=== PATIENT | male | born 1960 | race Caucasian/White ===

== ENCOUNTER 2023-10-13 06:38 | Emergency (ER) | payer BC, SELFPAY ==
--- NOTE | ~2023-10-13 | XR_ITS ---
Cervical Spine: AP, lateral, open-mouth views Clinical History: Pain Findings: The normal lordotic curve is maintained. No acute fracture seen. There is 5 mm anterolisthe sis of C2 over C3. There is minimal grade 1 retrolisthesis of C4 over C5. There is advanced degenerat zay disc narrowing at C3-C4, C4-C5, C5-C6, and C6-C7. Mild facet joint degenerative changes are prese nt. Pre-vertebral soft tissues are unremarkable. Impression: Moderate to advanced spondylosis, as above. 5 mm anterolisthesis of C2 over C3. Reviewed, dictated and finalized at location M. Impression: Moderate to advanced spondylosis, as above. 5 mm anterolisthesis of C2 over C3.
[2023-10-13 06:40] VITALS: BP 175/99; PULSE 96; RESP 15; TEMP 37.1; O2SAT 98
[2023-10-13] MEDS: CYCLOBENZAPRINE HCL 10 MG TABLET PO (07:21)
--- NOTE | 2023-10-13 07:37 | ED_ITS ---
HPI - Neck Pain/Injury General Chief Complaint: Neck Pain/Injury Stated Complaint: neck pain Time Seen by Provider: 10/13/23 07:20 History of Present Illness HPI Narrative: Patient is a 63-year-old male who presents ER with neck pain. Ongoing over last week. Improves with ibuprofen but when he wakes up in the morning it is much worse. Has pain with range of motion. No numbness or tingling to the arms or legs. Has history of rheumatoid arthritis which is not currently being managed he is concerned he could be having a flare. No fevers or chills or sweats. No known trauma. Related Data Allergies Allergy/AdvReac Type Severity Reaction Status Date / Time No Known Allergies Allergy Unknown Verified 10/13/23 07:21 Review of Systems Constitutional: Constitutional: Reports no additional constitutional complaints ENT: Reports system reviewed and no additional complaints, except as do cumented Cardiovascular: Cardiovascular: Reports no additional cardiovascular complaints Respiratory: Respiratory: Reports no additional respiratory complaints Musculoskeletal: Musculoskeletal: Denies back pain, Denies arthralgias and Den ies joint swelling Comments: Neck pain PMFSH Past Medical History Medical History (Updated 10/13/23 @ 07:40 by William Bright MD) Alcohol abuse Arthralgia of both hands BPH w/o urinary obs/LUTS Essential (primary) hypertension Hyperlipidemia, unspecified Rheumatoid arthritis Family History Family History (System 12/21/22 @ 12:08 by Bill Hightower) Mother Hypertension Family history of elevated blood lipids Cerebrovascular accident Sibling Family history of gastrointestinal disorder Patient's sister is in good health Father Acute myocardial infarction, Onset Age: 69 Patient's father is Family history of liver disease Social History Social History (System 12/21/22 @ 12:08 by Bill Hightower) Smoking status: Never smoker Second hand tobacco smoke exposure: Yes Alcohol intake: current Substance use type: marijuana Exam Narrative: GENERAL: Well-appearing, well-nourished, and in no acute distress. HEAD: Normocephalic, atraumatic. ENT: Mucous membranes moist. NECK: Supple. No midline tenderness the C-spine. Mild paraspinal muscle tenderness of the trapezius musculature. CHEST: Clear to auscultation. No respiratory distress. HEART: Regular rate and rhythm. Normal peripheral pulses. EXTREMITIES: Normal range of motion. No edema. NEURO: Alert and oriented x3. PSYCH: Normal mood and affect. Course Course Emergency Course: Informed of imaging results. Patient given muscle relaxer to take in addition to prednisone that will be prescribed for home. Recommend reestablishing with his care team. Vital Signs Vital signs: Vital Signs Temperature 98.8 F 10/13/23 06:40 Pulse Rate 96 10/13/23 06:40 Respiratory Rate 15 10/13/23 06:40 Blood Pressure 175/99 H 10/13/23 06:40 Pulse Oximetry 98 10/13/23 06:40 Oxygen Delivery Room Air 10/13/23 06:40 Temperature 98.8 F 10/13/23 06:40 Pulse Rate 96 10/13/23 06:40 Respiratory Rate 15 10/13/23 06:40 Blood Pressure 175/99 H 10/13/23 06:40 Pulse Oximetry 98 10/13/23 06:40 Oxygen Delivery Room Air 10/13/23 06:40 MDM - Neck Pain/Injury Imaging Data Radiologist's impression: ITS Impressions Cervical Spine X-Ray 10/13/23 07:25 Impression: Moderate to advanced spondylosis, as above. 5 mm anterolisthesis of C2 over C3. Discharge Plan Discharge Clinical Impression: Strain of neck muscle Patient Disposition: Home, Self-Care Condition: Stable Instructions: Neck Pain (ED) Additional Instructions: Please return to the emergency department if you develop severe pain that is not controlled by pain medications or if you are unable to walk because of pain or weakness. Return to the emergency department immediately if you develop fevers, loss of bowel or bladder control (dribbling of urine or having accidents you wouldn't normally have), inability to urinate, numbness of your genital or anal area, or weakness/numbness of your legs or arms as these could all be signs of a serious medical emergency. Prescriptions: New cyclobenzaprine 10 mg tablet 10 mg PO TID PRN (Reason: muscle spasm) Qty: 20 0RF prednisone 50 mg tablet 50 mg PO DAILY Qty: 7 0RF Follow-up/Referrals: UNKNOWN,DOCTOR [Primary Care Provider] - 1 Week
== END 2023-10-13 08:23 | disposition home or self-care (01) ==
PROVIDERS: Emergency Provider Emergency Medicine
DX: S16.1XXA Strain of muscle, fascia and tendon at neck level, initial encounter (principal); I10 Essential (primary) hypertension; E78.5 Hyperlipidemia, unspecified; M06.9 Rheumatoid arthritis, unspecified; N40.0 Benign prostatic hyperplasia without lower urinary tract symptoms; M47.812 Spondylosis without myelopathy or radiculopathy, cervical region; X58.XXXA Exposure to other specified factors, initial encounter
CPT/HCPCS: 72040; 99283; A9270

== ENCOUNTER 2024-06-29 15:17 | Observation (INO) | payer BC, SELFPAY ==
--- NOTE | ~2024-06-29 | XR_ITS ---
XR chest 2V Ordering provider: Tj Maldonado MD History: 64 years Male with . Chest Pressure/SOB . Comparison: April 20, 2018. FINDINGS: MEDIASTINUM: The cardiac silhouette is not enlarged. LUNGS: No effusions or pneumothorax. Opacification in the left lung base medially OTHER: No free air under the diaphragm. Degenerative changes of the spine. Elevation of the left hemidiaphragm. IMPRESSION: Left basilar atelectasis versus pneumonia. Reviewed, dictated and finalized at location A. R RAT
--- NOTE | ~2024-06-29 | CT_ITS ---
CTA chest PE protocol Ordering provider: Gurvinder Jimenes MD History: 64 years Male with . dyspnea chest pain eval for PE . Comparison: None. Technique: CT angiogram chest was performed following timed intravenous injection of contrast. Thin s lice axial images and reformatted coronal images were obtained. Three dimensional reformatted images of the chest were also obtained using a [employer] workstation. . Automated exposure control and iterati ve reconstruction technique were employed. The dose-length product was 396.88 mGy-cm. 100 mL Omnipaqu e 350 was given IV. Findings: PULMONARY ARTERIES: No pulmonary embolus. VISUALIZED THORACIC INLET: Normal. MEDIASTINUM: Aorta/coronary arteries: The thoracic aorta is normal. Heart/other: The heart is not enlarged. Lymph nodes: No mediastinal or hilar adenopathy. LUNGS: No pulmonary nodules or masses. No infiltrates or effusions. No pneumothorax. Minimal atelectatic alvin nges in the left lung base. VISUALIZED UPPER ABDOMEN: the visualized upper abdomen is normal. MUSCULOSKELETAL: Soft tissues: The superficial soft tissues are normal. Bones: Age appropriate degenerative changes of the spine. Healing fractures in the right lower thorax . IMPRESSION: 1. No pulmonary embolism. 2. Minimal atelectatic changes in the left lung base. Reviewed, dictated and finalized at location A. R [employer] ENGINEER
[2024-06-29 15:19] VITALS: BP 171/107; PULSE 103; RESP 22; TEMP 36.4; O2SAT 97
--- NOTE | 2024-06-29 15:24 | ECG_ITS ---
Test Date: 2024-06-29 15:34:21 Measurements Intervals [place] Rate: 103 P: 0 OK: 0 QRS: 9 QRSD: 85 T: 35 QT: 305 QTc: 399 Interpretive Statements PROBABLE SINUS TACHYCARDIA. BASELINE ARTIFACT LIMITS INTERPRETATION NONSPECIFIC T-WAVE ABNORMALITY No previous ECG available for comparison Electronically Signed On 07-03-2024 15:51:29 [employer] by Miya Rao M.D.
[2024-06-29 15:42] LABS: Basophils Percent Auto 0.4 % (0.2-1.2); Eosinophils Absolute Auto 0.1 K/mm3 (0-0.3); Eosinophils Percent Auto 1.5 % (0-4.4); Hematocrit 49.3 % (42.0-52.0); Hemoglobin 17.3 g/dL (14.0-18.0); Immature Granulocyte Absolute 0.02 K/mm3 (0.00-0.031); Immature Granulocyte Percent A 0.4 % (0-0.5); Lymphocytes Absolute Auto 0.43 K/mm3 (0.9-3.2); Mean Corpuscular HGB Conc 35.1 g/dl (32-36); Mean Corpuscular Hemoglobin 33.9 pg (26-34); Mean Corpuscular Volume 96.7 fl (80-100); Mean Platelet Volume 9.1 fl (7.4-10.4); Monocytes Absolute Auto 0.7 K/mm3 (0.1-0.6); Monocytes Percent Auto 13.4 % (2.6-8.5); Neutrophils Absolute Auto 4.1 K/mm3 (1.3-6.7); Neutrophils Percent Auto 76.3 % (45.5-73.1); Platelet Count Result 150 k/mm3 (150-375); Red Cell Distribution Width 11.7 % (11.5-14.5); White Blood Count 5.4 K/mm3 (4.5-10.0)
[2024-06-29 15:52] LABS: Alanine Aminotransferase 39 U/L (6-50); Albumin Level 4.7 g/dL (3.5-5.1); Alkaline Phosphatase 74 U/L (38-126); Anion Gap 5 mmol/L (4-12); Aspartate Amino Transferase 54 U/L (17-59); Bilirubin,Total 0.9 mg/dL (0.2-1.3); Blood Urea Nitrogen 14 mg/dL (9-20); Carbon Dioxide 27 mmol/L (22-30); Chloride 104 mmol/L (98-107); Estimated CRCL calculation 67 ml/min; Estimated Glomerular Filt Rate > 60; Glucose 94 mg/dL (65-110); Lipase 74 U/L (23-300); Potassium 4.2 mmol/L (3.4-5.0); Sodium 136 mmol/L (137-145)
[2024-06-29 15:54] LABS: Prothrombin Time 13.1 Seconds (11.1-14.7)
[2024-06-29 15:55] LABS: Partial Thromboplastin Time 29.5 Seconds (22.3-36.8)
[2024-06-29 16:02] LABS: Troponin I < 0.012 ng/mL (0.000-0.034)
[2024-06-29] MEDS: ASPIRIN 81 MG CHEWABLE TABLET 324 MG PO (19:24)
[2024-06-29 19:26] VITALS: BP 162/116; PULSE 110; RESP 20; TEMP 37; O2SAT 97
[2024-06-29 19:49] LABS: Troponin I < 0.012 ng/mL (0.000-0.034)
[2024-06-29] MEDS: IPRATROPIUM 0.5 MG/ALBUTEROL SULFATE 2.5 MG AMPUL.NEB 3 ML INHALATION (19:50)
[2024-06-29 19:55] VITALS: PULSE 111; RESP 24
[2024-06-29 20:04] LABS: Alveolar/Arterial O2 Gradient 104.1 mmHg; Base Excess ABG -2.5 mEq/l (+/-2.0); Device NASAL CANNULA; Fractional Inspired Oxygen 32 %; HCO3 ABG 20.5 mEq/l (22.0-26.0); Modified Allen's Test Pass; Oxygen Content ABG 24.7 %vol (16.0-22.0); Oxygen Saturation ABG 96.9 % (95.0-100.0); Oxyhemoglobin 96.5 % THb (90.0-100.0); PCO2 ABG 31.7 mmHg (35.0-45.0); PO2 FiO2 Ratio Arterial Blood 2.72 %; Site Drawn RIGHT RADIAL; Total Hemoglobin 18.2 g/dL (12.0-18.0); pH ABG 7.428 (7.350-7.450)
[2024-06-29 21:47] LABS: Lactic Acid Reflex 1.3 mmol/L (0.7-2.0)
[2024-06-29] MEDS: methylPREDNISolone SOD SUCC 125 MG VIAL IV PUSH (21:55)
[2024-06-29 21:56] VITALS: BP 139/105; PULSE 111; RESP 22; TEMP 36.9; O2SAT 96
[2024-06-29 21:57] LABS: NT Pro B Type Natriuretic Pept 78 pg/mL (19.9-100)
--- NOTE | 2024-06-29 21:58 | ED.GENADULT ---
HPI - General Adult General Chief complaint: Shortness of Breath/Dyspnea Stated complaint: SOB Time Seen by Provider: 06/29/24 19:14 History of Present Illness HPI narrative: patient is a 64-year-old gentleman who presents emergency department chief complaint of shortness of breath. The patient reports he smokes a pack a day reports that over the last 3 days has been having increasing shortness of breath worse whenever he lays flat the patient reports he has had a cough and also has been wheezing. The patient denies fever reports that he has not been previously diagnosed with COPD. Related Data Allergies Allergy/AdvReac Type Severity Reaction Status Date / Time No Known Allergies Allergy Unknown Verified 10/13/23 07:21 Review of Systems Review of Systems: A 10 system review of systems was completed on the patient and is negative except for what is stated in the HPI. Nursing and ancillary documentation was reviewed. PMFSH Past Medical History Medical History Rheumatoid arthritis Hyperlipidemia, unspecified Essential (primary) hypertension BPH w/o urinary obs/LUTS Arthralgia of both hands Alcohol abuse Family History Family History Mother Hypertension Family history of elevated blood lipids Cerebrovascular accident Sibling Family history of gastrointestinal disorder Patient's sister is in good health Father Acute myocardial infarction, Onset Age: 69 Patient's father is Family history of liver disease Social History Social History Smoking status: Never smoker Second hand tobacco smoke exposure: Yes Alcohol intake: current Substance use type: marijuana Exam Narrative: GENERAL: Well-appearing, well-nourished, and in no acute distress. HEAD: Normocephalic, atraumatic. EYES: PERRLA and EOMI. ENT: Nares clear, no rhinorrhea or epistaxis. Mucous membranes moist. NECK: Supple. CHEST: scattered wheezes to auscultation. Mild respiratory distress. HEART: tachycardic rate and regular rhythm. No murmur heard. Normal peripheral pulses. ABDOMEN: Soft, nontender, nondistended, normal active bowel sounds. EXTREMITIES: Normal range of motion. No edema. SKIN: Warm, dry, no rash. NEURO: No focal deficits. Alert and oriented x3. PSYCH: Normal mood and affect. Course Vital Signs Vital signs: Vital Signs Temperature 36.4 C L 01/04/25 15:19 Pulse Rate 103 H 06/29/24 15:19 Respiratory Rate 22 H 06/29/24 15:19 Blood Pressure 171/107 H 06/29/24 15:19 Pulse Oximetry 97 06/29/24 15:19 Oxygen Delivery Room Air 06/29/24 15:19 Temperature 36.9 C 06/29/24 21:56 Pulse Rate 105 H 06/29/24 22:16 Respiratory Rate 19 06/29/24 22:16 Blood Pressure 162/112 H 06/29/24 22:16 Pulse Oximetry 97 06/29/24 22:16 Oxygen Delivery Room Air 06/29/24 19:39 Medical Decision Making MDM Narrative Medical decision making narrative: differential diagnosis includes pneumonia, COPD, CHF, bronchospasm, ACS EKG was obtained which showed sinus tachycardia. Troponin was negative on initial chest x-ray showed no focal consolidation. CTA chest showed no evidence of PE and influenza was positive the patient was admitted for further care Vital Signs Vital Signs: Vital Signs Temperature 36.4 C L 06/29/24 15:19 Pulse Rate 103 H 06/29/24 15:19 Respiratory Rate 22 H 06/29/24 15:19 Blood Pressure 171/107 H 06/29/24 15:19 Pulse Oximetry 97 06/29/24 15:19 Oxygen Delivery Room Air 06/29/24 15:19 Temperature 36.9 C 06/29/24 21:56 Pulse Rate 105 H 06/29/24 22:16 Respiratory Rate 19 06/29/24 22:16 Blood Pressure 162/112 H 06/29/24 22:16 Pulse Oximetry 97 06/29/24 22:16 Oxygen Delivery Room Air 06/29/24 19:39 Lab Data 06/29/24 15:33 06/29/24 15:33 Labs: Lab Results 06/29/24 06/29/24 06/29/24 Range/Units 15:33 19:18 21:31 WBC 5.4 (4.5-10.0) K/mm3 RBC 5.10 (4.6-6.20) M/mm3 Hgb 17.3 (14.0-18.0) g/dL Hct 49.3 (42.0-52.0) % MCV 96.7 (80-100) fl MCH 33.9 (26-34) pg MCHC 35.1 (32-36) g/dl RDW 11.7 (11.5-14.5) % Plt Count 150 (150-375) k/mm3 MPV 9.1 (7.4-10.4) fl Immature Gran % (Auto) 0.4 (0-0.5) % Neut % (Auto) 76.3 H (45.5-73.1) % Lymph % (Auto) 8.0 L (18.3-44.2) % [place] % (Auto) 13.4 H (2.6-8.5) % Eos % (Auto) 1.5 (0-4.4) % Baso % (Auto) 0.4 (0.2-1.2) % Lymph # (Auto) 0.43 L (0.9-3.2) K/mm3 [place] # (Auto) 0.7 H (0.1-0.6) K/mm3 Eos # (Auto) 0.1 (0-0.3) K/mm3 Baso # (Auto) 0.0 (0.0-0.1) K/mm3 Abs Immat Gran (auto) 0.02 (0.00-0.031) K/mm3 Absolute Neuts (auto) 4.1 (1.3-6.7) K/mm3 Absolute Nucleated RBC 0.000 (0.0-0.012) K/mm3 Nucleated RBC % 0.0 (0.0-0.2) % PT 13.1 (11.1-14.7) Seconds INR 1.0 APTT 29.5 (22.3-36.8) Seconds Sodium 136 L (137-145) mmol/L Potassium 4.2 (3.4-5.0) mmol/L Chloride 104 (98-107) mmol/L Carbon Dioxide 27 (22-30) mmol/L Anion Gap 5 (4-12) mmol/L BUN 14 (9-20) mg/dL Creatinine 1.00 (0.7-1.3) mg/dL Estim Creat Clear Calc 67 ml/min Estimated GFR > 60 (59 - ) Glucose 94 (65-110) mg/dL Lactic Acid 1.3 (0.7-2.0) mmol/L Calcium 9.0 (8.4-10.2) mg/dL Total Bilirubin 0.9 (0.2-1.3) mg/dL AST 54 (17-59) U/L ALT 39 (6-50) U/L Alkaline Phosphatase 74 (38-126) U/L Troponin I < 0.012 < 0.012 < 0.012 (0.000-0.034) ng/mL NT-Pro-B Natriuret Pep 78 (19.9-100) pg/mL Total Protein 8.0 (6.3-8.2) g/dL Albumin 4.7 (3.5-5.1) g/dL Lipase 74 (23-300) U/L Influenza A (RT-PCR) Positive A (Negative) Influenza B (RT-PCR) Negative (Negative) RSV (RT-PCR) Negative (Negative) SARS-CoV-2 RNA (RT-PCR) Negative (Negative) ABG Data ABG results: 06/29/24 19:51 Puncture Site Right radial ABG pH 7.428 ABG pCO2 31.7 L ABG pO2 87.0 ABG PO2/FiO2 Ratio 2.72 ABG HCO3 20.5 L ABG O2 Saturation 96.9 ABG O2 Content 24.7 H ABG Base Excess -2.5 A-a Gradient 104.1 Oxyhemoglobin 96.5 Total Hemoglobin 18.2 H O2 Delivery Device Nasal cannula O2 Liters/Min 3.0 FiO2 32 Discharge Plan Discharge Clinical Impression: Acute dyspnea, Influenza A Patient Disposition: Still a Patient Condition: Stable Patient Language: Sudanese Prescriptions: No Action cyclobenzaprine 10 mg tablet 10 mg PO TID PRN (Reason: muscle spasm) Qty: 20 0RF prednisone 50 mg tablet 50 mg PO DAILY Qty: 7 0RF Follow-up/Referrals: Dave,MD Torsten [Primary Care Provider] - Time of Disposition: 22:24
[2024-06-29] MEDS: KETOROLAC 15 MG/ML VIAL (*BKC) IV PUSH (22:10)
[2024-06-29 22:12] LABS: Influenza A QL RT-PCR Positive (Negative); Influenza B QL RT-PCR Negative (Negative); RSV RNA, RT-PCR Negative (Negative); SARS-CoV-2 RNA PCR Negative (Negative)
[2024-06-29 22:16] VITALS: BP 162/112; PULSE 105; RESP 19; O2SAT 97
[2024-06-29 22:16] LABS: Troponin I < 0.012 ng/mL (0.000-0.034)
[2024-06-29] MEDS: OSELTAMIVIR PHOSPHATE 75 MG CAPSULE PO (22:34)
[2024-06-29 22:55] VITALS: BP 155/98; PULSE 109; RESP 20; TEMP 36.8; O2SAT 97
[2024-06-29 23:34] VITALS: BMI 26.3
[2024-06-30 00:44] VITALS: BP 167/98; PULSE 95; RESP 18; TEMP 36.6; O2SAT 93
[2024-06-30] MEDS: IPRATROPIUM 0.5 MG/ALBUTEROL SULFATE 2.5 MG AMPUL.NEB 3 ML INHALATION ×2 (02:15→09:54)
[2024-06-30 02:25] VITALS: PULSE 107; RESP 20
[2024-06-30 02:34] VITALS: PULSE 105; PULSE 107; RESP 20; O2SAT 94
[2024-06-30 06:00] VITALS: BP 155/104; PULSE 91; RESP 18; TEMP 36.6; O2SAT 95
[2024-06-30] MEDS: methylPREDNISolone SOD SUCC 125 MG VIAL 60 MG IV PUSH (06:13)
--- NOTE | 2024-06-30 06:20 | P.HP_ITS ---
H&P: HPI History of Present Illness Date/Time: 06/30/24 06:20 Chief Complaint: Difficulty breathing for 3 days Narrative: 64-year-old male with past medical history of chronic tobacco use, chronic alcohol use, essential hypertension with medication noncompliance and rheumatoid arthritis who presented to the ER from home with complaints of shortness of breath for 3 days. The patient reports that he has been having cough that is nonproductive for 3 days associated with increasing weakness and shortness of breath. Shortness of breath is present at rest with tachypnea and worse with ambulation. He denies having any fevers or chills. He denies any ill contacts. He did not receive his influenza vaccine this year. He is on Xeljanz for his rheumatoid arthritis. He does have known essential hypertension in is non compliant with his lisinopril. He has not had his lisinopril in 6 months he stopped without discussing with his primary care physician. His blood pressures were elevated into the 160s on arrival to the ER. He denies any chest pain or palpitations. He does drink 5-10 beers 4-6 days out of the week but he does occasionally go for intervals of 3-5 days without drinking alcohol in denies any tremors, anxiety or irritability. He continues to smoke 1 pack of cigarettes per day. He denies known history of COPD but has never had pulmonary function testing. He states that he does wheeze on every day basis but has been wheezing more so tense he has been ill. He had been having some mild sore throat that has since resolved. He reports significant improvement in his symptoms since he received Solu-Medrol, Toradol, and DuoNeb in the ER. He does not have any inhalers at home. He did have a course of prednisone sometime during the summer. Review of Systems 2 Review of Systems: 12 systems were reviewed with pertinent positives and negatives per HPI. Except as documented in the HPI, all other systems were reviewed and are negative. [facility] Past Medical History Medical History Continuous tobacco abuse Rheumatoid arthritis Hyperlipidemia, unspecified Essential (primary) hypertension BPH w/o urinary obs/LUTS Arthralgia of both hands Alcohol abuse Surgical History Surgical History (Updated 06/30/24 @ 08:20 by Alexandria Joyner DO) History of tonsillectomy and adenoidectomy Family History Family History Mother Hypertension Family history of elevated blood lipids Cerebrovascular accident Sibling Family history of gastrointestinal disorder Patient's sister is in good health Father Acute myocardial infarction, Onset Age: 69 Patient's father is Family history of liver disease Social History Social History (Updated 06/30/24 @ 08:22 by Alexandria Joyner DO) Social History: Patient is . He and his brother live together. He has 2 sons (age 40 in 42 years old). He is retired from the [employer] for a [employer]. He drinks about 10 beers day for 5 days a week. He has smoked a pack of cigarettes per day since he was a teenager. He smokes marijuana. Code status: Full code Surrogate decision maker: Brian (brother) Smoking packs per day: 1 Smoking cigarettes per day: 20.0 Years smoked: 45 Smoking pack-years: 45.00 Smoking status: Current every day smoker Tobacco type: cigarettes Second hand tobacco smoke exposure: Yes Alcohol intake: current Drinks per week: 50 Substance use: current Substance use type: marijuana Other substance usage details: 50 beers a week, Daily marijuana Do You Feel Safe in your Home?: Yes Lack of Transportation: YES Lack of Food: Sometimes True Current Housing: I Have Housing Concerned About Future Housing: No Difficulty Paying Gas/Electric Bills: No Difficulty Paying for Meds: No Currently Unemployed: No Education: High School Diploma/GED Difficulty w/ Childcare or Family Care: No Spiritual care concerns: No Meds Home Medications and Allergies Home Medications ?Medication ?Instructions ?Recorded ?Confirmed ?Type tofacitinib 11 mg tablet,extended 11 mg PO Q24H 06/29/24 06/29/24 History release 24 hr (Xeljanz XR) Allergies Allergy/AdvReac Type Severity Reaction Status Date / Time No Known Allergies Allergy Unknown Verified 06/29/24 22:36 Vital Signs Vital Signs - 24 hr 06/29/24 15:19 06/29/24 19:26 06/29/24 19:39 Temperature 97.5 F L 98.6 F Pulse Rate 103 H 110 H Respiratory Rate 22 H 20 Blood Pressure 171/107 H 162/116 H Pulse Oximetry 97 97 Oxygen Delivery Room Air Room Air 06/29/24 19:55 06/29/24 21:56 06/29/24 22:16 Temperature 98.5 F Pulse Rate 111 H 111 H 105 H Respiratory Rate 24 H 22 H 19 Blood Pressure 139/105 H 162/112 H Pulse Oximetry 96 97 Oxygen Delivery 06/29/24 22:55 06/30/24 00:44 06/30/24 02:25 Temperature 98.3 F 98 F Pulse Rate 109 H 95 107 H Respiratory Rate 20 18 20 Blood Pressure 155/98 H 167/98 H Pulse Oximetry 97 93 Oxygen Delivery 06/30/24 02:34 06/30/24 02:34 06/30/24 06:00 Temperature 97.8 F Pulse Rate 105 H 107 H 91 Respiratory Rate 20 18 Blood Pressure 155/104 H Pulse Oximetry 94 95 Oxygen Delivery Room Air Exam 2 Narrative: Weight 80.9 kg BMI 26.3 H&P: Results Labs Labs: Laboratory Tests 06/29/24 15:33 06/29/24 15:33 06/29/24 06/29/24 06/29/24 15:33 19:18 19:51 WBC 5.4 RBC 5.10 Hgb 17.3 Hct 49.3 MCV 96.7 MCH 33.9 MCHC 35.1 RDW 11.7 Plt Count 150 MPV 9.1 Immature Gran % (Auto) 0.4 Neut % (Auto) 76.3 H Lymph % (Auto) 8.0 L [place] % (Auto) 13.4 H Eos % (Auto) 1.5 Baso % (Auto) 0.4 Lymph # (Auto) 0.43 L [place] # (Auto) 0.7 H Eos # (Auto) 0.1 Baso # (Auto) 0.0 Abs Immat Gran (auto) 0.02 Absolute Neuts (auto) 4.1 Absolute Nucleated RBC 0.000 Nucleated RBC % 0.0 PT 13.1 INR 1.0 APTT 29.5 Puncture Site Right radial ABG pH 7.428 ABG pCO2 31.7 L ABG pO2 87.0 ABG PO2/FiO2 Ratio 2.72 ABG HCO3 20.5 L ABG O2 Saturation 96.9 ABG O2 Content 24.7 H ABG Base Excess -2.5 A-a Gradient 104.1 Oxyhemoglobin 96.5 Total Hemoglobin 18.2 H O2 Delivery Device Nasal cannula O2 Liters/Min 3.0 FiO2 32 Sodium 136 L Potassium 4.2 Chloride 104 Carbon Dioxide 27 Anion Gap 5 BUN 14 Creatinine 1.00 Estim Creat Clear Calc 67 Estimated GFR > 60 Glucose 94 Lactic Acid Calcium 9.0 Total Bilirubin 0.9 AST 54 ALT 39 Alkaline Phosphatase 74 Troponin I < 0.012 < 0.012 NT-Pro-B Natriuret Pep Total Protein 8.0 Albumin 4.7 Lipase 74 Influenza A (RT-PCR) Influenza B (RT-PCR) RSV (RT-PCR) SARS-CoV-2 RNA (RT-PCR) 06/29/24 21:31 WBC RBC Hgb Hct MCV MCH MCHC RDW Plt Count MPV Immature Gran % (Auto) Neut % (Auto) Lymph % (Auto) [place] % (Auto) Eos % (Auto) Baso % (Auto) Lymph # (Auto) [place] # (Auto) Eos # (Auto) Baso # (Auto) Abs Immat Gran (auto) Absolute Neuts (auto) Absolute Nucleated RBC Nucleated RBC % PT INR APTT Puncture Site ABG pH ABG pCO2 ABG pO2 ABG PO2/FiO2 Ratio ABG HCO3 ABG O2 Saturation ABG O2 Content ABG Base Excess A-a Gradient Oxyhemoglobin Total Hemoglobin O2 Delivery Device O2 Liters/Min FiO2 Sodium Potassium Chloride Carbon Dioxide Anion Gap BUN Creatinine Estim Creat Clear Calc Estimated GFR Glucose Lactic Acid 1.3 Calcium Total Bilirubin AST ALT Alkaline Phosphatase Troponin I < 0.012 NT-Pro-B Natriuret Pep 78 Total Protein Albumin Lipase Influenza A (RT-PCR) Positive A Influenza B (RT-PCR) Negative RSV (RT-PCR) Negative SARS-CoV-2 RNA (RT-PCR) Negative Impressions Chest X-Ray 06/29/24 16:08 IMPRESSION: Left basilar atelectasis versus pneumonia. Chest CTA 06/29/24 20:45 IMPRESSION: 1. No pulmonary embolism. 2. Minimal atelectatic changes in the left lung base. EKG: Sinus tachycardia rate 103 QTC 399 nonspecific T-wave abnormality. Cardiology interpretation pending. All imaging and EKGs personally reviewed and interpreted. And unless stated otherwise agree with radiologic and cardiology interpretation. Assessment and Plan Assessment and plan (1) Influenza A: Code(s): J10.1 - Influenza due to other identified influenza virus with other respiratory manifestations Status: Acute (2) Acute bronchitis: Qualifiers: Bronchitis organism: other organism Qualified Code(s): J20.8 - Acute bronchitis due to other specified organisms Code(s): J20.9 - Acute bronchitis, unspecified Status: Acute (3) Alcohol abuse: Code(s): F10.10 - Alcohol abuse, uncomplicated Status: Acute (4) Continuous tobacco abuse: Code(s): Z72.0 - Tobacco use Status: Acute Plan Patient has acute bronchitis due to influenza a. Patient was started on Tamiflu. Scheduled nebulizer treatments. Will continue with symptomatic care including Tylenol as needed. Smoking cessation has been encouraged. He likely has some underlying COPD previously undiagnosed given his reports of chronic wheezing. Patient has improved significantly after 1 dose of IV steroids in the ER. Will transition patient to oral prednisone and will continue scheduled nebulizers. The patient reports he is still little bit lightheaded and has not had a chance to eat and is still had somewhat low fluid intake. I instructed patient to increase his oral fluid intake and try meal. He would be interested in possibly going home this afternoon given that he feels so much better as long as the inclement weather allows. Given acute illness will hold the patient's Xeljanz. The patient is adamant that he does not have any history of any symptoms of alcohol withdrawal in the past. He states that he has went several days in the past without having any tremors ulcer irritability. Will monitor for symptoms of withdrawal. Will place patient on some folic acid and thiamine supplementation. The patient has uncontrolled hypertension. Will place patient on lisinopril 20 mg p.o. daily. I encouraged the patient to follow with primary care physician and the importance of compliance with blood pressure medications. I did discuss the risks of uncontrolled hypertension including kidney disease/injury and stroke among other comorbidities. The patient reports with how ill he has been feeling he has at the point that he thinks he needs to consider quitting smoking. Tobacco cessation education has been provided. Will provide nicotine patch as needed for symptoms of withdrawal. Patient has been admitted as observation status. Quality VTE Prophylaxis VTE prophylaxis: pharmacologic ordered (Lovenox 40 mg subQ daily.) Hospitalist MIPS Advance Care Plan I have confirmed that the patient's Advanced Care Plan is present, code status is documented, or surrogate decision maker is listed in patient medical record.: Yes Medication Reconciliation I have utilized all available resources to obtain, update and review the patients current medications (includes all prescriptions, OTC, herbals, cannabis, and nutritional supplements).: Yes
[2024-06-30 09:57] VITALS: PULSE 92; RESP 20; O2SAT 95
[2024-06-30 10:07] VITALS: PULSE 96; RESP 20
[2024-06-30] MEDS: OSELTAMIVIR PHOSPHATE 75 MG CAPSULE PO (10:07)
[2024-06-30] MEDS: THIAMINE HCL 100 MG TABLET PO (10:08)
[2024-06-30] MEDS: predniSONE 20 MG TABLET 60 MG PO (10:08)
[2024-06-30] MEDS: FOLIC ACID 1 MG TABLET PO (10:08)
[2024-06-30] MEDS: lisinopriL 20 MG TABLET PO (10:08)
[2024-06-30] MEDS: ENOXAPARIN 40 MG/0.4 ML SYRINGE SUB-Q (10:09)
--- NOTE | 2024-06-30 11:50 | P.DS_ITS ---
DS: Admitting Diagnosis Discharge Date 06/30 Admitting Diagnosis sob DS: Discharge Diagnosis Discharge Diagnosis (1) Influenza A: Code(s): J10.1 - Influenza due to other identified influenza virus with other respiratory manifestations Status: Acute (2) Acute bronchitis: Qualifiers: Bronchitis organism: other organism Qualified Code(s): J20.8 - Acute bronchitis due to other specified organisms Code(s): J20.9 - Acute bronchitis, unspecified Status: Acute (3) Alcohol abuse: Code(s): F10.10 - Alcohol abuse, uncomplicated Status: Acute (4) Continuous tobacco abuse: Code(s): Z72.0 - Tobacco use Status: Acute DS: Summary Hospital Course Hospital Course: 64-year-old male with past medical history of chronic tobacco use, chronic alcohol use, essential hypertension with medication noncompliance and rheumatoid arthritis who presented to the ER from home with complaints of shortness of breath for 3 days. The patient reports that he has been having cough that is nonproductive for 3 days associated with increasing weakness and shortness of breath. Shortness of breath is present at rest with tachypnea and worse with ambulation. He denies having any fevers or chills. He denies any ill contacts. He did not receive his influenza vaccine this year. He is on Xeljanz for his rheumatoid arthritis. He does have known essential hypertension in is non compliant with his lisinopril. He has not had his lisinopril in 6 months he stopped without discussing with his primary care physician. His blood pressures were elevated into the 160s on arrival to the ER. He denies any chest pain or palpitations. He does drink 5-10 beers 4-6 days out of the week but he does occasionally go for intervals of 3-5 days without drinking alcohol in denies any tremors, anxiety or irritability. He continues to smoke 1 pack of cigarettes per day. He denies known history of COPD but has never had pulmonary function testing. He states that he does wheeze on every day basis but has been wheezing more so tense he has been ill. He had been having some mild sore throat that has since resolved. He reports significant improvement in his symptoms since he received Solu-Medrol, Toradol, and DuoNeb in the ER. He does not have any inhalers at home. Pt is seen and examined- he is in no resp distress and wants to go home.Dishcraged with tamiflu and instructions to f/u with PCP and pulm fir further workup Status at Discharge Functional status at discharge: independent ambulation Overall status at discharge: patient is progressing back to baseline Time Spent with Patient Time attestation: Total time spent providing and/or coordinating discharge services: Time spent: Greater than 30 minutes Exam Narrative: Weight 80.9 kg BMI 26.3 Const: General: comfortable Eyes: General: appearance normal, both eyes and all related structures Resp: Effort & Inspection: normal respiratory effort Auscultation: clear to auscultation bilaterally Cardio: Rate: regular rate Rhythm: regular rhythm GI: GI Palp: Yes Soft to palpation Auscultation: normal bowel sounds Skin: General skin exam: normal color Neuro: Motor exam (neuro): 5/5 motor strength present throughout Sensory Exam: normal sensation Extrem: General: normal to inspection DS: Data Data Completed and Pending Labs on day of discharge: Labs from last 24 hours 06/29/24 06/29/24 06/29/24 21:31 19:51 19:18 WBC RBC Hgb Hct MCV MCH MCHC RDW Plt Count MPV Immature Gran % (Auto) Neut % (Auto) Lymph % (Auto) [place] % (Auto) Eos % (Auto) Baso % (Auto) Lymph # (Auto) [place] # (Auto) Eos # (Auto) Baso # (Auto) Abs Immat Gran (auto) Absolute Neuts (auto) Absolute Nucleated RBC Nucleated RBC % PT INR APTT Puncture Site Right radial ABG pH 7.428 ABG pCO2 31.7 L ABG pO2 87.0 ABG PO2/FiO2 Ratio 2.72 ABG HCO3 20.5 L ABG O2 Saturation 96.9 ABG O2 Content 24.7 H ABG Base Excess -2.5 A-a Gradient 104.1 Oxyhemoglobin 96.5 Total Hemoglobin 18.2 H O2 Delivery Device Nasal cannula O2 Liters/Min 3.0 FiO2 32 Sodium Potassium Chloride Carbon Dioxide Anion Gap BUN Creatinine Estim Creat Clear Calc Estimated GFR Glucose Lactic Acid 1.3 Calcium Total Bilirubin AST ALT Alkaline Phosphatase Troponin I < 0.012 < 0.012 NT-Pro-B Natriuret Pep 78 Total Protein Albumin Lipase Influenza A (RT-PCR) Positive A Influenza B (RT-PCR) Negative RSV (RT-PCR) Negative SARS-CoV-2 RNA (RT-PCR) Negative 06/29/24 15:33 WBC 5.4 RBC 5.10 Hgb 17.3 Hct 49.3 MCV 96.7 MCH 33.9 MCHC 35.1 RDW 11.7 Plt Count 150 MPV 9.1 Immature Gran % (Auto) 0.4 Neut % (Auto) 76.3 H Lymph % (Auto) 8.0 L [place] % (Auto) 13.4 H Eos % (Auto) 1.5 Baso % (Auto) 0.4 Lymph # (Auto) 0.43 L [place] # (Auto) 0.7 H Eos # (Auto) 0.1 Baso # (Auto) 0.0 Abs Immat Gran (auto) 0.02 Absolute Neuts (auto) 4.1 Absolute Nucleated RBC 0.000 Nucleated RBC % 0.0 PT 13.1 INR 1.0 APTT 29.5 Puncture Site ABG pH ABG pCO2 ABG pO2 ABG PO2/FiO2 Ratio ABG HCO3 ABG O2 Saturation ABG O2 Content ABG Base Excess A-a Gradient Oxyhemoglobin Total Hemoglobin O2 Delivery Device O2 Liters/Min FiO2 Sodium 136 L Potassium 4.2 Chloride 104 Carbon Dioxide 27 Anion Gap 5 BUN 14 Creatinine 1.00 Estim Creat Clear Calc 67 Estimated GFR > 60 Glucose 94 Lactic Acid Calcium 9.0 Total Bilirubin 0.9 AST 54 ALT 39 Alkaline Phosphatase 74 Troponin I < 0.012 NT-Pro-B Natriuret Pep Total Protein 8.0 Albumin 4.7 Lipase 74 Influenza A (RT-PCR) Influenza B (RT-PCR) RSV (RT-PCR) SARS-CoV-2 RNA (RT-PCR) Discharge Plan Discharge Attending physician on discharge: Joseph Burt Discharging Clinician: Elicia Rosenberg Activity: no shower Diet: as tolerated and regular Discharge Instructions: please take the rest of your tamiflu- total course is 5 days of therapy. also the rest of steroid medication is sent for you as well- total therapy course 5 days. please f/u with pcp and watch put for those red flags as we discussed: persistent fever, increased shortness of breath, chest pain. take albuterol inhaler every 4 hours if needed for wheezing. Patient Language: Urdu Follow-up/Referrals: Dave,MD Torsten [Primary Care Provider] - 1 Week Discharge Medications: New prednisone 20 mg Tablet 40 mg PO DAILY@0800 Qty: 4 0RF oseltamivir [Tamiflu] 75 mg Capsule 75 mg PO Q12HR Qty: 8 0RF albuterol sulfate 90 mcg/actuation HFA aerosol inhaler 1 inh inhalation QID PRN (Reason: shortness of breath or wheezing) Qty: 6.7 0RF Continued Xeljanz XR 11 mg tablet extended release 24 hr 11 mg PO Q24H Date of admission: 06/29/24 22:25 Primary Care Provider: JaceyTorsten Admitting Provider: Alexandria Joyner Attending physician on admission: Alexandria Joyner Condition: Stable Quality VTE Prophylaxis VTE prophylaxis: pharmacologic ordered (Lovenox 40 mg subQ daily.) Hospitalist MIPS Heart Failure (Exclusion) Patient has history of Heart Transplant or Left Ventricular Assistive Device?: No IF YES, STOP HERE Heart Failure (Qualifier) Patient has current or prior documentation of LVEF less than or equal to 40%, or mod/servere depressed LVSF?: No IF NO, STOP HERE
--- OUTSIDE RECORDS SUMMARY | 2024-07-06 23:40 | XMS_ITS | Encounter Summary ---
Author Organization [facility] Address [address] [place] [address] Phone Care Team Providers Care Psychiatric Aide Instructor Name Role Phone Orville Pryor MD Primary Care Provider [phone] Encounter Details Date Type Department Care Team (Late st Contact Info) Description 06/03/2020 Orders Only [facility] Rheumatology [address] 5[address] [place] [address] [place] [address] Juliocesar Mora MD PhD [address] [place], [place] [id number] Acute back pain with sciatica, left (Primary Dx); Chronic bilateral low back pain with bilateral sciatica Social History Tobacco Use Types Packs/Day Years Used Date Smoking Tobacco: Every Day Sex and Gender Information Value Date Recorded Sex Assigned at Not on file 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
--- OUTSIDE RECORDS SUMMARY | 2024-07-06 23:40 | XMS_ITS | Encounter Summary ---
Author Organization [facility] Address [address] [place] [address] Care Team Providers Care Media Arts Professor Name Role Phone Torsten Acosta MD Primary Care Provider [phone] Encounter Details Date Type Department Care Team (Latest Contact Info) Description 01/26/2024 9:46 AM CDT - 01/26/2024 11:59 PM CDT Hospital Encounter [address] [address] 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) (HCC) Discharge Disposition: Discharge to home or self care Social History Tobacco Use Types Packs/Day Years Used Date Smoking Tobacco: Every Day Sex and Gender Information Value Date Recorded Sex Assigned at Not on file 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 Gender Identity Not on file Sexual Orientation Not on file documented as of this encounter Medications at Time of Discharge atorvastatin (LIPITOR) 40 mg tablet Take 1 tablet (40 mg total) by mouth daily 90 tablet 3 10/23/2023 10/22/2024 carvediloL (COREG) 6.25 mg tablet Take 1 tablet (6.25 mg total) by mouth 2 (two) times a day 10/20/2023 hydroxychloroqui ne (PLAQUENIL) 200 mg tabletIndication s:Rheumatoid Arthritis Take 2 tablets (400 mg total) by mouth daily 60 tablet 5 01/26/2024 07/24/2024 lidocaine (LIDODERM) 5 % Place 1 patch on the skin daily Remove & discard patch within 12 hours or as directed by . 30 patch 3 01/26/2024 tofacitinib (Xeljanz XR) 11 mgIndications:Rh eumatoid 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 (CMS/HCC) (HCC) Take 1 tablet (11 mg total) by mouth daily 30 tablet 5 10/20/2023 07/04/2024 documented as of this encounter Discharge Disposition Disposition Code Departure Means Destination Discharge to home or self care documented in this encounter Plan of Treatment Not on file documented as of this encounter Procedures Procedure Name Priority Date/Time Associated Diagnosis Comments ERYTHROCYTE SEDIMENTATION RATE Routine 01/26/2024 9:46 AM CDT 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) (HCC) documented in this encounter Results * Erythrocyte sedimentation rate (01/26/2024 9:46 AM CDT) Erythrocyte sedimentation rate 8 1 - 20 mm/hr Blood 01/26/2024 9:46 AM CDT 01/26/2024 10:45 AM CDT us Hernandez Saravia MD LAB BLOOD ORDERABLES F inal Result [facility] Department [place] [address] documented in this encounter Visit Diagnoses Diagnosis 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) (HCC) documented in this encounter Care Teams Media Arts Professor Relationship Specialty Start Date End Date Torsten Acosta MD PCP - General Internal Medicine 09/04/20 documented as of this encounter
--- OUTSIDE RECORDS SUMMARY | 2024-07-06 23:40 | XMS_ITS | Encounter Summary ---
Author Organization [facility] Address [address] [place] [address] Phone Care Team Providers Care Parking Assistant Name Role Phone Torsten Acosta MD Primary Care Provider [phone] Encounter Details Date Type Department Care Team (Late st Contact Info) Description 10/29/2021 9:40 AM CDT Lab [facility] Endocrinology Metabolism and Lipid [address] [facility] 5[address] [place] [address] [place] [address] High risk medication use Social History Tobacco Use Types Packs/Day Years Used Date Smoking Tobacco: Every Day Sex and Gender Information Value Date Recorded Sex Assigned at Not on file 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 Gender Identity Not on file Sexual Orientation Not on file documented as of this encounter Plan of Treatment Not on file documented as of this encounter Procedures Procedure Name Priority Date/Time Associated Diagnosis Comments CBC WITH AUTO DIFFERENTIAL Routine 10/29/2021 9:48 AM CDT High risk medication use COMPREHENSIVE METABOLIC PANEL Routine 10/29/2021 9:48 AM CDT High risk medication use documented in this encounter Results * (ABNORMAL) CBC with auto differential (10/29/2021 9:48 AM CDT) White Blood Count 5.1 3.6 - 11.2 K/uL [facility] RBC 4.20 4.06 - 5.63 M/uL [facility] Hemoglobin 14.5 13.0 - 17.5 g/dL [facility] Hematocrit 41.3 40.7 - 50.3 % [facility] MCV 98.2(H) 80.0 - 97.6 fL [facility] MCH 34.6(H) 26.7 - 33.7 pg [facility] MCHC 35.2 32.7 - 35.5 g/dL [facility] RBC Dist Width 12.5 12.3 - 17.0 % [facility] Platelet Count 237 140 - 440 K/uL [facility] MPV 7.2 6.8 - 10.4 fL [facility] Neutrophils % 63.2 38.7 - 74.5 % [facility] Lymphocyte % 23.7 20.0 - 54.3 % [facility] Monocytes % 10.1 4.3 - 13.5 % [facility] Eosinophils % 2.1 0.0 - 6.0 % [facility] Basophil % 0.9 0.0 - 3.0 % [facility] Absolute Neutrophil 3.2 1.8 - 6.6 K/uL [facility] Absolute Lymphocyte 1.2 0.8 - 3.3 K/uL [facility] Absolute Monocyte 0.5 0.2 - 1.2 K/uL [facility] Absolute Eosinophil 0.1 0.0 - 0.5 K/uL [facility] Absolute Basophil 0.0 0.0 - 0.2 K/uL [facility] Nucleated RBC % 0.0 0.0 - 0.4 /100 WBC [facility] Blood specimen (specimen) 10/29/2021 9:48 AM CDT 10/29/2021 10:19 AM CDT us Can Chelsy Mora MD PhD LAB BLOOD ORDERABLES Final Result [facility] * (ABNORMAL) Comprehensive metabolic panel (10/29/2021 9:48 AM CDT) Total Protein 7.1 6.1 - 8.4 g/dL [facility] Albumin 4.6 3.5 - 5.2 g/dL [facility] Calcium 9.4 8.6 - 10.3 mg/dL [facility] BUN 18 7 - 23 mg/dL [facility] Total Bilirubin 0.21 0.20 - 1.40 mg/dL [facility] Alk Phos, Total 72 35 - 129 IU/L [facility] AST (SGOT) 23 11 - 47 IU/L [facility] ALT (SGPT) 14 6 - 53 IU/L [facility] Creatinine 1.10 0.70 - 1.30 mg/dL [facility] Sodium 140 135 - 145 mmol/L [facility] Potassium 4.4 3.3 - 5.1 mmol/L [facility] Chloride 106 95 - 107 mmol/L [facility] CO2 Content 20(L) 21 - 29 mmol/L [facility] Glucose 87 64 - 99 mg/dL [facility] Comment: NONFASTING GLUCOSE RANGE = 64-199 mg/dL FASTING GLUCOSE 64 - 99 = NORMAL FASTING GLUCOSE 100 - 125 = IMPAIRED FASTING GLUCOSE FASTING GLUCOSE >=126 = PROVISIONAL DIAGNOSIS OF DIABETES eGFR 76.9 >60.0 mL/min/1.7 3 m2 [facility] Comment:eGFR updated to new CKD-EPI (2020) calculation without race on 05/10/21. Blood specimen (specimen) 10/29/2021 9:48 AM CDT 10/29/2021 10:19 AM CDT us Can Chelsy Mora MD PhD LAB BLOOD ORDERABLES Final Result [facility] documented in this encounter Visit Diagnoses Diagnosis High risk medication use documented in this encounter Care Teams Parking Assistant Relationship Specialty Start Date End Date Torsten Acosta MD PCP - General Internal Medicine 09/04/20 documented as of this encounter
--- OUTSIDE RECORDS SUMMARY | 2024-07-06 23:40 | XMS_ITS | Encounter Summary ---
Author Organization [facility] Address [address] [place] [address] Phone Care Team Providers Care Fingernail Sculptor Name Role Phone Orville Pryor MD Primary Care Provider [phone] Encounter Details Date Type Department Care Team (Late st Contact Info) Description 07/31/2020 Telephone [facility] Rheumatology [address] [place] [address] 5th [place] [address] [place] [address] Yanelis Wilson CMA Social History Tobacco Use Types Packs/Day Years Used Date Smoking Tobacco: Every Day Sex and Gender Information Value Date Recorded Sex Assigned at Not on file 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 No further PA activity needed HER FORECASTER * Telephone Encounter - Yanelis Wilson CMA - 07/31/2020 8:49 AM CST PA needed for SSZ for RA. HER FORECASTER documented in this encounter Plan of Treatment Not on file documented as of this encounter Visit Diagnoses Not on filedocumented in this encounter Discontinued Medications Medication Sig Discontinue Reason Start Date End Da te sulfaSALAzine (AZULFIDINE) 500 mg tabletIndications:Rheuma toid Arthritis Take 3 tablets (1,500 mg total) by mouth 2 (two) times a day Reorder 07/31/2020 07/31/2020 documented as of this encounter Care Teams Fingernail Sculptor Relationship Specialty Start Date End Date Orville Pryor MD [address] [place] [address] PCP - General 05/03/18 09/03/20 documented as of this encounter
--- OUTSIDE RECORDS SUMMARY | 2024-07-06 23:40 | XMS_ITS | Encounter Summary ---
Author Organization [facility] Address [address] [place] [address] Phone Care Team Providers Care Freight Service Inspector Name Role Phone Orville Pryor MD Primary Care Provider [phone] Encounter Details Date Type Department Care Team (Late st Contact Info) Description 06/03/2020 Orders Only [facility] Rheumatology [address] [facility] 5th [place] [address] [place] [address] Juliocesar Mora MD PhD [address] [place] [address] Chronic bilateral low back pain with bilateral sciatica (Primary Dx) Social History Tobacco Use Types Packs/Day Years Used Date Smoking Tobacco: Every Day Sex and Gender Information Value Date Recorded Sex Assigned at Not on file 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
--- OUTSIDE RECORDS SUMMARY | 2024-07-06 23:40 | XMS_ITS | Encounter Summary ---
Author Organization [facility] Address [address] [place] [address] Phone Care Team Providers Care Solar Energy Consultant And Designer Name Role Phone Orville Pryor MD Primary Care Provider [phone]- [phone] Encounter Details Date Type Department Care Team (Late st Contact Info) Description 06/07/2019 Telephone [facility] Scheduling [address] [place] [address] Juliocesar Mora MD PhD [address] [place] [address] Social History Tobacco Use Types Packs/Day Years Used Date Smoking Tobacco: Every Day Sex and Gender Information Value Date Recorded Sex Assigned at Not on file 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 No further PA activity needed. Y LEVEL * Telephone Encounter - Yoly Sylvester COA - 06/07/2019 11:15 AM ENTRY LEVEL ----- Message from Juliocesar Mora MD PhD sent at 06/07/2019 10:07 AM ENTRY LEVEL ----- Regarding: prior auth for Lenny Ocasio, Can you please send a prior auth for Xewarren? He has failed SSZ and Humira with possible reaction to Humira and TNF inhibitors. Thank you. Juliocesar Mora Y LEVEL documented in this encounter Plan of Treatment Not on file documented as of this encounter Visit Diagnoses Not on filedocumented in this encounter Care Teams Solar Energy Consultant And Designer Relationship Specialty Start Date End Date Orville Pryor MD [address] [place] [address] PCP - General 05/03/18 09/03/20 documented as of this encounter
--- OUTSIDE RECORDS SUMMARY | 2024-07-06 23:40 | XMS_ITS | Encounter Summary ---
Author Organization [facility] Address [address] [place] [address] Phone Care Team Providers Care Ip Network Architect Name Role Phone Torsten Acosta MD Primary Care Provider + [phone] Encounter Details Date Type Department Care Team (Late st Contact Info) Description 10/20/2023 9:20 AM CDT Lab [facility] Endocrinology Metabolism and Lipid [address] [facility] 5th [place] [address] [place] [address] 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) (HCC) Social History Tobacco Use Types Packs/Day Years Used Date Smoking Tobacco: Every Day Sex and Gender Information Value Date Recorded Sex Assigned at Not on file 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 Gender Identity Not on file Sexual Orientation Not on file documented as of this encounter Plan of Treatment Not on file documented as of this encounter Procedures Procedure Name Priority Date/Time Associated Diagnosis Comments CBC WITH AUTO DIFFERENTIAL Routine 10/20/2023 9:05 AM CDT 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) (HCC) CRP (ACUTE PHASE) Routine 10/20/2023 9:0 5 AM CDT 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) (HCC) LIPID PANEL Routine 10/20/2023 9:05 AM CDT 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) (HCC) COMPREHENSIVE METABOLIC PANEL Routine 10/20/2023 9:05 AM CDT 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) (HCC) documented in this encounter Results * Lipid panel (10/20/2023 9:05 AM CDT) Triglycerides 78 <150 mg/dL [facility] Comment: Desirable: <150 mg/dL, fasting <175 mg/dL, non-fasting Persistently elevated triglycerides may enhance atherosclerotic cardiovascular disease. Total Cholesterol 198 <200 mg/dL [facility] Total HDL-C Direct 94 >40 mg/dL [facility] Comment:Repeated and Verifie d Non-HDL cholesterol 104 <220 mg/dL [facility] [place] LDL Chol 88 <190 mg/dL [facility] Blood 10/20/2023 9:0 5 AM CDT 10/20/2023 9:35 AM CDT Narrative [facility] - 10/20/2023 11:53 AM CDT Current interpretive data was last updated May 28, 2021. For adults ages 40-79, the ACC/AHA recommends discussing your 10-year atherosclerotic cardiovascular disease risk with your health care provider. ??https://www.acc.org/ASCVDApp Hernandez Saravia MD LAB BLOOD ORDERABLES F inal Result [facility] * CRP (acute phase) (10/20/2023 9:05 AM CDT) C-Reactive Protein, Acute <3.0 <5.0 mg/L [facility] Blood 10/20/2023 9:05 AM CDT 10/20/2023 9:35 AM CDT Hernandez Saravia MD LAB BLOOD ORDERABLES F inal Result [facility] * (ABNORMAL) Comprehensive metabolic panel (10/20/2023 9:05 AM CDT) Total Protein 7.8 6.1 - 8.4 g/dL [facility] Albumin 4.4 3.5 - 5.2 g/dL [facility] Calcium 9.7 8.6 - 10.3 mg/dL [facility] BUN 24(H) 7 - 23 mg/dL [facility] Total Bilirubin 0.50 0.20 - 1.40 mg/dL [facility] Alk Phos, Total 78 35 - 129 IU/L [facility] AST (SGOT) 19 11 - 47 IU/L [facility] ALT (SGPT) 17 6 - 53 IU/L [facility] Creatinine 0.99 0.70 - 1.30 mg/dL [facility] Sodium 142 135 - 145 mmol/L [facility] Potassium 4.3 3.3 - 5.1 mmol/L [facility] Chloride 105 95 - 107 mmol/L [facility] CO2 Content 25 21 - 29 mmol/L [facility] Glucose 90 64 - 99 mg/dL [facility] Comment: NONFASTING GLUCOSE RANGE = 64-199 mg/dL FASTING GLUCOSE 64 - 99 = NORMAL FASTING GLUCOSE 100 - 125 = IMPAIRED FASTING GLUCOSE FASTING GLUCOSE >=126 = PROVISIONAL DIAGNOSIS OF DIABETES eGFR 86.1 >60.0 mL/min/1.7 3 m2 [facility] Blood 10/20/2023 9:05 AM CDT 10/20/2023 9:35 AM CDT us Hernandez Saravia MD LAB BLOOD ORDERABLES F inal Result [facility] * (ABNORMAL) CBC with auto differential (10/20/2023 9:05 AM CDT) White Blood Count 8.5 3.6 - 11.2 K/uL [facility] RBC 4.94 4.06 - 5.63 M/uL [facility] Hemoglobin 16.9 13.0 - 17.5 g/dL [facility] Comment:Repeated and Verifie d Hematocrit 49.2 40.7 - 50.3 % [facility] Comment:Repeated and Verifie d MCV 99.6(H) 80.0 - 97.6 fL [facility] MCH 34.2(H) 26.7 - 33.7 pg [facility] MCHC 34.4 32.7 - 35.5 g/dL [facility] RBC Dist Width 13.1 12.3 - 17.0 % [facility] Platelet Count 247 140 - 440 K/uL [facility] MPV 7.1 6.8 - 10.4 fL [facility] Neutrophils % 64.7 38.7 - 74.5 % [facility] Lymphocyte % 21.3 20.0 - 54.3 % [facility] Monocytes % 12.3 4.3 - 13.5 % [facility] Eosinophils % 1.3 0.0 - 6.0 % [facility] Basophil % 0.4 0.0 - 3.0 % [facility] Absolute Neutrophil 5.5 1.8 - 6.6 K/uL [facility] Absolute Lymphocyte 1.8 0.8 - 3.3 K/uL [facility] Absolute Monocyte 1.1 0.2 - 1.2 K/uL [facility] Absolute Eosinophil 0.1 0.0 - 0.5 K/uL [facility] Absolute Basophil 0.0 0.0 - 0.2 K/uL [facility] Nucleated RBC % 0.1 0.0 - 0.4 /100 WBC [facility] Blood 10/20/2023 9:05 AM CDT 10/20/2023 9:35 AM CDT Hernandez Saravia MD LAB BLOOD ORDERABLES F inal Result [facility] documented in this encounter Visit Diagnoses Diagnosis 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) (HCC) documented in this encounter Care Teams Ip Network Architect Relationship Specialty Start Date End Date Torsten Acosta MD PCP - General Internal Medicine 09/04/20 documented as of this encounter
--- OUTSIDE RECORDS SUMMARY | 2024-07-06 23:40 | XMS_ITS | Encounter Summary ---
Author Organization [facility] Address [address] [place] [address] Phone Care Team Providers Care Crime Scene Evidence Technician Name Role Phone Orville Pryor MD Primary Care Provider [phone] Encounter Details Date Type Department Care Team (Late st Contact Info) Description 06/03/2020 Telephone [facility] Internal Medicine [address] [place] [address] [place] [address] Yanelis Wilson CMA Social History Tobacco Use Types Packs/Day Years Used Date Smoking Tobacco: Every Day Sex and Gender Information Value Date Recorded Sex Assigned at Not on file 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 ITE HEATER * Telephone Encounter - Yoly Sylvester COA - 06/03/2020 10:36 AM LEADITE HEATER Xeljanz XR 11 mg Status: Not Required per [facility] No further action required. ITE HEATER ITE HEATER * Telephone Encounter - Yanelis Wilson CMA - 06/03/2020 10:21 AM CST PA needed for Xeljanz 11mg q D ITE HEATER documented in this encounter Plan of Treatment Not on file documented as of this encounter Visit Diagnoses Not on filedocumented in this encounter Care Teams Crime Scene Evidence Technician Relationship Specialty Start Date End Date Orville Pryor MD [address] [place] [address] PCP - General 05/03/18 09/03/20 documented as of this encounter
--- OUTSIDE RECORDS SUMMARY | 2024-07-06 23:40 | XMS_ITS | Encounter Summary ---
Author Organization [facility] Address [address] [place] [address] Phone Care Team Providers Care Skiver Operator Name Role Phone Torsten Acosta MD Primary Care Provider + [phone] Encounter Details Date Type Department Care Team (Late st Contact Info) Description 01/06/[address] 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 90 capsule 3 01/06/2021 4 documented in this encounter Progress Notes * Juliocesar Mora MD PhD - 01/06/2021 10:00 AM CDT Patient with shingles affecting around T9/T10 on left side of abdomen. Has had one shingrix administration but was not able to get the 2nd due to pandemic and had not obtained the 2nd one. Patient onXeljanz as well. Patient seen by physician and given antiviral. Advised use of wet rag to help withsymptoms and prescribed gabapentin for the neuropathic pain. documented in this encounter Plan of Treatment Not on file documented as of this encounter Visit Diagnoses Not on filedocumented in this encounter Care Teams Skiver Operator Relationship Specialty Start Date End Date Torsten Acosta MD PCP - General Internal Medicine 09/04/20 documented as of this encounter
--- OUTSIDE RECORDS SUMMARY | 2024-07-06 23:40 | XMS_ITS | Encounter Summary ---
Author Organization [facility] Address [address] [place] [address] Phone Care Team Providers Care Senior Research Fellow Name Role Phone Orville Pryor MD Primary Care Provider [phone] Encounter Details Date Type Department Care Team (Late st Contact Info) Description 05/13/2020 Orders Only [facility] Rheumatology [address] [facility] 5th [place] [address] [place] [address] Juliocesar Mora MD PhD [address] [place], [place] [id number] Chronic bilateral low back pain with bilateral sciatica (Primary Dx) Social History Tobacco Use Types Packs/Day Years Used Date Smoking Tobacco: Every Day Sex and Gender Information Value Date Recorded Sex Assigned at Not on file 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 Will schedule for IR steroid injection into lumbar spine and with PT ERSHIP COUNSELOR documented in this encounter Plan of Treatment Not on file documented as of this encounter Visit Diagnoses Diagnosis Chronic bilateral low back pain with bilateral sciatica- Primary documented in this encounter Care Teams Senior Research Fellow Relationship Specialty Start Date End Date Orville Pryor MD [address] [place] [address] PCP - General 05/03/18 09/03/20 documented as of this encounter
--- OUTSIDE RECORDS SUMMARY | 2024-07-06 23:40 | XMS_ITS | Encounter Summary ---
Author Organization [facility] Address [address] [place] [address] Phone Care Team Providers Care Cloak Room Attendant Name Role Phone Torsten Acosta MD Primary Care Provider [phone] Encounter Details Date Type Department Care Team (Late st Contact Info) Description 10/24/2023 Telephone [facility] Rheumatology [address] [facility] Advanced Medicine 5th [place] [address] [place] [id number] Hernandez Saravia MD [address] [place], [place] [id number] Social History Tobacco Use Types Packs/Day Years Used Date Smoking Tobacco: Every Day Sex and Gender Information Value Date Recorded Sex Assigned at Not on file 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 Gender Identity Not on file Sexual Orientation Not on file documented as of this encounter Miscellaneous Notes * Telephone Encounter - Karla Abdalla RMA - 10/30/2023 4:14 PM CDT Patient notified via [employer] message * Telephone Encounter - [place] - 10/25/2023 11:32 AM CDT [place]; [id number] Xeljanz XR 11MG [facility]--[id number] Status: approved Coverage Start Date:09/25/2023; Coverage End Date:10/24/2024; * Telephone Encounter - Karla Abdalla RMA - 10/24/2023 4:50 PM CDT Please see provider's recent note (Assessment and Plan) for additional information needed for the prior authorization Name of drug? Xeljanz XR Strength of drug? 11mg Frequency of drug? Daily Day's supply/quantity? 30 day supply Continuation of therapy or new start? Continuation of therapy documented in this encounter Plan of Treatment Not on file documented as of this encounter Visit Diagnoses Not on filedocumented in this encounter Care Teams Cloak Room Attendant Relationship Specialty Start Date End Date Torsten Acosta MD PCP - General Internal Medicine 09/04/20 documented as of this encounter
--- OUTSIDE RECORDS SUMMARY | 2024-07-06 23:40 | XMS_ITS | Encounter Summary ---
Author Organization [facility] Address [address] [place] [address] Care Team Providers Care Life Skills Coordinator Name Role Phone Orville Pryor MD Primary Care Provider [phone] Reason for Visit * Diagnostic Imaging (Routine) - Closed Specialty Diagnoses / Procedures Referred By Contsofia t Referred To Contact Diagnoses 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) (HCC) Procedures XR Ankle Right 3 or More Views Juliocesar Mora MD PhD [address] [place] [address] Phone: tel: fax: [facility] Referral ID Status Reason Start Date Expiration Date Visits Re quested Visits Authorized [id number] Closed 06/07/2019 12/16/2020 1 1 Encounter Details Date Type Department Care Team (Latest Contact Info) Description 06/07/2019 10:38 AM OPTICAL SALES ASSOCIATE - 06/07/2019 11:59 PM OPTICAL SALES ASSOCIATE Hospital Encounter [facility] [address] [place] [address] Juliocesar Mora MD PhD [address] [place] [address] Discharge Disposition: Discharge to home or self care Social History Tobacco Use Types Packs/Day Years Used Date Smoking Tobacco: Every Day Sex and Gender Information Value Date Recorded Sex Assigned at Not on file Legal Sex Male 6:45 AM OPTICAL SALES ASSOCIATE Gender Identity Not on file Sexual Orientation Not on file documented as of this encounter Medications at Time of Discharge celecoxib (CeleBREX) 200 mg capsule Take 1 capsule (200 mg total) by mouth daily 30 capsule 5 02/08/2019 0 hydrocortisone 2.5 % ointment Apply topically 2 (two) times a day 30 g 1 06/07/2019 1 predniSONE (DELTASONE) 10 mg tabletIndication s:autoimmune disease take 3 tabs daily for week, 2 tabs daily for a week, then 1 tab daily for 2 weeks 49 tablet 06/07/2019 0 sulfaSALAzine (AZULFIDINE) 500 mg tabletIndication s:Rheumatoid Arthritis Take 3 tablets (1,500 mg total) by mouth 2 (two) times a day 180 tablet 11 06/07/2019 0 tofacitinib (XELJANZ XR) 11 mg Take 1 tablet (11 mg total) by mouth daily 30 tablet 11 06/07/2019 0 documented as of this encounter Discharge Disposition Disposition Code Departure Means Destination Discharge to home or self care documented in this encounter Plan of Treatment Not on file documented as of this encounter Procedures Procedure Name Priority Date/Time Associated Diagnosis Comments XR ANKLE RIGHT 3 OR MORE VIEWS Schedule Routine, Read Routine (OP Routine) 06/07/2019 10:51 AM [employer]ICAL SALES ASSOCIATE 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) XR ANKLE LEFT 3 OR MORE VIEWS Schedule Routine, Read Routine (OP Routine) 06/07/2019 10:51 AM OPTICAL SALES ASSOCIATE 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) XR WRIST LEFT 3 OR MORE VIEWS Schedule Routine, Read Routine (OP Routine) 06/07/2019 10:51 AM OPTICAL SALES ASSOCIATE 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) XR WRIST RIGHT 3 OR MORE VIEWS Schedule Routine, Read Routine (OP Routine) 06/07/2019 10:51 AM OPTICAL SALES ASSOCIATE 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) XR HAND RIGHT 3 OR MORE VIEWS Schedule Routine, Read Routine (OP Routine) 06/07/2019 10:51 AM OPTICAL SALES ASSOCIATE 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) XR HAND LEFT 3 OR MORE VIEWS Schedule Routine, Read Routine (OP Routine) 06/07/2019 10:51 AM OPTICAL SALES ASSOCIATE 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) documented in this encounter Results * XR Ankle Right 3 or More Views (06/07/2019 10:51 AM OPTICAL SALES ASSOCIATE) Anatomical Region Laterality Modality Lower Extremities, Ankle Right Compute d Radiography 06/07/2019 11:0 0 AM OPTICAL SALES ASSOCIATE Impressions 06/07/2019 11:00 AM OPTICAL SALES ASSOCIATE 1. ??Unchanged right third metacarpal phalangeal joint erosive arthropathy with the palmar subluxation as well as second and fourth metacarpal head and long and index finger proximal phalanx erosions. 2. Unchanged left third metacarpophalangeal joint uniform joint space narrowing with second and third metacarpophalangeal joint capsular distention. These findings are consistent with inflammatory arthritis. Electronically signed by: Torsten Mendoza M.D. Narrative 06/07/2019 11:00 AM OPTICAL SALES ASSOCIATE EXAMINATION: 1. ??Left and 3+ views 2. Right hand 3+ views 3. Right wrist 3+ views 4. Left wrist 3+ views 5. Left ankle 3+ views 6. Right ankle 3+ views HISTORY: ??Rheumatoid arthritis FINDINGS: 3 views each ankle nonweightbearing, and 3 views each hand and wrist submitted with comparison 10/12/2018. Right hand/wrist: There is severe erosive arthropathy involving the third metacarpophalangeal joint with palmar subluxation with erosions of the second metacarpal heads as well as the long and index finger proximal phalanx heads are unchanged. No carpal erosions are identified. There are no fractures. There is mild first metacarpal phalangeal and small finger proximal interphalangeal joint osteoarthritis. There is no dorsal wrist soft tissue swelling. Left hand/wrist: Uniform joint space narrowing of the third metacarpophalangeal joint with capsular distention of the second and third metacarpophalangeal joint is present. No new erosions are identified. There are no fractures. Moderate basal thumb, mild first metacarpal phalangeal and thumb and index finger interphalangeal joint osteoarthritis is present. There is no dorsal wrist soft tissue swelling. Right ankle: There are no erosions. There are no fractures. There is mild soft tissue swelling about the ankle. The ankle joint space and mortise are normal. Large plantar calcaneal spur is present. There is suggestion of pes planovalgus on this nonweightbearing exam with midfoot osteoarthritis. There is no effusion at the talonavicular joint. Left ankle: There are no erosions. There are no fractures. Ankle joint space and mortise are normal. There is no evidence of an ankle effusion. Moderate size plantar calcaneal spur is present. There is suggestion of pes planovalgus on this nonweightbearing exam with talonavicular joint effusion. Procedure Note Torsten Menodza MD - 06/07/2019 EXAMINATION: 1. Left and 3+ views 2. Right hand 3+ views 3. Right wrist 3+ views 4. Left wrist 3+ views 5. Left ankle 3+ views 6. Right ankle 3+ views HISTORY: Rheumatoid arthritis FINDINGS: 3 views each ankle nonweightbearing, and 3 views each hand and wrist submitted with comparison 10/12/2018. Right hand/wrist: There is severe erosive arthropathy involving the third metacarpophalangeal joint with palmar subluxation with erosions of the second metacarpal heads as well as the long and index finger proximal phalanx heads are unchanged. No carpal erosions are identified. There are no fractures. There is mild first metacarpal phalangeal and small finger proximal interphalangeal joint osteoarthritis. There is no dorsal wrist soft tissue swelling. Left hand/wrist: Uniform joint space narrowing of the third metacarpophalangeal joint with capsular distention of the second and third metacarpophalangeal joint is present. No new erosions are identified. There are no fractures. Moderate basal thumb, mild first metacarpal phalangeal and thumb and index finger interphalangeal joint osteoarthritis is present. There is no dorsal wrist soft tissue swelling. Right ankle: There are no erosions. There are no fractures. There is mild soft tissue swelling about the ankle. The ankle joint space and mortise are normal. Large plantar calcaneal spur is present. There is suggestion of pes planovalgus on this nonweightbearing exam with midfoot osteoarthritis. There is no effusion at the talonavicular joint. Left ankle: There are no erosions. There are no fractures. Ankle joint space and mortise are normal. There is no evidence of an ankle effusion. Moderate size plantar calcaneal spur is present. There is suggestion of pes planovalgus on this nonweightbearing exam with talonavicular joint effusion. IMPRESSION: 1. Unchanged right third metacarpal phalangeal joint erosive arthropathy with the palmar subluxation as well as second and fourth metacarpal head and long and index finger proximal phalanx erosions. 2. Unchanged left third metacarpophalangeal joint uniform joint space narrowing with second and third metacarpophalangeal joint capsular distention. These findings are consistent with inflammatory arthritis. Electronically signed by: Torsten Mendoza M.D. us Can Chelsy Mora MD PhD IMG XR PROCEDURES Fin al Result * XR Ankle Left 3 or More Views (06/07/2019 10:51 AM OPTICAL SALES ASSOCIATE) Anatomical Region Laterality Modality Lower Extremities, Ankle Left Compute d Radiography 06/07/2019 11:0 0 AM OPTICAL SALES ASSOCIATE Impressions 06/07/2019 11:00 AM OPTICAL SALES ASSOCIATE 1. ??Unchanged right third metacarpal phalangeal joint erosive arthropathy with the palmar subluxation as well as second and fourth metacarpal head and long and index finger proximal phalanx erosions. 2. Unchanged left third metacarpophalangeal joint uniform joint space narrowing with second and third metacarpophalangeal joint capsular distention. These findings are consistent with inflammatory arthritis. Electronically signed by: Torsten Mendoza M.D. Narrative 06/07/2019 11:00 AM OPTICAL SALES ASSOCIATE EXAMINATION: 1. ??Left and 3+ views 2. Right hand 3+ views 3. Right wrist 3+ views 4. Left wrist 3+ views 5. Left ankle 3+ views 6. Right ankle 3+ views HISTORY: ??Rheumatoid arthritis FINDINGS: 3 views each ankle nonweightbearing, and 3 views each hand and wrist submitted with comparison 10/12/2018. Right hand/wrist: There is severe erosive arthropathy involving the third metacarpophalangeal joint with palmar subluxation with erosions of the second metacarpal heads as well as the long and index finger proximal phalanx heads are unchanged. No carpal erosions are identified. There are no fractures. There is mild first metacarpal phalangeal and small finger proximal interphalangeal joint osteoarthritis. There is no dorsal wrist soft tissue swelling. Left hand/wrist: Uniform joint space narrowing of the third metacarpophalangeal joint with capsular distention of the second and third metacarpophalangeal joint is present. No new erosions are identified. There are no fractures. Moderate basal thumb, mild first metacarpal phalangeal and thumb and index finger interphalangeal joint osteoarthritis is present. There is no dorsal wrist soft tissue swelling. Right ankle: There are no erosions. There are no fractures. There is mild soft tissue swelling about the ankle. The ankle joint space and mortise are normal. Large plantar calcaneal spur is present. There is suggestion of pes planovalgus on this nonweightbearing exam with midfoot osteoarthritis. There is no effusion at the talonavicular joint. Left ankle: There are no erosions. There are no fractures. Ankle joint space and mortise are normal. There is no evidence of an ankle effusion. Moderate size plantar calcaneal spur is present. There is suggestion of pes planovalgus on this nonweightbearing exam with talonavicular joint effusion. Procedure Note Torsten Mendoza MD - 06/07/2019 EXAMINATION: 1. Left and 3+ views 2. Right hand 3+ views 3. Right wrist 3+ views 4. Left wrist 3+ views 5. Left ankle 3+ views 6. Right ankle 3+ views HISTORY: Rheumatoid arthritis FINDINGS: 3 views each ankle nonweightbearing, and 3 views each hand and wrist submitted with comparison 10/12/2018. Right hand/wrist: There is severe erosive arthropathy involving the third metacarpophalangeal joint with palmar subluxation with erosions of the second metacarpal heads as well as the long and index finger proximal phalanx heads are unchanged. No carpal erosions are identified. There are no fractures. There is mild first metacarpal phalangeal and small finger proximal interphalangeal joint osteoarthritis. There is no dorsal wrist soft tissue swelling. Left hand/wrist: Uniform joint space narrowing of the third metacarpophalangeal joint with capsular distention of the second and third metacarpophalangeal joint is present. No new erosions are identified. There are no fractures. Moderate basal thumb, mild first metacarpal phalangeal and thumb and index finger interphalangeal joint osteoarthritis is present. There is no dorsal wrist soft tissue swelling. Right ankle: There are no erosions. There are no fractures. There is mild soft tissue swelling about the ankle. The ankle joint space and mortise are normal. Large plantar calcaneal spur is present. There is suggestion of pes planovalgus on this nonweightbearing exam with midfoot osteoarthritis. There is no effusion at the talonavicular joint. Left ankle: There are no erosions. There are no fractures. Ankle joint space and mortise are normal. There is no evidence of an ankle effusion. Moderate size plantar calcaneal spur is present. There is suggestion of pes planovalgus on this nonweightbearing exam with talonavicular joint effusion. IMPRESSION: 1. Unchanged right third metacarpal phalangeal joint erosive arthropathy with the palmar subluxation as well as second and fourth metacarpal head and long and index finger proximal phalanx erosions. 2. Unchanged left third metacarpophalangeal joint uniform joint space narrowing with second and third metacarpophalangeal joint capsular distention. These findings are consistent with inflammatory arthritis. Electronically signed by: Torsten Mendoza M.D. us Can Chelsy Mora MD PhD IMG XR PROCEDURES Fin al Result * XR Wrist Left 3 or More Views (06/07/2019 10:51 AM OPTICAL SALES ASSOCIATE) Anatomical Region Laterality Modality Upper Extremities, Wrist Left Compute d Radiography 06/07/2019 11:0 0 AM OPTICAL SALES ASSOCIATE Impressions 06/07/2019 11:00 AM OPTICAL SALES ASSOCIATE 1. ??Unchanged right third metacarpal phalangeal joint erosive arthropathy with the palmar subluxation as well as second and fourth metacarpal head and long and index finger proximal phalanx erosions. 2. Unchanged left third metacarpophalangeal joint uniform joint space narrowing with second and third metacarpophalangeal joint capsular distention. These findings are consistent with inflammatory arthritis. Electronically signed by: Torsten Mendoza M.D. Narrative 06/07/2019 11:00 AM OPTICAL SALES ASSOCIATE EXAMINATION: 1. ??Left and 3+ views 2. Right hand 3+ views 3. Right wrist 3+ views 4. Left wrist 3+ views 5. Left ankle 3+ views 6. Right ankle 3+ views HISTORY: ??Rheumatoid arthritis FINDINGS: 3 views each ankle nonweightbearing, and 3 views each hand and wrist submitted with comparison 10/12/2018. Right hand/wrist: There is severe erosive arthropathy involving the third metacarpophalangeal joint with palmar subluxation with erosions of the second metacarpal heads as well as the long and index finger proximal phalanx heads are unchanged. No carpal erosions are identified. There are no fractures. There is mild first metacarpal phalangeal and small finger proximal interphalangeal joint osteoarthritis. There is no dorsal wrist soft tissue swelling. Left hand/wrist: Uniform joint space narrowing of the third metacarpophalangeal joint with capsular distention of the second and third metacarpophalangeal joint is present. No new erosions are identified. There are no fractures. Moderate basal thumb, mild first metacarpal phalangeal and thumb and index finger interphalangeal joint osteoarthritis is present. There is no dorsal wrist soft tissue swelling. Right ankle: There are no erosions. There are no fractures. There is mild soft tissue swelling about the ankle. The ankle joint space and mortise are normal. Large plantar calcaneal spur is present. There is suggestion of pes planovalgus on this nonweightbearing exam with midfoot osteoarthritis. There is no effusion at the talonavicular joint. Left ankle: There are no erosions. There are no fractures. Ankle joint space and mortise are normal. There is no evidence of an ankle effusion. Moderate size plantar calcaneal spur is present. There is suggestion of pes planovalgus on this nonweightbearing exam with talonavicular joint effusion. Procedure Note Torsten Mendoza MD - 06/07/2019 EXAMINATION: 1. Left and 3+ views 2. Right hand 3+ views 3. Right wrist 3+ views 4. Left wrist 3+ views 5. Left ankle 3+ views 6. Right ankle 3+ views HISTORY: Rheumatoid arthritis FINDINGS: 3 views each ankle nonweightbearing, and 3 views each hand and wrist submitted with comparison 10/12/2018. Right hand/wrist: There is severe erosive arthropathy involving the third metacarpophalangeal joint with palmar subluxation with erosions of the second metacarpal heads as well as the long and index finger proximal phalanx heads are unchanged. No carpal erosions are identified. There are no fractures. There is mild first metacarpal phalangeal and small finger proximal interphalangeal joint osteoarthritis. There is no dorsal wrist soft tissue swelling. Left hand/wrist: Uniform joint space narrowing of the third metacarpophalangeal joint with capsular distention of the second and third metacarpophalangeal joint is present. No new erosions are identified. There are no fractures. Moderate basal thumb, mild first metacarpal phalangeal and thumb and index finger interphalangeal joint osteoarthritis is present. There is no dorsal wrist soft tissue swelling. Right ankle: There are no erosions. There are no fractures. There is mild soft tissue swelling about the ankle. The ankle joint space and mortise are normal. Large plantar calcaneal spur is present. There is suggestion of pes planovalgus on this nonweightbearing exam with midfoot osteoarthritis. There is no effusion at the talonavicular joint. Left ankle: There are no erosions. There are no fractures. Ankle joint space and mortise are normal. There is no evidence of an ankle effusion. Moderate size plantar calcaneal spur is present. There is suggestion of pes planovalgus on this nonweightbearing exam with talonavicular joint effusion. IMPRESSION: 1. Unchanged right third metacarpal phalangeal joint erosive arthropathy with the palmar subluxation as well as second and fourth metacarpal head and long and index finger proximal phalanx erosions. 2. Unchanged left third metacarpophalangeal joint uniform joint space narrowing with second and third metacarpophalangeal joint capsular distention. These findings are consistent with inflammatory arthritis. Electronically signed by: Tortsen Mendoza M.D. us Can Chelsy Mora MD PhD IMG XR PROCEDURES Fin al Result * XR Wrist Right 3 or More Views (06/07/2019 10:51 AM OPTICAL SALES ASSOCIATE) Anatomical Region Laterality Modality Upper Extremities, Wrist Right Compute d Radiography 06/07/2019 11:0 0 AM OPTICAL SALES ASSOCIATE Impressions 06/07/2019 11:00 AM OPTICAL SALES ASSOCIATE 1. ??Unchanged right third metacarpal phalangeal joint erosive arthropathy with the palmar subluxation as well as second and fourth metacarpal head and long and index finger proximal phalanx erosions. 2. Unchanged left third metacarpophalangeal joint uniform joint space narrowing with second and third metacarpophalangeal joint capsular distention. These findings are consistent with inflammatory arthritis. Electronically signed by: Torsten Mendoza M.D. Narrative 06/07/2019 11:00 AM OPTICAL SALES ASSOCIATE EXAMINATION: 1. ??Left and 3+ views 2. Right hand 3+ views 3. Right wrist 3+ views 4. Left wrist 3+ views 5. Left ankle 3+ views 6. Right ankle 3+ views HISTORY: ??Rheumatoid arthritis FINDINGS: 3 views each ankle nonweightbearing, and 3 views each hand and wrist submitted with comparison 10/12/2018. Right hand/wrist: There is severe erosive arthropathy involving the third metacarpophalangeal joint with palmar subluxation with erosions of the second metacarpal heads as well as the long and index finger proximal phalanx heads are unchanged. No carpal erosions are identified. There are no fractures. There is mild first metacarpal phalangeal and small finger proximal interphalangeal joint osteoarthritis. There is no dorsal wrist soft tissue swelling. Left hand/wrist: Uniform joint space narrowing of the third metacarpophalangeal joint with capsular distention of the second and third metacarpophalangeal joint is present. No new erosions are identified. There are no fractures. Moderate basal thumb, mild first metacarpal phalangeal and thumb and index finger interphalangeal joint osteoarthritis is present. There is no dorsal wrist soft tissue swelling. Right ankle: There are no erosions. There are no fractures. There is mild soft tissue swelling about the ankle. The ankle joint space and mortise are normal. Large plantar calcaneal spur is present. There is suggestion of pes planovalgus on this nonweightbearing exam with midfoot osteoarthritis. There is no effusion at the talonavicular joint. Left ankle: There are no erosions. There are no fractures. Ankle joint space and mortise are normal. There is no evidence of an ankle effusion. Moderate size plantar calcaneal spur is present. There is suggestion of pes planovalgus on this nonweightbearing exam with talonavicular joint effusion. Procedure Note Torsten Mendoza MD - 06/07/2019 EXAMINATION: 1. Left and 3+ views 2. Right hand 3+ views 3. Right wrist 3+ views 4. Left wrist 3+ views 5. Left ankle 3+ views 6. Right ankle 3+ views HISTORY: Rheumatoid arthritis FINDINGS: 3 views each ankle nonweightbearing, and 3 views each hand and wrist submitted with comparison 10/12/2018. Right hand/wrist: There is severe erosive arthropathy involving the third metacarpophalangeal joint with palmar subluxation with erosions of the second metacarpal heads as well as the long and index finger proximal phalanx heads are unchanged. No carpal erosions are identified. There are no fractures. There is mild first metacarpal phalangeal and small finger proximal interphalangeal joint osteoarthritis. There is no dorsal wrist soft tissue swelling. Left hand/wrist: Uniform joint space narrowing of the third metacarpophalangeal joint with capsular distention of the second and third metacarpophalangeal joint is present. No new erosions are identified. There are no fractures. Moderate basal thumb, mild first metacarpal phalangeal and thumb and index finger interphalangeal joint osteoarthritis is present. There is no dorsal wrist soft tissue swelling. Right ankle: There are no erosions. There are no fractures. There is mild soft tissue swelling about the ankle. The ankle joint space and mortise are normal. Large plantar calcaneal spur is present. There is suggestion of pes planovalgus on this nonweightbearing exam with midfoot osteoarthritis. There is no effusion at the talonavicular joint. Left ankle: There are no erosions. There are no fractures. Ankle joint space and mortise are normal. There is no evidence of an ankle effusion. Moderate size plantar calcaneal spur is present. There is suggestion of pes planovalgus on this nonweightbearing exam with talonavicular joint effusion. IMPRESSION: 1. Unchanged right third metacarpal phalangeal joint erosive arthropathy with the palmar subluxation as well as second and fourth metacarpal head and long and index finger proximal phalanx erosions. 2. Unchanged left third metacarpophalangeal joint uniform joint space narrowing with second and third metacarpophalangeal joint capsular distention. These findings are consistent with inflammatory arthritis. Electronically signed by: Torsten Mendoza M.D. us Can Chelsy Mora MD PhD IMG XR PROCEDURES Fin al Result * XR Hand Right 3 or More Views (06/07/2019 10:51 AM OPTICAL SALES ASSOCIATE) Anatomical Region Laterality Modality Upper Extremities, Hand Right Computed Radiography 06/07/2019 11:0 0 AM OPTICAL SALES ASSOCIATE Impressions 06/07/2019 11:00 AM OPTICAL SALES ASSOCIATE 1. ??Unchanged right third metacarpal phalangeal joint erosive arthropathy with the palmar subluxation as well as second and fourth metacarpal head and long and index finger proximal phalanx erosions. 2. Unchanged left third metacarpophalangeal joint uniform joint space narrowing with second and third metacarpophalangeal joint capsular distention. These findings are consistent with inflammatory arthritis. Electronically signed by: Torsten Mendoza M.D. Narrative 06/07/2019 11:00 AM OPTICAL SALES ASSOCIATE EXAMINATION: 1. ??Left and 3+ views 2. Right hand 3+ views 3. Right wrist 3+ views 4. Left wrist 3+ views 5. Left ankle 3+ views 6. Right ankle 3+ views HISTORY: ??Rheumatoid arthritis FINDINGS: 3 views each ankle nonweightbearing, and 3 views each hand and wrist submitted with comparison 10/12/2018. Right hand/wrist: There is severe erosive arthropathy involving the third metacarpophalangeal joint with palmar subluxation with erosions of the second metacarpal heads as well as the long and index finger proximal phalanx heads are unchanged. No carpal erosions are identified. There are no fractures. There is mild first metacarpal phalangeal and small finger proximal interphalangeal joint osteoarthritis. There is no dorsal wrist soft tissue swelling. Left hand/wrist: Uniform joint space narrowing of the third metacarpophalangeal joint with capsular distention of the second and third metacarpophalangeal joint is present. No new erosions are identified. There are no fractures. Moderate basal thumb, mild first metacarpal phalangeal and thumb and index finger interphalangeal joint osteoarthritis is present. There is no dorsal wrist soft tissue swelling. Right ankle: There are no erosions. There are no fractures. There is mild soft tissue swelling about the ankle. The ankle joint space and mortise are normal. Large plantar calcaneal spur is present. There is suggestion of pes planovalgus on this nonweightbearing exam with midfoot osteoarthritis. There is no effusion at the talonavicular joint. Left ankle: There are no erosions. There are no fractures. Ankle joint space and mortise are normal. There is no evidence of an ankle effusion. Moderate size plantar calcaneal spur is present. There is suggestion of pes planovalgus on this nonweightbearing exam with talonavicular joint effusion. Procedure Note Torsten Mendoza MD - 06/07/2019 EXAMINATION: 1. Left and 3+ views 2. Right hand 3+ views 3. Right wrist 3+ views 4. Left wrist 3+ views 5. Left ankle 3+ views 6. Right ankle 3+ views HISTORY: Rheumatoid arthritis FINDINGS: 3 views each ankle nonweightbearing, and 3 views each hand and wrist submitted with comparison 10/12/2018. Right hand/wrist: There is severe erosive arthropathy involving the third metacarpophalangeal joint with palmar subluxation with erosions of the second metacarpal heads as well as the long and index finger proximal phalanx heads are unchanged. No carpal erosions are identified. There are no fractures. There is mild first metacarpal phalangeal and small finger proximal interphalangeal joint osteoarthritis. There is no dorsal wrist soft tissue swelling. Left hand/wrist: Uniform joint space narrowing of the third metacarpophalangeal joint with capsular distention of the second and third metacarpophalangeal joint is present. No new erosions are identified. There are no fractures. Moderate basal thumb, mild first metacarpal phalangeal and thumb and index finger interphalangeal joint osteoarthritis is present. There is no dorsal wrist soft tissue swelling. Right ankle: There are no erosions. There are no fractures. There is mild soft tissue swelling about the ankle. The ankle joint space and mortise are normal. Large plantar calcaneal spur is present. There is suggestion of pes planovalgus on this nonweightbearing exam with midfoot osteoarthritis. There is no effusion at the talonavicular joint. Left ankle: There are no erosions. There are no fractures. Ankle joint space and mortise are normal. There is no evidence of an ankle effusion. Moderate size plantar calcaneal spur is present. There is suggestion of pes planovalgus on this nonweightbearing exam with talonavicular joint effusion. IMPRESSION: 1. Unchanged right third metacarpal phalangeal joint erosive arthropathy with the palmar subluxation as well as second and fourth metacarpal head and long and index finger proximal phalanx erosions. 2. Unchanged left third metacarpophalangeal joint uniform joint space narrowing with second and third metacarpophalangeal joint capsular distention. These findings are consistent with inflammatory arthritis. Electronically signed by: Torsten Mendoza M.D. us Can Chelsy Mora MD PhD IMG XR PROCEDURES Fin al Result * XR Hand Left 3 or More Views (06/07/2019 10:51 AM OPTICAL SALES ASSOCIATE) Anatomical Region Laterality Modality Upper Extremities, Hand Left Computed Radiography 06/07/2019 11:0 0 AM OPTICAL SALES ASSOCIATE Impressions 06/07/2019 11:00 AM OPTICAL SALES ASSOCIATE 1. ??Unchanged right third metacarpal phalangeal joint erosive arthropathy with the palmar subluxation as well as second and fourth metacarpal head and long and index finger proximal phalanx erosions. 2. Unchanged left third metacarpophalangeal joint uniform joint space narrowing with second and third metacarpophalangeal joint capsular distention. These findings are consistent with inflammatory arthritis. Electronically signed by: Torsten Mendoza M.D. Narrative 06/07/2019 11:00 AM OPTICAL SALES ASSOCIATE EXAMINATION: 1. ??Left and 3+ views 2. Right hand 3+ views 3. Right wrist 3+ views 4. Left wrist 3+ views 5. Left ankle 3+ views 6. Right ankle 3+ views HISTORY: ??Rheumatoid arthritis FINDINGS: 3 views each ankle nonweightbearing, and 3 views each hand and wrist submitted with comparison 10/12/2018. Right hand/wrist: There is severe erosive arthropathy involving the third metacarpophalangeal joint with palmar subluxation with erosions of the second metacarpal heads as well as the long and index finger proximal phalanx heads are unchanged. No carpal erosions are identified. There are no fractures. There is mild first metacarpal phalangeal and small finger proximal interphalangeal joint osteoarthritis. There is no dorsal wrist soft tissue swelling. Left hand/wrist: Uniform joint space narrowing of the third metacarpophalangeal joint with capsular distention of the second and third metacarpophalangeal joint is present. No new erosions are identified. There are no fractures. Moderate basal thumb, mild first metacarpal phalangeal and thumb and index finger interphalangeal joint osteoarthritis is present. There is no dorsal wrist soft tissue swelling. Right ankle: There are no erosions. There are no fractures. There is mild soft tissue swelling about the ankle. The ankle joint space and mortise are normal. Large plantar calcaneal spur is present. There is suggestion of pes planovalgus on this nonweightbearing exam with midfoot osteoarthritis. There is no effusion at the talonavicular joint. Left ankle: There are no erosions. There are no fractures. Ankle joint space and mortise are normal. There is no evidence of an ankle effusion. Moderate size plantar calcaneal spur is present. There is suggestion of pes planovalgus on this nonweightbearing exam with talonavicular joint effusion. Procedure Note Torsten Mendoza MD - 06/07/2019 EXAMINATION: 1. Left and 3+ views 2. Right hand 3+ views 3. Right wrist 3+ views 4. Left wrist 3+ views 5. Left ankle 3+ views 6. Right ankle 3+ views HISTORY: Rheumatoid arthritis FINDINGS: 3 views each ankle nonweightbearing, and 3 views each hand and wrist submitted with comparison 10/12/2018. Right hand/wrist: There is severe erosive arthropathy involving the third metacarpophalangeal joint with palmar subluxation with erosions of the second metacarpal heads as well as the long and index finger proximal phalanx heads are unchanged. No carpal erosions are identified. There are no fractures. There is mild first metacarpal phalangeal and small finger proximal interphalangeal joint osteoarthritis. There is no dorsal wrist soft tissue swelling. Left hand/wrist: Uniform joint space narrowing of the third metacarpophalangeal joint with capsular distention of the second and third metacarpophalangeal joint is present. No new erosions are identified. There are no fractures. Moderate basal thumb, mild first metacarpal phalangeal and thumb and index finger interphalangeal joint osteoarthritis is present. There is no dorsal wrist soft tissue swelling. Right ankle: There are no erosions. There are no fractures. There is mild soft tissue swelling about the ankle. The ankle joint space and mortise are normal. Large plantar calcaneal spur is present. There is suggestion of pes planovalgus on this nonweightbearing exam with midfoot osteoarthritis. There is no effusion at the talonavicular joint. Left ankle: There are no erosions. There are no fractures. Ankle joint space and mortise are normal. There is no evidence of an ankle effusion. Moderate size plantar calcaneal spur is present. There is suggestion of pes planovalgus on this nonweightbearing exam with talonavicular joint effusion. IMPRESSION: 1. Unchanged right third metacarpal phalangeal joint erosive arthropathy with the palmar subluxation as well as second and fourth metacarpal head and long and index finger proximal phalanx erosions. 2. Unchanged left third metacarpophalangeal joint uniform joint space narrowing with second and third metacarpophalangeal joint capsular distention. These findings are consistent with inflammatory arthritis. Electronically signed by: Torsten Mendoza M.D. us Can Chelsy Mora MD PhD IMG XR PROCEDURES Fin al Result documented in this encounter Visit Diagnoses Not on filedocumented in this encounter Care Teams Life Skills Coordinator Relationship Specialty Start Date End Date Orville Pryor MD [address] [place] [address] PCP - General 05/03/18 09/03/20 documented as of this encounter
--- OUTSIDE RECORDS SUMMARY | 2024-07-06 23:40 | XMS_ITS | Encounter Summary ---
Author Organization [facility] Address [address] [place] [address] Phone Care Team Providers Care Pie Cutter Name Role Phone Torsten Acosta MD Primary Care Provider [phone] Encounter Details Date Type Department Care Team (Late st Contact Info) Description 09/29/2021 Orders Only [facility] Rheumatology [address] [facility] [address] [place] [address] [place] [id number] Juliocesar Mora MD PhD [address] [place] [address] Social History Tobacco Use Types Packs/Day Years Used Date Smoking Tobacco: Every Day Sex and Gender Information Value Date Recorded Sex Assigned at Not on file 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 Gender Identity Not on file Sexual Orientation Not on file documented as of this encounter Ordered Prescriptions Prescription Sig Dispense Quantity Refills Last Filled Start Date End Date tofacitinib (Xeljanz XR) 11 mgIndications:Rheu matoid Arthritis Take 1 tablet (11 mg total) by mouth daily 30 tablet 11 09/29/2021 3 sulfaSALAzine (AZULFIDINE) 500 mg tabletIndications: Rheumatoid Arthritis Take 3 tablets (1,500 mg total) by mouth 2 (two) times a day 540 tablet 3 09/29/2021 2 documented in this encounter Progress Notes * Juliocesar Mora MD PhD - 09/29/2021 1:17 PM CDT Patient with worsening symptoms and out of medications for months. Will resume Xeljanz and SSZ and patient to come in for labs and has appointment in a month. Has transportation set up and will be able to make that appointment. Was also sent prednisone to help with acute flare and patient to notify me of worsening or changingsymptoms. documented in this encounter Plan of Treatment Not on file documented as of this encounter Visit Diagnoses Not on filedocumented in this encounter Discontinued Medications Medication Sig Discontinue Reason Start Date End Da te predniSONE (DELTASONE) 10 mg tabletIndications:autoim mune disease Take 1 tablet (10 mg) by mouth daily As needed 07/31/2020 09/29/2021 sulfaSALAzine (AZULFIDINE) 500 mg tabletIndications:Rheuma toid Arthritis Take 3 tablets (1,500 mg total) by mouth 2 (two) times a day Reorder 07/31/2020 09/29/2021 tofacitinib (Xeljanz XR) 11 mgIndications:Rheumatoid Arthritis Take 1 tablet (11 mg total) by mouth daily Reorder 07/31/2020 09/29/2021 documented as of this encounter Care Teams Pie Cutter Relationship Specialty Start Date End Date Torsten Acosta MD PCP - General Internal Medicine 09/04/20 documented as of this encounter
--- OUTSIDE RECORDS SUMMARY | 2024-07-06 23:40 | XMS_ITS | Encounter Summary ---
Author Organization [facility] Address [address] [place] [address] Phone Care Team Providers Care Tricot Knitter Name Role Phone Orville Pryor MD Primary Care Provider [phone]- [phone] Reason for Referral * Diagnostic Imaging (Routine) - Closed Specialty Diagnoses / Procedures Referred By Contac t Referred To Contact Diagnoses Neck pain Procedures XR Spine Cervical W Flexion And Extension 4 or 5 Views Juliocesar Mora MD PhD Phone: tel: fax: [facility] Referral ID Status Reason Start Date Expiration Date Visits Re quested Visits Authorized [id number] Closed 05/08/2020 06/07/2021 1 1 VERY ROOM RN * Diagnostic Imaging (Routine) - Closed Specialty Diagnoses / Procedures Referred By Contac t Referred To Contact Diagnoses Chronic bilateral low back pain with bilateral sciatica Procedures XR Sacroiliac Joints 3 or More Views Juliocesar Mora MD PhD Phone: tel: fax: [facility] Referral ID Status Reason Start Date Expiration Date Visits Re quested Visits Authorized [id number] Closed 05/08/2020 06/07/2021 1 1 VERY ROOM RN * Diagnostic Imaging (Routine) - Closed Specialty Diagnoses / Procedures Referred By Contac t Referred To Contact Diagnoses Chronic bilateral low back pain with bilateral sciatica Procedures XR Spine Lumbar 4 or More Views Juliocesar Mora MD PhD Phone: tel: fax: [facility] Referral ID Status Reason Start Date Expiration Date Visits Re quested Visits Authorized [id number] Closed 05/08/2020 06/07/2021 1 1 VERY ROOM RN Encounter Details Date Type Department Care Team (Late st Contact Info) Description 05/08/2020 8:30 AM RECOVERY ROOM RN Telemedicine [facility] Rheumatology [facility] 5th [place] [address] [place] [address] Juliocesar Mora MD PhD [address] [place] [address] 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) (Primary Dx); High risk medication use; Alcohol abuse; Health care maintenance; Bilateral carpal tunnel syndrome; Chronic bilateral low back pain with bilateral sciatica; Neck pain Social History Tobacco Use Types Packs/Day Years Used Date Smoking Tobacco: Every Day Sex and Gender Information Value Date Recorded Sex Assigned at Not on file Legal Sex Male 6:45 AM RECOVERY ROOM RN Gender Identity Not on file Sexual Orientation Not on file documented as of this encounter Ordered Prescriptions Prescription Sig Dispense Quantity Refills Last Filled Start Date End Date predniSONE (DELTASONE) 10 mg tabletIndications: autoimmune disease Take 1 tablet (10 mg) by mouth daily As needed 30 tablet 1 05/08/2020 1 sulfaSALAzine (AZULFIDINE) 500 mg tabletIndications: Rheumatoid Arthritis Take 3 tablets (1,500 mg total) by mouth 2 (two) times a day 540 tablet 3 05/08/2020 1 tofacitinib (Xeljanz XR) 11 mg Take 1 tablet (11 mg total) by mouth daily 30 tablet 11 05/08/2020 1 diclofenac sodium (VOLTAREN) 1 % gelIndications:Ost eoarthritis Apply 2 g topically 3 (three) times a day Apply to arthritis joints PRN 2 Tube 2 05/08/2020 0 documented in this encounter Progress Notes * Juliocesar Mora MD PhD - 05/08/2020 8:30 AM CST Images from the original note were not included. Rheumatology Clinic Phone Visit PATIENT NAME: Aristeo Seals : 1960 HILDA: 05/08/2020 Chief Complaint: RA HPI: Aristeo eSals is a 59 y.o. male with a PMH of with seropositive RA, HTN, polysubstance abuse (alcohol, tobacco, and marijuana) who is here for f/u on RA and persistent right ankle pain and swelling. Last seen in clinic 09/20/19. Office visit converted to phone visit due to COVID-19 concern. Verified 2 forms of identifying information with patient. Patient was only person on the phone line. Patient verbally consented to have phone interview and visit with MA and physician separately. This was a telemedicine visit with Aristeo Seals alone which took place via Telephone. Duringthe visit, I was located in the office and the patient was located at home in the state of [place]. The patient visit started at 8:30 and ended at 8:55. Total encounter time was 25 minutes, which includestime spent today on pre charting, the patient encounter, and post charting. The patient: has been informed that the visit may not be secure and acknowledged the information. The option of participating in a telephone or video visit during the COVID-19 public health emergencywas explained to them. After being given an opportunity to ask questions about and discuss this type of visit, they verbally consented to proceeding with the telephone/video visit and understand thatthis service replaces an office visit. Disease History: Patient was seen in the ED 04/30/2018 where he had worsening pain in his ankles, MTPs, and soles of his feet and latered develop pain in his wrists, MCPs, and PIPs worse on the right side. He also hadswelling and stiffness in these joints that are worse in the mornings and improve with activity. Reports morning stiffness lasting up to 1 hour. He has had limited functionality of his hands and unable to form a fist with limited ROM of his joints. 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 Has not had the swelling and stiffness in the past. He denies ever having any crystalline arthropathies or history of any other rheumatologic disease. His PCP felt it was OA and started naproxen with minimal improvement in symptoms. He had significantly positive RF and CCP. Hand xrays showed significant joint space narrowing in multiple joints without erosions. He was started on prednisone 20 mg initially, but required higher doses of 40 mg to control symptoms. Given significant alcohol use,was started on SSZ and tolerated 1500 mg BID. He was started on Humira 09/07/18. Had persistent right ankle pain and swelling not responding to treatments and local steroid injection while other joints all improved. Switched to Xeljanz 11 mg 06/24 Medication History: - MTX and leflunomide avoided due to significant alcohol use. - SSZ 1500 mg BID started 05/13 - Humira 40 mg weekly started 09/11 stopped 06/13 due to inefficacy - xeljanz 11 mg daily started 06/13 Interval History: Patient adherent to Xeljanz 11 mg daily and SSZ 1500 mg BID Patient stable on Xeljanz 11 mg daily and SSZ. Does take daily Ibuprofen though. Overall feels muchimproved than prior initiation of treatment. Morning stiffness less than 5 minutes, no joint swelling. Pain overall minimal, with occasional worse days with changes in temperatures. Patient with lower back and neck pain that has been getting worse. No trauma/falls, no incontinence, no saddle anesthesia or neuropathy. Occasional radiation of pain down both legs. Tolerating the medications well without any concerns or side effects. Denies fevers, chills, night sweats, abdominal discomfort, N/V, BM or urinary changes, infections, rashes. Patient Active Problem List Diagnosis Date Noted ??? Ankle swelling, right 01/11/2019 ??? Rheumatoid 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 ([facility]) 12/17/2018 ??? High risk medication use 12/17/2018 Current Outpatient Medications on File Prior to Visit Medication Sig Dispense Refill ??? hydrocortisone 2.5 % ointment Apply topically 2 (two) times a day 30 g 1 ??? [DISCONTINUED] celecoxib (CeleBREX) 200 mg capsule Take 1 capsule (200 mg total) by mouth daily(Patient not taking: Reported on 06/07/2019) 30 capsule 5 ??? [DISCONTINUED] predniSONE (DELTASONE) 10 mg tablet take 3 tabs daily for week, 2 tabs daily fora week, then 1 tab daily for 2 weeks 49 tablet 0 ??? [DISCONTINUED] sulfaSALAzine (AZULFIDINE) 500 mg tablet Take 3 tablets (1,500 mg total) by mouth 2 (two) times a day 540 tablet 3 ??? [DISCONTINUED] tofacitinib (Xeljanz XR) 11 mg Take 1 tablet (11 mg total) by mouth daily 30 tablet 11 No current facility-administered medications on file prior to visit. No Known Allergies Past Medical History: Diagnosis Date ??? Hypertension History reviewed. No pertinent surgical history. Family History Problem Relation Age of Onset ??? No Known Problems Mother Social History: working at [employer] ([employer]). Continues tobacco use, alcohol use 3-4 times a week with 2-4 drinks each time. Denies current recreational drug use. Review of Systems All other systems reviewed and are negative. Labs Lab Results Component Value Date SEDRATE 20 06/07/2019 RF 276.0 (H) 05/03/2018 CRP 13.2 (H) 06/07/2019 No results found for: ALDOLASE, YUE, SCL70, C3, C4, CH50, HLAB27, CKTOTAL, CKMM Imaging Hand xrays: joint space narrowing without erosions Ankle xrays 10/12: Bilateral ankle soft tissue swelling, right greater than left, with out joint space narrowing or erosions on either side. Xrays hands and ankles 06/13: 1. Unchanged right third metacarpal phalangeal joint erosive arthropathy with the palmar subluxation as well as second and fourth metacarpal head and long and index finger proximal phalanx erosions. 2. Unchanged left third metacarpophalangeal joint uniform joint space narrowing with second and third metacarpophalangeal joint capsular distention. These findings are consistent with inflammatory Arthritis. Personal read: unchanged findings of inflammatory arthritis in hands. Swelling in ankles Ultrasound in procedure clinic of right ankle 01/11: synovitis and tenosynovitis with erosive changes at multiple joints in wrist and foot. Assessment/plan: 59 y.o. male with a PMH of with seropositive RA, HTN, polysubstance abuse (alcohol, tobacco, and marijuana) who is here for follow-up. # Seropositive RA: #High risk medication use: Severe disease with multiple joint involvement. Improved with Humira with mainly right ankle inflammation that persisted. Switched to Xeljanz with much better control and improvement in all joints including right ankle. Updated xrays 06/13 with no significant changes. - Continue SSZ 1.5 gram BID and Xeljanz 11 mg daily. - hep panel and T-spot neg 06/13 - continue voltaren gel. Advised to stop Ibuprofen and just use the voltaren gel. Combine with tylenol 1000 mg TID - sent for prednisone 10 mg to have on hand for severe days. Advised to call if using frequently - lab monitoring with CBC, CMP, lipid panel for drug toxicity monitoring and ESR and CRP for disease monitoring - update t-spot # Lower back Pain: # Cervical neck pain Most likely DDD with possible sciatica. - obtain xrays of c and l-spines - referred to PT # possible Carpal tunnel syndrome: Prior symptoms suggestive of carpal tunnel given distribution fitting with median nerve. Potentially related with inflammation and synovial proliferation at wrist compressing the nerve. - will continue to treat RA and see if symptoms improve - referral to hand therapy for brace to see if helps symptoms. # Vaccinations: - had had flu vaccine - has had Shingrix x2 Spent 25 minutes on the phone discussing patient's condition and recommendations for treatment and care. All patients questions and concerns addressed and patient to call or message with any further concerns. Follow-up: Return in about 3 months (around 08/08/2020) for Recheck. Cosigned by Ayla Mendoza MD at 05/13/2020 1:17 PM RECOVERY ROOM RN VERY ROOM RN VERY ROOM RN Associated attestation - Ayla Mendoza MD - 05/13/2020 1:17 PM RECOVERY ROOM RN I was immediately available for consultation during all aspects of the telemedicine encounter. I personally did speak to the patient during this encounter. After discussion with Dr. Mora, I agree with the findings and plan of care as outlined in his note. documented in this encounter Miscellaneous Notes * Addendum Note - Luli Coyle - 05/08/2020 8:30 AM CSTAddended by: LULI COYLE on: 05/13/2020 10:02 AM Modules accepted: Orders VERY ROOM RN documented in this encounter Plan of Treatment Not on file documented as of this encounter Results * (ABNORMAL) CBC with auto differential (05/13/2020 10:08 AM RECOVERY ROOM RN) Pathologist [facility] WBC 9.5 3.8 - 9.9 K/cumm [facility] Hgb 15.5 13.0 - 17.5 g/dL [facility] Hct 44.6 38.9 - 50.3 % [facility] Plt 250 150 - 400 K/cumm [facility] MPV 9.4 9.1 - 12.3 fL [facility] RBC 4.63 4.30 - 5.80 M/cumm [facility] MCV 96.3 81.3 - 96.4 fL [facility] MCH 33.5(H) 27.1 - 33.3 pg [facility] MCHC 34.8 32.3 - 35.7 g/dL [facility] RDW CV 11.7 11.1 - 14.9 % [facility] RDW SD 40.7 35.7 - 48.1 fL [facility] NRBC abs 0.00 0.00 - 0.01 K/cumm [facility] Blood specimen (specimen) 05/13/2020 10:08 AM RECOVERY ROOM RN 05/13/2020 10:27 AM RECOVERY ROOM RN us Can Chelsy Mora MD PhD LAB BLOOD ORDERABLES Final Result [facility] Department [place] [address] * Comprehensive metabolic panel (05/13/2020 10:08 AM RECOVERY ROOM RN) Pathologist [facility] Sodium 139 135 - 145 mmol/L [facility] Potassium, pl 4.1 3.3 - 4.9 mmol/L [facility] Chloride 108 97 - 110 mmol/L [facility] CO2 27 22 - 32 mmol/L [facility] Anion gap 4 2 - 15 mmol/L [facility] BUN 19 8 - 25 mg/dL [facility] Creatinine 1.12 0.80 - 1.30 mg/dL [facility] Glucose 93 70 - 199 mg/dL [facility] Comment: Interpretive Data Fasting glucose >/= 126 mg/dl is diagnostic for diabetes. ?? Fasting is defined as no caloric intake for at least 8 hours. Fasting glucose between 100 mg/dl to 125 mg/dl is diagnostic of prediabetes. In a patient with classic symptoms of hyperglycemia or hyperglycemic crisis, a random glucose >/= 200 mg/dl is diagnostic for diabetes. In the absence of unequivocal hyperglycemia, results should be confirmed by repeat testing. The classification and Diagnosis of Diabetes Diabetes Care 2017;40 (Suppl. 1):S11. Current interpretive data was last revised 2017. Calcium 9.5 8.5 - 10.3 mg/dL [facility] Bilirubin, total 0.6 0.1 - 1.2 mg/dL [facility] Protein, pl 8.0 6.5 - 8.5 g/dL [facility] Albumin 4.8 3.5 - 5.0 g/dL [facility] Alk phos 70 40 - 130 Units/L [facility] ALT 17 7 - 55 Units/L [facility] AST 25 10 - 50 Units/L [facility] Blood specimen (specimen) 05/13/2020 10:08 AM RECOVERY ROOM RN 05/13/2020 10:27 AM RECOVERY ROOM RN us Can Chelsy Mora MD PhD LAB BLOOD ORDERABLES Final Result [facility] Department [place] [address] * T-SPOT.TB (05/13/2020 10:08 AM RECOVERY ROOM RN) [facility] T-SPOT.TB Negative SeeBelow [facility] Comment: Normal Value: Negative A negative test result does not exclude the possibility of exposure to or infection with Mycobacterium tuberculosis (M. tuberculosis). ??Patients with recent exposure to TB infected individuals exhibiting a negative T-SPOT.TB result should be considered for retesting within 6 weeks or if other relevant clinical symptoms indicate. ??Results from T-SPOT.TB testing must be used in conjunction with each individual's epidemiological history, current medical status, and results of other diagnostic evaluations. ??The T-SPOT.TB test is qualitative and results are reported as positive, borderline or negative, given that the test controls perform as expected. In line with the Centers for Disease Control and Prevention's 2010 recommendation to report quantitative measurements alongside the qualitative result, the laboratory provides spot counts for informational purposes only. ??The T-SPOT.TB test should not be interpreted as a quantitative test. T-SPOT.TB Panel A Spot Count 0 [facility] T-SPOT.TB Panel B Spot Count 0 [facility] T-SPOT.TB Negative Control Passed [facility] T-SPOT.TB Positive Control Passed [facility] Comment: Test Performed at: [employer] [facility] [address] [place] [address] ??[id number] ? KG ESCOBAR MD,PHD Blood specimen (specimen) 05/13/2020 10:08 AM RECOVERY ROOM RN 05/13/2020 10:31 AM RECOVERY ROOM RN us Can Chelsy Mora MD PhD LAB MICROBIOLOGY - [facility] ORDERABLES Final Result Performing Organization Address [facility] Co de Phone Number [facility] [place] [address] * CRP (acute phase) (05/13/2020 10:08 AM RECOVERY ROOM RN) [facility] CRP 4.2 <=10.0 mg/L [facility] Blood specimen (specimen) 05/13/2020 10:08 AM RECOVERY ROOM RN 05/13/2020 10:27 AM RECOVERY ROOM RN Can Chelys Mora MD PhD LAB BLOOD ORDERABLES Final Result Performing Organization Address [facility] de Phone Number [facility] Department [place] [address] * Erythrocyte sedimentation rate (05/13/2020 10:08 AM RECOVERY ROOM RN) Erythrocyte sedimentation rate 11 1 - 20 mm/hr [facility] Blood specimen (specimen) 05/13/2020 10:08 AM RECOVERY ROOM RN 05/13/2020 10:27 AM RECOVERY ROOM RN us Can Chelsy Mora MD PhD LAB BLOOD ORDERABLES Final Result [facility] Department [place] [address] * XR Spine Cervical W Flexion And Extension 4 or 5 Views (05/13/2020 9:36 AM RECOVERY ROOM RN) Anatomical Region Laterality Modality Spine N/A Computed Radiogr aphy 05/13/2020 10:5 4 AM RECOVERY ROOM RN Impressions 05/13/2020 5:30 PM RECOVERY ROOM RN 1. Normal bilateral sacroiliac joints. 2. Moderate multilevel degenerative changes of the lumbar spine. 3. ??Mild wedging of the superior endplate of T12. 4. Mild retrolisthesis of C4 on C5 with angular excursion with flexion and extension. Dictated by: Doreen García M.D. The radiology attending physician has personally reviewed this study, and had reviewed and/or edited this written report and agrees with it. Electronically signed by: Sujatha Beckham MD Narrative 05/13/2020 5:30 PM RECOVERY ROOM RN EXAMINATION: XR SACROILIAC JOINTS 3 OR MORE VIEWS, XR SPINE LUMBAR 4 OR MORE VIEWS, XR SPINE CERVICAL W FLEXION AND EXTENSION 4 OR 5 VIEWS HISTORY: Rheumatoid arthritis with right ankle pain and swelling FINDINGS: 1. ??3 views of the bilateral sacroiliac joints are submitted for evaluation. ??No prior studies available for comparison. ??Normal bilateral sacroiliac joints. ??No evidence of joint space narrowing or erosion. 2. ??Lumbar spine: 4 views of lumbar spine are submitted for evaluation without available comparison. ??There are 5 non-rib bearing vertebral bodies. ??There is mild wedging of the superior endplate of T12. ??There are moderate multilevel degenerative changes most pronounced at L3-L4, L4-L5 and L5-S1. ??Alignment is normal. ??No abnormal motion. ??No acute fracture. 3. Cervical spine: 4 views of the cervical spine are submitted for evaluation without available comparison. ??There is mild retrolisthesis of C4 and C5 and anterolisthesis of C3 on C4. There is angular excursion at C4-C5 with flexion and extension. ?? Moderate multilevel degenerative changes most pronounced in the lower cervical spine with facet and uncovertebral joint arthropathy. No acute fracture. ??No significant prevertebral soft tissue swelling. Vascular calcifications noted. ??No abnormal motion at the atlantoaxial joint. Procedure Note Mindy Beckham MD - 05/13/2020 EXAMINATION: XR SACROILIAC JOINTS 3 OR MORE VIEWS, XR SPINE LUMBAR 4 OR MORE VIEWS, XR SPINE CERVICAL W FLEXION AND EXTENSION 4 OR 5 VIEWS HISTORY: Rheumatoid arthritis with right ankle pain and swelling FINDINGS: 1. 3 views of the bilateral sacroiliac joints are submitted for evaluation. No prior studies available for comparison. Normal bilateral sacroiliac joints. No evidence of joint space narrowing or erosion. 2. Lumbar spine: 4 views of lumbar spine are submitted for evaluation without available comparison. There are 5 non-rib bearing vertebral bodies. There is mild wedging of the superior endplate of T12. There are moderate multilevel degenerative changes most pronounced at L3-L4, L4-L5 and L5-S1. Alignment is normal. No abnormal motion. No acute fracture. 3. Cervical spine: 4 views of the cervical spine are submitted for evaluation without available comparison. There is mild retrolisthesis of C4 and C5 and anterolisthesis of C3 on C4. There is angular excursion at C4-C5 with flexion and extension. Moderate multilevel degenerative changes most pronounced in the lower cervical spine with facet and uncovertebral joint arthropathy. No acute fracture. No significant prevertebral soft tissue swelling. Vascular calcifications noted. No abnormal motion at the atlantoaxial joint. IMPRESSION: 1. Normal bilateral sacroiliac joints. 2. Moderate multilevel degenerative changes of the lumbar spine. 3. Mild wedging of the superior endplate of T12. 4. Mild retrolisthesis of C4 on C5 with angular excursion with flexion and extension. Dictated by: Doreen García M.D. The radiology attending physician has personally reviewed this study, and had reviewed and/or edited this written report and agrees with it. Electronically signed by: Sujatha Beckahm MD us Can Chelsy Mora MD PhD IMG XR PROCEDURES Fin al Result * XR Sacroiliac Joints 3 or More Views (05/13/2020 9:36 AM RECOVERY ROOM RN) Anatomical Region Laterality Modality Pelvis, Body N/A Computed Radiogr aphy 05/13/2020 10:5 4 AM RECOVERY ROOM RN Impressions 05/13/2020 5:30 PM RECOVERY ROOM RN 1. Normal bilateral sacroiliac joints. 2. Moderate multilevel degenerative changes of the lumbar spine. 3. ??Mild wedging of the superior endplate of T12. 4. Mild retrolisthesis of C4 on C5 with angular excursion with flexion and extension. Dictated by: Doreen García M.D. The radiology attending physician has personally reviewed this study, and had reviewed and/or edited this written report and agrees with it. Electronically signed by: Sujatha Beckham MD Narrative 05/13/2020 5:30 PM RECOVERY ROOM RN EXAMINATION: XR SACROILIAC JOINTS 3 OR MORE VIEWS, XR SPINE LUMBAR 4 OR MORE VIEWS, XR SPINE CERVICAL W FLEXION AND EXTENSION 4 OR 5 VIEWS HISTORY: Rheumatoid arthritis with right ankle pain and swelling FINDINGS: 1. ??3 views of the bilateral sacroiliac joints are submitted for evaluation. ??No prior studies available for comparison. ??Normal bilateral sacroiliac joints. ??No evidence of joint space narrowing or erosion. 2. ??Lumbar spine: 4 views of lumbar spine are submitted for evaluation without available comparison. ??There are 5 non-rib bearing vertebral bodies. ??There is mild wedging of the superior endplate of T12. ??There are moderate multilevel degenerative changes most pronounced at L3-L4, L4-L5 and L5-S1. ??Alignment is normal. ??No abnormal motion. ??No acute fracture. 3. Cervical spine: 4 views of the cervical spine are submitted for evaluation without available comparison. ??There is mild retrolisthesis of C4 and C5 and anterolisthesis of C3 on C4. There is angular excursion at C4-C5 with flexion and extension. ?? Moderate multilevel degenerative changes most pronounced in the lower cervical spine with facet and uncovertebral joint arthropathy. No acute fracture. ??No significant prevertebral soft tissue swelling. Vascular calcifications noted. ??No abnormal motion at the atlantoaxial joint. Procedure Note Mindy Beckham MD - 05/13/2020 EXAMINATION: XR SACROILIAC JOINTS 3 OR MORE VIEWS, XR SPINE LUMBAR 4 OR MORE VIEWS, XR SPINE CERVICAL W FLEXION AND EXTENSION 4 OR 5 VIEWS HISTORY: Rheumatoid arthritis with right ankle pain and swelling FINDINGS: 1. 3 views of the bilateral sacroiliac joints are submitted for evaluation. No prior studies available for comparison. Normal bilateral sacroiliac joints. No evidence of joint space narrowing or erosion. 2. Lumbar spine: 4 views of lumbar spine are submitted for evaluation without available comparison. There are 5 non-rib bearing vertebral bodies. There is mild wedging of the superior endplate of T12. There are moderate multilevel degenerative changes most pronounced at L3-L4, L4-L5 and L5-S1. Alignment is normal. No abnormal motion. No acute fracture. 3. Cervical spine: 4 views of the cervical spine are submitted for evaluation without available comparison. There is mild retrolisthesis of C4 and C5 and anterolisthesis of C3 on C4. There is angular excursion at C4-C5 with flexion and extension. Moderate multilevel degenerative changes most pronounced in the lower cervical spine with facet and uncovertebral joint arthropathy. No acute fracture. No significant prevertebral soft tissue swelling. Vascular calcifications noted. No abnormal motion at the atlantoaxial joint. IMPRESSION: 1. Normal bilateral sacroiliac joints. 2. Moderate multilevel degenerative changes of the lumbar spine. 3. Mild wedging of the superior endplate of T12. 4. Mild retrolisthesis of C4 on C5 with angular excursion with flexion and extension. Dictated by: Doreen García M.D. The radiology attending physician has personally reviewed this study, and had reviewed and/or edited this written report and agrees with it. Electronically signed by: Sujatha Beckham MD us Can Chelsy Mora MD PhD IMG XR PROCEDURES Fin al Result * XR Spine Lumbar 4 or More Views (05/13/2020 9:36 AM RECOVERY ROOM RN) Anatomical Region Laterality Modality Spine N/A Computed Radiogr aphy 05/13/2020 10:5 4 AM RECOVERY ROOM RN Impressions 05/13/2020 5:30 PM RECOVERY ROOM RN 1. Normal bilateral sacroiliac joints. 2. Moderate multilevel degenerative changes of the lumbar spine. 3. ??Mild wedging of the superior endplate of T12. 4. Mild retrolisthesis of C4 on C5 with angular excursion with flexion and extension. Dictated by: Doreen García M.D. The radiology attending physician has personally reviewed this study, and had reviewed and/or edited this written report and agrees with it. Electronically signed by: Sujatha Beckham MD Narrative 05/13/2020 5:30 PM RECOVERY ROOM RN EXAMINATION: XR SACROILIAC JOINTS 3 OR MORE VIEWS, XR SPINE LUMBAR 4 OR MORE VIEWS, XR SPINE CERVICAL W FLEXION AND EXTENSION 4 OR 5 VIEWS HISTORY: Rheumatoid arthritis with right ankle pain and swelling FINDINGS: 1. ??3 views of the bilateral sacroiliac joints are submitted for evaluation. ??No prior studies available for comparison. ??Normal bilateral sacroiliac joints. ??No evidence of joint space narrowing or erosion. 2. ??Lumbar spine: 4 views of lumbar spine are submitted for evaluation without available comparison. ??There are 5 non-rib bearing vertebral bodies. ??There is mild wedging of the superior endplate of T12. ??There are moderate multilevel degenerative changes most pronounced at L3-L4, L4-L5 and L5-S1. ??Alignment is normal. ??No abnormal motion. ??No acute fracture. 3. Cervical spine: 4 views of the cervical spine are submitted for evaluation without available comparison. ??There is mild retrolisthesis of C4 and C5 and anterolisthesis of C3 on C4. There is angular excursion at C4-C5 with flexion and extension. ?? Moderate multilevel degenerative changes most pronounced in the lower cervical spine with facet and uncovertebral joint arthropathy. No acute fracture. ??No significant prevertebral soft tissue swelling. Vascular calcifications noted. ??No abnormal motion at the atlantoaxial joint. Procedure Note Mindy Beckham MD - 05/13/2020 EXAMINATION: XR SACROILIAC JOINTS 3 OR MORE VIEWS, XR SPINE LUMBAR 4 OR MORE VIEWS, XR SPINE CERVICAL W FLEXION AND EXTENSION 4 OR 5 VIEWS HISTORY: Rheumatoid arthritis with right ankle pain and swelling FINDINGS: 1. 3 views of the bilateral sacroiliac joints are submitted for evaluation. No prior studies available for comparison. Normal bilateral sacroiliac joints. No evidence of joint space narrowing or erosion. 2. Lumbar spine: 4 views of lumbar spine are submitted for evaluation without available comparison. There are 5 non-rib bearing vertebral bodies. There is mild wedging of the superior endplate of T12. There are moderate multilevel degenerative changes most pronounced at L3-L4, L4-L5 and L5-S1. Alignment is normal. No abnormal motion. No acute fracture. 3. Cervical spine: 4 views of the cervical spine are submitted for evaluation without available comparison. There is mild retrolisthesis of C4 and C5 and anterolisthesis of C3 on C4. There is angular excursion at C4-C5 with flexion and extension. Moderate multilevel degenerative changes most pronounced in the lower cervical spine with facet and uncovertebral joint arthropathy. No acute fracture. No significant prevertebral soft tissue swelling. Vascular calcifications noted. No abnormal motion at the atlantoaxial joint. IMPRESSION: 1. Normal bilateral sacroiliac joints. 2. Moderate multilevel degenerative changes of the lumbar spine. 3. Mild wedging of the superior endplate of T12. 4. Mild retrolisthesis of C4 on C5 with angular excursion with flexion and extension. Dictated by: Doreen García M.D. The radiology attending physician has personally reviewed this study, and had reviewed and/or edited this written report and agrees with it. Electronically signed by: Sujatha Beckham MD us Can Chelsy Mora MD PhD IMG XR PROCEDURES Fin al Result documented in this encounter Visit Diagnoses Diagnosis 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) ([facility])- Primary High risk medication use Alcohol abuse Nondependent alcohol abuse, unspecified drinking behavior Health care maintenance Bilateral carpal tunnel syndrome Carpal tunnel syndrome Chronic bilateral low back pain with bilateral sciatica Neck pain Cervicalgia Neck pain Cervicalgia Chronic bilateral low back pain with bilateral sciatica documented in this encounter Discontinued Medications Medication Sig Discontinue Reason Start Date End Da te celecoxib (CeleBREX) 200 mg capsule Take 1 capsule (200 mg total) by mouth daily 02/08/2019 05/08/2020 sulfaSALAzine (AZULFIDINE) 500 mg tabletIndications:Rheuma toid Arthritis Take 3 tablets (1,500 mg total) by mouth 2 (two) times a day Reorder 09/20/2019 05/08/2020 tofacitinib (Xeljanz XR) 11 mg Take 1 tablet (11 mg total) by mouth daily Reorder 09/20/2019 05/08/2020 predniSONE (DELTASONE) 10 mg tabletIndications:autoim mune disease take 3 tabs daily for week, 2 tabs daily for a week, then 1 tab daily for 2 weeks Reorder 09/20/2019 05/08/2020 documented as of this encounter Care Teams Tricot Knitter Relationship Specialty Start Date End Date Orville Pryor MD [address] [place] [address] PCP - General 05/03/18 09/03/20 documented as of this encounter
--- OUTSIDE RECORDS SUMMARY | 2024-07-06 23:40 | XMS_ITS | Encounter Summary ---
Author Organization [facility] Address [address] [place] [address] Phone Care Team Providers Care Chemical Manager Name Role Phone Orville Pryor MD Primary Care Provider [phone] Reason for Visit * Endocrinology (Routine) - Closed Specialty Diagnoses / Procedures Referred By Jesus lara Referred To Contact Lab Diagnoses Rheum Lab Procedures SPECIMEN COLLECTION Juliocesar Mora MD PhD Phone: tel: fax: [facility] Endocrinology Metabolism and Lipid [address] [facility] [address] [place] [address] Phone: tel: fax: Referral ID Status Reason Start Date Expiration Date Visits Re quested Visits Authorized [id number] Closed 09/07/2018 03/18/2020 99 [phone] Encounter Details Date Type Department Care Team (Late st Contact Info) Description 06/07/2019 10:20 AM TOP CLEANER Lab [facility] Endocrinology Metabolism and Lipid [address] [facility] [address] [place] [address] 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); High risk medication use Social History Tobacco Use Types Packs/Day Years Used Date Smoking Tobacco: Every Day Sex and Gender Information Value Date Recorded Sex Assigned at Not on file Legal Sex Male 6:45 AM TOP CLEANER Gender Identity Not on file Sexual Orientation Not on file documented as of this encounter Plan of Treatment Not on file documented as of this encounter Procedures Procedure Name Priority Date/Time Associated Diagnosis Comments CBC WITH AUTO DIFFERENTIAL Routine 06/07/2019 10:23 AM TOP CLEANER Rheumatoid 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 ([facility]/HCC) High risk medication use LIPID PANEL Routine 06/07/2019 10:23 AM TOP CLEANER 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) COMPREHENSIVE METABOLIC PANEL Routine 06/07/2019 10:23 AM TOP CLEANER 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) High risk medication use documented in this encounter Results * (ABNORMAL) CBC with auto differential (06/07/2019 10:23 AM TOP CLEANER) White Blood Count 6.4 3.6 - 11.2 K/uL [facility] RBC 4.52 4.06 - 5.63 M/uL [facility] Hemoglobin 15.2 13.0 - 17.5 g/dL [facility] Hematocrit 44.4 40.7 - 50.3 % [facility] MCV 98.2(H) 80.0 - 97.6 fL [facility] MCH 33.6 26.7 - 33.7 pg [facility] MCHC 34.2 32.7 - 35.5 g/dL [facility] RBC Dist Width 12.5 12.3 - 17.0 % [facility] Platelet Count 281 140 - 440 K/uL [facility] MPV 7.7 6.8 - 10.4 fL [facility] Neutrophils % 62.5 38.7 - 74.5 % [facility] Comment:Repeated and Verifie d Lymphocyte % 19.5(L) 20.0 - 54.3 % [facility] Monocytes % 15.4(H) 4.3 - 13.5 % [facility] Eosinophils % 1.6 0.0 - 6.0 % [facility] Basophil % 1.0 0.0 - 3.0 % [facility] Absolute Neutrophil 4.0 1.8 - 6.6 K/uL [facility] Absolute Lymphocyte 1.2 0.8 - 3.3 K/uL [facility] Absolute Monocyte 1.0 0.2 - 1.2 K/uL [facility] Absolute Eosinophil 0.1 0.0 - 0.5 K/uL [facility] Absolute Basophil 0.1 0.0 - 0.2 K/uL [facility] Nucleated RBC % 0.1 0.0 - 0.4 /100 WBC [facility] Blood specimen (specimen) 06/07/2019 10:23 AM TOP CLEANER 06/07/2019 12:01 PM TOP CLEANER us Can Chelsy Mora MD PhD LAB BLOOD ORDERABLES Final Result [facility] * Lipid panel (06/07/2019 10:23 AM TOP CLEANER) Triglycerides 97 0 - 149 mg/dL [facility] Comment: NATIONAL CHOLESTEROL EDUCATION PROGRAM ATP III GUIDELINES FOR ADULTS: Normal: ?<150 mg/dL Borderline High: 150-199 mg/dL High: ?200-499 mg/dL Very High: ? >=500 mg/dL Total Cholesterol 170 0 - 199 mg/dL [facility] Comment: NATIONAL CHOLESTEROL EDUCATION PROGRAM ATP III GUIDELINES FOR ADULTS: Desirable: ? <200 mg/dL Borderline High: 200-239 mg/dL High: ?>=240 mg/dL Total HDL-C Direct 63 >39 mg/dL [facility] Comment: NATIONAL CHOLESTEROL EDUCATION PROGRAM ATP III GUIDELINES FOR ADULTS: Optimal: ?>=60 mg/dL Near Optimal: 40-59 mg/dL High Risk: ?<40 mg/dL [place] LDL Chol 88 0 - 129 mg/dL [facility] Comment: NATIONAL CHOLESTEROL EDUCATION PROGRAM ATP III GUIDELINES FOR ADULTS: Optimal: ? <100 mg/dL Near Optimal: ?100-129 mg/dL Borderline High: 130-159 mg/dL High: ?160-189 mg/dL Very High: ? >=190 mg/dL Blood specimen (specimen) 06/07/2019 10:23 AM TOP CLEANER 06/07/2019 12:01 PM TOP CLEANER us Can Chelsy Mora MD PhD LAB BLOOD ORDERABLES Final Result [facility] * Comprehensive metabolic panel (06/07/2019 10:23 AM TOP CLEANER) Total Protein 8.2 6.1 - 8.4 g/dL [facility] Albumin 4.5 3.5 - 5.2 g/dL [facility] Calcium 9.7 8.6 - 10.3 mg/dL [facility] BUN 19 7 - 23 mg/dL [facility] Total Bilirubin 0.84 0.20 - 1.40 mg/dL [facility] Alk Phos, Total 76 35 - 129 IU/L [facility] AST (SGOT) 18 11 - 47 IU/L [facility] ALT (SGPT) 11 6 - 53 IU/L [facility] Creatinine 0.83 0.70 - 1.30 mg/dL [facility] Sodium 140 135 - 145 mmol/L [facility] Potassium 4.0 3.3 - 5.1 mmol/L [facility] Chloride 101 95 - 107 mmol/L [facility] CO2 Content 25 21 - 29 mmol/L [facility] Glucose 93 64 - 99 mg/dL [facility] Comment: NONFASTING GLUCOSE RANGE = 64-199 mg/dL FASTING GLUCOSE 64 - 99 = NORMAL FASTING GLUCOSE 100 - 125 = IMPAIRED FASTING GLUCOSE FASTING GLUCOSE >=126 = PROVISIONAL DIAGNOSIS OF DIABETES eGFR NON-AFR. [place] >90.0 >60.0 mL/min/1.7 3 m2 [facility] eGFR >90.0 >60.0 mL/min/1.7 3 m2 [facility] Blood specimen (specimen) 06/07/2019 10:23 AM TOP CLEANER 06/07/2019 12:01 PM TOP CLEANER us Can Chelsy Mora MD PhD LAB BLOOD ORDERABLES Final Result [facility] documented in this encounter Visit Diagnoses Diagnosis 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) (HCC) High risk medication use documented in this encounter Care Teams Chemical Manager Relationship Specialty Start Date End Date Orville Pryor MD [address] [place] [address] PCP - General 05/03/18 09/03/20 documented as of this encounter
--- OUTSIDE RECORDS SUMMARY | 2024-07-06 23:40 | XMS_ITS | Encounter Summary ---
Author Organization [facility] Address [address] [place] [address] Phone Care Team Providers Care Brand Marketing Coordinator Name Role Phone Torsten Acosta MD Primary Care Provider + [phone] Reason for Referral * Diagnostic Imaging (Routine) - Closed Specialty Diagnoses / Procedures Referred By Contac t Referred To Contact Diagnoses 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) (HCC) Procedures XR Ankle Left 3 [place] [address] [place] [id number] Phone: tel: fax: [facility] Referral ID Status Reason Start Date Expiration Date Visits Re quested Visits Authorized [id number] Closed 10/20/2023 11/18/2024 1 1 * Diagnostic Imaging (Routine) - Closed Specialty Diagnoses / Procedures Referred By Contac t Referred To Contact Diagnoses 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) (HCC) Procedures XR Hand Left 3 [place] [address] [place] [address] Phone: tel: fax: [facility] Referral ID Status Reason Start Date Expiration Date Visits Re quested Visits Authorized [id number] Closed 10/20/2023 11/18/2024 1 1 * Diagnostic Imaging (Routine) - Closed Specialty Diagnoses / Procedures Referred By Jesus lara Referred To Contact Diagnoses Rheumatoid 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 ([facility]/HCC) ([facility]) Procedures XR Hand Right 3 or More Views Hernandez Saravia MD [address] [place] [address] Phone: tel: fax: [facility] Referral ID Status Reason Start Date Expiration Date Visits Re quested Visits Authorized [id number] Closed 10/20/2023 11/18/2024 1 1 * Consultation (Routine) - Pending Review Specialty Diagnoses / Procedures Referred By Jesus lara Referred To Contact Ophthalmology Diagnoses Rheumatoid 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 (CMS/[facility]) ([facility]) Hernandez Saravia MD [address] [place] [address] Phone: tel: fax: External Order Referral ID Status Reason Start Date Expiration Date Visits Requested Visits Authorized [id number] Pending Review Specialty Services Required 10/20/2023 11/18/2024 1 1 Question Answer Please select the performing region: External Order [171] # of visits: 1 Comments Hydroxychloroquine eye exam Fax number: [phone], ATTN Dr. Sujatha Saravia Encounter Details Date Type Department Care Team (Late st Contact Info) Description 10/20/2023 8:00 AM CDT Office Visit [facility] Rheumatology [address] [place] [address] 5th [place] [address] [place] [address] Hernandez Saravia MD [address] [place] [id number] 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) (HCC) (Primary Dx) Social History Tobacco Use Types Packs/Day Years Used Date Smoking Tobacco: Every Day Tobacco Cessation:Ready to Q uit: Not Asked; Counseling Given: Not Answered Sex and Gender Information Value Date Recorded Sex Assigned at Not on file Legal Sex 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 Gender Identity Not on file Sexual Orientation Not on file documented as of this encounter Last Filed Vital Signs Vital Sign Reading Time Taken Comments Blood Pressure 176/118 10/20/2023 7:55 AM CDT Pulse 92 10/20/2023 7:55 AM CDT Temperature 36.4 ??C (97.6 ??F) 10/20/2023 7:55 AM CD T Respiratory Rate - - Oxygen Saturation 99% 10/20/2023 7:55 AM CDT Inhaled Oxygen Concentration - - Weight 87.1 kg (192 lb) 10/20/2023 7:55 AM CDT Height 175.3 cm (5' 9 ) 10/20/2023 7:55 AM CDT Body Mass Index 28.35 10/20/2023 7:55 AM CDT documented in this encounter Patient Instructions * Patient Instructions* Hernandez Saravia MD - 10/20/2023 8:00 AM CDT Relling Xeljanz, sulfasalazine, and hydroxychloroquine. Giving prednisone Needing lab tests today X-rays today X-rays done at [facility] in [place], [place]. If we are unable to get x- rays, please have the hospital send them to this fax number: [phone], ATTN Dr. Sujatha Saravia documented in this encounter Ordered Prescriptions Prescription Sig Dispense Quantity Refills Last Filled Start Date End Date tofacitinib (Xeljanz XR) 11 mgIndications:Rheu matoid 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 (CMS/HCC) (HCC) Take 1 tablet (11 mg total) by mouth daily 30 tablet 5 10/20/2023 5 sulfaSALAzine (AZULFIDINE) 500 mg tabletIndications: Rheumatoid Arthritis Take 3 tablets (1,500 mg total) by mouth 2 (two) times a day 540 tablet 1 10/20/2023 4 hydroxychloroquine (PLAQUENIL) 200 mg tabletIndications: Rheumatoid Arthritis Take 2 tablets (400 mg total) by mouth daily 60 tablet 5 10/20/2023 4 predniSONE (DELTASONE) 5 mg tablet Take 4 tablets (20 mg) by mouth daily for 3 days, THEN 3 tablets (15 mg) daily for 3 days, THEN 2 tablets (10 mg) daily for 3 days, THEN 1 tablet (5 mg) daily for 3 days. 30 tablet 3 10/20/2023 4 documented in this encounter Progress Notes * Hernandez Saravia MD - 10/20/2023 8:00 AM CDT [facility] Division of Rheumatology SUBJECTIVE: Rheumatological disease: seropositive, erosive rheumatoid arthritis Rheumatological medication: none currently Last clinic visit: Feb 04 Aristeo Seals is a 63 y.o. male with polysubstance use (alcohol, tobacco, marijuana), HTN At last visit: seen by Dr. Mora at which point disease was not adequately controlled on tofacitinib and SSZ, so HCQ was added. Patient subsequently lost to follow-up. Reviewed interim: N/A Today: -RA: patient has been off medicines for two months. He reports worse pain, redness, swelling in thehands (MCPs and PIPs) and ankles. The left side of his neck is also affected. He went to an ED at [facility] in [place], [place] and had x-rays of the neck. We are requesting results of this. He is interested in restarting his previous medication plan of tofacitinib 11 mg daily, sulfasalazine 1500 mg twice daily, hydroxychloroquine 400 mg daily. Risk/benefit of this plan discussed. He is not interested in subcutaneous injections or IVs at this time. He regularly drinks alcohol. He was counseled on alcohol and smoking cessation. He is interested in more consistent follow-up === History -Diagnosed in 2018 in the setting of polyarthralgia, +RF (276), CCP (>300), radiographic erosions. Partial response to DMARDs but treatment complicated by alcohol use and loss to follow-up -Last imaging to evaluate for inflammatory changes: 2019 x-rays wrists, hands, and ankles: 1. Unchanged right third metacarpal phalangeal joint erosive arthropathy with the palmar subluxation as well as second and fourth metacarpal head and long and index finger proximal phalanx erosions. 2. Unchanged left third metacarpophalangeal joint uniform joint space narrowing with second and third metacarpophalangeal joint capsular distention. These findings are consistent with inflammatory arthritis. 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 4-5 beers daily per past note Other drugs: marijuana use --- Current Outpatient Medications Medication Instructions cyclobenzaprine (FLEXERIL) 10 mg, 3 times daily gabapentin (NEURONTIN) 300 mg capsule Take 1 capsule nightly and if tolerating add 1 capsule in morning and afternoon. hydrocortisone 2.5 % ointment topical, 2 times daily hydroxychloroquine (PLAQUENIL) 400 mg, oral, Daily lisinopriL (PRINIVIL,ZESTRIL) 10 mg, oral, Daily predniSONE (DELTASONE) 5 mg tablet Take 4 tablets (20 mg) by mouth daily for 3 days, THEN 3 tablets(15 mg) daily for 3 days, THEN 2 tablets (10 mg) daily for 3 days, THEN 1 tablet (5 mg) daily for 3days. Xeljanz XR 11 mg TAKE 1 TABLET DAILY (11 MG TOTAL) No Known Allergies OBJECTIVE: Physical Examination: Vitals: BP (!) 176/118 (BP Location: Left arm, Patient Position: Sitting) Pulse 92 Temp 36.4 ??C (97.6 ??F) (Oral) Ht 175.3 cm (5' 9 ) Wt 87.1 kg (192 lb) SpO2 99% BMI 28.35 kg/m?? General: Alert and oriented. Patient in mild distress. Cardiac: Regular rate and rhythm. No murmurs. Pulmonary: Normal respiratory effort. Extremities: Warm and well-perfused. Musculoskeletal: -Neck: ROM intact. Left cervical paraspinal muscle tenderness -Upper extremities: Ulnar deviation and palmar subluxation at the MCPs with swelling and point tenderness. Synovial hypertrophy of PIPs without significant point tenderness. ROM of wrists, elbows, shoulders intact -Lower extremities: Limited ROM of ankles (right worse than left) and mild right ankle effusion. There is left bunion deformity and point tenderness of the toes. Neurologic: Hearing and comprehension intact. No dysarthria. Moves all extremities. ASSESSMENT/PLAN: Problem List Items Addressed This Visit 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) ([facility]) - Primary Relevant Medications predniSONE (DELTASONE) 5 mg tablet Other Relevant Orders CBC with auto differential Comprehensive metabolic panel Erythrocyte sedimentation rate CRP (acute phase) Lipid panel T-SPOT.TB Blood Hepatitis C antibody Blood Hepatitis B Surface Antigen Blood Hepatitis B core antibody, total Blood Hepatitis B surface antibody (immune status) Blood Ambulatory referral to Ophthalmology XR Spine Cervical W Flexion And Extension 4 or 5 Views XR Hand Right 3 or More Views XR Hand Left 3 or More Views XR Ankle Right 3 or More Views XR Ankle Left 3 or More Views Seropositive, erosive rheumatoid arthritis -Disease poorly-controlled given gaps in care -Ordered CBC, CMP, ESR, CRP, lipids, TB, HBV, HCV, x-rays of C spine, hands, and ankles -Labs reviewed and notable for elevated ASCVD risk -Pending TB -Restart tofacitinib 11 mg daily, sulfasalazine 1500 mg twice daily, hydroxychloroquine 400 mg daily -Prednisone taper provided in the interim High risk medications use -Tofacitinib: last TB and HBV, HCV ordered -HBV, HCV within an acceptable range -Pending TB -SSZ: CBC, CMP every 3 months -HCQ: ophthalmology referral placed HTN -Longstanding diagnosis and blood pressure elevated at this visit. Patient's previous gamb cutter prescribed antihypertensives. I will discuss with the patient the need to have this consistently addressed with his PCP HLD -Significantly elevated ASCVD risk. I will discuss with the patient the need to have this consistently addressed with his PCP Follow-up: 3 months Patient seen and discussed with Dr. Ashlie Saravia MD Rheumatology Fellow [facility] Cosigned by Chip Dailey MD at 11/06/2023 5:56 PM CDT Associated attestation - Chip Dailey MD - 11/06/2023 5:56 PM CDT I have seen and examined the patient. I agree with the findings and plan of care as documented in the resident/fellow's note. My total encounter time on 10/20/2023 was 15 minutes which was spent in the activities documented in the note. This includes time spent prior to the visit and after the visitin direct care of the patient. This time does not include time spent in any separately reportable services. documented in this encounter Plan of Treatment Scheduled Referrals Name Type Priority Associated Diagnoses Order Schedule Ambulatory referral to Ophthalmology Outpatient Referral Routine Rheumatoid 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 (CMS/[facility]) (HCC) Expected: 10/20/2023 (Approximate), Expires: 10/19/2024 documented as of this encounter Results * Erythrocyte sedimentation rate (10/20/2023 10:16 AM CDT) Erythrocyte sedimentation rate 11 1 - 20 mm/hr Blood 10/20/2023 10:1 6 AM CDT 10/20/2023 10:25 AM CDT us Hernandez Saravia MD LAB BLOOD ORDERABLES F inal Result [facility] Department [place] [address] * XR Ankle Left 3 or More Views (10/20/2023 9:30 AM CDT) Anatomical Region Laterality Modality Lower Extremities, Ankle Left Compute d Radiography 10/20/2023 11:0 5 AM CDT Impressions 10/20/2023 11:22 AM CDT 1. ??Progressive osteoarthritis at the left 1st carpometacarpal and triscaphe joint, severe at the carpometacarpal joint. ?? 2. ??Polyarticular joint space narrowing of the bilateral hands as above with bilateral progressive palmar subluxation at the 2nd and 3rd metacarpophalangeal joints and moderate to severe joint space narrowing. 3. ??Mild bilateral midfoot osteoarthritis. ??Moderate to severe left posterior subtalar and right hindfoot osteoarthritis. 4. ??Multilevel moderate degenerative disc disease of the cervical spine.. Mild anterolisthesis of C2 on C3 that reduces with extension. Dictated by: Josafat Agee MD The radiology attending physician has personally reviewed this study, and had reviewed and/or edited this written report and agrees with it. Electronically signed by: William Colon MD Narrative 10/20/2023 11:22 AM CDT EXAMINATION: XR ANKLE LEFT 3 OR MORE VIEWS, XR SPINE CERVICAL W FLEXION AND EXTENSION 4 OR 5 VIEWS, XR HAND RIGHT 3 OR MORE VIEWS, XR HAND LEFT 3 OR MORE VIEWS, XR ANKLE RIGHT 3 OR MORE VIEWS HISTORY: ??Evaluate for inflammatory arthritis. FINDINGS: Cervical spine: 4 radiographs of the cervical spine are submitted for interpretation. ??Comparison is made to exam dated 05/13/2020. ??There is multilevel moderate degenerative disc disease of the cervical spine. ??Mild anterolisthesis of C2 on C3 that reduces with extension. Mild anterolisthesis of C3 on C4 and retrolisthesis of of C4 on C5 without motion with bending. ??No vertebral body height loss. ??Carotid artery calcifications. ??Facet and uncovertebral joint arthropathy. Left hand: 3 radiographs of left hand are expanded for interpretation. ??Comparison is made to exam dated 06/07/2019. ??There is severe 1st carpometacarpal and moderate triscaphe osteoarthritis, increased from prior exam. ?? There is polyarticular joint space narrowing. ??This is moderate at the 2nd through 3rd metacarpophalangeal joints and mild - moderate at the 1st interphalangeal joint and 2nd proximal and distal interphalangeal joints. ??Progressive palmar subluxation of the second and third metacarpophalangeal joints. ??No fractures identified. Right hand: 3 radiographs of the right hand are provided for interpretation with comparison made to exam dated 06/07/2019. Moderate triscaphe osteoarthritis. ??Mild 1st carpometacarpal osteoarthritis. ??Polyarticular joint space narrowing, moderate - severe from the 1st through 3rd metacarpophalangeal joints and mild - moderate at the 1st interphalangeal, 2nd proximal and distal interphalangeal joints. ??Progressive palmar subluxation of the second and third metacarpophalangeal joints. Left ankle: 3 radiographs of the left ankle are provided for interpretation. ??Comparison is made to exam dated 06/07/2019. ??Ankle mortise is preserved. ??Talar dome is normal. ??No acute fracture or dislocation is identified. ??Plantar calcaneal spur. ??Partially evaluated mild polyarticular midfoot arthritis. Moderate posterior subtalar osteoarthritis. Right ankle: 3 radiographs of the right ankle are submitted for interpretation. ??Comparison is made to exam dated 06/07/2019. ??Ankle mortise is intact. ??Talar dome is normal. ??Plantar calcaneal spur. Mild midfoot osteoarthritis and moderate to severe hindfoot osteoarthritis, including the calcaneocuboid, talonavicular and posterior subtalar joints. ??Heterotopic ossification superior to the talonavicular joint. Procedure Note William Colon MD - 10/20/2023 EXAMINATION: XR ANKLE LEFT 3 OR MORE VIEWS, XR SPINE CERVICAL W FLEXION AND EXTENSION 4 OR 5 VIEWS, XR HAND RIGHT 3 OR MORE VIEWS, XR HAND LEFT 3 OR MORE VIEWS, XR ANKLE RIGHT 3 OR MORE VIEWS HISTORY: Evaluate for inflammatory arthritis. FINDINGS: Cervical spine: 4 radiographs of the cervical spine are submitted for interpretation. Comparison is made to exam dated 05/13/2020. There is multilevel moderate degenerative disc disease of the cervical spine. Mild anterolisthesis of C2 on C3 that reduces with extension. Mild anterolisthesis of C3 on C4 and retrolisthesis of of C4 on C5 without motion with bending. No vertebral body height loss. Carotid artery calcifications. Facet and uncovertebral joint arthropathy. Left hand: 3 radiographs of left hand are expanded for interpretation. Comparison is made to exam dated 06/07/2019. There is severe 1st carpometacarpal and moderate triscaphe osteoarthritis, increased from prior exam. There is polyarticular joint space narrowing. This is moderate at the 2nd through 3rd metacarpophalangeal joints and mild - moderate at the 1st interphalangeal joint and 2nd proximal and distal interphalangeal joints. Progressive palmar subluxation of the second and third metacarpophalangeal joints. No fractures identified. Right hand: 3 radiographs of the right hand are provided for interpretation with comparison made to exam dated 06/07/2019. Moderate triscaphe osteoarthritis. Mild 1st carpometacarpal osteoarthritis. Polyarticular joint space narrowing, moderate - severe from the 1st through 3rd metacarpophalangeal joints and mild - moderate at the 1st interphalangeal, 2nd proximal and distal interphalangeal joints. Progressive palmar subluxation of the second and third metacarpophalangeal joints. Left ankle: 3 radiographs of the left ankle are provided for interpretation. Comparison is made to exam dated 06/07/2019. Ankle mortise is preserved. Talar dome is normal. No acute fracture or dislocation is identified. Plantar calcaneal spur. Partially evaluated mild polyarticular midfoot arthritis. Moderate posterior subtalar osteoarthritis. Right ankle: 3 radiographs of the right ankle are submitted for interpretation. Comparison is made to exam dated 06/07/2019. Ankle mortise is intact. Talar dome is normal. Plantar calcaneal spur. Mild midfoot osteoarthritis and moderate to severe hindfoot osteoarthritis, including the calcaneocuboid, talonavicular and posterior subtalar joints. Heterotopic ossification superior to the talonavicular joint. IMPRESSION: 1. Progressive osteoarthritis at the left 1st carpometacarpal and triscaphe joint, severe at the carpometacarpal joint. 2. Polyarticular joint space narrowing of the bilateral hands as above with bilateral progressive palmar subluxation at the 2nd and 3rd metacarpophalangeal joints and moderate to severe joint space narrowing. 3. Mild bilateral midfoot osteoarthritis. Moderate to severe left posterior subtalar and right hindfoot osteoarthritis. 4. Multilevel moderate degenerative disc disease of the cervical spine.. Mild anterolisthesis of C2 on C3 that reduces with extension. Dictated by: Josafat Agee MD The radiology attending physician has personally reviewed this study, and had reviewed and/or edited this written report and agrees with it. Electronically signed by: William Colon MD Hernandez Saravia MD IMG XR PROCEDURES Simran l Result * XR Ankle Right 3 or More Views (10/20/2023 9:30 AM CDT) Anatomical Region Laterality Modality Lower Extremities, Ankle Right Compute d Radiography 10/20/2023 11:0 5 AM CDT Impressions 10/20/2023 11:22 AM CDT 1. ??Progressive osteoarthritis at the left 1st carpometacarpal and triscaphe joint, severe at the carpometacarpal joint. ?? 2. ??Polyarticular joint space narrowing of the bilateral hands as above with bilateral progressive palmar subluxation at the 2nd and 3rd metacarpophalangeal joints and moderate to severe joint space narrowing. 3. ??Mild bilateral midfoot osteoarthritis. ??Moderate to severe left posterior subtalar and right hindfoot osteoarthritis. 4. ??Multilevel moderate degenerative disc disease of the cervical spine.. Mild anterolisthesis of C2 on C3 that reduces with extension. Dictated by: Josafat Agee MD The radiology attending physician has personally reviewed this study, and had reviewed and/or edited this written report and agrees with it. Electronically signed by: William Colon MD Narrative 10/20/2023 11:22 AM CDT EXAMINATION: XR ANKLE LEFT 3 OR MORE VIEWS, XR SPINE CERVICAL W FLEXION AND EXTENSION 4 OR 5 VIEWS, XR HAND RIGHT 3 OR MORE VIEWS, XR HAND LEFT 3 OR MORE VIEWS, XR ANKLE RIGHT 3 OR MORE VIEWS HISTORY: ??Evaluate for inflammatory arthritis. FINDINGS: Cervical spine: 4 radiographs of the cervical spine are submitted for interpretation. ??Comparison is made to exam dated 05/13/2020. ??There is multilevel moderate degenerative disc disease of the cervical spine. ??Mild anterolisthesis of C2 on C3 that reduces with extension. Mild anterolisthesis of C3 on C4 and retrolisthesis of of C4 on C5 without motion with bending. ??No vertebral body height loss. ??Carotid artery calcifications. ??Facet and uncovertebral joint arthropathy. Left hand: 3 radiographs of left hand are expanded for interpretation. ??Comparison is made to exam dated 06/07/2019. ??There is severe 1st carpometacarpal and moderate triscaphe osteoarthritis, increased from prior exam. ?? There is polyarticular joint space narrowing. ??This is moderate at the 2nd through 3rd metacarpophalangeal joints and mild - moderate at the 1st interphalangeal joint and 2nd proximal and distal interphalangeal joints. ??Progressive palmar subluxation of the second and third metacarpophalangeal joints. ??No fractures identified. Right hand: 3 radiographs of the right hand are provided for interpretation with comparison made to exam dated 06/07/2019. Moderate triscaphe osteoarthritis. ??Mild 1st carpometacarpal osteoarthritis. ??Polyarticular joint space narrowing, moderate - severe from the 1st through 3rd metacarpophalangeal joints and mild - moderate at the 1st interphalangeal, 2nd proximal and distal interphalangeal joints. ??Progressive palmar subluxation of the second and third metacarpophalangeal joints. Left ankle: 3 radiographs of the left ankle are provided for interpretation. ??Comparison is made to exam dated 06/07/2019. ??Ankle mortise is preserved. ??Talar dome is normal. ??No acute fracture or dislocation is identified. ??Plantar calcaneal spur. ??Partially evaluated mild polyarticular midfoot arthritis. Moderate posterior subtalar osteoarthritis. Right ankle: 3 radiographs of the right ankle are submitted for interpretation. ??Comparison is made to exam dated 06/07/2019. ??Ankle mortise is intact. ??Talar dome is normal. ??Plantar calcaneal spur. Mild midfoot osteoarthritis and moderate to severe hindfoot osteoarthritis, including the calcaneocuboid, talonavicular and posterior subtalar joints. ??Heterotopic ossification superior to the talonavicular joint. Procedure Note William Colon MD - 10/20/2023 EXAMINATION: XR ANKLE LEFT 3 OR MORE VIEWS, XR SPINE CERVICAL W FLEXION AND EXTENSION 4 OR 5 VIEWS, XR HAND RIGHT 3 OR MORE VIEWS, XR HAND LEFT 3 OR MORE VIEWS, XR ANKLE RIGHT 3 OR MORE VIEWS HISTORY: Evaluate for inflammatory arthritis. FINDINGS: Cervical spine: 4 radiographs of the cervical spine are submitted for interpretation. Comparison is made to exam dated 05/13/2020. There is multilevel moderate degenerative disc disease of the cervical spine. Mild anterolisthesis of C2 on C3 that reduces with extension. Mild anterolisthesis of C3 on C4 and retrolisthesis of of C4 on C5 without motion with bending. No vertebral body height loss. Carotid artery calcifications. Facet and uncovertebral joint arthropathy. Left hand: 3 radiographs of left hand are expanded for interpretation. Comparison is made to exam dated 06/07/2019. There is severe 1st carpometacarpal and moderate triscaphe osteoarthritis, increased from prior exam. There is polyarticular joint space narrowing. This is moderate at the 2nd through 3rd metacarpophalangeal joints and mild - moderate at the 1st interphalangeal joint and 2nd proximal and distal interphalangeal joints. Progressive palmar subluxation of the second and third metacarpophalangeal joints. No fractures identified. Right hand: 3 radiographs of the right hand are provided for interpretation with comparison made to exam dated 06/07/2019. Moderate triscaphe osteoarthritis. Mild 1st carpometacarpal osteoarthritis. Polyarticular joint space narrowing, moderate - severe from the 1st through 3rd metacarpophalangeal joints and mild - moderate at the 1st interphalangeal, 2nd proximal and distal interphalangeal joints. Progressive palmar subluxation of the second and third metacarpophalangeal joints. Left ankle: 3 radiographs of the left ankle are provided for interpretation. Comparison is made to exam dated 06/07/2019. Ankle mortise is preserved. Talar dome is normal. No acute fracture or dislocation is identified. Plantar calcaneal spur. Partially evaluated mild polyarticular midfoot arthritis. Moderate posterior subtalar osteoarthritis. Right ankle: 3 radiographs of the right ankle are submitted for interpretation. Comparison is made to exam dated 06/07/2019. Ankle mortise is intact. Talar dome is normal. Plantar calcaneal spur. Mild midfoot osteoarthritis and moderate to severe hindfoot osteoarthritis, including the calcaneocuboid, talonavicular and posterior subtalar joints. Heterotopic ossification superior to the talonavicular joint. IMPRESSION: 1. Progressive osteoarthritis at the left 1st carpometacarpal and triscaphe joint, severe at the carpometacarpal joint. 2. Polyarticular joint space narrowing of the bilateral hands as above with bilateral progressive palmar subluxation at the 2nd and 3rd metacarpophalangeal joints and moderate to severe joint space narrowing. 3. Mild bilateral midfoot osteoarthritis. Moderate to severe left posterior subtalar and right hindfoot osteoarthritis. 4. Multilevel moderate degenerative disc disease of the cervical spine.. Mild anterolisthesis of C2 on C3 that reduces with extension. Dictated by: Josafat Agee MD The radiology attending physician has personally reviewed this study, and had reviewed and/or edited this written report and agrees with it. Electronically signed by: William Colon MD Hernandez Saravia MD IMG XR PROCEDURES Simran l Result * XR Hand Left 3 or More Views (10/20/2023 9:30 AM CDT) Anatomical Region Laterality Modality Upper Extremities, Hand Left Computed Radiography 10/20/2023 11:0 5 AM CDT Impressions 10/20/2023 11:22 AM CDT 1. ??Progressive osteoarthritis at the left 1st carpometacarpal and triscaphe joint, severe at the carpometacarpal joint. ?? 2. ??Polyarticular joint space narrowing of the bilateral hands as above with bilateral progressive palmar subluxation at the 2nd and 3rd metacarpophalangeal joints and moderate to severe joint space narrowing. 3. ??Mild bilateral midfoot osteoarthritis. ??Moderate to severe left posterior subtalar and right hindfoot osteoarthritis. 4. ??Multilevel moderate degenerative disc disease of the cervical spine.. Mild anterolisthesis of C2 on C3 that reduces with extension. Dictated by: Josafat Agee MD The radiology attending physician has personally reviewed this study, and had reviewed and/or edited this written report and agrees with it. Electronically signed by: William Colon MD Narrative 10/20/2023 11:22 AM CDT EXAMINATION: XR ANKLE LEFT 3 OR MORE VIEWS, XR SPINE CERVICAL W FLEXION AND EXTENSION 4 OR 5 VIEWS, XR HAND RIGHT 3 OR MORE VIEWS, XR HAND LEFT 3 OR MORE VIEWS, XR ANKLE RIGHT 3 OR MORE VIEWS HISTORY: ??Evaluate for inflammatory arthritis. FINDINGS: Cervical spine: 4 radiographs of the cervical spine are submitted for interpretation. ??Comparison is made to exam dated 05/13/2020. ??There is multilevel moderate degenerative disc disease of the cervical spine. ??Mild anterolisthesis of C2 on C3 that reduces with extension. Mild anterolisthesis of C3 on C4 and retrolisthesis of of C4 on C5 without motion with bending. ??No vertebral body height loss. ??Carotid artery calcifications. ??Facet and uncovertebral joint arthropathy. Left hand: 3 radiographs of left hand are expanded for interpretation. ??Comparison is made to exam dated 06/07/2019. ??There is severe 1st carpometacarpal and moderate triscaphe osteoarthritis, increased from prior exam. ?? There is polyarticular joint space narrowing. ??This is moderate at the 2nd through 3rd metacarpophalangeal joints and mild - moderate at the 1st interphalangeal joint and 2nd proximal and distal interphalangeal joints. ??Progressive palmar subluxation of the second and third metacarpophalangeal joints. ??No fractures identified. Right hand: 3 radiographs of the right hand are provided for interpretation with comparison made to exam dated 06/07/2019. Moderate triscaphe osteoarthritis. ??Mild 1st carpometacarpal osteoarthritis. ??Polyarticular joint space narrowing, moderate - severe from the 1st through 3rd metacarpophalangeal joints and mild - moderate at the 1st interphalangeal, 2nd proximal and distal interphalangeal joints. ??Progressive palmar subluxation of the second and third metacarpophalangeal joints. Left ankle: 3 radiographs of the left ankle are provided for interpretation. ??Comparison is made to exam dated 06/07/2019. ??Ankle mortise is preserved. ??Talar dome is normal. ??No acute fracture or dislocation is identified. ??Plantar calcaneal spur. ??Partially evaluated mild polyarticular midfoot arthritis. Moderate posterior subtalar osteoarthritis. Right ankle: 3 radiographs of the right ankle are submitted for interpretation. ??Comparison is made to exam dated 06/07/2019. ??Ankle mortise is intact. ??Talar dome is normal. ??Plantar calcaneal spur. Mild midfoot osteoarthritis and moderate to severe hindfoot osteoarthritis, including the calcaneocuboid, talonavicular and posterior subtalar joints. ??Heterotopic ossification superior to the talonavicular joint. Procedure Note William Colon MD - 10/20/2023 EXAMINATION: XR ANKLE LEFT 3 OR MORE VIEWS, XR SPINE CERVICAL W FLEXION AND EXTENSION 4 OR 5 VIEWS, XR HAND RIGHT 3 OR MORE VIEWS, XR HAND LEFT 3 OR MORE VIEWS, XR ANKLE RIGHT 3 OR MORE VIEWS HISTORY: Evaluate for inflammatory arthritis. FINDINGS: Cervical spine: 4 radiographs of the cervical spine are submitted for interpretation. Comparison is made to exam dated 05/13/2020. There is multilevel moderate degenerative disc disease of the cervical spine. Mild anterolisthesis of C2 on C3 that reduces with extension. Mild anterolisthesis of C3 on C4 and retrolisthesis of of C4 on C5 without motion with bending. No vertebral body height loss. Carotid artery calcifications. Facet and uncovertebral joint arthropathy. Left hand: 3 radiographs of left hand are expanded for interpretation. Comparison is made to exam dated 06/07/2019. There is severe 1st carpometacarpal and moderate triscaphe osteoarthritis, increased from prior exam. There is polyarticular joint space narrowing. This is moderate at the 2nd through 3rd metacarpophalangeal joints and mild - moderate at the 1st interphalangeal joint and 2nd proximal and distal interphalangeal joints. Progressive palmar subluxation of the second and third metacarpophalangeal joints. No fractures identified. Right hand: 3 radiographs of the right hand are provided for interpretation with comparison made to exam dated 06/07/2019. Moderate triscaphe osteoarthritis. Mild 1st carpometacarpal osteoarthritis. Polyarticular joint space narrowing, moderate - severe from the 1st through 3rd metacarpophalangeal joints and mild - moderate at the 1st interphalangeal, 2nd proximal and distal interphalangeal joints. Progressive palmar subluxation of the second and third metacarpophalangeal joints. Left ankle: 3 radiographs of the left ankle are provided for interpretation. Comparison is made to exam dated 06/07/2019. Ankle mortise is preserved. Talar dome is normal. No acute fracture or dislocation is identified. Plantar calcaneal spur. Partially evaluated mild polyarticular midfoot arthritis. Moderate posterior subtalar osteoarthritis. Right ankle: 3 radiographs of the right ankle are submitted for interpretation. Comparison is made to exam dated 06/07/2019. Ankle mortise is intact. Talar dome is normal. Plantar calcaneal spur. Mild midfoot osteoarthritis and moderate to severe hindfoot osteoarthritis, including the calcaneocuboid, talonavicular and posterior subtalar joints. Heterotopic ossification superior to the talonavicular joint. IMPRESSION: 1. Progressive osteoarthritis at the left 1st carpometacarpal and triscaphe joint, severe at the carpometacarpal joint. 2. Polyarticular joint space narrowing of the bilateral hands as above with bilateral progressive palmar subluxation at the 2nd and 3rd metacarpophalangeal joints and moderate to severe joint space narrowing. 3. Mild bilateral midfoot osteoarthritis. Moderate to severe left posterior subtalar and right hindfoot osteoarthritis. 4. Multilevel moderate degenerative disc disease of the cervical spine.. Mild anterolisthesis of C2 on C3 that reduces with extension. Dictated by: Josafat Agee MD The radiology attending physician has personally reviewed this study, and had reviewed and/or edited this written report and agrees with it. Electronically signed by: William Colon MD Hernandez Saravia MD IMG XR PROCEDURES Simran l Result * XR Hand Right 3 or More Views (10/20/2023 9:30 AM CDT) Anatomical Region Laterality Modality Upper Extremities, Hand Right Computed Radiography 10/20/2023 11:0 5 AM CDT Impressions 10/20/2023 11:22 AM CDT 1. ??Progressive osteoarthritis at the left 1st carpometacarpal and triscaphe joint, severe at the carpometacarpal joint. ?? 2. ??Polyarticular joint space narrowing of the bilateral hands as above with bilateral progressive palmar subluxation at the 2nd and 3rd metacarpophalangeal joints and moderate to severe joint space narrowing. 3. ??Mild bilateral midfoot osteoarthritis. ??Moderate to severe left posterior subtalar and right hindfoot osteoarthritis. 4. ??Multilevel moderate degenerative disc disease of the cervical spine.. Mild anterolisthesis of C2 on C3 that reduces with extension. Dictated by: Josafat Agee MD The radiology attending physician has personally reviewed this study, and had reviewed and/or edited this written report and agrees with it. Electronically signed by: William Colon MD Narrative 10/20/2023 11:22 AM CDT EXAMINATION: XR ANKLE LEFT 3 OR MORE VIEWS, XR SPINE CERVICAL W FLEXION AND EXTENSION 4 OR 5 VIEWS, XR HAND RIGHT 3 OR MORE VIEWS, XR HAND LEFT 3 OR MORE VIEWS, XR ANKLE RIGHT 3 OR MORE VIEWS HISTORY: ??Evaluate for inflammatory arthritis. FINDINGS: Cervical spine: 4 radiographs of the cervical spine are submitted for interpretation. ??Comparison is made to exam dated 05/13/2020. ??There is multilevel moderate degenerative disc disease of the cervical spine. ??Mild anterolisthesis of C2 on C3 that reduces with extension. Mild anterolisthesis of C3 on C4 and retrolisthesis of of C4 on C5 without motion with bending. ??No vertebral body height loss. ??Carotid artery calcifications. ??Facet and uncovertebral joint arthropathy. Left hand: 3 radiographs of left hand are expanded for interpretation. ??Comparison is made to exam dated 06/07/2019. ??There is severe 1st carpometacarpal and moderate triscaphe osteoarthritis, increased from prior exam. ?? There is polyarticular joint space narrowing. ??This is moderate at the 2nd through 3rd metacarpophalangeal joints and mild - moderate at the 1st interphalangeal joint and 2nd proximal and distal interphalangeal joints. ??Progressive palmar subluxation of the second and third metacarpophalangeal joints. ??No fractures identified. Right hand: 3 radiographs of the right hand are provided for interpretation with comparison made to exam dated 06/07/2019. Moderate triscaphe osteoarthritis. ??Mild 1st carpometacarpal osteoarthritis. ??Polyarticular joint space narrowing, moderate - severe from the 1st through 3rd metacarpophalangeal joints and mild - moderate at the 1st interphalangeal, 2nd proximal and distal interphalangeal joints. ??Progressive palmar subluxation of the second and third metacarpophalangeal joints. Left ankle: 3 radiographs of the left ankle are provided for interpretation. ??Comparison is made to exam dated 06/07/2019. ??Ankle mortise is preserved. ??Talar dome is normal. ??No acute fracture or dislocation is identified. ??Plantar calcaneal spur. ??Partially evaluated mild polyarticular midfoot arthritis. Moderate posterior subtalar osteoarthritis. Right ankle: 3 radiographs of the right ankle are submitted for interpretation. ??Comparison is made to exam dated 06/07/2019. ??Ankle mortise is intact. ??Talar dome is normal. ??Plantar calcaneal spur. Mild midfoot osteoarthritis and moderate to severe hindfoot osteoarthritis, including the calcaneocuboid, talonavicular and posterior subtalar joints. ??Heterotopic ossification superior to the talonavicular joint. Procedure Note William Colon MD - 10/20/2023 EXAMINATION: XR ANKLE LEFT 3 OR MORE VIEWS, XR SPINE CERVICAL W FLEXION AND EXTENSION 4 OR 5 VIEWS, XR HAND RIGHT 3 OR MORE VIEWS, XR HAND LEFT 3 OR MORE VIEWS, XR ANKLE RIGHT 3 OR MORE VIEWS HISTORY: Evaluate for inflammatory arthritis. FINDINGS: Cervical spine: 4 radiographs of the cervical spine are submitted for interpretation. Comparison is made to exam dated 05/13/2020. There is multilevel moderate degenerative disc disease of the cervical spine. Mild anterolisthesis of C2 on C3 that reduces with extension. Mild anterolisthesis of C3 on C4 and retrolisthesis of of C4 on C5 without motion with bending. No vertebral body height loss. Carotid artery calcifications. Facet and uncovertebral joint arthropathy. Left hand: 3 radiographs of left hand are expanded for interpretation. Comparison is made to exam dated 06/07/2019. There is severe 1st carpometacarpal and moderate triscaphe osteoarthritis, increased from prior exam. There is polyarticular joint space narrowing. This is moderate at the 2nd through 3rd metacarpophalangeal joints and mild - moderate at the 1st interphalangeal joint and 2nd proximal and distal interphalangeal joints. Progressive palmar subluxation of the second and third metacarpophalangeal joints. No fractures identified. Right hand: 3 radiographs of the right hand are provided for interpretation with comparison made to exam dated 06/07/2019. Moderate triscaphe osteoarthritis. Mild 1st carpometacarpal osteoarthritis. Polyarticular joint space narrowing, moderate - severe from the 1st through 3rd metacarpophalangeal joints and mild - moderate at the 1st interphalangeal, 2nd proximal and distal interphalangeal joints. Progressive palmar subluxation of the second and third metacarpophalangeal joints. Left ankle: 3 radiographs of the left ankle are provided for interpretation. Comparison is made to exam dated 06/07/2019. Ankle mortise is preserved. Talar dome is normal. No acute fracture or dislocation is identified. Plantar calcaneal spur. Partially evaluated mild polyarticular midfoot arthritis. Moderate posterior subtalar osteoarthritis. Right ankle: 3 radiographs of the right ankle are submitted for interpretation. Comparison is made to exam dated 06/07/2019. Ankle mortise is intact. Talar dome is normal. Plantar calcaneal spur. Mild midfoot osteoarthritis and moderate to severe hindfoot osteoarthritis, including the calcaneocuboid, talonavicular and posterior subtalar joints. Heterotopic ossification superior to the talonavicular joint. IMPRESSION: 1. Progressive osteoarthritis at the left 1st carpometacarpal and triscaphe joint, severe at the carpometacarpal joint. 2. Polyarticular joint space narrowing of the bilateral hands as above with bilateral progressive palmar subluxation at the 2nd and 3rd metacarpophalangeal joints and moderate to severe joint space narrowing. 3. Mild bilateral midfoot osteoarthritis. Moderate to severe left posterior subtalar and right hindfoot osteoarthritis. 4. Multilevel moderate degenerative disc disease of the cervical spine.. Mild anterolisthesis of C2 on C3 that reduces with extension. Dictated by: Josafat Agee MD The radiology attending physician has personally reviewed this study, and had reviewed and/or edited this written report and agrees with it. Electronically signed by: William Colon MD Hernandez Saravia MD IMG XR PROCEDURES Simran l Result * XR Spine Cervical W Flexion And Extension 4 or 5 Views (10/20/2023 9:30 AM CDT) Anatomical Region Laterality Modality Spine N/A Computed Radiogr aphy 10/20/2023 11:0 5 AM CDT Impressions 10/20/2023 11:22 AM CDT 1. ??Progressive osteoarthritis at the left 1st carpometacarpal and triscaphe joint, severe at the carpometacarpal joint. ?? 2. ??Polyarticular joint space narrowing of the bilateral hands as above with bilateral progressive palmar subluxation at the 2nd and 3rd metacarpophalangeal joints and moderate to severe joint space narrowing. 3. ??Mild bilateral midfoot osteoarthritis. ??Moderate to severe left posterior subtalar and right hindfoot osteoarthritis. 4. ??Multilevel moderate degenerative disc disease of the cervical spine.. Mild anterolisthesis of C2 on C3 that reduces with extension. Dictated by: Josafat Agee MD The radiology attending physician has personally reviewed this study, and had reviewed and/or edited this written report and agrees with it. Electronically signed by: William Colon MD Narrative 10/20/2023 11:22 AM CDT EXAMINATION: XR ANKLE LEFT 3 OR MORE VIEWS, XR SPINE CERVICAL W FLEXION AND EXTENSION 4 OR 5 VIEWS, XR HAND RIGHT 3 OR MORE VIEWS, XR HAND LEFT 3 OR MORE VIEWS, XR ANKLE RIGHT 3 OR MORE VIEWS HISTORY: ??Evaluate for inflammatory arthritis. FINDINGS: Cervical spine: 4 radiographs of the cervical spine are submitted for interpretation. ??Comparison is made to exam dated 05/13/2020. ??There is multilevel moderate degenerative disc disease of the cervical spine. ??Mild anterolisthesis of C2 on C3 that reduces with extension. Mild anterolisthesis of C3 on C4 and retrolisthesis of of C4 on C5 without motion with bending. ??No vertebral body height loss. ??Carotid artery calcifications. ??Facet and uncovertebral joint arthropathy. Left hand: 3 radiographs of left hand are expanded for interpretation. ??Comparison is made to exam dated 06/07/2019. ??There is severe 1st carpometacarpal and moderate triscaphe osteoarthritis, increased from prior exam. ?? There is polyarticular joint space narrowing. ??This is moderate at the 2nd through 3rd metacarpophalangeal joints and mild - moderate at the 1st interphalangeal joint and 2nd proximal and distal interphalangeal joints. ??Progressive palmar subluxation of the second and third metacarpophalangeal joints. ??No fractures identified. Right hand: 3 radiographs of the right hand are provided for interpretation with comparison made to exam dated 06/07/2019. Moderate triscaphe osteoarthritis. ??Mild 1st carpometacarpal osteoarthritis. ??Polyarticular joint space narrowing, moderate - severe from the 1st through 3rd metacarpophalangeal joints and mild - moderate at the 1st interphalangeal, 2nd proximal and distal interphalangeal joints. ??Progressive palmar subluxation of the second and third metacarpophalangeal joints. Left ankle: 3 radiographs of the left ankle are provided for interpretation. ??Comparison is made to exam dated 06/07/2019. ??Ankle mortise is preserved. ??Talar dome is normal. ??No acute fracture or dislocation is identified. ??Plantar calcaneal spur. ??Partially evaluated mild polyarticular midfoot arthritis. Moderate posterior subtalar osteoarthritis. Right ankle: 3 radiographs of the right ankle are submitted for interpretation. ??Comparison is made to exam dated 06/07/2019. ??Ankle mortise is intact. ??Talar dome is normal. ??Plantar calcaneal spur. Mild midfoot osteoarthritis and moderate to severe hindfoot osteoarthritis, including the calcaneocuboid, talonavicular and posterior subtalar joints. ??Heterotopic ossification superior to the talonavicular joint. Procedure Note William Colon MD - 10/20/2023 EXAMINATION: XR ANKLE LEFT 3 OR MORE VIEWS, XR SPINE CERVICAL W FLEXION AND EXTENSION 4 OR 5 VIEWS, XR HAND RIGHT 3 OR MORE VIEWS, XR HAND LEFT 3 OR MORE VIEWS, XR ANKLE RIGHT 3 OR MORE VIEWS HISTORY: Evaluate for inflammatory arthritis. FINDINGS: Cervical spine: 4 radiographs of the cervical spine are submitted for interpretation. Comparison is made to exam dated 05/13/2020. There is multilevel moderate degenerative disc disease of the cervical spine. Mild anterolisthesis of C2 on C3 that reduces with extension. Mild anterolisthesis of C3 on C4 and retrolisthesis of of C4 on C5 without motion with bending. No vertebral body height loss. Carotid artery calcifications. Facet and uncovertebral joint arthropathy. Left hand: 3 radiographs of left hand are expanded for interpretation. Comparison is made to exam dated 06/07/2019. There is severe 1st carpometacarpal and moderate triscaphe osteoarthritis, increased from prior exam. There is polyarticular joint space narrowing. This is moderate at the 2nd through 3rd metacarpophalangeal joints and mild - moderate at the 1st interphalangeal joint and 2nd proximal and distal interphalangeal joints. Progressive palmar subluxation of the second and third metacarpophalangeal joints. No fractures identified. Right hand: 3 radiographs of the right hand are provided for interpretation with comparison made to exam dated 06/07/2019. Moderate triscaphe osteoarthritis. Mild 1st carpometacarpal osteoarthritis. Polyarticular joint space narrowing, moderate - severe from the 1st through 3rd metacarpophalangeal joints and mild - moderate at the 1st interphalangeal, 2nd proximal and distal interphalangeal joints. Progressive palmar subluxation of the second and third metacarpophalangeal joints. Left ankle: 3 radiographs of the left ankle are provided for interpretation. Comparison is made to exam dated 06/07/2019. Ankle mortise is preserved. Talar dome is normal. No acute fracture or dislocation is identified. Plantar calcaneal spur. Partially evaluated mild polyarticular midfoot arthritis. Moderate posterior subtalar osteoarthritis. Right ankle: 3 radiographs of the right ankle are submitted for interpretation. Comparison is made to exam dated 06/07/2019. Ankle mortise is intact. Talar dome is normal. Plantar calcaneal spur. Mild midfoot osteoarthritis and moderate to severe hindfoot osteoarthritis, including the calcaneocuboid, talonavicular and posterior subtalar joints. Heterotopic ossification superior to the talonavicular joint. IMPRESSION: 1. Progressive osteoarthritis at the left 1st carpometacarpal and triscaphe joint, severe at the carpometacarpal joint. 2. Polyarticular joint space narrowing of the bilateral hands as above with bilateral progressive palmar subluxation at the 2nd and 3rd metacarpophalangeal joints and moderate to severe joint space narrowing. 3. Mild bilateral midfoot osteoarthritis. Moderate to severe left posterior subtalar and right hindfoot osteoarthritis. 4. Multilevel moderate degenerative disc disease of the cervical spine.. Mild anterolisthesis of C2 on C3 that reduces with extension. Dictated by: Josafat Agee MD The radiology attending physician has personally reviewed this study, and had reviewed and/or edited this written report and agrees with it. Electronically signed by: William Colon MD Hernandez Saravia MD IMG XR PROCEDURES Simran l Result * (ABNORMAL) CBC with auto differential (10/20/2023 [...] LAB BLOOD ORDERABLES F inal Result [facility] * (ABNORMAL) [...] MD LAB BLOOD ORDERABLES F inal Result [facility] * CRP (acute phase) (10/20/2023 9:05 AM CDT) C-Reactive Protein, Acute <3.0 <5.0 mg/L [facility] Blood 10/20/2023 9:05 AM CDT 10/20/2023 9:35 AM CDT Hernandez Saravia MD LAB BLOOD ORDERABLES F inal Result Performing Organization Address [facility] Co de Phone Number [facility] * Lipid panel (10/20/2023 9:05 AM CDT) [...] <190 mg/dL [facility] Blood 10/20/2023 9:05 AM CDT 10/20/2023 9:35 AM CDT Narrative [facility] - 10/20/2023 11:53 AM CDT Current interpretive data was last updated May 28, 2021. For adults ages 40-79, the ACC/AHA recommends discussing your 10-year atherosclerotic cardiovascular disease risk with your health care provider. ??https://www.acc.org/ASCVDApp Hernandez Saravia MD LAB BLOOD ORDERABLES F inal Result Performing Organization Address City/[facility] Co de Phone Number [facility] * T-SPOT.TB Blood (10/20/2023 9:05 AM CDT) T-SPOT.TB Negative SeeBelow Comment: Normal Value: Negative A negative test [...] test. T-SPOT.TB Panel A Spot Count 0 [facility] T-SPOT.TB Panel B Spot Count 0 [facility] T-SPOT.TB Negative Control Passed [facility] T-SPOT.TB Positive Control Passed [facility] Comment: Test Performed at: [facility] [employer] [place], [place] ??[address] ? SUSY ABDI,PHD Blood 10/20/2023 9:05 AM CDT 10/20/2023 10:21 AM CDT Hernandez Saravia MD LAB MICROBIOLOGY - GEN ERAL ORDERABLES Final Result [facility] Department [place] [address] * Hepatitis C antibody Blood (10/20/2023 9:05 AM CDT) [facility] Hep C Ab Nonreactive Nonreactive Comment:Antibodies to HCV no t detected. Does NOT exclude the possibility of recent exposure to HCV. Current interpretive data was last revised on 22 Blood 10/20/2023 9:05 AM CDT 10/20/2023 10:18 AM CDT Hernandez Saravia MD LAB MICROBIOLOGY - GEN ERAL ORDERABLES Final Result [facility] [place] [address] * Hepatitis B Surface Antigen Blood (10/20/2023 9:05 AM CDT) HepBsAg Nonreactive Nonreactive Blood 10/20/2023 9:05 AM CDT 10/20/2023 10:18 AM CDT Hernandez Saravia MD LAB MICROBIOLOGY - GEN ERAL ORDERABLES Final Result Performing Organization Address [facility] Co de Phone Number [facility] [place] [address] * Hepatitis B core antibody, total Blood (10/20/2023 9:05 AM CDT) Hep B core IgG/IgM Nonreactive Nonreactive Blood 10/20/2023 9:05 AM CDT 10/20/2023 10:18 AM CDT Hernandez Saravia MD LAB MICROBIOLOGY - GEN ERAL ORDERABLES Final Result Performing Organization Address City/[facility] Co de Phone Number [facility] [place] [address] * Hepatitis B surface antibody (immune status) Blood (10/20/2023 9:05 AM CDT) HBsAb (immune status) Nonreactive Comment:This result is consi stent with a lack of immunity to Hepatitis B Virus when used in the setting of routine screening. 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) (HCC)- Primary 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) (HCC) 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) (HCC) documented in this encounter Discontinued Medications Medication Sig Discontinue Reason Start Date End Da te predniSONE (DELTASONE) 10 mg tabletIndications:au toimmune disease Take 1 tablet (10 mg) by mouth daily As need for severe pain and inflammation 02/04/2022 10/20/2023 cyclobenzaprine (FLEXERIL) 10 mg tablet Take 1 tablet (10 mg total) by mouth 3 (three) times a day No longer clinically indicated 10/13/2023 10/20/2023 gabapentin (NEURONTIN) 300 mg capsuleIndications:N europathic Pain Take 1 capsule nightly and if tolerating add 1 capsule in morning and afternoon. No longer clinically indicated 01/06/2021 10/20/2023 hydrocortisone 2.5 % ointment Apply topically 2 (two) times a day No longer clinically indicated 07/31/2020 10/20/2023 lisinopriL (PRINIVIL,ZESTRIL) 10 mg tablet Take 1 tablet (10 mg total) by mouth daily No longer clinically indicated 02/04/2022 10/20/2023 hydrOXYchloroQUINE (PLAQUENIL) 200 mg tabletIndications:Rh eumatoid Arthritis Take 2 tablets (400 mg total) by mouth daily Reorder 02/04/2022 10/20/2023 Xeljanz XR 11 mgIndications:Rheuma toid 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 (CMS/HCC) (HCC) TAKE 1 TABLET DAILY (11 MG TOTAL) Reorder 09/19/2022 10/20/2023 documented as of this encounter Historical Medications * This list may reflect changes made after this encounter. cyclobenzaprine (FLEXERIL) 10 mg tablet Take 1 tablet (10 mg total) by mouth 3 (three) times a day 10/13/2023 10/20/2023 added in this encounter Care Teams Brand Marketing Coordinator Relationship Specialty Start Date End Date Torsten Acosta MD PCP - General Internal Medicine 09/04/20 documented as of this encounter
--- OUTSIDE RECORDS SUMMARY | 2024-07-06 23:40 | XMS_ITS | Encounter Summary ---
Author Organization [facility] Address [address] [place] [address] Phone Care Team Providers Care Nut Orchardist Name Role Phone Torsten Acosta MD Primary Care Provider [phone] Encounter Details Date Type Department Care Team (Late st Contact Info) Description 08/10/2021 Telephone [facility] Rheumatology [facility] Advanced Medicine 5th [place] [address] [place] [phone] Juliocesar Mora MD PhD [address] [place] [address] Social History Tobacco Use Types Packs/Day Years Used Date Smoking Tobacco: Every Day Sex and Gender Information Value Date Recorded Sex Assigned at Not on file Legal Sex Male 6:45 AM SAND SCREENER Gender Identity Not on file Sexual Orientation Not on file documented as of this encounter Miscellaneous Notes * Telephone Encounter - Neftaly Ricketts RMA - 08/10/2021 9:18 AM SAND SCREENER Called and lvm stating that we need updated labs and a f/u visit for any requested refills. SCREENER documented in this encounter Plan of Treatment Not on file documented as of this encounter Visit Diagnoses Not on filedocumented in this encounter Care Teams Nut Orchardist Relationship Specialty Start Date End Date Torsten Acosta MD PCP - General Internal Medicine 09/04/20 documented as of this encounter
--- OUTSIDE RECORDS SUMMARY | 2024-07-06 23:40 | XMS_ITS | Encounter Summary ---
Author Organization [facility] Address [address] [place] [address] Phone Care Team Providers Care Puppet Maker Name Role Phone Orville Pryor MD Primary Care Provider [phone] Encounter Details Date Type Department Care Team (Late st Contact Info) Description 06/07/2019 Telephone [facility] Rheumatology [address] [place] [address] 5th [place] [address] [place] [phone] Amina Rosenberg RMA Social History Tobacco Use Types Packs/Day Years Used Date Smoking Tobacco: Every Day Sex and Gender Information Value Date Recorded Sex Assigned at Not on file Legal Sex Male 6:45 AM TAILOR APPRENTICE Gender Identity Not on file Sexual Orientation Not on file documented as of this encounter Miscellaneous Notes * Telephone Encounter - Amina Rosenberg RMA - 06/11/2019 9:50 AM TAILOR APPRENTICE Spoke to pt. He will call to get MRI rescheduled. OR APPRENTICE * Telephone Encounter - Amina Rosenberg RMA - 06/07/2019 3:01 PM TAILOR APPRENTICE Called pt about getting MRI scheduled no answer left message. OR APPRENTICE documented in this encounter Plan of Treatment Not on file documented as of this encounter Visit Diagnoses Not on filedocumented in this encounter Care Teams Puppet Maker Relationship Specialty Start Date End Date Orville Pryor MD [address] [place] [address] PCP - General 05/03/18 09/03/20 documented as of this encounter
--- OUTSIDE RECORDS SUMMARY | 2024-07-06 23:40 | XMS_ITS | Encounter Summary ---
Author Organization [facility] Address [address] [place] [address] Phone Care Team Providers Care Spiritual Care Coordinator Name Role Phone Torsten Acosta MD Primary Care Provider [phone] Encounter Details Date Type Department Care Team (Late st Contact Info) Description 02/04/2022 9:00 AM CDT Office Visit [facility] Rheumatology [address] [facility] Medicine 5th [place] [address] [place] [phone] Juliocesar Mora MD PhD [address] [place] [address] 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) (HCC) (Primary Dx); Alcohol abuse; High risk medication use; Bilateral carpal tunnel syndrome; Chronic bilateral low back pain with bilateral sciatica; Health care maintenance Social History Tobacco Use Types Packs/Day Years Used Date Smoking Tobacco: Every Day Sex and Gender Information Value Date Recorded Sex Assigned at Not on file Legal 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 Gender Identity Not on file Sexual Orientation Not on file documented as of this encounter Last Filed Vital Signs Vital Sign Reading Time Taken Comments Blood Pressure 160/100 02/04/2022 9:00 AM CDT Pulse 60 02/04/2022 8:43 AM CDT Temperature 36.5 ??C (97.7 ??F) 02/04/2022 8:43 AM CD T Respiratory Rate - - Oxygen Saturation - - Inhaled Oxygen Concentration - - Weight 85.1 kg (187 lb 9.6 oz) 02/04/2022 8:43 A M CDT Height 175.3 cm (5' 9 ) 02/04/2022 8:43 AM CDT Body Mass Index 27.7 02/04/2022 8:43 AM CDT documented in this encounter Patient Instructions * Patient Instructions* Juliocesar Mora MD PhD - 02/04/2022 9:00 AM CDT See podiatry for your foot pains and symptoms Start Plaquenil daily today. See an eye doctor for baseline check. documented in this encounter Ordered Prescriptions Prescription Sig Dispense Quantity Refills Last Filled Start Date End Date predniSONE (DELTASONE) 10 mg tabletIndications :autoimmune disease Take 1 tablet (10 mg) by mouth daily As need for severe pain and inflammation 30 tablet 1 02/04/2022 4 hydrOXYchloroQUIN E (PLAQUENIL) 200 mg tabletIndications :Rheumatoid Arthritis Take 2 tablets (400 mg total) by mouth daily 60 tablet 5 02/04/2022 4 lisinopriL (PRINIVIL,ZESTRIL ) 10 mg tablet Take 1 tablet (10 mg total) by mouth daily 30 tablet 1 02/04/2022 4 documented in this encounter Progress Notes * Juliocesar Mora MD PhD - 02/04/2022 9:00 AM CDT Images from the original note were not included. Rheumatology Clinic Follow-up PATIENT NAME: Aristeo Seals : 1960 HILDA: 02/04/2022 Chief Complaint: RA HPI: Aristeo Seals is a 61 y.o. male with a PMH of with seropositive RA, HTN, polysubstance abuse (alcohol, tobacco, and marijuana) who is here for f/u on RA and persistent right ankle pain and swelling. Last seen in clinic 10/15/21. Disease History: Patient was seen in the [...] daily and SSZ 1500 mg BID Patient did not start MTX as was concerned about liver toxicity and was not able to reduce alcohol consumption. He has continued to take Xeljanz and SSZ without issues or side effects. He has had continued joint symptoms with pain, morning stiffness lasting more than 30 minutes and swelling in MCPs, PIP, wrists, ankles, and MTPs bilaterally. Symptoms are about the same as last time and not increased in severity. Has been having increased lateral deviation of left hallux with discomfort. He continues to drink daily alcohol with 4-5 beers. He has also been out of his BP medications and has not been taking them for a while. No concerning features of chest pain, headaches, dizziness, SOB. Denies fevers, chills, night sweats, abdominal discomfort, N/V, BM or urinary changes, infections, rashes. Patient Active Problem List Diagnosis Date Noted ??? Ankle swelling, right 01/11/2019 ??? 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) (HCC) 12/17/2018 ??? High risk medication use 12/17/2018 Current Outpatient Medications on File Prior to Visit Medication Sig Dispense Refill ??? gabapentin (NEURONTIN) 300 mg capsule Take 1 capsule nightly and if tolerating add 1 capsule inmorning and afternoon. 90 capsule 3 ??? hydrocortisone 2.5 % ointment Apply topically 2 (two) times a day 30 g 1 ??? tofacitinib (Xeljanz XR) 11 mg Take 1 tablet (11 mg total) by mouth daily 30 tablet 11 ??? [DISCONTINUED] folic acid (FOLVITE) 1 mg tablet Take 1 tablet (1 mg total) by mouth daily 30 tablet 11 ??? [DISCONTINUED] lisinopriL (PRINIVIL,ZESTRIL) 10 mg tablet Take 1 tablet (10 mg total) by mouth daily 30 tablet 1 ??? [DISCONTINUED] methotrexate 2.5 mg tablet Take 4 tabs once a week for 2 weeks and then 6 tabs weekly 24 tablet 3 No current facility-administered medications on file prior to visit. No Known Allergies Past Medical History: Diagnosis Date ??? Hypertension History reviewed. No pertinent surgical history. Family History Problem Relation Age of Onset ??? No Known Problems Mother Social History: working at [employer] ([employer]). Continues tobacco use, alcohol use 3-4 times a week with 2-4 drinks each time. Denies current recreational drug use. Review of Systems All other systems reviewed and are negative. Physical Exam Vitals BP 160/100 Pulse 60 Temp 36.5 ??C (97.7 ??F) Ht 175.3 cm (5' 9 ) Wt 85.1 kg (187 lb 9.6 oz) BMI 27.70 kg/m?? Vitals reviewed General: NAD, awake and alert HEENT: NC/AT, PERRLA, EOMI, MMM, OP clear Neck: Supple, no LAD or thyromegaly Heart: RRR, no M/R/G Lungs: CTAB, no wheezes/crackles/rhonchi Abdominal :NBS, soft, NT/ND, no masses, no organomegaly Extremities: No LE edema, distal pulses intact bilaterally MSK: B/L shoulders wo/ pain on ROM. No TTP of B/L biceps tendons, AC and GH joints. B/L elbows w/ full ROM and no TTP. No effusions, warmth, redness. No nodules. ?? B/L wrists w/??TTP and synovitis present. No pain w/ flex/ext. B/L MCPs, PIPs w/ synovitis, TTP and DIPs w/o TTP, synovitis. 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 Ulnar deviations of digits bilaterally B/L knees w/o TTP, effusions, warmth, redness. ?? B/L ankles w/ synovitis, TTP. B/L MTP squeeze positive. ??lateral deviation of left hallux Neuro: AAOx4, Nonfocal Skin: No rashes, jaundice, or other lesions noted Psych: normal mood and affect Labs Lab Results Component Value Date SEDRATE 16 10/29/2021 RF 276.0 (H) 05/03/2018 CRP <0.5 10/29/2021 No results found for: ALDOLASE, YUE, SCL70, [...] multiple joints in wrist and foot. Assessment/plan: 61 y.o. male with a PMH of with seropositive RA, HTN, polysubstance abuse (alcohol, tobacco, and marijuana) who is here for follow-up. # Seropositive RA: #High risk medication use: #Alcohol abuse: Severe disease with multiple joint involvement. Improved with Humira with mainly right ankle inflammation that persisted. Switched to Xeljanz with much better control and improvement in all joints including right ankle. Updated xrays 06/13 with no significant changes. SSZ did not help symptoms. Patient concerned about MTX and Leflunomide use with liver toxicity along with alcohol consumption. Discussed support groups and AA meetings he could attend to help reduce consumption. Will trial HCQ instead - Continue Xeljanz 11 mg daily. - continue SSZ 1500 mg BID - Start HCQ 400 mg daily. Discussed risks and side effects including need for annual eye monitoringfor toxicity. Patient in understanding and agreement. - hep panel and T-spot neg 06/13 and 05/15 - continue voltaren gel. Combine with tylenol 1000 mg TID - lab monitoring with CBC, CMP for drug toxicity monitoring and ESR and CRP for disease monitoring. - annual eye exam for HCQ toxicity monitoring # Hypertension: off of medications. No current concerning symptoms. - refill lisinopril 10 mg. Patient to discuss with PCP about continued refills # Lower back Pain: # Cervical neck pain Most likely DDD with possible sciatica. - referred to PT # possible Carpal [...] flu vaccine - has had Shingrix x2 - has had 2/2 of COVID vaccine Follow-up: Return in about 3 months (around 05/07/2022) for Recheck. documented in this encounter Plan of Treatment Not on file documented as of this encounter Results * CRP (acute phase) (02/04/2022 9:36 AM CDT) CRP 0.8 <=10.0 mg/L [facility] Blood 02/04/2022 9:36 AM CDT 02/04/2022 10:25 AM CDT us Can Chelsy Mora MD PhD LAB BLOOD ORDERABLES Final Result [facility] Department [place] [address] * Erythrocyte sedimentation rate (02/04/2022 9:36 AM CDT) Pathologist [facility] Erythrocyte sedimentation rate 14 1 - 20 mm/hr [facility] Blood 02/04/2022 9:36 AM CDT 02/04/2022 10:25 AM CDT us Can Chelsy Mora MD PhD LAB BLOOD ORDERABLES Final Result Performing Organization Address [facility] de Phone Number [facility] Department [place] [address] * (ABNORMAL) Comprehensive metabolic panel (02/04/2022 9:06 AM CDT) Pathologist [facility] Total Protein 7.8 6.1 - 8.4 g/dL [facility] Albumin 4.8 3.5 - 5.2 g/dL [facility] Calcium 9.5 8.6 - 10.3 mg/dL [facility] BUN 21 7 - 23 mg/dL [facility] Total Bilirubin 0.48 0.20 - 1.40 mg/dL [facility] Comment:Repeated and Verifie d Alk Phos, Total 85 35 - 129 IU/L [facility] AST (SGOT) 27 11 - 47 IU/L [facility] ALT (SGPT) 17 6 - 53 IU/L [facility] Creatinine 1.11 0.70 - 1.30 mg/dL [facility] Sodium 141 135 - 145 mmol/L [facility] Potassium 4.2 3.3 - 5.1 mmol/L [facility] Chloride 107 95 - 107 mmol/L [facility] CO2 Content 19(L) 21 - 29 mmol/L [facility] Glucose 74 64 - 99 mg/dL [facility] Comment: NONFASTING GLUCOSE RANGE = 64-199 mg/dL FASTING GLUCOSE 64 - 99 = NORMAL FASTING GLUCOSE 100 - 125 = IMPAIRED FASTING GLUCOSE FASTING GLUCOSE >=126 = PROVISIONAL DIAGNOSIS OF DIABETES eGFR 76.0 >60.0 mL/min/1.7 3 m2 [facility] Blood specimen (specimen) 02/04/2022 9:06 AM CDT 02/04/2022 10:22 AM CDT us Can Chelsy Mora MD PhD LAB BLOOD ORDERABLES Final Result [facility] * (ABNORMAL) CBC with auto differential (02/04/2022 9:06 AM CDT) White Blood Count 6.6 3.6 - 11.2 K/uL [facility] RBC 4.44 4.06 - 5.63 M/uL [facility] Hemoglobin 14.9 13.0 - 17.5 g/dL [facility] Hematocrit 44.2 40.7 - 50.3 % [facility] MCV 99.6(H) 80.0 - 97.6 fL [facility] MCH 33.6 26.7 - 33.7 pg [facility] MCHC 33.8 32.7 - 35.5 g/dL [facility] RBC Dist Width 13.2 12.3 - 17.0 % [facility] Platelet Count 240 140 - 440 K/uL [facility] MPV 7.9 6.8 - 10.4 fL [facility] Neutrophils % 66.3 38.7 - 74.5 % [facility] Lymphocyte % 19.2(L) 20.0 - 54.3 % [facility] Monocytes % 12.5 4.3 - 13.5 % [facility] Eosinophils % 1.5 0.0 - 6.0 % [facility] Basophil % 0.5 0.0 - 3.0 % [facility] Absolute Neutrophil 4.4 1.8 - 6.6 K/uL [facility] Absolute Lymphocyte 1.3 0.8 - 3.3 K/uL [facility] Absolute Monocyte 0.8 0.2 - 1.2 K/uL [facility] Absolute Eosinophil 0.1 0.0 - 0.5 K/uL [facility] Absolute Basophil 0.0 0.0 - 0.2 K/uL [facility] Nucleated RBC % 0.1 0.0 - 0.4 /100 WBC [facility] Blood specimen (specimen) 02/04/2022 9:06 AM CDT 02/04/2022 10:22 AM CDT us Can Chelsy Mora MD PhD LAB BLOOD ORDERABLES Final Result [facility] documented in this encounter Visit Diagnoses Diagnosis 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) (HCC)- Primary Alcohol abuse Nondependent alcohol abuse, unspecified drinking behavior High risk medication use Bilateral carpal tunnel syndrome Carpal tunnel syndrome Chronic bilateral low back pain with bilateral sciatica Health care maintenance documented in this encounter Discontinued Medications Medication Sig Discontinue Reason Start Date End Da te methotrexate 2.5 mg tabletIndications:Rheuma toid Arthritis Take 4 tabs once a week for 2 weeks and then 6 tabs weekly 10/29/2021 02/04/2022 folic acid (FOLVITE) 1 mg tablet Take 1 tablet (1 mg total) by mouth daily 10/29/2021 02/04/2022 lisinopriL (PRINIVIL,ZESTRIL) 10 mg tablet Take 1 tablet (10 mg total) by mouth daily Reorder 10/29/2021 02/04/2022 documented as of this encounter Care Teams Spiritual Care Coordinator Relationship Specialty Start Date End Date Torsten Acosta MD PCP - General Internal Medicine 09/04/20 documented as of this encounter
--- OUTSIDE RECORDS SUMMARY | 2024-07-06 23:40 | XMS_ITS | Encounter Summary ---
Author Organization [facility] Address [address] [place] [address] Phone Care Team Providers Care Director Compensation Name Role Phone Torsten Acosta MD Primary Care Provider [phone] Encounter Details Date Type Department Care Team (Late st Contact Info) Description 02/04/2022 9:10 AM CDT Lab [facility] Endocrinology Metabolism and Lipid [address] [facility] 5th [place] [address] [place] [address] High risk medication use Social History Tobacco Use Types Packs/Day Years Used Date Smoking Tobacco: Every Day Sex and Gender Information Value Date Recorded Sex Assigned at Not on file Legal Sex Male 6:45 AM CONFLICTS ANALYST Gender Identity Not on file Sexual Orientation Not on file documented as of this encounter Plan of Treatment Not on file documented as of this encounter Procedures Procedure Name Priority Date/Time Associated Diagnosis Comments CBC WITH AUTO DIFFERENTIAL Routine 02/04/2022 9:06 AM CDT High risk medication use COMPREHENSIVE METABOLIC PANEL Routine 02/04/2022 9:06 AM CDT High risk medication use documented in this encounter Results * (ABNORMAL) CBC with auto differential (02/04/2022 [...] [facility] * (ABNORMAL) Comprehensive metabolic panel (02/04/2022 9:06 AM CDT) Total Protein 7.8 6.1 - [...] Result [facility] documented in this encounter Visit Diagnoses Diagnosis High risk medication use documented in this encounter Care Teams Director Compensation Relationship Specialty Start Date End Date Torsten Acosta MD PCP - General Internal Medicine 09/04/20 documented as of this encounter
--- OUTSIDE RECORDS SUMMARY | 2024-07-06 23:40 | XMS_ITS | Encounter Summary ---
Author Organization [facility] Address [address] [place] [address] Care Team Providers Care Athletic Shoe Designer Name Role Phone Torsten Acosta MD Primary Care Provider [phone] Reason for Referral * Diagnostic Imaging (Routine) - Closed Specialty Diagnoses / Procedures Referred By Contac t Referred To Contact Diagnoses 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) (HCC) Procedures XR Hand Left 3 [place] [address] [place] [address] Phone: tel: fax: [facility] Referral ID Status Reason Start Date Expiration Date Visits Re quested Visits Authorized [id number] Closed 10/20/2023 11/18/2024 1 1 * Diagnostic Imaging (Routine) - Closed Specialty Diagnoses / Procedures Referred By Contac t Referred To Contact Diagnoses 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) (HCC) Procedures XR Hand Right 3 or More Views Hernandez Saravia MD [address] [place] [address] Phone: tel: fax: [facility] Referral ID Status Reason Start Date Expiration Date Visits Re quested Visits Authorized [id number] Closed 10/20/2023 11/18/2024 1 1 * Diagnostic Imaging (Routine) - Closed Specialty Diagnoses / Procedures Referred By Contac t Referred To Contact Diagnoses 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) (HCC) Procedures XR Ankle Left 3 [place] [address] [place], [place] [address] Phone: tel: fax: [facility] Referral ID Status Reason Start Date Expiration Date Visits Re quested Visits Authorized [id number] Closed 10/20/2023 11/18/2024 1 1 Reason for Visit * Diagnostic Imaging (Routine) - Closed Specialty Diagnoses / Procedures Referred By Jesus t Referred To Contact Diagnoses 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) (HCC) Procedures XR Ankle Left 3 [place] [address] [place], [place] [address] Phone: tel: fax: [facility] Referral ID Status Reason Start Date Expiration Date Visits Re quested Visits Authorized [id number] Closed 10/20/2023 11/18/2024 1 1 Encounter Details Date Type Department Care Team (Latest Contact Info) Description 10/20/2023 9:09 AM CDT - 10/20/2023 11:59 PM CDT Hospital Encounter [facility] [address] [place] [id number] 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) (HCC) Discharge Disposition: Discharge to home or self care Social History Tobacco Use Types Packs/Day Years Used Date Smoking Tobacco: Every Day Sex and Gender Information Value Date Recorded Sex Assigned at Not on file Legal Sex Male 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 30 tablet 3 10/20/2023 11/01/2023 hydroxychloroquin e (PLAQUENIL) 200 mg tabletIndications :Rheumatoid Arthritis Take 2 tablets (400 mg total) by mouth daily 60 tablet 5 10/20/2023 01/26/2024 sulfaSALAzine (AZULFIDINE) 500 mg tabletIndications :Rheumatoid Arthritis Take 3 tablets (1,500 mg total) by mouth 2 (two) times a day 540 tablet 1 10/20/2023 01/26/2024 tofacitinib (Xeljanz XR) 11 mgIndications:Rhe umatoid arthritis involving multiple sites with positive rheumatoid [...] Name Priority Date/Time Associated Diagnosis Comments XR SPINE CERVICAL W FLEXION AND EXTENSION 4 VIEWS Routine 10/20/2023 9:30 AM CDT 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) (HCC) XR ANKLE RIGHT 3 OR MORE VIEWS Routine 10/20/2023 9:30 AM CDT 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) (HCC) XR ANKLE LEFT 3 OR MORE VIEWS Routine 10/20/2023 9:30 AM CDT 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
--- OUTSIDE RECORDS SUMMARY | 2024-07-06 23:40 | XMS_ITS | Encounter Summary ---
Author Organization [facility] Healthcare Address [address] [place] [address] Care Team Providers Care Printer'S Assistant Name Role Phone Torsten Acosta MD Primary Care Provider + [phone] Encounter Details Date Type Department Care Team (Latest Contact Info) Description 10/29/2021 9:48 AM CDT - 10/29/2021 11:59 PM CDT Hospital Encounter [address] [address] 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) ([facility]) Discharge Disposition: Discharge to home or self care Social History Tobacco Use Types Packs/Day Years Used Date Smoking Tobacco: Every Day Sex and Gender Information Value Date Recorded Sex Assigned at Not on file Legal Sex Male 6:45 AM HAND PATTERN MARKER Gender Identity Not on file Sexual Orientation Not on file documented as of this encounter Medications at Time of Discharge folic acid (FOLVITE) 1 mg tablet Take 1 tablet (1 mg total) by mouth daily 30 tablet 11 10/29/2021 2 gabapentin (NEURONTIN) 300 mg capsuleIndicatio ns:Neuropathic Pain Take 1 capsule nightly and if tolerating add 1 capsule in morning and afternoon. 90 capsule 3 01/06/2021 4 hydrocortisone 2.5 % ointment Apply topically 2 (two) times a day 30 g 1 07/31/2020 4 lisinopriL (PRINIVIL,ZESTRI L) 10 mg tablet Take 1 tablet (10 mg total) by mouth daily 30 tablet 1 10/29/2021 2 methotrexate 2.5 mg tabletIndication s:Rheumatoid Arthritis Take 4 tabs once a week for 2 weeks and then 6 tabs weekly 24 tablet 3 10/29/2021 2 tofacitinib (Xeljanz XR) 11 mgIndications:Rh eumatoid Arthritis Take 1 tablet (11 mg total) by mouth daily 30 tablet 11 09/29/2021 3 documented as of this encounter Discharge Disposition Disposition Code Departure Means Destination Discharge to home or self care documented in this encounter Plan of Treatment Not on file documented as of this encounter Procedures Procedure Name Priority Date/Time Associated Diagnosis Comments ERYTHROCYTE SEDIMENTATION RATE Routine 10/29/2021 9:48 AM CDT Rheumatoid 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 ([facility]/HCC) ([facility]) CRP (ACUTE PHASE) Routine 10/29/2021 9:4 8 AM CDT Rheumatoid 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 ([facility]) ([facility]) documented in this encounter Results * CRP (acute phase) (10/29/2021 9:48 AM CDT) CRP <0.5 <=10.0 mg/L [facility] Blood 10/29/2021 9:48 AM CDT 10/29/2021 12:10 PM CDT Can Chelsy Mora MD PhD LAB BLOOD ORDERABLES Final Result [facility] Department [place] [address] * Erythrocyte sedimentation rate (10/29/2021 9:48 AM CDT) Erythrocyte sedimentation rate 16 1 - 20 mm/hr [facility] Blood 10/29/2021 9:48 AM CDT 10/29/2021 12:10 PM CDT Result Jesica Valentino Sungur MD PhD LAB BLOOD ORDERABLES Final Result [facility] Department of Laboratories [place], [place] [id number] documented in this encounter Visit Diagnoses Diagnosis 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) (HCC) documented in this encounter Care Teams Printer'S Assistant Relationship Specialty Start Date End Date Torsten Acosta MD PCP - General Internal Medicine 09/04/20 documented as of this encounter
--- OUTSIDE RECORDS SUMMARY | 2024-07-06 23:40 | XMS_ITS | Encounter Summary ---
Author Organization [facility] Address [address] [place] [address] Phone Care Team Providers Care Claim Representative Name Role Phone Orville Pryor MD Primary Care Provider [phone] Encounter Details Date Type Department Care Team (Late st Contact Info) Description 09/20/2019 Telephone [facility] Rheumatology [address] [place] [address] 5th [place] [address] [place] [phone] Amina Rosenberg RMA Social History Tobacco Use Types Packs/Day Years Used Date Smoking Tobacco: Every Day Sex and Gender Information Value Date Recorded Sex Assigned at Not on file Legal 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 * Telephone Encounter - Amina Rosenberg RMA - 09/20/2019 10:01 AM CDT ----- Message from Juliocesar Mora MD PhD sent at 09/20/2019 9:03 AM CDT ----- Regarding: follow-up Hello, Can you schedule this patient in 3-4 months for follow-up? documented in this encounter Plan of Treatment Not on file documented as of this encounter Visit Diagnoses Not on filedocumented in this encounter Care Teams Claim Representative Relationship Specialty Start Date End Date Orville Pryor MD [address] [place] [address] PCP - General 05/03/18 09/03/20 documented as of this encounter
--- OUTSIDE RECORDS SUMMARY | 2024-07-06 23:40 | XMS_ITS | Encounter Summary ---
Author Organization [facility] Address [address] [place] [address] Phone Care Team Providers Care Manager It Training Name Role Phone Torsten Acosta MD Primary Care Provider + [phone] Encounter Details Date Type Department Care Team (Late st Contact Info) Description 01/26/2024 10:[address] 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 SealsDirk seeing you in clinic. Lab tests are within an acceptable range. Sujatha Saravia MD Rheumatology Fellow 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) (HCC) documented in this encounter Results * CRP (acute phase) (01/26/2024 9:46 AM CDT) C-Reactive Protein, Acute <3.0 <5.0 mg/L [facility] Blood 01/26/2024 9:46 AM CDT 01/26/2024 10:56 AM CDT Hernandez Saravia MD LAB BLOOD ORDERABLES F inal Result [facility] * Comprehensive metabolic panel (01/26/2024 9:46 AM CDT) Total Protein 7.3 6.1 - 8.4 g/dL [facility] Albumin 4.5 3.5 - 5.2 g/dL [facility] Calcium 9.3 8.6 - 10.3 mg/dL [facility] BUN 13 7 - 23 mg/dL [facility] Total Bilirubin 0.62 0.20 - 1.40 mg/dL [facility] Alk Phos, Total 65 35 - 129 IU/L [facility] AST (SGOT) 22 11 - 47 IU/L [facility] ALT (SGPT) 17 6 - 53 IU/L [facility] Creatinine 0.89 0.70 - 1.30 mg/dL [facility] Sodium 137 135 - 145 mmol/L [facility] Potassium 3.7 3.3 - 5.1 mmol/L [facility] Chloride 102 95 - 107 mmol/L [facility] CO2 Content 24 21 - 29 mmol/L [facility] Glucose 71 64 - 99 mg/dL [facility] Comment: NONFASTING GLUCOSE RANGE = 64-199 mg/dL FASTING GLUCOSE 64 - 99 = NORMAL FASTING GLUCOSE 100 - 125 = IMPAIRED FASTING GLUCOSE FASTING GLUCOSE >=126 = PROVISIONAL DIAGNOSIS OF DIABETES eGFR >90.0 >60.0 mL/min/1.7 3 m2 [facility] Blood 01/26/2024 9:46 AM CDT 01/26/2024 10:56 AM CDT us Hernandez Saravia MD LAB BLOOD ORDERABLES F inal Result [facility] * (ABNORMAL) CBC with auto differential (01/26/2024 9:46 AM CDT) White Blood Count 4.9 3.6 - 11.2 K/uL [facility] RBC 4.90 4.06 - 5.63 M/uL [facility] Hemoglobin 16.4 13.0 - 17.5 g/dL [facility] Hematocrit 48.0 40.7 - 50.3 % [facility] MCV 97.9(H) 80.0 - 97.6 fL [facility] MCH 33.4 26.7 - 33.7 pg [facility] MCHC 34.1 32.7 - 35.5 g/dL [facility] RBC Dist Width 13.0 12.3 - 17.0 % [facility] Platelet Count 260 140 - 440 K/uL [facility] MPV 7.4 6.8 - 10.4 fL [facility] Neutrophils % 65.8 38.7 - 74.5 % [facility] Lymphocyte % 19.4(L) 20.0 - 54.3 % [facility] Monocytes % 12.6 4.3 - 13.5 % [facility] Eosinophils % 1.6 0.0 - 6.0 % [facility] Basophil % 0.6 0.0 - 3.0 % [facility] Absolute Neutrophil 3.2 1.8 - 6.6 K/uL [facility] Absolute Lymphocyte 1.0 0.8 - 3.3 K/uL [facility] Absolute Monocyte 0.6 0.2 - 1.2 K/uL [facility] Absolute Eosinophil 0.1 0.0 - 0.5 K/uL [facility] Absolute Basophil 0.0 0.0 - 0.2 K/uL [facility] Nucleated RBC % 0.2 0.0 - 0.4 /100 WBC [facility] Blood 01/26/2024 9:46 AM CDT 01/26/2024 10:56 AM CDT Hernandez Saravia MD LAB BLOOD ORDERABLES F inal Result [facility] documented in this encounter Visit Diagnoses Diagnosis 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) (HCC) documented in this encounter Care Teams Manager It Training Relationship Specialty Start Date End Date Torsten Acosta MD PCP - General Internal Medicine 09/04/20 documented as of this encounter"
--- OUTSIDE RECORDS SUMMARY | 2024-07-06 23:40 | XMS_ITS | Encounter Summary ---
Author Organization [facility] Address [address] [place] [address] Phone Care Team Providers Care Trap Setter Name Role Phone Orville Pryor MD Primary Care Provider [phone] Encounter Details Date Type Department Care Team (Late st Contact Info) Description 05/07/2020 Telephone [facility] Endocrinology Metabolism and Lipid [address] [facility] 5th [place] [address] [place] [address] Kerrie Seth MA Social History Tobacco Use Types Packs/Day Years Used Date Smoking Tobacco: Every Day Sex and Gender Information Value Date Recorded Sex Assigned at Not on file Legal Sex Male 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 Patient needs Medication Reconciliation done before appointment with provider. D MACHINIST documented in this encounter Plan of Treatment Not on file documented as of this encounter Visit Diagnoses Not on filedocumented in this encounter Care Teams Trap Setter Relationship Specialty Start Date End Date Orville Pryor MD [address] [place] [address] PCP - General 11/8/18 3/11/21 documented as of this encounter
--- OUTSIDE RECORDS SUMMARY | 2024-07-06 23:40 | XMS_ITS | Encounter Summary ---
Author Organization [facility] Address [address] [place] [address] Phone Care Team Providers Care Director Internal Control Name Role Phone Orville Pryor MD Primary Care Provider [phone] Encounter Details Date Type Department Care Team (Late st Contact Info) Description 06/03/2020 Orders Only [facility] Rheumatology [address] [facility] 5th [place] [address] [place] [address] Juliocesar Mora MD PhD [address] [place] [address] Chronic bilateral low back pain with bilateral sciatica (Primary Dx) Social History Tobacco Use Types Packs/Day Years Used Date Smoking Tobacco: Every Day Sex and Gender Information Value Date Recorded Sex Assigned at Not on file Legal 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
--- OUTSIDE RECORDS SUMMARY | 2024-07-06 23:40 | XMS_ITS | Encounter Summary ---
Author Organization [facility] Healthcare Address [address] [place] [address] Care Team Providers Care Double Needle Stitcher Name Role Phone Orville Pryor MD Primary Care Provider [phone] Reason for Referral * Diagnostic Imaging (Routine) - Closed Specialty Diagnoses / Procedures Referred By Contac t Referred To Contact Diagnoses Chronic bilateral low back pain with bilateral sciatica Procedures XR Sacroiliac Joints 3 or More Views Juliocesar Mora MD PhD Phone: tel: fax: [facility] Referral ID Status Reason Start Date Expiration Date Visits Re quested Visits Authorized [id number] Closed 05/08/2020 06/07/2021 1 1 AGE INSPECTOR * Diagnostic Imaging (Routine) - Closed Specialty Diagnoses / Procedures Referred By Contac t Referred To Contact Diagnoses Chronic bilateral low back pain with bilateral sciatica Procedures XR Spine Lumbar 4 or More Views Juliocesar Mora MD PhD Phone: tel: fax: [facility] Referral ID Status Reason Start Date Expiration Date Visits Re quested Visits Authorized [id number] Closed 05/08/2020 06/07/2021 1 1 AGE INSPECTOR * Diagnostic Imaging (Routine) - Closed Specialty Diagnoses / Procedures Referred By Contac t Referred To Contact Diagnoses Neck pain Procedures XR Spine Cervical W Flexion And Extension 4 or 5 Views Juliocesar Mora MD PhD Phone: tel: fax: [facility] Referral ID Status Reason Start Date Expiration Date Visits Re quested Visits Authorized [id number] Closed 05/08/2020 06/07/2021 1 1 AGE INSPECTOR Reason for Visit * Diagnostic Imaging (Routine) - Closed Specialty Diagnoses / Procedures Referred By Contac t Referred To Contact Diagnoses Neck pain Procedures XR Spine Cervical W Flexion And Extension 4 or 5 Views Juliocesar Mora MD PhD Phone: tel: fax: [facility] Referral ID Status Reason Start Date Expiration Date Visits Re quested Visits Authorized [id number] Closed 05/08/2020 06/07/2021 1 1 Encounter Details Date Type Department Care Team (Latest Contact Info) Description 05/13/2020 9:12 AM SAUSAGE INSPECTOR - 05/13/2020 11:59 PM SAUSAGE INSPECTOR Hospital Encounter [facility] [address] [place] [id number] Juliocesar Mroa MD PhD [facility] [address] [place] [address] Neck pain; Chronic bilateral low back pain with bilateral sciatica Discharge Disposition: Discharge to home or self care Social History Tobacco Use Types Packs/Day Years Used Date Smoking Tobacco: Every Day Sex and Gender Information Value Date Recorded Sex Assigned at Not on file Legal Sex Male 6:45 AM SAUSAGE INSPECTOR Gender Identity Not on file Sexual Orientation Not on file documented as of this encounter Medications at Time of Discharge diclofenac sodium (VOLTAREN) 1 % gelIndications:O steoarthritis Apply 2 g topically 3 (three) times a day Apply to arthritis joints PRN 2 Tube 2 05/08/2020 0 hydrocortisone 2.5 % ointment Apply topically 2 (two) times a day 30 g 1 06/07/2019 1 predniSONE (DELTASONE) 10 mg tabletIndication s:autoimmune disease Take 1 tablet (10 mg) by mouth daily As needed 30 tablet 1 05/08/2020 1 sulfaSALAzine (AZULFIDINE) 500 mg tabletIndication s:Rheumatoid Arthritis Take 3 tablets (1,500 mg total) by mouth 2 (two) times a day 540 tablet 3 05/08/2020 1 tofacitinib (Xeljanz XR) 11 mg Take 1 tablet (11 mg total) by mouth daily 30 tablet 11 05/08/2020 1 documented as of this encounter Discharge Disposition Disposition Code Departure Means Destination Discharge to home or self care documented in this encounter Plan of Treatment Not on file documented as of this encounter Procedures Procedure Name Priority Date/Time Associated Diagnosis Comments XR SPINE CERVICAL W FLEXION AND EXTENSION 4 VIEWS Schedule Routine, Read Routine (OP Routine) 05/13/2020 9:36 AM SAUSAGE INSPECTOR Neck pain XR SACROILIAC JOINTS 3 OR MORE VIEWS Schedule Routine, Read Routine (OP Routine) 05/13/2020 9:36 AM SAUSAGE INSPECTOR Chronic bilateral low back pain with bilateral sciatica XR SPINE LUMBAR COMPLETE 4 OR MORE VIEWS Schedule Routine, Read Routine (OP Routine) 05/13/2020 9:36 AM SAUSAGE INSPECTOR Chronic bilateral low back pain with bilateral sciatica documented in this encounter Results * XR Sacroiliac Joints 3 or More Views (05/13/2020 9:36 AM SAUSAGE INSPECTOR) Anatomical Region Laterality Modality Pelvis, Body N/A Computed Radiogr aphy 05/13/2020 10:5 4 AM SAUSAGE INSPECTOR Impressions 05/13/2020 5:30 PM SAUSAGE INSPECTOR 1. Normal bilateral sacroiliac joints. 2. Moderate [...] Sujatha Beckham MD Narrative 05/13/2020 5:30 PM SAUSAGE INSPECTOR EXAMINATION: XR SACROILIAC JOINTS 3 OR MORE [...] 4 or More Views (05/13/2020 9:36 AM SAUSAGE INSPECTOR) Anatomical Region Laterality Modality Spine N/A Computed Radiogr aphy 05/13/2020 10:5 4 AM SAUSAGE INSPECTOR Impressions 05/13/2020 5:30 PM SAUSAGE INSPECTOR 1. Normal bilateral sacroiliac joints. 2. Moderate [...] Sujatha Beckham MD Narrative 05/13/2020 5:30 PM SAUSAGE INSPECTOR EXAMINATION: XR SACROILIAC JOINTS 3 OR MORE [...] PROCEDURES Fin al Result * XR Spine Cervical W Flexion And Extension 4 or 5 Views (05/13/2020 9:36 AM SAUSAGE INSPECTOR) Anatomical Region Laterality Modality Spine N/A Computed Radiogr aphy 05/13/2020 10:5 4 AM SAUSAGE INSPECTOR Impressions 05/13/2020 5:30 PM SAUSAGE INSPECTOR 1. Normal bilateral sacroiliac joints. 2. Moderate [...] Sujatha Beckham MD Narrative 05/13/2020 5:30 PM SAUSAGE INSPECTOR EXAMINATION: XR SACROILIAC JOINTS 3 OR MORE [...] with flexion and extension. Dictated by: Doreen Pari Ricky, M.D. The radiology attending physician has personally reviewed this study, and had reviewed and/or edited this written report and agrees with it. Electronically signed by: Sujatha Beckham MD us Can Chelsy Mora MD PhD IMG XR PROCEDURES Fin al Result documented in this encounter Visit Diagnoses Diagnosis Neck pain Cervicalgia Chronic bilateral low back pain with bilateral sciatica documented in this encounter Care Teams Double Needle Stitcher Relationship Specialty Start Date End Date Orville Pryor MD [address] [place] [address] PCP - General 05/03/18 09/03/20 documented as of this encounter
--- OUTSIDE RECORDS SUMMARY | 2024-07-06 23:40 | XMS_ITS | Referral Summary ---
Author Organization [facility] Address [address] [place] [address] Care Team Providers Care Speech Lang Path Therapist Name Role Phone Torsten Acosta MD Primary Care Provider [phone] Encounters Date Type Department Care Team Description 07/05/2024 Orders Only [facility] Rheumatology [address] [facility] 5th [place] [address] [place] [id number] Hernandez Saravia MD High risk medication use (Primary Dx) from Last 3 Months Allergies No known active allergies Medications atorvastatin (LIPITOR) 40 mg tablet Take 1 tablet (40 mg total) by mouth daily 90 tablet 3 4 025 Active carvediloL (COREG) 6.25 mg tablet Take 1 tablet (6.25 mg total) by mouth 2 (two) times a day 4 Active lidocaine (LIDODERM) 5 % Place 1 patch on the skin daily Remove & discard patch within 12 hours or as directed by . 30 patch 3 4 Active hydroxychloroq uine (PLAQUENIL) 200 mg tabletIndicati ons:Rheumatoid Arthritis Take 2 tablets (400 mg total) by mouth daily 60 tablet 5 4 025 Active tofacitinib (Xeljanz XR) 11 mgIndications: 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) (HCC) Take 1 tablet (11 mg total) by mouth daily 90 tablet 5 025 Active tofacitinib (Xeljanz XR) 11 mgIndications: 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) ([facility]) Take 1 tablet (11 mg total) by mouth daily 30 tablet 5 4 025 Discontinued Active Problems Problem Noted Date Diagnosed Date Ankle swelling, right 01/11/2019 Assessment & Plan (01/11/2019 8:47 AM CDT): Extensive synovitis of multiple joints in the foot which likely represents uncontrolled disease as no significant effusion to aspirate today. I am recommending a trial of steroids to see if it improves his symptoms and if not I would recommend referral for synovectomy with culture. I have asked the patient to contact us after 7 days prednisone. 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 Gender Identity Not on file Sexual Orientation Not on file Last Filed Vital Signs Vital Sign Reading Time Taken Comments Blood Pressure 105/91 01/26/2024 8:55 AM CDT Pulse 97 01/26/2024 8:55 AM CDT Temperature 36.4 ??C (97.6 ??F) 10/20/2023 7:55 AM CD T Respiratory Rate 20 05/03/2018 6:50 AM ENTRY LEVEL PROJECT COORDINATOR Oxygen Saturation 98% 01/26/2024 8:55 AM CDT Inhaled Oxygen Concentration - - Weight 83.9 kg (185 lb) 01/26/2024 8:55 AM CDT Height 175.3 cm (5' 9 ) 01/26/2024 8:55 AM CDT Body Mass Index 27.32 01/26/2024 8:55 AM CDT Plan of Treatment Not on file Procedures Procedure Name Priority Date/Time Associated Diagnosis Comments HEPATITIS C ANTIBODY Routine 10/20/2023 9:05 AM CDT Rheumatoid 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 (CMS/[facility]) ([facility]) from Last 3 Months or Most Recently Relevant to Health Maintenance Results * Hepatitis C antibody Blood (10/20/2023 9:05 AM CDT) Hep C Ab Nonreactive Nonreactive Comment:Antibodies to HCV no t detected. Does NOT exclude the possibility of recent exposure to HCV. Current interpretive data was last revised on 22 Blood 10/20/2023 9:05 AM CDT 10/20/2023 10:18 AM CDT Hernandez Saravia MD LAB MICROBIOLOGY - GEN ERAL ORDERABLES Final Result [facility] Department [place] [address] from Last 3 Months or Most Recently Relevant to Health Maintenance Insurance [facility] HMO REPLACED BY [facility] ACCESS CHOICE REPLACED BY [facility] ACCESS CHOICE Care Teams Speech Lang Path Therapist Relationship Specialty Start Date End Date Torsten Acosta MD PCP - General Internal Medicine 09/04/20
--- OUTSIDE RECORDS SUMMARY | 2024-07-06 23:40 | XMS_ITS | Encounter Summary ---
Author Organization [facility] Address [address] [place] [address] Phone Care Team Providers Care Chipper Name Role Phone Torsten Acosta MD Primary Care Provider [phone] Reason for Referral * Consultation (Routine) - Pending Review Specialty Diagnoses / Procedures Referred By Jesus lara Referred To Contact Ophthalmology Diagnoses Rheumatoid 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 ([facility]) ([facility]) Hernandez Saravia MD [address] [place] [address] Phone: tel: fax: [facility] (All Locations) Referral ID Status Reason Start Date Expiration Date Visits Requested Visits Authorized [id number] Pending Review Specialty Services Required 01/26/2024 02/24/2025 1 1 Question Answer Please select the performing region: [facility] (All Locations) [167] # of visits: 1 Comments hydroxychloroquine * Consultation (Routine) - Pending Review Specialty Diagnoses / Procedures Referred By Jesus lara Referred To Contact Physical Therapy Diagnoses Lumbar radiculopathy Hernandez Saravia MD [address] [place] [address] Phone: tel: fax: External Order Referral ID Status Reason Start Date Expiration Date Visits Requested Visits Authorized [id number] Pending Review Evaluate and Treat 01/26/2024 02/24/2025 24 24 Question Answer PTRFR PT Evaluate and Treat Therapy options discussed with patient? Yes Location provided for therapy services is: Patient requested/Patient preferred Please select the performing region: External Order [171] # of visits: 24 Encounter Details Date Type Department Care Team (Late st Contact Info) Description 01/26/2024 9:00 AM CDT Office Visit [facility] Rheumatology [address] [facility] 5th [place] [address] [place] [address] Hernandez Saravia MD [address] [place] [address] 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) (HCC) (Primary Dx); Lumbar radiculopathy Social History Tobacco Use Types Packs/Day Years Used Date Smoking Tobacco: Every Day Tobacco Cessation:Ready to Q uit: No; Counseling Given: No Sex and Gender Information Value Date Recorded Sex Assigned at Not on file 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 Gender Identity Not on file Sexual Orientation Not on file documented as of this encounter Last Filed Vital Signs Vital Sign Reading Time Taken Comments Blood Pressure 105/91 01/26/2024 8:55 AM CDT Pulse 97 01/26/2024 8:55 AM CDT Temperature - - Respiratory Rate - - Oxygen Saturation 98% 01/26/2024 8:55 AM CDT Inhaled Oxygen Concentration - - Weight 83.9 kg (185 lb) 01/26/2024 8:55 AM CDT Height 175.3 cm (5' 9 ) 01/26/2024 8:55 AM CDT Body Mass Index 27.32 01/26/2024 8:55 AM CDT documented in this encounter Patient Instructions * Patient Instructions* Hernandez Saravia MD - 01/26/2024 9:00 AM CDT Rheumatoid arthritis stable Stopping sulfasalazine. Continuing other medicines Checking blood tests For back, recommending lidocaine patches, rest, ice, heat, and physical therapy Trying to cut back on alcohol documented in this encounter Ordered Prescriptions Prescription Sig Dispense Quantity Refills Last Filled Start Date End Date hydroxychloroquine (PLAQUENIL) 200 mg tabletIndications: Rheumatoid Arthritis Take 2 tablets (400 mg total) by mouth daily 60 tablet 5 01/26/2024 5 lidocaine (LIDODERM) 5 % Place 1 patch on the skin daily Remove & discard patch within 12 hours or as directed by . 30 patch 3 01/26/2024 documented in this encounter Progress Notes * Hernandez Saravia MD - 01/26/2024 9:00 AM CDT [facility] Division of Rheumatology SUBJECTIVE: Rheumatological disease: RF+ (276), CCP+ (>300), erosive rheumatoid arthritis Rheumatological medication: tofacitinib 11 mg daily, sulfasalazine 1500 mg daily (should be taking twice daily), hydroxychloroquine 400 mg daily Last clinic visit: Oct 19 Aristeo Seals is a 63 y.o. male with polysubstance use (alcohol, tobacco, marijuana), HTN At last visit (italicized): Seropositive, erosive rheumatoid arthritis -Disease poorly-controlled given gaps in care -Ordered CBC, CMP, ESR, CRP, lipids, TB, HBV, HCV, x-rays of C spine, hands, and ankles -Labs reviewed and notable for elevated ASCVD risk -Restart tofacitinib 11 mg daily, sulfasalazine 1500 mg twice daily, hydroxychloroquine 400 mg daily -Prednisone taper provided in the interim High risk medications use -Tofacitinib: last TB and HBV, HCV negative -SSZ: CBC, CMP every 3 months -HCQ: ophthalmology referral placed HTN -Longstanding diagnosis and blood pressure elevated at this visit. Patient's previous etl data architect prescribed antihypertensives. I will discuss with the patient the need to have this consistently addressed with his PCP HLD -Significantly elevated ASCVD risk. I will discuss with the patient the need to have this consistently addressed with his PCP -Touched base with patient regarding over the phone regarding blood pressure - his PCP just recently prescribed a refill of carvedilol. I informed the patient he will likely need a second blood pressure medicine. I reinforced the importance of weight loss, avoiding alcohol and tobacco. I offered toprescribe atorvastatin for cholesterol, and he was agreeable to start this. Future refills can be prescribed by rheumatology or his PCP Reviewed interim: N/A Today: -Patient is taking tofacitinib and hydroxychloroquine as prescribed. However, he is taking sulfasalazine 1500 mg once daily rather than twice daily. Overall, he feels rheumatoid arthritis is much better controlled than when I first saw him. We discussed the need for eye appointment -Patient is primarily bothered by left low back pain that started around a week ago out of nowhere.Pain radiates down his leg. There is no associated weakness, bowel/bladder incontinence. Patient has tried ibuprofen -He is drinking 6 beers daily. We discussed trying to cut back gradually === History -Diagnosed in 2018 in the setting of polyarthralgia, +RF (276), CCP (>300), radiographic erosions. 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 6 beers daily Other drugs: marijuana use --- Current Outpatient Medications Medication Instructions atorvastatin (LIPITOR) 40 mg, oral, Daily carvediloL (COREG) 6.25 mg, oral, 2 times daily hydroxychloroquine (PLAQUENIL) 400 mg, oral, Daily Xeljanz XR 11 mg, oral, Daily No Known Allergies OBJECTIVE: Physical Examination: Vitals: BP 105/91 (BP Location: Left arm, Patient Position: Sitting) Pulse 97 Ht 175.3 cm (5' 9 ) Wt 83.9 kg (185 lb) SpO2 98% BMI 27.32 kg/m?? General: Alert and oriented. Patient in no acute distress. Cardiac: Regular rate. Pulmonary: Normal respiratory effort. Musculoskeletal: -Neck: ROM intact -Back: Left lower back point tenderness -Upper extremities: Ulnar deviation and palmar subluxation at the MCPs. Synovial hypertrophy of PIPs without significant point tenderness. ROM of wrists, elbows, shoulders intact -Lower extremities: Limited ROM of ankles (right worse than left). Neurologic: Hearing and comprehension intact. No dysarthria. Lower extremity strength intact. ASSESSMENT/PLAN: Problem List Items Addressed This Visit 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) (HCC) - Primary Relevant Orders CBC with auto differential (Completed) Comprehensive metabolic panel (Completed) Erythrocyte sedimentation rate (Completed) CRP (acute phase) (Completed) RF+ (276), CCP+ (>300), erosive rheumatoid arthritis -Inflammatory disease well-controlled. Patient does have lumbar radiculopathy, which is not relatedto rheumatoid arthritis -Ordered CBC, CMP, ESR, CRP -Acceptable range -Continue tofacitinib 11 mg daily, hydroxychloroquine 400 mg daily -Discontinue sulfasalazine as patient was not even taking it as prescribed, and he feels pretty good -For lumbar radiculopathy, lidocaine patches, rest, ice, heat, and physical therapy High risk medications use -Tofacitinib: last TB and HBV, HCV negative -HCQ: ophthalmology referral placed Below not addressed this visit HTN -Longstanding diagnosis and blood pressure elevated at this visit. Patient's previous etl data architect prescribed antihypertensives. I will discuss with the patient the need to have this consistently addressed with his PCP HLD -Significantly elevated ASCVD risk. I will discuss with the patient the need to have this consistently addressed with his PCP -Touched base with patient regarding over the phone regarding blood pressure - his PCP just recently prescribed a refill of carvedilol. I informed the patient he will likely need a second blood pressure medicine. I reinforced the importance of weight loss, avoiding alcohol and tobacco. I offered toprescribe atorvastatin for cholesterol, and he was agreeable to start this. Future refills can be prescribed by rheumatology or his PCP Follow-up: 3 months via televisit Patient seen and discussed with Dr. Alicia Saravia MD Rheumatology Fellow [facility] Cosigned by Mikayla Vargas MD at 01/29/2024 10:45 AM CDT Associated attestation - Mikayla Vargas MD - 01/29/2024 10:45 AM CDT I have seen and examined the patient. I agree with the findings and plan of care as documented in the resident/fellow's note. My total encounter time on 01/26/2024 was 5 minutes which was spent in the activities documented in the note. This includes time spent prior to the visit and after the visit in direct care of the patient. This time does not include time spent in any separately reportable services. documented in this encounter Plan of Treatment Scheduled Referrals Name Type Priority Associated Diagnoses Orde r Schedule Ambulatory referral order to Physical Therapy - Outpatient Referral Routine Lumbar radiculopathy Expected: 02/09/2024 (Approximate), Expires: 01/25/2025 Ambulatory referral to Ophthalmology Outpatient Referral Routine Rheumatoid 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 ([facility]/HCC) (HCC) Expected: 02/09/2024 (Approximate), Expires: 01/25/2025 documented as of this encounter Results * CRP (acute phase) (01/26/2024 9:46 AM CDT) C-Reactive Protein, Acute <3.0 <5.0 mg/L [facility] Blood 01/26/2024 9:46 AM CDT 01/26/2024 10:56 AM CDT us Hernandez Saravia MD LAB BLOOD ORDERABLES F inal Result [facility] * Erythrocyte sedimentation rate (01/26/2024 9:46 AM CDT) Erythrocyte sedimentation rate 8 1 - 20 mm/hr Blood 01/26/2024 9:46 AM CDT 01/26/2024 10:45 AM CDT Hernandez Saravia MD LAB BLOOD ORDERABLES F inal Result [facility] Department [place] [address] * Comprehensive metabolic panel (01/26/2024 9:46 AM [...] F inal Result [facility] documented in this encounter Visit Diagnoses Diagnosis 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) (HCC)- Primary Lumbar radiculopathy Thoracic or lumbosacral neuritis or radiculitis, unspecified documented in this encounter Discontinued Medications Medication Sig Discontinue Reason Start Date End Da te sulfaSALAzine (AZULFIDINE) 500 mg tabletIndications:Rheu matoid Arthritis Take 3 tablets (1,500 mg total) by mouth 2 (two) times a day No longer clinically indicated 10/20/2023 01/26/2024 hydroxychloroquine (PLAQUENIL) 200 mg tabletIndications:Rheu matoid Arthritis Take 2 tablets (400 mg total) by mouth daily Reorder 10/20/2023 01/26/2024 documented as of this encounter Historical Medications * This list may reflect changes made after this encounter. carvediloL (COREG) 6.25 mg tablet Take 1 tablet (6.25 mg total) by mouth 2 (two) times a day 10/20/2023 added in this encounter Care Teams Chipper Relationship Specialty Start Date End Date Torsten Acosta MD PCP - General Internal Medicine 09/04/20 documented as of this encounter
--- OUTSIDE RECORDS SUMMARY | 2024-07-06 23:40 | XMS_ITS | Encounter Summary ---
Author Organization [facility] Healthcare Address [address] [place] [address] Care Team Providers Care Stave Saw Operator Name Role Phone Orville Pryor MD Primary Care Provider [phone]- [phone] Encounter Details Date Type Department Care Team (Late st Contact Info) Description 05/13/2020 10:35 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 Lab [facility] Advanced Medicine [facility] Advanced Medicine ([facility]) [address] [place] [id number] Juliocesar Mora MD PhD [address] [facility] [address] [place], [place] [id number] High risk medication use; Rheumatoid 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 ([facility]) Discharge Disposition: Discharge to home or self care Social History Tobacco Use Types Packs/Day Years Used Date Smoking Tobacco: Every Day Sex and Gender Information Value Date Recorded Sex Assigned at Not on file Legal Sex Male 6:45 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 Gender Identity Not on file Sexual Orientation Not on file documented as of this encounter Discharge Disposition Disposition Code Departure Means Destination Discharge to home or self care documented in this encounter Plan of Treatment Not on file documented as of this encounter Procedures Procedure Name Priority Date/Time Associated Diagnosis Comments T-SPOT.TB Routine 05/13/2020 10:08 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 High risk medication use DIFFERENTIAL AUTO Routine 05/13/2020 10: 08 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 High risk medication use CBC WITH AUTO DIFFERENTIAL Routine 05/13/2020 10:08 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 High risk medication use ERYTHROCYTE SEDIMENTATION RATE Routine 05/13/2020 10:08 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 Rheumatoid 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 ([facility]/HCC) CRP (ACUTE PHASE) Routine 05/13/2020 10: 08 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) COMPREHENSIVE METABOLIC PANEL Routine 05/13/2020 10:08 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 High risk medication use documented in this encounter Results * (ABNORMAL) Differential, auto (05/13/2020 10:08 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) Neutrophil abs 6.9(H) 1.7 - 6.5 K/cumm [facility] Imm gran abs 0.0 0.0 - 0.1 K/cumm [facility] Lymphocyte abs 1.3 0.8 - 3.3 K/cumm [facility] Monocyte abs 1.0(H) 0.2 - 0.8 K/cumm [facility] Eosinophil abs 0.1 0.0 - 0.5 K/cumm [facility] Basophil abs 0.1 0.0 - 0.1 K/cumm [facility] Neutrophil pct 73.3 % [facility] Comment: Interpretive Data Percent cell count reference ranges are not reported, since discordance with absolute values may lead to misinterpretation of CBC data. Current Interpretive Data was last revised on 2017. Imm gran pct 0.4 % [facility] Comment: Interpretive Data Percent cell count reference ranges are not reported, since discordance with absolute values may lead to misinterpretation of CBC data. Current Interpretive Data was last revised on 2017. Lymphocyte pct 13.8 % [facility] Comment: Interpretive Data Percent cell count reference ranges are not reported, since discordance with absolute values may lead to misinterpretation of CBC data. Current Interpretive Data was last revised on 2017. Monocyte pct 10.9 % [facility] Comment: Interpretive Data Percent cell count reference ranges are not reported, since discordance with absolute values may lead to misinterpretation of CBC data. Current Interpretive Data was last revised on 2017. Eosinophil pct 1.1 % [facility] Comment: Interpretive Data Percent cell count reference ranges are not reported, since discordance with absolute values may lead to misinterpretation of CBC data. Current Interpretive Data was last revised on 2017. Basophil pct 0.5 % [facility] Comment: Interpretive Data Percent cell count reference ranges are not reported, since discordance with absolute values may lead to misinterpretation of CBC data. Current Interpretive Data was last revised on 2017. Blood specimen (specimen) 05/13/2020 10:08 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 05/13/2020 10:27 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 Can Chelsy Mora MD PhD LAB BLOOD ORDERABLES Final Result Performing Organization Address [facility] de Phone Number [facility] Department [place] [address] * Erythrocyte sedimentation rate (05/13/2020 10:08 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) Erythrocyte sedimentation rate 11 1 - 20 mm/hr [facility] Blood specimen (specimen) 05/13/2020 10:08 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 05/13/2020 10:27 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 Can Chelsy Mora MD PhD LAB BLOOD ORDERABLES Final Result Performing Organization Address [facility] de Phone Number [facility] Department [place] [address] * CRP (acute phase) (05/13/2020 10:08 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) CRP 4.2 <=10.0 mg/L [facility] Blood specimen (specimen) 05/13/2020 10:08 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 05/13/2020 10:27 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 us Juliocesar Mora MD PhD LAB BLOOD ORDERABLES Final Result Performing Organization Address [facility] Co de Phone Number [facility] [place] [address] * T-SPOT.TB (05/13/2020 10:08 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) T-SPOT.TB Negative [facility] Comment: Normal Value: Negative A negative test [...] test. T-SPOT.TB Panel [facility] Spot [facility] 0 [facility] T-SPOT.TB Panel B Spot Count 0 [facility] T-SPOT.TB Negative Control Passed [facility] T-SPOT.TB Positive Control Passed [facility] Comment: Test Performed at: [facility] [place], [place] ??[phone] ? KG ESCOBAR MD,PHD Blood specimen (specimen) 05/13/2020 10:08 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 05/13/2020 10:31 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 us Can Chelsy Mora MD PhD LAB MICROBIOLOGY - [facility] ORDERABLES Final Result [facility] Department [place] [address] * Comprehensive metabolic panel (05/13/2020 10:08 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) [facility] Sodium 139 135 - 145 mmol/L [facility] Potassium, pl 4.1 3.3 - 4.9 mmol/L [facility] Chloride 108 97 - 110 mmol/L [facility] CO2 27 22 - 32 mmol/L [facility] Anion gap 4 2 - 15 mmol/L [facility] BUN 19 8 - 25 mg/dL [facility] Creatinine 1.12 0.80 - 1.30 mg/dL [facility] Glucose 93 70 - 199 mg/dL [facility] Comment: Interpretive Data Fasting glucose >/= [...] 2017. Calcium 9.5 8.5 - 10.3 mg/dL [facility] Bilirubin, total 0.6 0.1 - 1.2 mg/dL [facility] Protein, pl 8.0 6.5 - 8.5 g/dL [facility] Albumin 4.8 3.5 - 5.0 g/dL [facility] Alk phos 70 40 - 130 Units/L [facility] ALT 17 7 - 55 Units/L [facility] AST 25 10 - 50 Units/L [facility] Blood specimen (specimen) 05/13/2020 10:08 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 05/13/2020 10:27 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 us Can Chelsy Mora MD PhD LAB BLOOD ORDERABLES Final Result [facility] Department [place] [address] * (ABNORMAL) CBC with auto differential (05/13/2020 10:08 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) WBC 9.5 3.8 - 9.9 K/cumm [facility] Hgb 15.5 13.0 - 17.5 g/dL [facility] Hct 44.6 38.9 - 50.3 % [facility] Plt 250 150 - 400 K/cumm [facility] MPV 9.4 9.1 - 12.3 fL [facility] RBC 4.63 4.30 - 5.80 M/cumm [facility] MCV 96.3 81.3 - 96.4 fL [facility] MCH 33.5(H) 27.1 - 33.3 pg [facility] MCHC 34.8 32.3 - 35.7 g/dL [facility] RDW CV 11.7 11.1 - 14.9 % [facility] RDW SD 40.7 35.7 - 48.1 fL [facility] NRBC abs 0.00 0.00 - 0.01 K/cumm [facility] Blood specimen (specimen) 05/13/2020 10:08 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 05/13/2020 10:27 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 us Can Chelsy Mora MD PhD LAB BLOOD ORDERABLES Final Result [facility] Department [place] [address] documented in this encounter Visit Diagnoses Diagnosis High risk medication use 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) (HCC) documented in this encounter Care Teams Stave Saw Operator Relationship Specialty Start Date End Date Orville Pryor MD [address] [place] [address] PCP - General 05/03/18 09/03/20 documented as of this encounter
--- OUTSIDE RECORDS SUMMARY | 2024-07-06 23:40 | XMS_ITS | Encounter Summary ---
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); High risk medication use Social History Tobacco Use Types Packs/Day Years Used Date Smoking Tobacco: Every Day Sex and Gender Information Value Date Recorded Sex Assigned at Not on file Legal Sex 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 Gender Identity Not on file Sexual Orientation Not on file documented as of this encounter Plan of Treatment Not on file documented as of this encounter Procedures Procedure Name Priority Date/Time Associated Diagnosis Comments T-SPOT.TB Routine 06/07/2019 10:14 AM OIL AND GAS DRAFTER 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) High risk medication use HEPATITIS C ANTIBODY Routine 06/07/2019 10:14 AM OIL AND GAS DRAFTER 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) HEPATITIS B CORE ANTIBODY, TOTAL Routine 06/07/2019 10:14 AM OIL AND GAS DRAFTER 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) HEPATITIS B SURFACE ANTIBODY (IMMUNE STATUS) Routine 06/07/2019 10:14 AM OIL AND GAS DRAFTER 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) HEPATITIS B SURFACE ANTIGEN Routine 06/07/2019 10:14 AM OIL AND GAS DRAFTER 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) ERYTHROCYTE SEDIMENTATION RATE Routine 06/07/2019 10:14 AM OIL AND GAS DRAFTER 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) High risk medication use CRP (ACUTE PHASE) Routine 06/07/2019 10: 14 AM OIL AND GAS DRAFTER 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) High risk medication use documented in this encounter Results * Hepatitis B surface antibody (immune status) (06/07/2019 10:14 AM OIL AND GAS DRAFTER) HBsAb (immune status) Nonreactive [facility] Comment: Interpretive Data A Negative Result indicates HBsAb of less than 10mIU/mL; a Positive Result indicates HBsAb of greater than or equal to 10mIU/mL. If qualitative result is Positive, HBsAb Quantitation will be reported. Assay performance characteristics have not been established as an aid in determining susceptibility to HBV infection prior to or following vaccination in infants, or children. For monitoring serum HBsAb levels during hepatitis B immunoglobulin (HBIG) therapy in transplant recipients, please refer to institutional HBIG protocol for desirable HBsAb levels. Current interpretive data was last revised on 2016. Blood specimen (specimen) 06/07/2019 10:14 AM OIL AND GAS DRAFTER 06/07/2019 1:32 PM OIL AND GAS DRAFTER us Can Chelsy Mora MD PhD LAB MICROBIOL OGY - GENERAL ORDERABLES Edited Result - Final [facility] Department [place] [address] * Hepatitis B Surface Antigen (06/07/2019 10:14 AM OIL AND GAS DRAFTER) HepBsAg Nonreactive Nonreactive [facility] Blood specimen (specimen) 06/07/2019 10:14 AM OIL AND GAS DRAFTER 06/07/2019 1:32 PM OIL AND GAS DRAFTER us Can Chelsy Mora MD PhD LAB MICROBIOL OGY - GENERAL ORDERABLES Edited Result - Final Performing Organization Address [facility] [place] [address] * Hepatitis C antibody (06/07/2019 10:14 AM OIL AND GAS DRAFTER) [facility] Hep C Ab Nonreactive Nonreactive [facility] Comment: Interpretive Data Positive results should be confirmed by a molecular method. If positive, a second separately collected sample should be submitted for Hepatitis C Virus (HCV) RNA Detection and Quantitation by Real-Time Reverse Tool And Die Repair-PCR (RT-PCR). Current interpretive data was last revised on 2016. Blood specimen (specimen) 06/07/2019 10:14 AM OIL AND GAS DRAFTER 06/07/2019 1:32 PM OIL AND GAS DRAFTER Can Chelsy Mora MD PhD LAB MICROBIOL OGY - GENERAL ORDERABLES Edited Result - Final Performing Organization Address [facility] [place] [address] * T-SPOT.TB (06/07/2019 10:14 AM OIL AND GAS DRAFTER) [facility] T-SPOT.TB Negative Negative [facility] Comment: Limitations from the T-SPOT.TB Package Insert p.15 Results from T-SPOT.TB testing must be used in conjunction with each individual's epidemiological history, current medical status and results of other diagnostic evaluations.The performance of T-SPOT.TB has not been adequately evaluated with specimens from individuals younger than 17 years, in women, and in patients with hemophilia. A false positive result was obtained for T-SPOT.TB when tested in subjects with M. xenopi, M. kansasii and M. gordonae. While ESAT-6 and CFP10 antigens are absent from BCG strains of M. bovis and from most environmental mycobacteria, it is possible that a positive T-SPOT.TB result may be due to infection with M. kansasii, M. szulgai, M. gordonae or M. marinum. Alternative tests would be required if these infections are suspected. A negative test result does not exclude the possibility of exposure to, or infection with M. tuberculosis. Patients with recent exposure to TB infected individuals exhibiting a negative T-SPOT.TB result should be considered for retesting within 6 weeks or if other relevant clinical symptoms indicate possible infection. A positive test result does not rule in active TB disease; other tests should be performed to confirm the diagnosis of active TB disease such as sputum smear and culture, PCR, and chest radiography. T-SPOT.TB has not been evaluated in subjects who have received >1 month of anti-TB therapy. Refrigerated and frozen samples are not recommended for use with T-SPOT.TB test. T-Spot testing performed by [facility], [address] [place] [address]. [id number] A negative test result does not exclude [...] quantitative test. T-SPOT.TB Panel A Spot Count 1 [facility] T-SPOT.TB Panel B Spot Count 0 [facility] T-SPOT.TB Negative Control Passed [facility] T-SPOT.TB Positive Control Passed [facility] Blood specimen (specimen) 06/07/2019 10:14 AM OIL AND GAS DRAFTER 06/07/2019 1:45 PM OIL AND GAS DRAFTER us Can Chelsy Mora MD PhD LAB MICROBIOLOGY - [facility] ORDERABLES Final Result [facility] [place] [address] * Erythrocyte sedimentation rate (06/07/2019 10:14 AM OIL AND GAS DRAFTER) Erythrocyte sedimentation rate 20 1 - 20 mm/hr [facility] Blood specimen (specimen) 06/07/2019 10:14 AM OIL AND GAS DRAFTER 06/07/2019 1:32 PM OIL AND GAS DRAFTER us Juliocesar Mora MD PhD LAB BLOOD ORDERABLES Final Result Performing Organization Address [facility] [place] [address] * (ABNORMAL) CRP (acute phase) (06/07/2019 10:14 AM OIL AND GAS DRAFTER) Pathologist [facility] CRP 13.2(H) <=10.0 mg/L [facility] Blood specimen (specimen) 06/07/2019 10:14 AM OIL AND GAS DRAFTER 06/07/2019 1:32 PM OIL AND GAS DRAFTER us Juliocesar Mora MD PhD LAB BLOOD ORDERABLES Final Result Performing Organization Address [facility] Co de Phone Number [facility] [place] [address] * Hepatitis B core antibody, total (06/07/2019 10:14 AM OIL AND GAS DRAFTER) Pathologist [facility] Hep B core IgG/IgM Nonreactive Nonreactive [facility] Blood specimen (specimen) 06/07/2019 10:14 AM OIL AND GAS DRAFTER 06/07/2019 1:32 PM OIL AND GAS DRAFTER us Juliocesar Mora MD PhD LAB MICROBIOL OGY - GENERAL ORDERABLES Edited Result - Final Performing Organization Address City/[facility]/ZIP Co de Phone Number [facility] [place] [address] documented in this encounter Visit Diagnoses Diagnosis 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
--- OUTSIDE RECORDS SUMMARY | 2024-07-06 23:40 | XMS_ITS | Encounter Summary ---
Author Organization [facility] Address [address] [place] [address] Phone Care Team Providers Care Graphic Design Professor Name Role Phone Orville Pryor MD Primary Care Provider +1- [phone] Encounter Details Date Type Department Care Team (Late st Contact Info) Description 09/17/2019 Telephone [facility] Rheumatology [address] [place] [address] 5[address] [place] [address] [place] [id number] Amina Rosenberg RMA Social History Tobacco Use Types Packs/Day Years Used Date Smoking Tobacco: Every Day Sex and Gender Information Value Date Recorded Sex Assigned at Not on file 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 Pt is aware his appt will be converted into a phone visit. But says since he called solate if it's not he would like a regular call. * Telephone Encounter - Amina Rosenberg RMA - 09/19/2019 5:06 PM CDT Called pt no answer left message * Telephone Encounter - Amina Rosenberg RMA - 09/18/2019 1:47 PM CDT Called pt no answer left message. * Telephone Encounter - Amina Rosenberg RMA - 09/17/2019 9:58 AM CDT Called pt no answer left message about appt documented in this encounter Plan of Treatment Not on file documented as of this encounter Visit Diagnoses Not on filedocumented in this encounter Care Teams Graphic Design Professor Relationship Specialty Start Date End Date Orville Pryor MD [address] [place] [address] PCP - General 05/03/18 09/03/20 documented as of this encounter
--- OUTSIDE RECORDS SUMMARY | 2024-07-06 23:40 | XMS_ITS | Encounter Summary ---
Author Organization [facility] Address [address] [place] [address] Phone Care Team Providers Care Power Shear Operator Name Role Phone Torsten Acosta MD Primary Care Provider [phone] Encounter Details Date Type Department Care Team (Late st Contact Info) Description 10/29/2021 9:00 AM CDT Office Visit [facility] Rheumatology [address] [facility] 5th [place] [address] [place] [phone] Juliocesar Mora MD PhD [address] [place] [address] 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) (HCC) (Primary Dx); High risk medication use; Alcohol abuse; Bilateral carpal tunnel syndrome; Chronic bilateral low back pain with bilateral sciatica Social History Tobacco Use Types Packs/Day Years Used Date Smoking Tobacco: Every Day Sex and Gender Information Value Date Recorded Sex Assigned at Not on file 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 Gender Identity Not on file Sexual Orientation Not on file documented as of this encounter Last Filed Vital Signs Vital Sign Reading Time Taken Comments Blood Pressure 165/95 10/29/2021 9:23 AM CDT Pulse 72 10/29/2021 9:02 AM CDT Temperature 36.9 ??C (98.5 ??F) 10/29/2021 9:02 AM CD T Respiratory Rate - - Oxygen Saturation - - Inhaled Oxygen Concentration - - Weight 85.7 kg (189 lb) 10/29/2021 9:02 AM CDT Height 175.3 cm (5' 9 ) 10/29/2021 9:02 AM CDT Body Mass Index 27.91 10/29/2021 9:02 AM CDT documented in this encounter Patient Instructions * Patient Instructions* Juliocesar Mora MD PhD - 10/29/2021 9:00 AM CDT Please cut back on alcohol use as much as possible and ideally minimal to prevent liver injury withmethotrexate. Will start Methotrexate at 4 tabs once a week. Take folic acid daily. Call with side effects or concerns documented in this encounter Ordered Prescriptions Prescription Sig Dispense Quantity Refills Last Filled Start Date End Date lisinopriL (PRINIVIL,ZESTRIL) 10 mg tablet Take 1 tablet (10 mg total) by mouth daily 30 tablet 1 10/29/2021 02/04/2022 folic acid (FOLVITE) 1 mg tablet Take 1 tablet (1 mg total) by mouth daily 30 tablet 11 10/29/2021 02/04/2022 methotrexate 2.5 mg tabletIndications: Rheumatoid Arthritis Take 4 tabs once a week for 2 weeks and then 6 tabs weekly 24 tablet 3 10/29/2021 02/04/2022 documented in this encounter Progress Notes * Juliocesar Mora MD PhD - 10/29/2021 9:00 AM CDT Images from the original note were not included. Rheumatology Clinic Follow-up PATIENT NAME: Aristeo Seals : 1960 HILDA: 10/29/2021 Chief Complaint: RA HPI: Aristeo Seals is a 61 y.o. male with a PMH of with seropositive RA, HTN, polysubstance abuse (alcohol, tobacco, and marijuana) who is here for f/u on RA and persistent right ankle pain and swelling. Last seen in clinic 09/04/20. Disease History: Patient was seen in the [...] Patient adherent to Xeljanz 11 mg daily Patient has resumed Xeljanz now and improved joint symptoms, but still having significant pain in wrists, MCPs, PIPs, MTPs, and ankles with swelling and morning stiffness greater than 1 hour as well.He stopped taking SSZ as did not help symptoms. Pain was worse off of Xeljanz. Tolerating the medications well without any concerns or side effects. Continues to drink daily alcohol with 4-5 beers. He has also been out of his BP medications for more than a week. Denies fevers, chills, night sweats, abdominal discomfort, [...] ??? [DISCONTINUED] lisinopriL (PRINIVIL,ZESTRIL) 10 mg tablet daily ??? [DISCONTINUED] sulfaSALAzine (AZULFIDINE) 500 mg tablet Take 3 tablets (1,500 mg total) by mouth 2 (two) times a day 540 tablet 3 No current facility-administered medications on file prior to visit. No Known Allergies Past Medical History: Diagnosis Date ??? Hypertension No past surgical history on file. Family History Problem Relation Age of Onset ??? No Known Problems Mother Social History: working at [employer]). Continues tobacco use, alcohol use 3-4 times a week with 2-4 drinks each time. Denies current recreational drug use. Review of Systems All other systems reviewed and are negative. Physical Exam Vitals BP 165/95 (BP Location: Right arm) Pulse 72 Temp 36.9 ??C (98.5 ??F) Ht 175.3 cm (5' 9 ) Wt 85.7 kg (189 lb) BMI 27.91 kg/m?? Vitals reviewed General: NAD, awake and [...] and DIPs w/o TTP, synovitis. 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 ?? B/L ankles w/ synovitis, TTP. B/L MTP squeeze positive. ?? Neuro: AAOx4, Nonfocal Skin: No rashes, jaundice, or other lesions noted Psych: normal mood and affect Labs Lab Results Component Value Date SEDRATE 11 05/13/2020 RF 276.0 (H) 05/03/2018 CRP 4.2 05/13/2020 No results found for: ALDOLASE, YUE, SCL70, [...] significant changes. SSZ did not help symptoms. Did extensive discussion with patient about adding MTX but his need to reduce his alcohol use. He should only be drinking alcohol on rare occasions and emphasized importance of reduction.Discussed support groups and AA meetings he could attend to help reduce consumption. Discussed risks of continued drinking and MTX use. Will require frequent liver enzyme monitoring. - Continue Xeljanz 11 mg daily. - Stop SSZ - Start MTX 10 mg weekly along with folic acid 1 mg. Discussed risks and side effects greatly including risks of continued alcohol consumption and risk of liver injury. Patient in understanding. - hep panel and T-spot neg 06/13 and 05/15 - continue voltaren gel. Advised to stop Ibuprofen and just use the voltaren gel. Combine with tylenol 1000 mg TID - lab monitoring with CBC, CMP for drug toxicity monitoring and ESR and CRP for disease monitoring. - repeat CBC and CMP monthly at [facility]. # Hypertension: off of medications. No current [...] Follow-up: Return in about 3 months (around 01/29/2022) for Recheck. Cosigned by Lauren Delarosa MD at 10/29/2021 11:00 AM CDT Associated attestation - Lauren Delarosa MD - 10/29/2021 11:00 AM CDT I have seen and examined the patient. I agree with the findings and plan of care as documented in the resident/fellow's note. documented in this encounter Miscellaneous Notes * Addendum Note - Mervat Case RMA - 10/29/2021 9:00 AM CDTAddended by: MERVAT CASE on: 10/29/2021 09:44 AM Modules accepted: Orders documented in this encounter Plan of Treatment Not on file documented as of this encounter Results * Erythrocyte sedimentation rate (10/29/2021 9:48 AM CDT) Erythrocyte sedimentation rate 16 1 - 20 mm/hr [facility] Blood 10/29/2021 9:48 AM CDT 10/29/2021 12:10 PM CDT us Can Chelsy Mora MD PhD LAB BLOOD ORDERABLES Final Result Performing Organization Address City/[facility]/ZIP Co de Phone Number [facility] Department [place] [address] * CRP (acute phase) (10/29/2021 9:48 AM CDT) Pathologist [facility] CRP <0.5 <=10.0 mg/L [facility] Blood 10/29/2021 9:48 AM CDT 10/29/2021 12:10 PM CDT us Can Chelsy Mora MD PhD LAB BLOOD ORDERABLES Final Result [facility] Department [place] [address] * (ABNORMAL) Comprehensive metabolic panel (10/29/2021 9:48 [...] [facility] * (ABNORMAL) CBC with auto differential (10/29/2021 [...] MD PhD LAB BLOOD ORDERABLES Final Result [facility] [place] [facility] documented in this encounter Visit Diagnoses Diagnosis 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)- Primary High risk medication use Alcohol abuse Nondependent alcohol abuse, unspecified drinking behavior Bilateral carpal tunnel syndrome Carpal tunnel syndrome Chronic bilateral low back pain with bilateral sciatica documented in this encounter Discontinued Medications Medication Sig Discontinue Reason Start Date End Da te sulfaSALAzine (AZULFIDINE) 500 mg tabletIndications:Rheuma toid Arthritis Take 3 tablets (1,500 mg total) by mouth 2 (two) times a day 09/29/2021 10/29/2021 lisinopriL (PRINIVIL,ZESTRIL) 10 mg tablet daily Reorder 10/29/2021 documented as of this encounter Historical Medications * This list may reflect changes made after this encounter. Medication Sig Dispense Quantity Refills Last Filled Start D ate End Date lisinopriL (PRINIVIL,ZESTRIL) 10 mg tablet daily 10/29/2021 added in this encounter Orders Lab Orders Without Results Count Last Ordered D ate First Ordered Date CBC WITH AUTO DIFFERENTIAL 1 10/29/2021 COMPREHENSIVE METABOLIC PANEL 1 10/29/2021 documented in this encounter Care Teams Power Shear Operator Relationship Specialty Start Date End Date Torsten Acosta MD PCP - General Internal Medicine 09/04/20 documented as of this encounter
--- OUTSIDE RECORDS SUMMARY | 2024-07-06 23:40 | XMS_ITS | Encounter Summary ---
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 90 capsule 3 01/06/2021 4 hydrocortisone 2.5 % ointment Apply topically 2 (two) times a day 30 g 1 07/31/2020 4 hydrOXYchloroQUI NE (PLAQUENIL) 200 mg tabletIndication s:Rheumatoid Arthritis Take 2 tablets (400 mg total) by mouth daily 60 tablet 5 02/04/2022 4 lisinopriL (PRINIVIL,ZESTRI L) 10 mg tablet Take 1 tablet (10 mg total) by mouth daily 30 tablet 1 02/04/2022 4 predniSONE (DELTASONE) 10 mg tabletIndication s:autoimmune disease Take 1 tablet (10 mg) by mouth daily As need for severe pain and inflammation 30 tablet 1 02/04/2022 4 tofacitinib (Xeljanz XR) 11 mgIndications:Rh eumatoid Arthritis [...] Associated Diagnosis Comments ERYTHROCYTE SEDIMENTATION RATE Routine 02/04/2022 9:36 AM CDT 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) ([facility]) CRP (ACUTE PHASE) Routine 02/04/2022 9:3 6 AM CDT Rheumatoid 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 ([facility]) ([facility]) documented in this encounter Results * Erythrocyte sedimentation rate (02/04/2022 9:36 AM CDT) Erythrocyte sedimentation rate 14 1 - 20 mm/hr [facility] Blood 02/04/2022 9:36 AM CDT 02/04/2022 10:25 AM CDT us Can Chelsy Mora MD PhD LAB BLOOD ORDERABLES Final Result [facility] Department [place] [address] * CRP (acute phase) (02/04/2022 9:36 AM CDT) CRP 0.8 <=10.0 mg/L [facility] Blood 02/04/2022 9:36 AM CDT 02/04/2022 10:25 AM CDT us Can Chelsy Mora MD PhD LAB BLOOD ORDERABLES Final Result [facility] Department [place] [address] documented in this encounter Visit Diagnoses Diagnosis 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
--- OUTSIDE RECORDS SUMMARY | 2024-07-06 23:40 | XMS_ITS | Encounter Summary ---
Author Organization [facility] Healthcare Address [address] [place] [address] Care Team Providers Care Shroudman Name Role Phone Torsten Acosta MD Primary Care Provider + [phone] Encounter Details Date Type Department Care Team (Latest Contact Info) Description 10/20/2023 9:05 AM CDT - 10/20/2023 11:59 PM CDT Hospital Encounter [address] [address] 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) ([facility]) Discharge Disposition: Discharge to home or self care Social History Tobacco Use Types Packs/Day Years Used Date Smoking Tobacco: Every Day Sex and Gender Information Value Date Recorded Sex Assigned at Not on file 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 Negative TB. Touched base with patient regarding over the phone regarding blood pressure - his PCP just recently prescribed a refill of carvedilol. I informed the patient he will likely need a second blood pressure medicine. I reinforced the importance of weight loss,avoiding alcohol and tobacco. I offered to prescribe atorvastatin for cholesterol, and he was agreeable to start this. Future refills can be prescribed by rheumatology or his PCP. documented in this encounter Plan of Treatment Not on file documented as of this encounter Procedures Procedure Name Priority Date/Time Associated Diagnosis Comments ERYTHROCYTE SEDIMENTATION RATE Routine 10/20/2023 10:16 AM CDT 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) (HCC) T-SPOT.TB Routine 10/20/2023 9:05 AM CDT 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) (HCC) HEPATITIS C ANTIBODY Routine 10/20/2023 9:05 AM CDT 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) (HCC) HEPATITIS B CORE ANTIBODY, TOTAL Routine 10/20/2023 9:05 AM CDT 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) (HCC) HEPATITIS B SURFACE ANTIBODY (IMMUNE STATUS) Routine 10/20/2023 9:05 AM CDT 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) (HCC) HEPATITIS B SURFACE ANTIGEN Routine 10/20/2023 9:05 AM CDT 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) (HCC) documented in this encounter Results * Erythrocyte sedimentation rate (10/20/2023 10:16 AM CDT) Erythrocyte sedimentation rate 11 1 - 20 mm/hr Blood 10/20/2023 10:1 6 AM CDT 10/20/2023 10:25 AM CDT Hernandez Saravia MD LAB BLOOD ORDERABLES F inal Result [facility] [place] [address] * Hepatitis B surface antibody (immune status) [...] - GEN ERAL ORDERABLES Final Result [facility] [place] [address] * Hepatitis B core antibody, total Blood (10/20/2023 9:05 AM CDT) Hep B core IgG/IgM Nonreactive Nonreactive Blood 10/20/2023 9:05 AM CDT 10/20/2023 10:18 AM CDT Hernandez Saravia MD LAB MICROBIOLOGY - GEN ERAL ORDERABLES Final Result [facility] [place] [address] * Hepatitis B Surface Antigen Blood (10/20/2023 9:05 AM CDT) Pathologist [facility] HepBsAg Nonreactive Nonreactive Blood 10/20/2023 9:05 AM CDT 10/20/2023 10:18 AM CDT Hernandez Saravia MD LAB MICROBIOLOGY - GEN ERAL ORDERABLES Final Result Performing Organization Address [facility] Co de Phone Number [facility] [place] [address] * Hepatitis C antibody Blood (10/20/2023 9:05 AM CDT) Pathologist [facility] Hep C Ab Nonreactive Nonreactive Comment:Antibodies to HCV no t detected. Does NOT exclude the possibility of recent exposure to HCV. Current interpretive data was last revised on 22 Blood 10/20/2023 9:05 AM CDT 10/20/2023 10:18 AM CDT Hernandez Saravia MD LAB MICROBIOLOGY - GEN ERAL ORDERABLES Final Result [facility] [place] [address] * T-SPOT.TB Blood (10/20/2023 9:05 AM CDT) [facility] T-SPOT.TB Negative SeeBelow Comment: Normal Value: Negative [...] test. T-SPOT.TB Panel A Spot Count 0 [facility] T-SPOT.TB Panel B Spot Count 0 [facility] T-SPOT.TB Negative Control Passed [facility] T-SPOT.TB Positive Control Passed [facility] Comment: Test Performed at: [facility] [address] [place] [address] ??[phone] ? SUSY ABDI,PHD Blood 10/20/2023 9:05 AM CDT 10/20/2023 10:21 AM CDT Hernandez Saravia MD LAB MICROBIOLOGY - GEN ERAL ORDERABLES Final Result [facility] Department [place] [address] documented in this encounter Visit Diagnoses Diagnosis 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) (HCC) documented in this encounter Care Teams Shroudman Relationship Specialty Start Date End Date Torsten Acosta MD PCP - General Internal Medicine 09/04/20 documented as of this encounter
--- OUTSIDE RECORDS SUMMARY | 2024-07-06 23:40 | XMS_ITS | Encounter Summary ---
Author Organization [facility] Address [address] [place] [address] Phone Care Team Providers Care Ladle Repairer Name Role Phone Torsten Acosta MD Primary Care Provider [phone] Encounter Details Date Type Department Care Team (Late st Contact Info) Description 10/23/2023 Orders Only [facility] Rheumatology [address] 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 Gender Identity Not on file Sexual Orientation Not on file documented as of this encounter Ordered Prescriptions Prescription Sig Dispense Quantity Refills Last Filled Start Date End Date atorvastatin (LIPITOR) 40 mg tablet Take 1 tablet (40 mg total) by mouth daily 90 tablet 3 10/23/2023 10/22/2024 documented in this encounter Plan of Treatment Not on file documented as of this encounter Visit Diagnoses Not on filedocumented in this encounter Care Teams Ladle Repairer Relationship Specialty Start Date End Date Torsten Acosta MD PCP - General Internal Medicine 09/04/20 documented as of this encounter
--- OUTSIDE RECORDS SUMMARY | 2024-07-06 23:40 | XMS_ITS | Encounter Summary ---
Author Organization [facility] Address [address] [place] [address] Phone Care Team Providers Care Potato Bucker Name Role Phone Torsten Acosta MD Primary Care Provider [phone] Encounter Details Date Type Department Care Team (Late st Contact Info) Description 09/28/2021 Telephone [facility] Rheumatology [address] [facility] Advanced Medicine 5th [place] [address] [place] [address] Joe Velez MD PhD [address] [id number] Social History Tobacco Use Types Packs/Day Years Used Date Smoking Tobacco: Every Day Sex and Gender Information Value Date Recorded Sex Assigned at Not on file 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 21 tablet 09/28/2021 2 documented in this encounter Miscellaneous Notes * Telephone Encounter - Juliocesar Mora MD PhD - 09/29/2021 1:19 PM CDT Joe, Thanks for letting me know, will call him as well. Juliocesar Mora * Telephone Encounter - Joe Velez MD PhD - 09/28/2021 9:23 PM CDT Phone Encounter Note Received call back request for this patient of Dr. Mora's who has not been seen since August 2020 and has next follow-up scheduled in October 2021. He reports being in a significant RA flare with intense joint pain and swelling for several weeks. The pain is so severe he was worried he would not be able to continue working and considered going to the ED. Has been off Xeljanz for several months for somewhat unclear reasons and knows that we do not have recent bloodwork availabile to renew long-term high risk rx such as Xeljanz. RA flares were previously response to prednisone and I offered to send a prednisone burst to his pharmacy on file until follow-up with Dr. Mora. New Medications Ordered This Visit ??? predniSONE (DELTASONE) 10 mg tablet Sig: Take 2 tablets (20 mg) by mouth daily for 5 days, THEN 1 tablet (10 mg) daily for 7 days, THEN0.5 tablets (5 mg) daily for 7 days. Dispense: 21 tablet Refill: 0 He agreed and was very grateful for the prescription and the offer, and said he would be definitelyattend his next scheduled visit. He has had transportation and access difficulties during the pandemic. Joe Velez MD PhD Rheumatology Fellow documented in this encounter Plan of Treatment Not on file documented as of this encounter Visit Diagnoses Not on filedocumented in this encounter Care Teams Potato Bucker Relationship Specialty Start Date End Date Torsten Acosta MD PCP - General Internal Medicine 09/04/20 documented as of this encounter
--- OUTSIDE RECORDS SUMMARY | 2024-07-06 23:40 | XMS_ITS | Encounter Summary ---
Author Organization [facility] Address [address] [place] [address] Phone Care Team Providers Care Self Sealing Fuel Tank Repairer Name Role Phone Torsten Acosta MD Primary Care Provider + [phone] Encounter Details Date Type Department Care Team (Late st Contact Info) Description 10/29/2021 Telephone [facility] Rheumatology 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
--- OUTSIDE RECORDS SUMMARY | 2024-07-06 23:40 | XMS_ITS | Encounter Summary ---
Author Organization [facility] Address [address] [place] [address] Phone Care Team Providers Care Client Service Coordinator Name Role Phone Orville Pryor MD Primary Care Provider +1- [phone] Encounter Details Date Type Department Care Team (Late st Contact Info) Description 09/20/2019 8:[address] [facility] Rheumatology [address] [facility] Advanced Medicine 5th [place] [address] [place] [address] Juliocesar Mora MD PhD [address] [place] [address] 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) (Primary Dx); High risk medication use; Alcohol abuse; Bilateral carpal tunnel syndrome; Health care maintenance; Chronic pain of right ankle; Chronic pain of left ankle Social History Tobacco Use Types Packs/Day Years Used Date Smoking Tobacco: Every Day Sex and Gender Information Value Date Recorded Sex Assigned at Not on file 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 Gender Identity Not on file Sexual Orientation Not on file documented as of this encounter Ordered Prescriptions Prescription Sig Dispense Quantity Refills Last Filled Start Date End Date predniSONE (DELTASONE) 10 mg tabletIndications: autoimmune disease take 3 tabs daily for week, 2 tabs daily for a week, then 1 tab daily for 2 weeks 49 tablet 09/20/2019 0 tofacitinib (Xeljanz XR) 11 mg Take 1 tablet (11 mg total) by mouth daily 30 tablet 11 09/20/2019 0 sulfaSALAzine (AZULFIDINE) 500 mg tabletIndications: Rheumatoid Arthritis Take 3 tablets (1,500 mg total) by mouth 2 (two) times a day 540 tablet 3 09/20/2019 0 documented in this encounter Progress Notes * Juliocesar Mora MD PhD - 09/20/2019 8:30 AM CDT Images from the original note were not included. Rheumatology Clinic Phone Visit PATIENT NAME: Aristeo Seals : 1960 HILDA: 09/20/2019 Chief Complaint: RA, right ankle pain HPI: Aristeo Seals is a 59 y.o. male with a PMH of with seropositive RA, HTN, polysubstance abuse (alcohol, tobacco, and marijuana) who is here for f/u on RA and persistent right ankle pain and swelling. Last seen in clinic 06/07/19. Office visit converted to phone visit due to COVID-19 concern. Verified 2 forms of identifying information with patient. Patient was only person on the phone line. Patient verbally consented to have phone interview and visit with MA and physician separately. This was a telemedicine visit with Aristeo Seals alone which took place via Telephone. During the visit, I was located at clinic and the patient was located at their home. The session started at 8:30 and ended at 8:45. The patient has been informed that the visit may not be secure and acknowledged the information. I have explained the option of participating in a telephone or video visit during the COVID-19 public health emergency to the patient. After being given an opportunity to ask questions about and discuss this type of visit, the patient verbally consented to proceeding with the telephone / video visit. The patient understands that this service replaces an office visit and they may be billed and/or responsible for any applicable copayments. Disease History: Patient was seen in the [...] daily and SSZ 1500 mg BID Patient with significant improvement in symptoms with the addition of Xeljanz, especially in regards to right ankle pain. Now having slightly more discomfort in left ankle that is worse at the end ofthe day and worse with activity. 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 No swelling in any joints. Morning stiffness remains and last about 30-40 minutes. Overall feels much improved and feels he is able to do all his activities and job without limitations. Tolerating the medications well without any concerns or side effects. Denies fevers, chills, night sweats, abdominal discomfort, N/V, BM or urinary changes, infections, rashes. Patient Active Problem List Diagnosis Date Noted ??? Ankle swelling, right 01/11/2019 ??? Rheumatoid 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 ([facility]) 12/17/2018 ??? High risk medication use 12/17/2018 Current Outpatient Medications on File Prior to Visit Medication Sig Dispense Refill ??? celecoxib (CeleBREX) 200 mg capsule Take 1 capsule (200 mg total) by mouth daily (Patient not taking: Reported on 06/07/2019) 30 capsule 5 ??? hydrocortisone 2.5 % ointment Apply topically 2 (two) times a day 30 g 1 ??? [DISCONTINUED] predniSONE (DELTASONE) 10 mg tablet take 3 tabs daily for week, 2 tabs daily fora week, then 1 tab daily for 2 weeks 49 tablet 0 ??? [DISCONTINUED] sulfaSALAzine (AZULFIDINE) 500 mg tablet Take 3 tablets (1,500 mg total) by mouth 2 (two) times a day 180 tablet 11 ??? [DISCONTINUED] tofacitinib (XELJANZ XR) 11 mg Take 1 tablet (11 mg total) by mouth daily 30 tablet 11 No current facility-administered medications on file prior to visit. No Known Allergies Past Medical History: Diagnosis Date ??? Hypertension History reviewed. No pertinent surgical history. Family History Problem Relation Age of Onset ??? No Known Problems Mother Social History: working at [employer] ([employer] Continues tobacco use, alcohol use 3-4 times [...] is here for follow-up. # Seropositive RA: Severe disease with multiple joint involvement. Improved with Humira with mainlyright ankle inflammation that persisted. Switched to Xeljanz with much better control and improvement in all joints including right ankle. Updated xrays 06/13 with no significant changes. - Continue SSZ 1.5 gram BID and Xeljanz 11 mg daily. - hep panel and T-spot neg 06/13 - continue voltaren gel - lab monitoring with CBC, CMP, lipid panel for drug toxicity monitoring and ESR and CRP for disease monitoring to obtain at [facility] # Left ankle pain: Most likely from overuse and OA. - voltaren gel PRN - advised to call with worsening of symptoms # possible Carpal tunnel syndrome: Prior symptoms suggestive of carpal tunnel given distribution fitting with median nerve. Potentially related with inflammation and synovial proliferation at wrist compressing the nerve. - will continue to treat RA and see if symptoms improve - referral to hand therapy for brace to see if helps symptoms. # Vaccinations: - had had flu vaccine - recommended Shingrix again given initiation of Xeljanz, will obtain at local pharmacy. Spent 15 minutes on the phone discussing patient's condition and recommendations for treatment and care. All patients questions and concerns addressed and patient to call or message with any further concerns. Follow-up: Return in about 3 months (around 12/21/2019) for Recheck. Cosigned by Lauren Delarosa MD at 09/20/2019 11:04 AM CDT Associated attestation - Lauren Delarosa MD - 09/20/2019 11:04 AM CDT I agree with the findings and plan of care as documented in the resident/fellow's note. documented in this encounter Plan of Treatment Not on file documented as of this encounter Visit Diagnoses Diagnosis 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) (HCC)- Primary High risk medication use Alcohol abuse Nondependent alcohol abuse, unspecified drinking behavior Bilateral carpal tunnel syndrome Carpal tunnel syndrome Health care maintenance Chronic pain of right ankle Chronic pain of left ankle documented in this encounter Discontinued Medications Medication Sig Discontinue Reason Start Date End Da te sulfaSALAzine (AZULFIDINE) 500 mg tabletIndications:Rheuma toid Arthritis Take 3 tablets (1,500 mg total) by mouth 2 (two) times a day Reorder 06/07/2019 09/20/2019 tofacitinib (XELJANZ XR) 11 mg Take 1 tablet (11 mg total) by mouth daily Reorder 06/07/2019 09/20/2019 predniSONE (DELTASONE) 10 mg tabletIndications:autoim mune disease take 3 tabs daily for week, 2 tabs daily for a week, then 1 tab daily for 2 weeks Reorder 06/07/2019 09/20/2019 documented as of this encounter Orders Lab Orders Without Results Count Last Ordered D ate First Ordered Date CBC WITH AUTO DIFFERENTIAL 1 09/20/2019 COMPREHENSIVE METABOLIC PANEL 1 09/20/2019 CRP (ACUTE PHASE) 1 09/20/2019 ERYTHROCYTE SEDIMENTATION RATE 1 09/20/2019 LIPID PANEL 1 09/20/2019 documented in this encounter Care Teams Client Service Coordinator Relationship Specialty Start Date End Date Orville Pryor MD [address] [place] [address] PCP - General 05/03/18 09/03/20 documented as of this encounter
--- OUTSIDE RECORDS SUMMARY | 2024-07-06 23:40 | XMS_ITS | Encounter Summary ---
Author Organization [facility] Address [address] [place] [address] Phone Care Team Providers Care Palm Gatherer Name Role Phone Torsten Acosta MD Primary Care Provider [phone] Encounter Details Date Type Department Care Team (Late st Contact Info) Description 09/04/2020 10:30 AM BURGLAR ALARM ASSEMBLER Office Visit [facility] Rheumatology [facility] Medicine 5th [place] [address] [place] [address] Juliocesar Mora MD PhD [address] [place] [address] 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) (Primary Dx); High risk medication use; Health care maintenance; Bilateral carpal tunnel syndrome; Alcohol abuse; Chronic bilateral low back pain with bilateral sciatica Social History Tobacco Use Types Packs/Day Years Used Date Smoking Tobacco: Every Day Sex and Gender Information Value Date Recorded Sex Assigned at Not on file Legal Sex Male 6:45 AM BURGLAR ALARM ASSEMBLER Gender Identity Not on file Sexual Orientation Not on file documented as of this encounter Last Filed Vital Signs Vital Sign Reading Time Taken Comments Blood Pressure 140/85 09/04/2020 11:00 AM BURGLAR ALARM ASSEMBLER Pulse 74 09/04/2020 10:31 AM BURGLAR ALARM ASSEMBLER Temperature 36.7 ??C (98 ??F) 09/04/2020 10:31 AM BURGLAR ALARM ASSEMBLER Respiratory Rate - - Oxygen Saturation - - Inhaled Oxygen Concentration - - Weight 85.7 kg (189 lb) 09/04/2020 10:31 AM BURGLAR ALARM ASSEMBLER Height 177.8 cm (5' 10 ) 09/04/2020 10:31 AM BURGLAR ALARM ASSEMBLER Body Mass Index 27.12 09/04/2020 10:31 AM BURGLAR ALARM ASSEMBLER documented in this encounter Progress Notes * Juliocesar Mora MD PhD - 09/04/2020 10:30 AM CST Images from the original note were not included. Rheumatology Clinic Follow-up PATIENT NAME: Aristeo Seals : 1960 HILDA: 09/04/2020 Chief Complaint: RA HPI: Aristeo Seals is a 60 y.o. male with a PMH of with seropositive RA, HTN, polysubstance abuse (alcohol, tobacco, and marijuana) who is here for f/u on RA and persistent right ankle pain and swelling. Last seen in clinic 05/08/20. Disease History: Patient was seen in the [...] daily and SSZ 1500 mg BID Patient has not been able to get Xeljanz after switch in insurance coverage. Have sent new approvalforms to insurance and pharmacy and awaiting approval. Has been without Xeljanz for about 3 months now. Worsening joint symptoms with pain, swelling and morning stiffness for greater than 45-60 mins in MCPs, wrists, PIP, MTPs, knees. Tolerating the medications well without any concerns or side effects. Got first dose of COVID vaccine 2 weeks ago. Denies fevers, chills, night sweats, abdominal discomfort, N/V, BM or urinary changes, infections, rashes. Patient Active Problem List Diagnosis Date Noted ??? Ankle swelling, right 01/11/2019 ??? Rheumatoid 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 ([facility]) 12/17/2018 ??? High risk medication use 12/17/2018 Current Outpatient Medications on File Prior to Visit Medication Sig Dispense Refill ??? hydrocortisone 2.5 % ointment Apply topically 2 (two) times a day 30 g 1 ??? predniSONE (DELTASONE) 10 mg tablet Take 1 tablet (10 mg) by mouth daily As needed 30 tablet 1 ??? sulfaSALAzine (AZULFIDINE) 500 mg tablet Take 3 tablets (1,500 mg total) by mouth 2 (two) timesa day 540 tablet 3 ??? tofacitinib (Xeljanz XR) 11 mg Take 1 tablet (11 mg total) by mouth daily 30 tablet 11 No current facility-administered medications on file prior to visit. No Known Allergies Past Medical History: Diagnosis Date ??? Hypertension No past surgical history on file. Family History Problem Relation Age of Onset ??? No Known Problems Mother Social History: working at [employer] ([employer]). Continues tobacco use, alcohol use 3-4 times a week with 2-4 drinks each time. Denies current recreational drug use. Review of Systems All other systems reviewed and are negative. Physical Exam Vitals BP 140/85 Pulse 74 Temp 36.7 ??C (98 ??F) Ht 177.8 cm (5' 10 ) Wt 85.7 kg (189 lb) BMI 27.12 kg/m?? Vitals reviewed General: NAD, awake and [...] and DIPs w/o TTP, synovitis. 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 ?? B/L ankles w/ synovitis, TTP. B/L MTP squeeze negative. ?? Neuro: AAOx4, Nonfocal Skin: No rashes, jaundice, or other lesions noted Psych: normal mood and affect Labs Lab Results Component Value Date SEDRATE 05/13/2020 RF 276.0 (H) 05/03/2018 CRP 4.2 [...] multiple joints in wrist and foot. Assessment/plan: 60 y.o. male with a PMH of with [...] gram BID and Xeljanz 11 mg daily. Will call pharmacy and make sure patient able to consistently get Xeljanz. Will provide 3 months of samples in the meantime. - hep panel and T-spot neg 06/13 and 05/15 - continue voltaren gel. Advised to stop Ibuprofen and just use the voltaren gel. Combine with tylenol 1000 mg TID - lab monitoring with CBC, CMP, lipid panel for drug toxicity monitoring and ESR and CRP for disease monitoring # Lower back Pain: # Cervical neck [...] has had Shingrix x2 - has had 1/2 of COVID vaccine Follow-up: Return in about 3 months (around 12/05/2020) for Recheck. Cosigned by Philomena Figueroa MD at 09/04/2020 2:03 PM BURGLAR ALARM ASSEMBLER LAR ALARM ASSEMBLER LAR ALARM ASSEMBLER Associated attestation - Philomena Figueroa MD - 09/04/2020 2:03 PM BURGLAR ALARM ASSEMBLER I have seen and examined the patient. I agree with the findings and plan of care as documented in the resident/fellow's note. My total encounter time on 09/04/2020 was 10 minutes which was spent in the activities [...] (CMS/HCC) (HCC)- Primary High risk medication use Health care maintenance Bilateral carpal tunnel syndrome Carpal tunnel syndrome Alcohol abuse Nondependent alcohol abuse, unspecified drinking behavior Chronic bilateral low back pain with bilateral sciatica documented in this encounter Care Teams Palm Gatherer Relationship Specialty Start Date End Date Torsten Acosta MD PCP - General Internal Medicine 09/04/20 documented as of this encounter
--- OUTSIDE RECORDS SUMMARY | 2024-07-06 23:40 | XMS_ITS | Clinical Summary ---
Author Organization [facility] Address [address] [place] [address] Care Team Providers Care Machine Fancy Stitcher Name Role Phone Torsten Acosta MD Primary Care Provider [phone] Allergies No known active allergies Medications atorvastatin [...] ng multiple sites with positive rheumatoid factor ([facility]) 12/17/2018 High risk medication use 12/17/2018 Encounters Date Type Department Care Team Description 07/05/2024 Orders Only [facility] Rheumatology [address] [facility] 5th [place] [address] [place] [address] Hernandez Saravia MD High risk medication use (Primary Dx) from Last 3 Months Medical History Medical History Date Comments Hypertension Family History Medical History Relation Name Comments No Known Problems Mother Relation Name Status Comments Mother Social History Tobacco Use Types Packs/Day Years Used Date Smoking Tobacco: Every Day Tobacco Cessation:Ready to Q uit: No; Counseling Given: No Sex and Gender Information Value Date Recorded Sex Assigned at Not on file Legal Sex Male 6:45 AM CODE ENFORCEMENT INSPECTOR Gender Identity Not on file Sexual Orientation Not on file Obstetrics History Last Filed Vital Signs Vital Sign Reading Time Taken Comments Blood Pressure 105/91 01/26/2024 8:55 AM CDT Pulse 97 01/26/2024 8:55 AM CDT Temperature 36.4 ??C (97.6 ??F) 10/20/2023 7:55 AM CD T Respiratory Rate 20 05/03/2018 6:50 AM CODE ENFORCEMENT INSPECTOR Oxygen Saturation 98% 01/26/2024 8:55 AM CDT Inhaled Oxygen Concentration - - Weight 83.9 kg (185 lb) 01/26/2024 8:55 AM CDT Height 175.3 cm (5' 9 ) 01/26/2024 8:55 AM CDT Body Mass Index 27.32 01/26/2024 8:55 AM CDT Plan of Treatment Health Maintenance Due Date Last Done Comments Colon Cancer Screening-Colonoscopy 1960 Depression Screening 1960 Prostate Cancer Screening-PSA 1960 Pneumococcal vaccine <65 (1 of 2 - PCV) 1967 DTaP/Tdap/Td Vaccine (1 - Tdap) 1972 Regular Well Visit/Exam 18-64 1979 Zoster Vaccine (1 of 2) 1980 Influenza Vaccine (#1) 2024 Hepatitis B Screening Completed 10/20/2023 Hepatitis C Screening Completed 10/20/2023 , 06/07/2019, 05/03/2018 Procedures Procedure Name Priority Date/Time Associated Diagnosis Comments HEPATITIS C ANTIBODY Routine 10/20/2023 9:05 AM CDT 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) (HCC) from Last 3 Months or Most Recently [...] MICROBIOLOGY - GEN ERAL ORDERABLES Final Result [facility] Department [place] [address] from Last 3 Months or Most Recently Relevant to Health Maintenance Insurance [employer] HMO ANTHEM ACCESS CHOICE ANTHEM ACCESS CHOICE Care Teams Machine Fancy Stitcher Relationship Specialty Start Date End Date Torsten Acosta MD PCP - General Internal Medicine 09/04/20
--- OUTSIDE RECORDS SUMMARY | 2024-07-06 23:41 | XMS_ITS | Encounter Summary ---
Author Organization [facility] Address [address] [place] [address] Phone Care Team Providers Care Rn Staff Name Role Phone Orville Pryor MD Primary Care Provider [phone] Encounter Details Date Type Department Care Team (Late st Contact Info) Description 06/01/2018 3:00 PM MOBILITY DEVELOPER Lab [facility] Endocrinology Metabolism and Lipid [address] [facility] 5th [place] [address] [place] [address] 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) Social History Tobacco Use Types Packs/Day Years Used Date Smoking Tobacco: Every Day Sex and Gender Information Value Date Recorded Sex Assigned at Not on file Legal Sex Male 6:45 AM MOBILITY DEVELOPER Gender Identity Not on file Sexual Orientation Not on file documented as of this encounter Plan of Treatment Not on file documented as of this encounter Procedures Procedure Name Priority Date/Time Associated Diagnosis Comments CBC WITH AUTO DIFFERENTIAL Routine 06/01/2018 2:11 PM MOBILITY DEVELOPER 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) COMPREHENSIVE METABOLIC PANEL Routine 06/01/2018 2:11 PM MOBILITY DEVELOPER 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) documented in this encounter Results * (ABNORMAL) Comprehensive metabolic panel (06/01/2018 2:11 PM MOBILITY DEVELOPER) Pathologist [facility] Total Protein 7.2 6.1 - 8.4 g/dL [facility] Albumin 3.9 3.5 - 5.2 g/dL [facility] Calcium 9.1 8.6 - 10.3 mg/dL [facility] BUN 24(H) 7 - 23 mg/dL [facility] Total Bilirubin 0.37 0.20 - 1.40 mg/dL [facility] Alk Phos, Total 94 35 - 129 IU/L [facility] AST (SGOT) 20 11 - 47 IU/L [facility] ALT (SGPT) 30 6 - 53 IU/L [facility] Creatinine 0.90 0.70 - 1.30 mg/dL [facility] Sodium 135 135 - 145 mmol/L [facility] Potassium 5.1 3.3 - 5.1 mmol/L [facility] Chloride 98 95 - 107 mmol/L [facility] CO2 Content 26 21 - 29 mmol/L [facility] Glucose 98 64 - 99 mg/dL [facility] Comment: NONFASTING GLUCOSE RANGE = 64-199 mg/dL FASTING GLUCOSE 64 - 99 = NORMAL FASTING GLUCOSE 100 - 125 = IMPAIRED FASTING GLUCOSE FASTING GLUCOSE >=126 = PROVISIONAL DIAGNOSIS OF DIABETES eGFR NON-AFR. BURKINAN >90.0 >60.0 mL/min/1.7 3 m2 [facility] eGFR >90.0 >60.0 mL/min/1.7 3 m2 [facility] Blood specimen (specimen) 06/01/2018 2:11 PM MOBILITY DEVELOPER 06/01/2018 3:05 PM MOBILITY DEVELOPER us Can Chelsy Mora MD PhD LAB BLOOD ORDERABLES Final Result [facility] * (ABNORMAL) CBC with auto differential (06/01/2018 2:11 PM MOBILITY DEVELOPER) White Blood Count 7.1 3.6 - 11.2 K/uL [facility] RBC 4.68 4.06 - 5.63 M/uL [facility] Hemoglobin 15.0 13.0 - 17.5 g/dL [facility] Hematocrit 44.8 40.7 - 50.3 % [facility] MCV 95.6 80.0 - 97.6 fL [facility] MCH 31.9 26.7 - 33.7 pg [facility] MCHC 33.4 32.7 - 35.5 g/dL [facility] RBC Dist Width 14.7 12.3 - 17.0 % [facility] Platelet Count 322 140 - 440 K/uL [facility] MPV 7.2 6.8 - 10.4 fL [facility] Neutrophils % 74.8(H) 38.7 - 74.5 % [facility] Lymphocyte % 14.5(L) 20.0 - 54.3 % [facility] Monocytes % 10.1 4.3 - 13.5 % [facility] Eosinophils % 0.1 0.0 - 6.0 % [facility] Basophil % 0.5 0.0 - 3.0 % [facility] Absolute Neutrophil 5.3 1.8 - 6.6 K/uL [facility] Absolute Lymphocyte 1.0 0.8 - 3.3 K/uL [facility] Absolute Monocyte 0.7 0.2 - 1.2 K/uL [facility] Absolute Eosinophil 0.0 0.0 - 0.5 K/uL [facility] Absolute Basophil 0.0 0.0 - 0.2 K/uL [facility] Nucleated RBC % 0.1 0.0 - 0.4 /100 WBC [facility] Blood specimen (specimen) 06/01/2018 2:11 PM MOBILITY DEVELOPER 06/01/2018 3:05 PM MOBILITY DEVELOPER us Can Chelsy Mora MD PhD LAB BLOOD ORDERABLES Final Result [facility] documented in this encounter Visit Diagnoses Diagnosis 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) (HCC) documented in this encounter Care Teams Rn Staff Relationship Specialty Start Date End Date Orville Pryor MD [address] [place] [address] PCP - General 05/03/18 09/03/20 documented as of this encounter
--- OUTSIDE RECORDS SUMMARY | 2024-07-06 23:41 | XMS_ITS | Encounter Summary ---
Author Organization [facility] Address [address] [place] [address] Phone Care Team Providers Care Scheduling Specialist Name Role Phone Orville Pryor MD Primary Care Provider [phone] Encounter Details Date Type Department Care Team (Late st Contact Info) Description 03/19/2019 Orders Only [facility] Rheumatology [address] 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 Gender Identity Not on file Sexual Orientation Not on file documented as of this encounter Ordered Prescriptions Prescription Sig Dispense Quantity Refills Last Filled Start Date End Date adalimumab (HUMIRA PEN) 40 mg/0.8 mL pen injector kit Inject 0.8 mL (40 mg total) under the skin every 7 days 4 each 1 03/19/2019 03/21/2019 documented in this encounter Plan of Treatment Not on file documented as of this encounter Visit Diagnoses Not on filedocumented in this encounter Discontinued Medications Medication Sig Discontinue Reason Start Date End Da te adalimumab (HUMIRA PEN) 40 mg/0.8 mL pen injector kit Inject 0.8 mL (40 mg total) under the skin every 7 days Reorder 02/12/2019 03/19/2019 documented as of this encounter Care Teams Scheduling Specialist Relationship Specialty Start Date End Date Orville Pryor MD [address] [place] [address] PCP - General 05/03/18 09/03/20 documented as of this encounter
--- OUTSIDE RECORDS SUMMARY | 2024-07-06 23:41 | XMS_ITS | Encounter Summary ---
Author Organization [facility] Address [address] [place] [address] Phone Care Team Providers Care Eyeletter Name Role Phone Orville Pryor MD Primary Care Provider +1- [phone] Encounter Details Date Type Department Care Team (Late st Contact Info) Description 10/09/2018 Telephone [facility] Rheumatology [address] [place] [address] 5th [place] [address] [place] [id number] Trever Rosenberg RMA Social History Tobacco Use Types Packs/Day Years Used Date Smoking Tobacco: Every Day Sex and Gender Information Value Date Recorded Sex Assigned at Not on file Legal Sex Male 6: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 Pt is aware * Telephone Encounter - Juliocesar Mora MD PhD - 10/10/2018 9:11 AM CDT Trever, Juliocesar you ask him if he wants to wait for the procedure clinic next week Monday (if there is space) or you can schedule him in my clinic this Monday at 7:30 * Telephone Encounter - Trever Rosenberg MA - 10/10/2018 8:59 AM CDT The procedure clinic is full for that day. Please Advise * Telephone Encounter - Juliocesar Mora MD PhD - 10/09/2018 7:04 PM CDT Trever Talked with patient over the phone. Can you schedule him for 7:30 this Thursday 10/12 to get the ankleinjection? Thank you! * Telephone Encounter - Trever Rosenberg MA - 10/09/2018 3:47 PM CDT Pt called says he has pain/swelling in his ankles. He is having trouble walking. It's been going onfor three weeks now. documented in this encounter Plan of Treatment Not on file documented as of this encounter Visit Diagnoses Not on filedocumented in this encounter Care Teams Eyeletter Relationship Specialty Start Date End Date Orville Pryor MD [address] [place] [address] PCP - General 05/03/18 09/03/20 documented as of this encounter
--- OUTSIDE RECORDS SUMMARY | 2024-07-06 23:41 | XMS_ITS | Encounter Summary ---
Author Organization [facility] Address [address] [place] [address] Phone Care Team Providers Care Director Hematology Name Role Phone Orville Pryor MD Primary Care Provider +1- [phone] Encounter Details Date Type Department Care Team (Late st Contact Info) Description 02/12/2019 Orders Only [facility] Rheumatology [address] [facility] 5th [address] [place] [id number] Juliocesar Mora MD PhD [address] [place] [address] Social History Tobacco Use Types Packs/Day Years Used Date Smoking Tobacco: Every Day Sex and Gender Information Value Date Recorded Sex Assigned at Not on file Legal Sex Male 6: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 15 tablet 02/12/2019 9 adalimumab (HUMIRA PEN) 40 mg/0.8 mL pen injector kit Inject 0.8 mL (40 mg total) under the skin every 7 days 4 each 3 02/12/2019 9 documented in this encounter Progress Notes * Juliocesar Mora MD PhD - 02/12/2019 11:01 AM CDT Patient last Monday (02/08) had significant pain along achilles tendon but has since resolved after that evening. Pain in ankle is improving now after the steroid injection. Still with swelling. No other changes at this time, patient wants prednisone prescription to have on hand in case symptoms worsen and will send to pharmacy. documented in this encounter Plan of Treatment Not on file documented as of this encounter Visit Diagnoses Not on filedocumented in this encounter Discontinued Medications Medication Sig Discontinue Reason Start Date End Da te adalimumab (HUMIRA PEN) 40 mg/0.8 mL pen injector kit Inject 0.8 mL (40 mg total) under the skin every 7 days Reorder 02/08/2019 02/12/2019 documented as of this encounter Care Teams Director Hematology Relationship Specialty Start Date End Date Orville Pryor MD [address] [place] [address] PCP - General 05/03/18 09/03/20 documented as of this encounter
--- OUTSIDE RECORDS SUMMARY | 2024-07-06 23:41 | XMS_ITS | Encounter Summary ---
Author Organization [facility] Address [address] [place] [address] Phone Care Team Providers Care Credit Office Manager Name Role Phone Orville Pryor MD Primary Care Provider +1- [phone] Reason for Referral * Diagnostic Imaging (Routine) - Closed Specialty Diagnoses / Procedures Referred By Contac t Referred To Contact Diagnoses 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) (HCC) Procedures XR Ankle Right 3 or More Views Juliocesar Mora MD PhD Phone: tel: fax: [facility] Referral ID Status Reason Start Date Expiration Date Visits Re quested Visits Authorized [id number] Closed 10/12/2018 04/22/2020 1 1 * Diagnostic Imaging (Routine) - Closed Specialty Diagnoses / Procedures Referred By Contac t Referred To Contact Diagnoses 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) (HCC) Procedures XR Ankle Left 3 or More Views Juliocesar Mora MD PhD Phone: tel: fax: [facility] Referral ID Status Reason Start Date Expiration Date Visits Re quested Visits Authorized [id number] Closed 10/12/2018 04/22/2020 1 1 Encounter Details Date Type Department Care Team (Late st Contact Info) Description 10/12/2018 7:30 AM CDT Office Visit [facility] Rheumatology [address] 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 Gender Identity Not on file Sexual Orientation Not on file documented as of this encounter Last Filed Vital Signs Vital Sign Reading Time Taken Comments Blood Pressure 146/97 10/12/2018 7:28 AM CDT Pulse 87 10/12/2018 7:28 AM CDT Temperature 36.6 ??C (97.8 ??F) 10/12/2018 7:28 AM CD T Respiratory Rate - - Oxygen Saturation - - Inhaled Oxygen Concentration - - Weight 93 kg (205 lb) 10/12/2018 7:28 AM CDT Height - - Body Mass Index 29.41 09/07/2018 8:56 AM CDT documented in this encounter Patient Instructions * Patient Instructions* Juliocesar Mora MD PhD - 10/12/2018 7:30 AM CDT Please call with worsening of ankle pain, fevers or chills. Call if symptoms do no improve by next week as well Try to taper off of prednisone as possible when symptoms improve documented in this encounter Progress Notes * Juliocesar Mroa MD PhD - 10/12/2018 7:30 AM CDT Images from the original note were not included. Rheumatology New Patient Post-hospital Visit PATIENT NAME: Aristeo Seals : 1960 HILDA: 10/12/2018 Chief Complaint: RA, left ankle pain HPI: Aristeo Seals is a 58 y.o. male with a PMH of with seropositive RA, HTN, polysubstance abuse (alcohol, tobacco, and marijuana) who is here for left ankle pain. Disease History: Patient was seen in the ED 04/30/2018 where he had worsening pain in his ankles, MTPs, and soles of his feet and later develop pain in his wrists, MCPs, and PIPs worse on the right side. He also had swelling and stiffness in these joints that are worse in the mornings and improve with activity. Reports morning stiffness lasting up to 1 hour. He has had limited functionality of his hands and unableto form a fist with limited ROM of [...] erosions. He was started on prednisone 20 mginitially, but required higher doses of 40 mg to control symptoms. Given significant alcohol use, was started on SSZ and tolerating 1500 mg BID. He was started on Humira . Interval history: Significant improvement in joint pains and stiffness overall, but ongoing pain, swelling, and erythema at left ankle. Left ankle symptoms continuing for over 2 months now. Able to function better now other than the ankle pain. Has been using prednisone 20 mg for the ankle pain.. Taking Naproxen 500 mg BID as well. Has been tolerating SSZ well without side effects. Has had 3 injections of the Humira and felt it has started to help his symptoms. Denies fevers, chills, night sweats, abdominal discomfort, N/V, BM or urinary changes, infections, rashes. There are no active problems to display for this patient. Current Outpatient Medications on File Prior to Visit Medication Sig Dispense Refill ??? adalimumab (HUMIRA PEN) 40 mg/0.8 mL pen injector kit Inject 0.8 mL (40 mg total) under the skin every 14 (fourteen) days 2 each 5 ??? diclofenac sodium (VOLTAREN) 1 % gel Apply 2 g topically 3 (three) times a day Apply to arthritis joints PRN 1 Tube 2 ??? predniSONE (DELTASONE) 10 mg tablet Take 2 tablets (20 mg) by mouth daily 60 tablet 1 ??? sulfaSALAzine (AZULFIDINE) 500 mg tablet Take 3 tablets (1,500 mg total) by mouth 2 (two) timesa day 180 tablet 11 No current facility-administered medications on file prior to visit. No Known Allergies Past Medical History: Diagnosis Date ??? Hypertension No past surgical history on file. Family History Problem Relation Age of Onset ??? No Known Problems Mother Social History Social History Narrative ??? Not on file Review of Systems Review of Systems All other systems reviewed and are negative. Physical Exam BP 146/97 Pulse 87 Temp 36.6 ??C (97.8 ??F) Wt 93 kg (205 lb) BMI 29.41 kg/m?? General: NAD, awake and alert HEENT: NC/AT, PERRLA, EOMI, MMM, OP clear Neck: Supple, no LAD or thyromegaly Heart: RRR, no M/R/G Lungs: CTAB, no wheezes/crackles/rhonchi Abdominal :NBS, soft, NT/ND, no masses, no organomegaly Extremities: No LE edema, distal pulses intact bilaterally MSK: B/L shoulders wo/ pain on??ROM. No ??TTP of B/L biceps tendons, AC and GH joints. B/L elbows w/ full ROM, no TTP. Nodule present on left elbow. No erythema or warmth. B/L wrists w/o??TTP, synovial proliferation present and normal ROM. B/L MCPs, PIPs w/o synovial proliferation, TTP, or warmth. DIPs w/o TTP, synovitis. 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 B/L knees w/o TTP, effusions, warmth, redness. ?? L ankle with erythema, swelling, increased warmth and TTP. No abnormalities in right ankle. B/L MTPs w/o erythema, TTP and no warmth. Hallux valgus present Neuro: AAOx4, Nonfocal Skin: No rashes, jaundice, or other lesions noted Psych: normal mood and affect Labs Lab Results Component Value Date SEDRATE 39 (H) 05/03/2018 RF 276.0 (H) 05/03/2018 CRP 34.4 (H) 05/03/2018 No results found for: ALDOLASE, YUE, SCL70, C3, C4, CH50, HLAB27, CKTOTAL, CKMM Imaging Hand xrays: joint space narrowing without erosions Procedure: Left ankle steroid injection and attempted arthrocentesis: Patient verbally agreed to procedure and understood the risks of the procedure. Timeout was performed and everyone confirmed location, allergies, and procedure. Left ankle was cleaned with chlorhexidine twice and numbing spray was utilized. 25 gauge needle was introduced and no synovial fluid was removed on attempted arthrocentesis. 40 mg of depo-medrol with 1 ml 1% lidocaine was injected. Band-aid was applied. There was no blood loss and patient tolerated the procedure well. No complications from the procedure. Assessment/plan: 58 y.o. male with a PMH of with seropositive RA, HTN, polysubstance abuse (alcohol, tobacco, and marijuana) who is here for left ankle pain. # Seropositive RA: Severe disease with multiple joint involvement. Improving with initiation of Humira with mainly left ankle with continued evidence of inflammation. - Continue SSZ 1.5 gram BID - continueAdalimumab 40 mg [id number] - hep panel and T-spot neg - pred taper by 5 mg every 2 weeks (currently at 20 mg) as tolerated - continue naproxen 500 mg BID PRN - lab monitoring with CBC and CMP # Left ankle pain: with swelling and erythema. Unable to drain any fluid with aspiration. Overall low concern for infection especially given chronicity of symptoms. - attempted arthrocentesis with no fluid aspirated - injected with depomedrol 40 mg as described in procedure note above. - patient to call with worsening or continued symptoms - continue medications as above - obtain bilateral xrays of ankles Follow-up: Return for Next scheduled follow up. Cosigned by Mikayla Vargas MD at 10/15/2018 8:04 AM CDT Associated attestation - Mikayla Vargas MD - 10/15/2018 8:04 AM CDT I have seen and examined the patient. I agree with the findings and plan of care as documented in the resident's note. RA just started on Humira. ??S/p 3 doses. ??Persistent R ankle swelling. Red, tendons swollen, no effusion palpable Dry aspiration S/p intra-articular steroid injection R ankle . * Juliocesar Mora MD PhD - 10/12/2018 7:30 AM CDT Procedure: Right ankle steroid injection and attempted arthrocentesis: Patient verbally agreed to procedure and understood the risks of the procedure. Timeout was performed and everyone confirmed location, allergies, and procedure. Left ankle was cleaned with chlorhexidine twice and numbing spray was utilized. 25 gauge needle was introduced and no synovial fluid was removed on attempted arthrocentesis. 40 mg of depo-medrol with 1 ml 1% lidocaine was injected. Band-aid was applied. There was no blood loss and patient tolerated the procedure well. No complications from the procedure. Cosigned by Mikayla Vargas MD at 12/21/2018 11:49 AM CDT Associated attestation - Mikayla Vargas MD - 12/21/2018 11:49 AM CDT I have seen and examined the patient. I agree with the findings and plan of care as documented in the resident/fellow's note. I was present for the entire procedure. * Juliocesar Mora MD PhD - 10/12/2018 7:30 AM CDT ADDENDUM: SHOULD BE RIGHT ANKLE AND NOT LEFT ANKLE THROUGHOUT THIS NOTE documented in this encounter Plan of Treatment Not on file documented as of this encounter Procedures Procedure Name Priority Date/Time Associated Diagnosis Comments XR ANKLE RIGHT 3 OR MORE VIEWS Schedule Routine, Read Routine (OP Routine) 10/12/2018 8:34 AM CDT 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) XR ANKLE LEFT 3 OR MORE VIEWS Schedule Routine, Read Routine (OP Routine) 10/12/2018 8:34 AM CDT 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) documented in this encounter Results * XR Ankle Right 3 or More Views (10/12/2018 8:34 AM CDT) Anatomical Region Laterality Modality Lower Extremities, Ankle Right Compute d Radiography 10/12/2018 9:18 AM CDT Impressions 10/13/2018 10:24 AM CDT Bilateral ankle soft tissue swelling, right greater than left, with out joint space narrowing or erosions on either side. Dictated by: Torsten Ortiz M.D. The radiology attending physician has personally reviewed this study, and had reviewed and/or edited this written report and agrees with it. Electronically signed by: Feliberto Mcduffie M.D. Narrative 10/13/2018 10:24 AM CDT EXAMINATION: 1. ??Right ankle 3 or more views 2. ??Left ankle 3 or more views HISTORY: Bilateral ankle pain; history of rheumatoid arthritis FINDINGS: 4 view examination of each ankle is performed nonweightbearing. There are no prior ankle examinations for comparison. The ankle mortise is intact bilaterally. ??The ankle and hindfoot joint spaces are normal and symmetric. ??There are no erosions. ??There is no fracture. ??Bilateral heel spurs are present. ??There is mild anterior soft tissue swelling in the left ankle and moderate medial and anterior soft tissue swelling of the right ankle. Procedure Note Feliberto Mcduffie MD - 10/13/2018 EXAMINATION: 1. Right ankle 3 or more views 2. Left ankle 3 or more views HISTORY: Bilateral ankle pain; history of rheumatoid arthritis FINDINGS: 4 view examination of each ankle is performed nonweightbearing. There are no prior ankle examinations for comparison. The ankle mortise is intact bilaterally. The ankle and hindfoot joint spaces are normal and symmetric. There are no erosions. There is no fracture. Bilateral heel spurs are present. There is mild anterior soft tissue swelling in the left ankle and moderate medial and anterior soft tissue swelling of the right ankle. IMPRESSION: Bilateral ankle soft tissue swelling, right greater than left, with out joint space narrowing or erosions on either side. Dictated by: Torsten Ortiz M.D. The radiology attending physician has personally reviewed this study, and had reviewed and/or edited this written report and agrees with it. Electronically signed by: Feliberto Mcduffie M.D. us Can Chelsy Mora MD PhD IMG XR PROCEDURES Fin al Result * XR Ankle Left 3 or More Views (10/12/2018 8:34 AM CDT) Anatomical Region Laterality Modality Lower Extremities, Ankle Left Compute d Radiography 10/12/2018 9:18 AM CDT Impressions 10/13/2018 10:24 AM CDT Bilateral ankle soft tissue swelling, right greater than left, with out joint space narrowing or erosions on either side. Dictated by: Torsten Ortiz M.D. The radiology attending physician has personally reviewed this study, and had reviewed and/or edited this written report and agrees with it. Electronically signed by: Feliberto Mcduffie M.D. Narrative 10/13/2018 10:24 AM CDT EXAMINATION: 1. ??Right ankle 3 or more views 2. ??Left ankle 3 or more views HISTORY: Bilateral ankle pain; history of rheumatoid arthritis FINDINGS: 4 view examination of each ankle is performed nonweightbearing. There are no prior ankle examinations for comparison. The ankle mortise is intact bilaterally. ??The ankle and hindfoot joint spaces are normal and symmetric. ??There are no erosions. ??There is no fracture. ??Bilateral heel spurs are present. ??There is mild anterior soft tissue swelling in the left ankle and moderate medial and anterior soft tissue swelling of the right ankle. Procedure Note Feliberto Mcduffie MD - 10/13/2018 EXAMINATION: 1. Right ankle 3 or more views 2. Left ankle 3 or more views HISTORY: Bilateral ankle pain; history of rheumatoid arthritis FINDINGS: 4 view examination of each ankle is performed nonweightbearing. There are no prior ankle examinations for comparison. The ankle mortise is intact bilaterally. The ankle and hindfoot joint spaces are normal and symmetric. There are no erosions. There is no fracture. Bilateral heel spurs are present. There is mild anterior soft tissue swelling in the left ankle and moderate medial and anterior soft tissue swelling of the right ankle. IMPRESSION: Bilateral ankle soft tissue swelling, right greater than left, with out joint space narrowing or erosions on either side. Dictated by: Torsten Ortiz M.D. The radiology attending physician has personally reviewed this study, and had reviewed and/or edited this written report and agrees with it. Electronically signed by: Feliberto Mcduffie M.D. us Can Chelsy Mora MD PhD IMG XR PROCEDURES Fin al Result documented in this encounter Visit Diagnoses Diagnosis Rheumatoid 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 (CMS/[facility]) ([facility])- Primary High risk medication use Chronic pain of left ankle documented in this encounter Administered Medications Inactive Administered Medications - up to 3 most recent administrations Medication Order MAR Action Action Date Dose Rate Site methylPREDNISolone acetate (DEPO-medrol) injection 40 mg 40 mg, intra-articular, Once, On Mon10/12/18 at 0815, For 1 doseIndications:Rheumatoid 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 (CMS/[facility]) ([facility]) Given 10/12/2018 8:00 AM CDT 40 mg documented in this encounter Care Teams Credit Office Manager Relationship Specialty Start Date End Date Orville Pryor MD [address] [place] [address] PCP - General 05/03/18 09/03/20 documented as of this encounter
--- OUTSIDE RECORDS SUMMARY | 2024-07-06 23:41 | XMS_ITS | Encounter Summary ---
Author Organization [facility] Address [address] [place] [address] Phone Care Team Providers Care Contract Designer Name Role Phone Orville Pryor MD Primary Care Provider +1- [phone] Encounter Details Date Type Department Care Team (Late st Contact Info) Description 02/13/2019 Telephone [facility] Rheumatology [address] [place] [address] 5th [place] [address] [place] [phone] Amina Rosenberg RMA Social History Tobacco Use Types Packs/Day Years Used Date Smoking Tobacco: Every Day Sex and Gender Information Value Date Recorded Sex Assigned at Not on file 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 Pt is aware * Telephone Encounter - Amina Rosenberg MA - 02/13/2019 10:27 AM CDT Called pt no answer. Left message. * Telephone Encounter - Amina Rosenberg MA - 02/13/2019 10:27 AM CDT ----- Message from Luz Bunch MA sent at 02/11/2019 8:08 AM CDT ----- Regarding: RE: Patient for patient pathology day Can you please call and schedule this patient on 02/21, as there are plenty of openings. The schedule is under procedure clinic. ----- Message ----- From: Juliocesar Mora MD PhD Sent: 02/08/2019 3:27 PM To: Luz Bunch MA, Adrián Cheng LPN, # Subject: Patient for patient pathology day Mr. Seals said he would be willing to come in for patient pathology day for the ultrasound lectures. He has RA and continued inflammation and swelling in right ankle. Juliocesar Mora documented in this encounter Plan of Treatment Not on file documented as of this encounter Visit Diagnoses Not on filedocumented in this encounter Care Teams Contract Designer Relationship Specialty Start Date End Date Orville Pryor MD [address] [place] [address] PCP - General 05/03/18 09/03/20 documented as of this encounter
--- OUTSIDE RECORDS SUMMARY | 2024-07-06 23:41 | XMS_ITS | Encounter Summary ---
Author Organization [facility] Address [address] [place] [address] Phone Care Team Providers Care Embedded Software Design Engineer Name Role Phone Orville Pryor MD Primary Care Provider [phone]- [phone] Reason for Visit * Rheumatology (Routine) - Closed Specialty Diagnoses / Procedures Referred By Jesus alvarado Referred To Contact Rheumatology Diagnoses right ankle us and injection Procedures ULTRASOUND Orville Pryor MD Phone: tel: fax: [facility] Rheumatology [address] 5th [place] [address] Phone: tel: fax: Referral ID Status Reason Start Date Expiration Date Visits Re quested Visits Authorized [id number] Closed 01/11/2019 07/22/2020 1 99 Encounter Details Date Type Department Care Team (Latest Contact Info) Description 01/11/2019 8:00 AM CDT Procedure visit [facility] Rheumatology [address] [place] [address] 5th [place] [address] Ankle swelling, right (Primary Dx); 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) Social History Tobacco Use Types Packs/Day Years Used Date Smoking Tobacco: Every Day Sex and Gender Information Value Date Recorded Sex Assigned at Not on file 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 male with chief complaint of 5 month hx R ankle pain, swelling. HPI: 58-year-old male with seropositive rheumatoid arthritis currently managed on recent increase of adalimumab to 40 mg weekly, sulfasalazine 1.5 g b.i.d. But right ankle has continued to be troublesome.He had plain films performed on October 12 with evidence of moderate medial and anterior soft tissue swelling of the right ankle but no erosive disease. DISEASE TREATMENT HISTORY Patient Active Problem List Diagnosis ??? 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) ??? High risk medication use ??? Ankle swelling, right No past surgical history on file. There is no immunization history on file for this patient. No Known Allergies Social History Tobacco Use ??? Smoking status: Current Every Day Smoker Substance Use Topics ??? Alcohol use: Not on file [facility] Family History Problem Relation Age of Onset ??? No Known Problems Mother Review of Systems: No fever, chills or dysesthesias in the foot There were no vitals taken for this visit. Objective Physical Exam: 58-year-old white male with alcohol on his breath Evaluation of the right ankle demonstrates marked swelling over the ankle crease and extending overthe dorsal aspect of the foot with significant edema Procedure: Ultrasonography of the right ankle and foot Indication: Failure of unclear unguided injection and assessment for effusion Views obtained include dorsal longitudinal and transverse views across the tibial talar, subtalar joints as well as from the tibial talar to the 3rd digit MTP Findings: There was significant edema of the dorsal aspect of the foot with hypoechoic signal within the subcutaneous fat. There was displacement of the fat pad with noncompressible tissue within thetibial talar joint, talonavicular joint and navicular and cuneiform joints. Tenderness was greatestover the talonavicular joint. Erosive changes were noted of the talus and navicular Assessment /Plan Problem List Items Addressed This Visit Ankle swelling, right - Primary Extensive synovitis of multiple joints in the foot which likely represents uncontrolled disease as no significant effusion to aspirate today. I am recommending a trial of steroids to see if it improves his symptoms and if not I would recommend referral for synovectomy with culture. I have asked thepatient to contact us after 7 days prednisone. documented in this encounter Miscellaneous Notes * Assessment & Plan Note - Teresa Mendez MD - 01/11/2019 8:45 AM CDT Associated Problem(s): Ankle swelling, right Extensive synovitis of multiple joints in the foot which likely represents uncontrolled disease as no significant effusion to aspirate today. I am recommending a trial of steroids to see if it improves his symptoms and if not I would recommend referral for synovectomy with culture. I have asked thepatient to contact us after 7 days prednisone. documented in this encounter Plan of Treatment Not on file documented as of this encounter Visit Diagnoses Diagnosis Ankle swelling, right- Primary 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) (HCC) documented in this encounter Discontinued Medications Medication Sig Discontinue Reason Start Date End Da te predniSONE (DELTASONE) 10 mg tabletIndications:autoim mune disease Take 2 tablets (20 mg) by mouth daily 10/09/2018 01/11/2019 documented as of this encounter Care Teams Embedded Software Design Engineer Relationship Specialty Start Date End Date Orville Pryor MD [address] [place] [address] PCP - General 05/03/18 09/03/20 documented as of this encounter
--- OUTSIDE RECORDS SUMMARY | 2024-07-06 23:41 | XMS_ITS | Encounter Summary ---
Author Organization [facility] Address [address] [place] [address] Care Team Providers Care Aboriginal [employer] Liaison Officer Name Role Phone Orville Pryor MD Primary Care Provider [phone]- [phone] Encounter Details Date Type Department Care Team (Late st Contact Info) Description 06/01/2018 3:30 PM STORE LEADER Lab [address] [address] 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) Social History Tobacco Use Types Packs/Day Years Used Date Smoking Tobacco: Every Day Sex and Gender Information Value Date Recorded Sex Assigned at Not on file Legal Sex Male 6:45 AM STORE LEADER Gender Identity Not on file Sexual Orientation Not on file documented as of this encounter Plan of Treatment Not on file documented as of this encounter Procedures Procedure Name Priority Date/Time Associated Diagnosis Comments T-SPOT.TB Routine 06/01/2018 1:26 PM STORE LEADER 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) documented in this encounter Results * TB test, T-SPOT (06/01/2018 1:26 PM STORE LEADER) Pathologist [facility] IFN-Gamma Release Assay TB Negative [facility] Comment: Interpretive Data Testing performed by [employer], [id number] [id number] Current Interpretive Data was last revised 2014 Blood specimen (specimen) 06/01/2018 1:26 PM STORE LEADER 06/01/2018 3:31 PM STORE LEADER Narrative [facility] ALEJANDRO - 06/04/2018 1:38 PM STORE LEADER us Can Chelsy Mora MD PhD LAB MICROBIOLOGY - NERAL ORDERABLES Final Result [facility] Department [place] [address] documented in this encounter Visit Diagnoses Diagnosis 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) (HCC) documented in this encounter Care Teams [employer] Liaison Officer Relationship Specialty Start Date End Date Orville Pryor MD [address] [place] [address] PCP - General 05/03/18 09/03/20 documented as of this encounter
--- OUTSIDE RECORDS SUMMARY | 2024-07-06 23:41 | XMS_ITS | Encounter Summary ---
Author Organization [facility] Address [address] [place] [address] Phone Care Team Providers Care Etiology Teacher Name Role Phone Orville Pryor MD Primary Care Provider [phone]- [phone] Reason for Referral * Diagnostic Imaging (Routine) - Closed Specialty Diagnoses / Procedures Referred By Jesus lara Referred To Contact Diagnoses 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) (HCC) Ankle swelling, right Procedures MRI Foot Right W WO Contrast Xiomy Mora MD PhD [address] [place] [address] Phone: tel: fax: [facility] [address] [place] [address] Referral ID Status Reason Start Date Expiration Date Visits Re quested Visits Authorized [id number] Closed 02/08/2019 08/19/2020 1 1 Encounter Details Date Type Department Care Team (Late st Contact Info) Description 02/08/2019 11:00 AM CDT Office Visit [facility]umatology [facility] 5th [place] [address] [place] [address] Xiomy Mora MD PhD [address] [place] [address] 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) (Primary Dx); High risk medication use; Ankle swelling, right; Alcohol abuse; Bilateral carpal tunnel syndrome Social History Tobacco Use Types Packs/Day Years Used Date Smoking Tobacco: Every Day Sex and Gender Information Value Date Recorded Sex Assigned at Not on file Legal Sex Male 6:[address] Gender Identity Not on file Sexual Orientation Not on file documented as of this encounter Last Filed Vital Signs Vital Sign Reading Time Taken Comments Blood Pressure 157/99 02/08/2019 11:12 AM CDT Pulse 80 02/08/2019 11:12 AM CDT Temperature - - Respiratory Rate - - Oxygen Saturation - - Inhaled Oxygen Concentration - - Weight 91.1 kg (200 lb 12.8 oz) 019 11:12 AM CDT Height 177.8 cm (5' 10 ) 02/08/2019 11: 12 AM CDT Body Mass Index 28.81 02/08/2019 11:12 AM CDT documented in this encounter Ordered Prescriptions Prescription Sig Dispense Quantity Refills Last Filled Start Date End Date adalimumab (HUMIRA PEN) 40 mg/0.8 mL pen injector kit Inject 0.8 mL (40 mg total) under the skin every 7 days 4 each 3 02/08/2019 9 celecoxib (CeleBREX) 200 mg capsule Take 1 capsule (200 mg total) by mouth daily 30 capsule 5 02/08/2019 0 sulfaSALAzine (AZULFIDINE) 500 mg tabletIndications: Rheumatoid Arthritis Take 3 tablets (1,500 mg total) by mouth 2 (two) times a day 180 tablet 11 02/08/2019 9 documented in this encounter Progress Notes * Xiomy Mora MD PhD - 02/08/2019 11:00 AM CDT Images from the original note were not included. Rheumatology Clinic follow-up PATIENT NAME: Aristeo Seals : 1960 HILDA: 02/08/2019 Chief Complaint: RA, right ankle pain HPI: Aristeo Seals is a 58 y.o. male with a PMH of with seropositive RA, HTN, polysubstance abuse (alcohol, tobacco, and marijuana) who is here for f/u on RA and persistent right ankle pain and swelling. Last seen in clinic 12/12 Disease History: Patient was seen in the [...] BID. He was started on Humira 09/07/18. Adherent to SSZ 1500 mg BID, Humira 40 mg weekly Interval history: Significant improvement in joint pains and stiffness overall, but ongoing pain, swelling, and erythema at right ankle. Right ankle symptoms continuing for over 5 months now. Startedaround the same time as Humira. Able to function better now other than the ankle pain. He was seen in ultrasound clinic with evidence of synovitis in multiple joints in ankle and tenosynovitis. Was gi rocael course of prednisone starting at 40 mg and had improved symptoms with steroids and worsening below 20 mg of prednisone. He is now off of prednisone and ankle swelling and pain back to what it wasprior. Using voltaren gel as well. All other joints with no significant pain or morning stiffness (<15 minutes). No new trauma, falls or prior injuries to the ankle. He has also been having a burning sensation with slight numbness in fingers at digts 1-3 sparing digit 5 completely. He underwent right knee arthrocentesis with no fluid aspirated and given 40 mg of depomedrol with 1% lidocaine. He had no improvement with this steroid injection in the past. Denies fevers, chills, night sweats, abdominal discomfort, N/V, BM or urinary changes, infections, rashes. Patient Active Problem List Diagnosis Date Noted ??? Ankle swelling, right 01/11/2019 ??? Rheumatoid 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 ([facility]) 12/17/2018 ??? High risk medication use 12/17/2018 Current Outpatient Medications on File Prior to Visit Medication Sig Dispense Refill ??? adalimumab (HUMIRA PEN) 40 mg/0.8 mL pen injector kit Inject 0.8 mL (40 mg total) under the skin every 7 days 4 each 3 ??? celecoxib (CeleBREX) 200 mg capsule Take 1 capsule (200 mg total) by mouth daily 30 capsule 5 ??? predniSONE (DELTASONE) 10 mg tablet 4 tabs for 2 week then 3 tablets for 1 week then 2 tablets for 1 week and then 1 tablet daily 100 tablet 0 ??? sulfaSALAzine (AZULFIDINE) 500 mg tablet Take 3 tablets (1,500 mg total) by mouth 2 (two) timesa day 180 tablet 11 No current facility-administered medications on file prior to visit. No Known Allergies Past Medical History: Diagnosis Date ??? Hypertension No past surgical history on file. Family History Problem Relation Age of Onset ??? No Known Problems Mother Social History: working at [employer] Continues tobacco use, alcohol use 3-4 times a week with 2-4 drinks each time. Denies current recreational drug use. Review of Systems Review of Systems All other systems reviewed and are negative. Physical Exam BP 157/99 Pulse 80 Ht 177.8 cm (5' 10 ) Wt 91.1 kg (200 lb 12.8 oz) BMI 28.81 kg/m?? General: NAD, awake and alert HEENT: [...] present and normal ROM. B/L MCPs, PIPs w/ synovial proliferation present digits 1-5 at MCPs and 2-4 at PIPs, no TTP. Mild increased warmth present at MCPs and PIPs.. DIPs w/o TTP, synovitis. reduced hand fiscal clerk bilaterally ulnar deviation present. Negative tinel's and phallen's test B/L knees w/o TTP, effusions, warmth, redness. ?? R ankle with erythema, swelling, increased warmth and TTP. No abnormalities in left ankle. B/L MTPs w/o erythema, TTP and [...] space narrowing or erosions on either side. Ultrasound in procedure clinic of right ankle 01/11: synovitis and tenosynovitis with erosive changes at multiple joints in wrist and foot. Assessment/plan: 58 y.o. male with a PMH of with seropositive RA, HTN, polysubstance abuse (alcohol, tobacco, and marijuana) who is here for follow-up. # Seropositive RA: Severe disease with multiple joint involvement. Improving with Humira with mainly right ankle inflammation present. Today he has more signs of active disease in hands at multiple joints as well. His ankle have responded to steroids. - Continue SSZ 1.5 gram BID - Continue Adalimumab 40 mg to weekly. This change was less than 2 months ago and will continue to monitor for improved response to current regimen - will consider addition of MTX/Leflunomide with continued signs of synovitis in multiple joints atnext visit and once has been on weekly humira longer. Hesitant to start these medications given alcohol use. - hep panel and T-spot neg - trial of Celecoxib PRN - lab monitoring with CBC and CMP for drug toxicity monitoring and ESR and CRP for disease monitoring. # Right ankle pain: with swelling and erythema. Unable to drain any fluid with aspiration in the past and no improvement with steroid injection. Symptoms continued for more than 5 months now. Xrays with soft tissue swelling and no joint changes. Ultrasound with evidence of synovitis and active inflammation. It is steroid responsive. However there is concern for a different etiology due to significant response of all other joints to current medications. Given that symptoms start around time of Humira, concern that right ankle might have indolent infections (fungal, TB, etc). Unilateral single joint that is resistant to therapies not typically seen in RA and would be more associated with a spo ndyloarthropathy. He does not have significant back involvement, no history of psoriasis, IBD symptoms, or prior infections suggesting reactive arthritis. - Injected ankle with increased dose of steroid 80 mg depomedrol and see if there is improved response. Please see procedure note for description of procedure. - will schedule for MRI of right ankle and foot to better assess for possible biopsy site and further evaluate the foot ([facility] radiology requesting as well prior to a biopsy) - after MRI will obtain synovial biopsy with pathology and fungal, AFB, and bacterial cultures - will wait on further adjusting immunosuppression until diagnostic testing performed and awaiting further response of weekly Humira # possible Carpal tunnel syndrome: Negative testing today, but symptoms suggestive of carpal tunnelgiven distribution fitting with median nerve. Potentially related with inflammation and synovial proliferation at wrist compressing the nerve. - will continue to treat RA and see if symptoms improve - referral to hand therapy for brace to see if helps symptoms. Follow-up: Return in about 3 months (around 05/11/2019) for Recheck. Cosigned by Chip Dailey MD at 02/11/2019 2:37 PM CDT Associated attestation - Chip Dailey MD - 02/11/2019 2:37 PM CDT I have seen and examined the patient. I agree with the findings and plan of care as documented in the resident/fellow's note. * Xiomy Mora MD PhD - 02/08/2019 11:00 AM CDT PROCEDURE NOTE RIGHT ANKLE ARTHROCENTESIS AND STEROID INJECTION: Patient verbally agreed to procedure and understood the risks of the procedure. Timeout was performed and everyone confirmed location, allergies, and procedure. Anterior right ankle was cleaned with chlorhexidine twice and numbing spray was utilized. 27 gauge needle was introduced and no fluid was present during attempted aspiration. 80 mg of depomedrol in 1 ml of 1% lidocaine was injected into the site. Band-aid was applied. There was no blood loss and patient tolerated the procedure well. No complications from the procedure. Dr. Dailey was present during the procedure. Cosigned by Chip Dailey MD at 02/11/2019 2:54 PM CDT Associated attestation - Chip Dailey MD - 02/11/2019 2:54 PM CDT I was present for the entire procedure. documented in this encounter Miscellaneous Notes * Addendum Note - Xiomy Mora MD PhD - 02/08/2019 11:00 AM CDTAddended by: XIOMY MORA on: 02/08/2019 05:06 PM Modules accepted: Orders documented in this encounter Plan of Treatment Scheduled Orders Name Type Priority Associated Diagnoses Orde r Schedule MRI Foot Right W WO Contrast Imaging Schedule Routine, Read Routine (OP Routine) 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) Ankle swelling, right Expected: 02/08/2019, Expires: 02/09/2020 documented as of this encounter Results * CRP (acute phase) (02/08/2019 4:40 PM CDT) Pathologist [facility] CRP 2.8 <=10.0 mg/L [facility] Blood specimen (specimen) 02/08/2019 4:40 PM CDT 02/08/2019 4:41 PM CDT us Can Chelsy Mora MD PhD LAB BLOOD ORDERABLES Final Result Performing Organization Address [facility] Co de Phone Number [facility] Department [place] [address] * Erythrocyte sedimentation rate (02/08/2019 4:40 PM CDT) Pathologist [facility] Erythrocyte sedimentation rate 8 1 - 20 mm/hr [facility] Blood specimen (specimen) 02/08/2019 4:40 PM CDT 02/08/2019 4:41 PM CDT us Can Chelsy Mora MD PhD LAB BLOOD ORDERABLES Final Result Performing Organization Address [facility]/ZIP Co de Phone Number [facility] Department [place] [address] * (ABNORMAL) Comprehensive metabolic panel (02/08/2019 12:28 PM CDT) Pathologist [facility] Total Protein 8.4 6.1 - 8.4 g/dL [facility] Albumin 4.8 3.5 - 5.2 g/dL [facility] Calcium 9.8 8.6 - 10.3 mg/dL [facility] Comment:Repeated and Verifie d BUN 21 7 - 23 mg/dL [facility] Total Bilirubin 0.53 0.20 - 1.40 mg/dL [facility] Alk Phos, Total 68 35 - 129 IU/L [facility] AST (SGOT) 20 11 - 47 IU/L [facility] ALT (SGPT) 17 6 - 53 IU/L [facility] Creatinine 1.03 0.70 - 1.30 mg/dL [facility] Sodium 137 135 - 145 mmol/L [facility] Potassium 4.3 3.3 - 5.1 mmol/L [facility] Chloride 99 95 - 107 mmol/L [facility] CO2 Content 23 21 - 29 mmol/L [facility] Glucose 112(H) 64 - 99 mg/dL [facility] Comment: NONFASTING GLUCOSE RANGE = 64-199 mg/dL ? FASTING GLUCOSE 64 - 99 = NORMAL ? FASTING GLUCOSE 100 - 125 = IMPAIRED FASTING GLUCOSE ? FASTING GLUCOSE >=126 = PROVISIONAL DIAGNOSIS OF DIABETES eGFR NON-AFR. [place]ING[place] 80.3 >60.0 mL/min/1.7 3 m2 [facility] eGFR >90.0 >60.0 mL/min/1.7 3 m2 [facility] Blood specimen (specimen) 02/08/2019 12:28 PM CDT 02/08/2019 12:59 PM CDT us Can Chelsy Mora MD PhD LAB BLOOD ORDERABLES Final Result [facility] * (ABNORMAL) CBC with auto differential (02/08/2019 12:28 PM CDT) White Blood Count 9.5 3.6 - 11.2 K/uL [facility] RBC 4.91 4.06 - 5.63 M/uL [facility] Hemoglobin 16.3 13.0 - 17.5 g/dL [facility] Hematocrit 48.0 40.7 - 50.3 % [facility] MCV 97.9(H) 80.0 - 97.6 fL [facility] MCH 33.3 26.7 - 33.7 pg [facility] MCHC 34.0 32.7 - 35.5 g/dL [facility] RBC Dist Width 13.3 12.3 - 17.0 % [facility] Platelet Count 241 140 - 440 K/uL [facility] MPV 7.9 6.8 - 10.4 fL [facility] Neutrophils % 86.6(H) 38.7 - 74.5 % [facility] Lymphocyte % 6.9(L) 20.0 - 54.3 % [facility] Monocytes % 5.5 4.3 - 13.5 % [facility] Eosinophils % 0.4 0.0 - 6.0 % [facility] Basophil % 0.6 0.0 - 3.0 % [facility] Absolute Neutrophil 8.2(H) 1.8 - 6.6 K/uL [facility] Absolute Lymphocyte 0.7(L) 0.8 - 3.3 K/uL [facility] Absolute Monocyte 0.5 0.2 - 1.2 K/uL [facility] Absolute Eosinophil 0.0 0.0 - 0.5 K/uL [facility] Absolute Basophil 0.1 0.0 - 0.2 K/uL [facility] Nucleated RBC % 0.1 0.0 - 0.4 /100 WBC [facility] Blood specimen (specimen) 02/08/2019 12:28 PM CDT 02/08/2019 12:59 PM CDT us Can Chelsy Mora MD PhD LAB BLOOD ORDERABLES Final Result [facility] documented in this encounter Visit Diagnoses Diagnosis 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) (HCC)- Primary High risk medication use Ankle swelling, right Alcohol abuse Nondependent alcohol abuse, unspecified drinking behavior Bilateral carpal tunnel syndrome Carpal tunnel syndrome documented in this encounter Administered Medications Inactive Administered Medications - up to 3 most recent administrations Medication Order MAR Action Action Date Dose Rate Site methylPREDNISolone acetate (DEPO-medrol) injection 80 mg 80 mg, intra-articular, Once, On Mon02/08/19 at 1715, For 1 doseIndications:Ankle swelling, right Given 02/08/2019 4:31 PM CDT 80 mg documented in this encounter Discontinued Medications Medication Sig Discontinue Reason Start Date End Da te predniSONE (DELTASONE) 10 mg tabletIndications:autoim mune disease 4 tabs for 2 week then 3 tablets for 1 week then 2 tablets for 1 week and then 1 tablet daily 01/11/2019 02/08/2019 sulfaSALAzine (AZULFIDINE) 500 mg tablet Take 3 tablets (1,500 mg total) by mouth 2 (two) times a day Reorder 09/07/2018 02/08/2019 celecoxib (CeleBREX) 200 mg capsule Take 1 capsule (200 mg total) by mouth daily Reorder 12/21/2018 02/08/2019 adalimumab (HUMIRA PEN) 40 mg/0.8 mL pen injector kit Inject 0.8 mL (40 mg total) under the skin every 7 days Reorder 12/21/2018 02/08/2019 documented as of this encounter Care Teams Etiology Teacher Relationship Specialty Start Date End Date Orville Pryor MD [address] [place] [address] PCP - General 05/03/18 09/03/20 documented as of this encounter
--- OUTSIDE RECORDS SUMMARY | 2024-07-06 23:41 | XMS_ITS | Encounter Summary ---
Author Organization [facility] Address [address] [place] [address] Phone Care Team Providers Care Purse Maker Name Role Phone Orville Pryor MD Primary Care Provider +1- [phone] Encounter Details Date Type Department Care Team (Late st Contact Info) Description 09/07/2018 Telephone [facility] Scheduling [address] [place] [address] Juliocesar Mora MD PhD [address] [place] [address] Social History Tobacco Use Types Packs/Day Years Used Date Smoking Tobacco: Every Day Sex and Gender Information Value Date Recorded Sex Assigned at Not on file 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 Can we please send prior auth for Humira again for severe RA? Thank you Can Abby documented in this encounter Plan of Treatment Not on file documented as of this encounter Visit Diagnoses Not on filedocumented in this encounter Care Teams Purse Maker Relationship Specialty Start Date End Date Orville Pryor MD [address] [place] [address] PCP - General 05/03/18 09/03/20 documented as of this encounter
--- OUTSIDE RECORDS SUMMARY | 2024-07-06 23:41 | XMS_ITS | Encounter Summary ---
Author Organization [facility] School of [facility] Address [address] [place] [address] Phone Care Team Providers Care Risk Compliance Analyst Name Role Phone Orville Pryor MD Primary Care Provider +1- [phone] Encounter Details Date Type Department Care Team (Late st Contact Info) Description 12/21/2018 9:30 AM CDT Office Visit [facility] Rheumatology [address] [facility] Advanced Medicine 5th [place] [address] [place] [address] Juliocesar Mora MD PhD [address] [place] [address] 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) (Primary Dx); High risk medication use; Chronic pain of right ankle Social History Tobacco Use Types Packs/Day Years Used Date Smoking Tobacco: Every Day Sex and Gender Information Value Date Recorded Sex Assigned at Not on file Legal 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 Gender Identity Not on file Sexual Orientation Not on file documented as of this encounter Last Filed Vital Signs Vital Sign Reading Time Taken Comments Blood Pressure 152/93 12/21/2018 9:08 AM CDT Pulse 71 12/21/2018 9:08 AM CDT Temperature 36.8 ??C (98.2 ??F) 12/21/2018 9:08 AM CD T Respiratory Rate - - Oxygen Saturation - - Inhaled Oxygen Concentration - - Weight 91.3 kg (201 lb 3.2 oz) 12/21/2018 9:08 A M CDT Height 177.8 cm (5' 10 ) 12/21/2018 9:08 AM CDT Body Mass Index 28.87 12/21/2018 9:08 AM CDT documented in this encounter Ordered Prescriptions Prescription Sig Dispense Quantity Refills Last Filled Start Date End Date celecoxib (CeleBREX) 200 mg capsule Take 1 capsule (200 mg total) by mouth daily 30 capsule 5 12/21/2018 9 adalimumab (HUMIRA PEN) 40 mg/0.8 mL pen injector kit Inject 0.8 mL (40 mg total) under the skin every 7 days 4 each 3 12/21/2018 9 documented in this encounter Progress Notes * Juliocesar Mora MD PhD - 12/21/2018 9:30 AM CDT Images from the original note were not included. Rheumatology Clinic follow-up PATIENT NAME: Aristeo Seals : 1960 HILDA: 12/21/2018 Chief Complaint: RA, right ankle pain HPI: Aristeo Seals is a 58 y.o. male with a PMH of with seropositive RA, HTN, polysubstance abuse (alcohol, tobacco, and marijuana) who is here for f/u on RA and persistent right ankle pain and swelling. Last seen in clinic 10/12 Disease History: Patient was seen in the [...] symptoms continuing for over 5 months now. Able tofunction better now other than the ankle pain. Has been off prednisone for months now. Using voltaren gel as well. All other joints with no significant pain, swelling or morning stiffness. No new trauma, falls or prior injuries to the ankle. He underwent right knee arthrocentesis with no fluid aspirated and given 40 mg of depomedrol with 1% lidocaine. He had no improvement with this steroid injection. Denies fevers, chills, night sweats, abdominal discomfort, N/V, BM or urinary changes, infections, rashes. Patient Active Problem List Diagnosis Date Noted ??? Rheumatoid 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 ([facility]) 12/17/2018 ??? High risk medication use 12/17/2018 Current Outpatient Medications on File Prior to Visit Medication Sig Dispense Refill ??? sulfaSALAzine (AZULFIDINE) 500 mg tablet Take 3 tablets (1,500 mg total) by mouth 2 (two) timesa day 180 tablet 11 ??? [DISCONTINUED] adalimumab (HUMIRA PEN) 40 mg/0.8 mL pen injector kit Inject 0.8 mL (40 mg total) under the skin every 14 (fourteen) days 2 each 5 ??? predniSONE (DELTASONE) 10 mg tablet Take 2 tablets (20 mg) by mouth daily (Patient not taking: Reported on 12/21/2018) 60 tablet 1 No current facility-administered medications on file prior to visit. No Known Allergies Past Medical History: Diagnosis Date ??? Hypertension No past surgical history on file. Family History Problem Relation Age of Onset ??? No Known Problems Mother Social History Social History Narrative ??? Not on file Review of Systems Review of Systems All other systems reviewed and are negative. Physical Exam BP 152/93 Pulse 71 Temp 36.8 ??C (98.2 ??F) Ht 177.8 cm (5' 10 ) Wt 91.3 kg (201 lb 3.2 oz) BMI 28.87 kg/m?? General: NAD, awake and alert HEENT: [...] warmth. DIPs w/o TTP, synovitis. reduced hand teaching aide bilaterally ulnar deviation present. B/L knees w/o [...] Hand xrays: joint space narrowing without erosions Assessment/plan: 58 y.o. male with a PMH of with seropositive RA, HTN, polysubstance abuse (alcohol, tobacco, and marijuana) who is here for left ankle pain. # Seropositive RA: Severe disease with multiple joint involvement. Improving with Humira with mainly right ankle with continued evidence of inflammation at this time. - Continue SSZ 1.5 gram BID - Increase frequency of Adalimumab 40 mg to weekly - hep panel and T-spot neg - trial of Celecoxib instead of naproxen/ibuprofen - lab monitoring with CBC and CMP for drug toxicity monitoring and ESR and CRP for disease monitoring. # Right ankle pain: with swelling and erythema. Unable to drain any fluid with aspiration in the past and no improvement with steroid injection. Symptoms continued for more than 5 months now. Xrays with soft tissue swelling and no joint changes - will refer to procedure clinic for ultrasound examination and possible arthrocentesis and steroidinjection - Medication adjustments as above - patient to call with worsening or continued symptoms Follow-up: Return in about 3 months (around 03/23/2019) for Recheck. Cosigned by Torsten Londono MD PhD at 12/21/2018 11:23 AM CDT Associated attestation - Torsten Londono MD PhD - 12/21/2018 11:23 AM CDT I have seen and examined the patient on 12/21/2018 and agree with the findings and assessment documented by the resident/fellow. Torsten Londono MD PhD documented in this encounter Plan of Treatment Not on file documented as of this encounter Visit Diagnoses Diagnosis Rheumatoid 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 ([facility]) ([facility])- Primary High risk medication use Chronic pain of right ankle documented in this encounter Discontinued Medications Medication Sig Discontinue Reason Start Date End Da te adalimumab (HUMIRA PEN) 40 mg/0.8 mL pen injector kit Inject 0.8 mL (40 mg total) under the skin every 14 (fourteen) days Reorder 09/07/2018 12/21/2018 documented as of this encounter Care Teams Risk Compliance Analyst Relationship Specialty Start Date End Date Orville Pryor MD [address] [place] [address] PCP - General 05/03/18 09/03/20 documented as of this encounter
--- OUTSIDE RECORDS SUMMARY | 2024-07-06 23:41 | XMS_ITS | Encounter Summary ---
Author Organization [facility] Address [address] [place] [address] Phone Care Team Providers Care Editorial Project Manager Name Role Phone Orville Pryor MD Primary Care Provider +1- [phone] Encounter Details Date Type Department Care Team (Late st Contact Info) Description 02/11/2019 Documentation [facility] Rheumatology [address] [facility] Medicine 5th [place] [address] [place] [address] Eloisa Velez MD [address] [place] [address] Social History Tobacco Use Types Packs/Day Years Used Date Smoking Tobacco: Every Day Sex and Gender Information Value Date Recorded Sex Assigned at Not on file 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 He said that the pain was already improving. He didn't noticeany redness or warmth of the joint. Discussed red flag symptoms with patient, who expressed understanding. * Juliocesar Mora MD PhD - 02/11/2019 6:12 AM CDT Thanks, i'll check in with him documented in this encounter Plan of Treatment Not on file documented as of this encounter Visit Diagnoses Not on filedocumented in this encounter Care Teams Editorial Project Manager Relationship Specialty Start Date End Date Orville Pryor MD [address] [place] [address] PCP - General 05/03/18 09/03/20 documented as of this encounter
--- OUTSIDE RECORDS SUMMARY | 2024-07-06 23:41 | XMS_ITS | Encounter Summary ---
Author Organization [facility] Address [address] [place] [address] Phone Care Team Providers Care School Secretary Name Role Phone Orville Pryor MD Primary Care Provider +1- [phone] Encounter Details Date Type Department Care Team (Late st Contact Info) Description 06/08/2018 Telephone [facility] Rheumatology [address] [place] [address] Medicine 5th [place] [address] [place] [address] Trever Rosenberg RMA Social History Tobacco Use Types Packs/Day Years Used Date Smoking Tobacco: Every Day Sex and Gender Information Value Date Recorded Sex Assigned at Not on file Legal Sex Male 6:45 AM CHANGE MANAGEMENT LEAD Gender Identity Not on file Sexual Orientation Not on file documented as of this encounter Miscellaneous Notes * Telephone Encounter - Trever Rosenberg MA - 06/13/2018 11:34 AM CHANGE MANAGEMENT LEAD Spoke to pt. Pt is aware. GE MANAGEMENT LEAD * Telephone Encounter - Trever Rosenberg MA - 06/12/2018 4:43 PM CST Called pt no answer. Left message. GE MANAGEMENT LEAD * Telephone Encounter - Trever Rosenberg MA - 06/08/2018 3:10 PM CST Called pt no answer. Left message GE MANAGEMENT LEAD * Telephone Encounter - Juliocesar Mora MD - 06/08/2018 2:51 PM CHANGE MANAGEMENT LEAD Attempted to call patient again, but did not answer. Left voicemail saying okay to start the humiraand blood work with no positive hepatitis panels or quantiferon. Trever can you try calling again to say he can start the Humira and blood work looks good? Thanks! Can Alanr GE MANAGEMENT LEAD * Telephone Encounter - Trever Rosenberg MA - 06/08/2018 2:00 PM CST Pt called requesting lab results to start Humira. Please Advise. GE MANAGEMENT LEAD documented in this encounter Plan of Treatment Not on file documented as of this encounter Visit Diagnoses Not on filedocumented in this encounter Care Teams School Secretary Relationship Specialty Start Date End Date Orville Pryor MD [address] [place] [address] PCP - General 05/03/18 09/03/20 documented as of this encounter
--- OUTSIDE RECORDS SUMMARY | 2024-07-06 23:41 | XMS_ITS | Encounter Summary ---
Author Organization [facility] Address [address] [place] [address] Phone Care Team Providers Care Gridcap Machine Operator Name Role Phone Orville Pryor MD Primary Care Provider +1- [phone] Encounter Details Date Type Department Care Team (Late st Contact Info) Description 03/21/2019 Orders Only [facility] Rheumatology [address] [facility] 5th [place] [address] [place] [address] Amina Rosenberg RMA Social History Tobacco Use Types Packs/Day Years Used Date Smoking Tobacco: Every Day Sex and Gender Information Value Date Recorded Sex Assigned at Not on file 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 Gender Identity Not on file Sexual Orientation Not on file documented as of this encounter Ordered Prescriptions Prescription Sig Dispense Quantity Refills Last Filled Start Date End Date adalimumab (HUMIRA PEN) 40 mg/0.8 mL pen injector kit Inject 0.8 mL (40 mg total) under the skin every 7 days 4 each 1 03/21/2019 05/03/2019 documented in this encounter Plan of Treatment Not on file documented as of this encounter Visit Diagnoses Not on filedocumented in this encounter Discontinued Medications Medication Sig Discontinue Reason Start Date End Da te adalimumab (HUMIRA PEN) 40 mg/0.8 mL pen injector kit Inject 0.8 mL (40 mg total) under the skin every 7 days Reorder 03/19/2019 03/21/2019 documented as of this encounter Care Teams Gridcap Machine Operator Relationship Specialty Start Date End Date Orville Pryor MD [address] [place] [address] PCP - General 05/03/18 09/03/20 documented as of this encounter
--- OUTSIDE RECORDS SUMMARY | 2024-07-06 23:41 | XMS_ITS | Encounter Summary ---
Author Organization [facility] Address [address] [place] [address] Phone Care Team Providers Care Hot Metal Charger Name Role Phone Orvilel Pryor MD Primary Care Provider +1- [phone] Reason for Visit * Endocrinology (Routine) - Closed Specialty Diagnoses / Procedures Referred By Jesus laar Referred To Contact Lab Diagnoses Rheum Lab Procedures SPECIMEN COLLECTION Juliocesar Mora MD PhD Phone: tel: fax: [facility] Endocrinology Metabolism and Lipid [address] [facility] 5th [place] [address] [place] [address] Phone: tel: fax: Referral ID Status Reason Start Date Expiration Date Visits Re quested Visits Authorized [id number] Closed 09/07/2018 03/18/2020 99 99 Encounter Details Date Type Department Care Team (Late st Contact Info) Description 09/07/2018 9:50 AM CDT Lab [facility] Endocrinology Metabolism and Lipid [address] [facility] 5th [place] [address] [place] [address] 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) Social History Tobacco Use Types Packs/Day Years Used Date Smoking Tobacco: Every Day Sex and Gender Information Value Date Recorded Sex Assigned at Not on file 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 Gender Identity Not on file Sexual Orientation Not on file documented as of this encounter Plan of Treatment Not on file documented as of this encounter Procedures Procedure Name Priority Date/Time Associated Diagnosis Comments CBC WITH AUTO DIFFERENTIAL Routine 09/07/2018 9:22 AM CDT 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) COMPREHENSIVE METABOLIC PANEL Routine 09/07/2018 9:22 AM CDT 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) documented in this encounter Results * (ABNORMAL) CBC with auto differential (09/07/2018 9:22 AM CDT) White Blood Count 9.1 3.6 - 11.2 K/uL [facility] RBC 4.88 4.06 - 5.63 M/uL [facility] Hemoglobin 16.0 13.0 - 17.5 g/dL [facility] Hematocrit 48.2 40.7 - 50.3 % [facility] MCV 98.9(H) 80.0 - 97.6 fL [facility] MCH 32.8 26.7 - 33.7 pg [facility] MCHC 33.2 32.7 - 35.5 g/dL [facility] RBC Dist Width 13.5 12.3 - 17.0 % [facility] Platelet Count 259 140 - 440 K/uL [facility] MPV 7.7 6.8 - 10.4 fL [facility] Neutrophils % 82.1(H) 38.7 - 74.5 % [facility] Lymphocyte % 10.5(L) 20.0 - 54.3 % [facility] Monocytes % 6.6 4.3 - 13.5 % [facility] Eosinophils % 0.1 0.0 - 6.0 % [facility] Basophil % 0.7 0.0 - 3.0 % [facility] Absolute Neutrophil 7.5(H) 1.8 - 6.6 K/uL [facility] Absolute Lymphocyte 1.0 0.8 - 3.3 K/uL [facility] Absolute Monocyte 0.6 0.2 - 1.2 K/uL [facility] Absolute Eosinophil 0.0 0.0 - 0.5 K/uL [facility] Absolute Basophil 0.1 0.0 - 0.2 K/uL [facility] Nucleated RBC % 0.1 0.0 - 0.4 /100 WBC [facility] Blood specimen (specimen) 09/07/2018 9:22 AM CDT 09/07/2018 12:39 PM CDT us Can Chelsy Mora MD PhD LAB BLOOD ORDERABLES Final Result [facility] * Comprehensive metabolic panel (09/07/2018 9:22 AM CDT) Total Protein 7.8 6.1 - 8.4 g/dL [facility] Albumin 4.3 3.5 - 5.2 g/dL [facility] Calcium 9.0 8.6 - 10.3 mg/dL [facility] BUN 19 7 - 23 mg/dL [facility] Total Bilirubin 0.37 0.20 - 1.40 mg/dL [facility] Alk Phos, Total 78 35 - 129 IU/L [facility] AST (SGOT) 17 11 - 47 IU/L [facility] ALT (SGPT) 13 6 - 53 IU/L [facility] Creatinine 0.79 0.70 - 1.30 mg/dL [facility] Sodium 140 135 - 145 mmol/L [facility] Potassium 3.9 3.3 - 5.1 mmol/L [facility] Chloride 101 95 - 107 mmol/L [facility] CO2 Content 23 21 - 29 mmol/L [facility] Glucose 83 64 - 99 mg/dL [facility] Comment: NONFASTING GLUCOSE RANGE = 64-199 mg/dL FASTING GLUCOSE 64 - 99 = NORMAL FASTING GLUCOSE 100 - 125 = IMPAIRED FASTING GLUCOSE FASTING GLUCOSE >=126 = PROVISIONAL DIAGNOSIS OF DIABETES eGFR NON-AFR. KAZAKH >90.0 >60.0 mL/min/1.7 3 m2 [facility] eGFR >90.0 >60.0 mL/min/1.7 3 m2 [facility] Blood specimen (specimen) 09/07/2018 9:22 AM CDT 09/07/2018 12:39 PM CDT us Can Chelsy Mora MD PhD LAB BLOOD ORDERABLES Final Result [facility] documented in this encounter Visit Diagnoses Diagnosis 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) (HCC) documented in this encounter Care Teams Hot Metal Charger Relationship Specialty Start Date End Date Orville Pryor MD [address] [place] [address] PCP - General 05/03/18 09/03/20 documented as of this encounter
--- OUTSIDE RECORDS SUMMARY | 2024-07-06 23:41 | XMS_ITS | Encounter Summary ---
Author Organization [facility] Address [address] [place] [address] Phone Care Team Providers Care Utility Plant Operative Name Role Phone Orville Pryor MD Primary Care Provider +1- [phone] Encounter Details Date Type Department Care Team (Late st Contact Info) Description 12/21/2018 Telephone [facility] Rheumatology [address] [place] [address] 5th [place] [address] [place] [id number] Adrián Cheng LPN Social History Tobacco Use Types Packs/Day Years Used Date Smoking Tobacco: Every Day Sex and Gender Information Value Date Recorded Sex Assigned at Not on file Legal Sex Male 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 Is now scheduled. * Telephone Encounter - Adrián Cheng LPN - 12/21/2018 2:56 PM CDT Called patient. No answer. Left VM * Telephone Encounter - Adrián Cheng LPN - 12/21/2018 2:56 PM CDT ----- Message from Juliocesar Mora MD PhD sent at 12/21/2018 10:07 AM CDT ----- Regarding: procedure clinic Corona Sampson, Can you please schedule this patient as soon as possible for the procedure clinic for right ankle ultrasound and injection? If you could call the patient with the appointment that would be great. He said it is okay to leave a message if he does not answer. Thanks! Juliocesar Mora documented in this encounter Plan of Treatment Not on file documented as of this encounter Visit Diagnoses Not on filedocumented in this encounter Care Teams Utility Plant Operative Relationship Specialty Start Date End Date Orville Pryor MD [address] [place] [address] PCP - General 05/03/18 09/03/20 documented as of this encounter
--- OUTSIDE RECORDS SUMMARY | 2024-07-06 23:41 | XMS_ITS | Encounter Summary ---
Author Organization [facility] Address [address] [place] [address] Phone Care Team Providers Care Supervisor Acoustical Tile Carpenters Name Role Phone Orville Pryor MD Primary Care Provider +1- [phone] Encounter Details Date Type Department Care Team (Late st Contact Info) Description 03/21/2019 Telephone [facility] Rheumatology [address] [place] [address] 5th [place] [address] [place] [address] Amina Rosenberg RMA Social History Tobacco Use Types Packs/Day Years Used Date Smoking Tobacco: Every Day Sex and Gender Information Value Date Recorded Sex Assigned at Not on file Legal 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 Pt is aware. * Telephone Encounter - Juliocsear Mora MD PhD - 03/21/2019 11:11 AM CDT Attempted to call patient and left voicemail. He has his MRI scheduled in 2 days and would prefer to remain off of the prednisone until then. Will send a prescription of prednisone for him to take after he has it done and will continue to try and contact him. * Telephone Encounter - Amina Rosenberg RMA - 03/21/2019 10:49 AM CDT Pt called says that he has pain/swelling/little redness in his right foot with trouble walking. It's been going on for 2 days now. Pt has been off of prednisone for the last few weeks. Please Advise. documented in this encounter Plan of Treatment Not on file documented as of this encounter Visit Diagnoses Not on filedocumented in this encounter Care Teams Supervisor Acoustical Tile Carpenters Relationship Specialty Start Date End Date Orville Pryor MD [address] [place] [address] PCP - General 05/03/18 09/03/20 documented as of this encounter
--- OUTSIDE RECORDS SUMMARY | 2024-07-06 23:41 | XMS_ITS | Encounter Summary ---
Author Organization [facility] Address [address] [place] [address] Phone Care Team Providers Care Automation Analyst Name Role Phone Orville Pryor MD Primary Care Provider +1- [phone] Encounter Details Date Type Department Care Team (Late st Contact Info) Description 07/31/2018 Telephone [facility] Rheumatology [address] [place] [address] 5th [place] [address] [place] [address] Meredith Gee Social History Tobacco Use Types Packs/Day Years Used Date Smoking Tobacco: Every Day Sex and Gender Information Value Date Recorded Sex Assigned at Not on file Legal Sex Male 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 Can we send for the humira again? Thanks! D MARKETING SPECIALIST * Telephone Encounter - Lauren Delarosa MD - 07/31/2018 12:38 PM BRAND MARKETING SPECIALIST Not my patient, dr Abby's D MARKETING SPECIALIST * Telephone Encounter - Meredith Gee - 07/31/2018 12:15 PM BRAND MARKETING SPECIALIST Just fyi D MARKETING SPECIALIST * Telephone Encounter - Yoly Sylvester COA - 07/31/2018 11:36 AM BRAND MARKETING SPECIALIST At this time there is NO pharmacy benefits on file in chart or with any form of [place] Medicaid. Please send request when pt says insurance is squared away. D MARKETING SPECIALIST * Telephone Encounter - Meredith Gee - 07/31/2018 11:16 AM BRAND MARKETING SPECIALIST Do we know where the PA is for humira. See below D MARKETING SPECIALIST * Telephone Encounter - Meredith Gee - 07/31/2018 11:15 AM BRAND MARKETING SPECIALIST ----- Message from Juliocesar Mora MD sent at 06/01/2018 2:03 PM BRAND MARKETING SPECIALIST ----- Regarding: Humira prior auth So patient should have insurance finalized in the next week and are we able to send a prior auth for humira at that point? Thank you. Juliocesar Mora D MARKETING SPECIALIST documented in this encounter Plan of Treatment Not on file documented as of this encounter Visit Diagnoses Not on filedocumented in this encounter Care Teams Automation Analyst Relationship Specialty Start Date End Date Orville Pryor MD [address] [place] [address] PCP - General 05/03/18 09/03/20 documented as of this encounter
--- OUTSIDE RECORDS SUMMARY | 2024-07-06 23:41 | XMS_ITS | Encounter Summary ---
Author Organization [facility] Address [address] [place] [address] Phone Care Team Providers Care General Car Yard Supervisor Name Role Phone Orville Pryor MD Primary Care Provider +1- [phone] Encounter Details Date Type Department Care Team (Late st Contact Info) Description 10/05/2018 Telephone [facility] Rheumatology [address] [place] [address] Medicine 5th [place] [address] [place] [address] Amina Rosenberg RMA Social History Tobacco Use Types Packs/Day Years Used Date Smoking Tobacco: Every Day Sex and Gender Information Value Date Recorded Sex Assigned at Not on file 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 Pt was transferred to schedule. Pt is also requesting a refill of prednisone Pt is requesting a call back as well to discuss options to alleviate his pain. * Telephone Encounter - Amina Rosenberg MA - 10/05/2018 4:20 PM CDT Pt called says you all discussed him getting a injection? Please Advise documented in this encounter Plan of Treatment Not on file documented as of this encounter Visit Diagnoses Not on filedocumented in this encounter Care Teams General Car Yard Supervisor Relationship Specialty Start Date End Date Orville Pryor MD [address] [place] [address] PCP - General 05/03/18 09/03/20 documented as of this encounter
--- OUTSIDE RECORDS SUMMARY | 2024-07-06 23:41 | XMS_ITS | Encounter Summary ---
Author Organization [facility] Address [address] [place] [address] Phone Care Team Providers Care Travel Assistant Name Role Phone Orville Pryor MD Primary Care Provider +1- [phone] Encounter Details Date Type Department Care Team (Late st Contact Info) Description 03/19/2019 Telephone [facility] Rheumatology [facility] Medicine 5th [place] [address] [place] [phone] Amina Rosenberg RMA Social History Tobacco Use Types Packs/Day Years Used Date Smoking Tobacco: Every Day Sex and Gender Information Value Date Recorded Sex Assigned at Not on file 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 * Telephone Encounter - Amina Rosenberg MA - 03/19/2019 12:07 PM CDT FYI: Pt called says he was not happy with the Humira syringes and would like the Pens sent in instead. Humira pens were sent in today. documented in this encounter Plan of Treatment Not on file documented as of this encounter Visit Diagnoses Not on filedocumented in this encounter Care Teams Travel Assistant Relationship Specialty Start Date End Date Orville Pryor MD [address] [place] [address] PCP - General 05/03/18 09/03/20 documented as of this encounter
--- OUTSIDE RECORDS SUMMARY | 2024-07-06 23:41 | XMS_ITS | Encounter Summary ---
Author Organization [facility] Address [address] [place] [address] Phone Care Team Providers Care Intelligence Operations Name Role Phone Orville Pryor MD Primary Care Provider +1- [phone] Encounter Details Date Type Department Care Team (Late st Contact Info) Description 03/28/2019 Telephone [facility] Rheumatology [address] [place] [address] 5th [place] [address] [place] [phone] Trever Rosenberg RMA Social History Tobacco Use Types Packs/Day Years Used Date Smoking Tobacco: Every Day Sex and Gender Information Value Date Recorded Sex Assigned at Not on file 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 * Telephone Encounter - Trever Rosenberg RMA - 04/04/2019 11:32 AM CDT Called pt no answer. Left message. * Telephone Encounter - Trever Rosenberg RMA - 04/02/2019 8:49 AM CDT Called pt no answer. Left message. * Telephone Encounter - Trever Rosenberg RMA - 03/28/2019 3:53 PM CDT Called pt no answer. Left message. * Telephone Encounter - Trever Rosenberg RMA - 03/28/2019 3:53 PM CDT ----- Message from Juliocesar Mora MD PhD sent at 03/28/2019 11:07 AM CDT ----- Regarding: Reordering MRI of right foot and ankle Hi Trever, Can you please help reschedule his MRI of his right foot and ankle that he no showed to recently. Ihave tried calling him and left a voicemail to discuss rescheduling the MRI and why he was not ableto go and have not heard back yet. Can you try to reschedule it and let the patient know? Let me know if you need me to put in a new order for it. Thank you! Juliocesar Mora documented in this encounter Plan of Treatment Not on file documented as of this encounter Visit Diagnoses Not on filedocumented in this encounter Care Teams Intelligence Operations Relationship Specialty Start Date End Date Orville Pryor MD [address] [place] [address] PCP - General 05/03/18 09/03/20 documented as of this encounter
--- OUTSIDE RECORDS SUMMARY | 2024-07-06 23:41 | XMS_ITS | Encounter Summary ---
Author Organization [facility] Address [address] [place] [address] Phone Care Team Providers Care Police Artist Name Role Phone Orville Pryor MD Primary Care Provider +1- [phone] Encounter Details Date Type Department Care Team (Late st Contact Info) Description 10/09/2018 Orders Only [facility] Rheumatology [address] 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 Has been taking all other medications as prescribed. Will refill prednisone for now and also try voltaren gel for ankle. Will schedule patient for clinic appointment for steroid injection into ankle as well documented in this encounter Plan of Treatment Not on file documented as of this encounter Visit Diagnoses Not on filedocumented in this encounter Discontinued Medications Medication Sig Discontinue Reason Start Date End Da te predniSONE (DELTASONE) 10 mg tabletIndications:autoim mune disease Take 1 tablet (10 mg total) by mouth daily Reorder 09/07/2018 10/09/2018 documented as of this encounter Care Teams Police Artist Relationship Specialty Start Date End Date Orville Pryor MD [address] [place] [address] PCP - General 05/03/18 09/03/20 documented as of this encounter
--- OUTSIDE RECORDS SUMMARY | 2024-07-06 23:41 | XMS_ITS | Encounter Summary ---
Author Organization [facility] Address [address] [place] [address] Phone Care Team Providers Care Director Regulatory Affairs Name Role Phone Orville Pryor MD Primary Care Provider +1- [phone] Reason for Visit * Rheumatology (Routine) - Closed Specialty Diagnoses / Procedures Referred By Jesus lara Referred To Contact Rheumatology Diagnoses right ankle swelling Procedures ULTRASOUND Orville Pryor MD Phone: tel: fax: [facility] Rheumatology [facility] 5th [place] [address] Phone: tel: fax: Referral ID Status Reason Start Date Expiration Date Visits Re quested Visits Authorized [id number] Closed 02/21/2019 09/01/2020 1 99 Encounter Details Date Type Department Care Team (Latest Contact Info) Description 02/21/2019 8:00 AM CDT Procedure visit [facility] Rheumatology 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 Rheumatology PROCEDURE CLINIC NOTE PATIENT NAME: Aristeo Seals : 1960 HILDA: 02/21/2019 Chief Complaint: RA, right ankle pain HPI: Aristeo Seals is a 58 y.o. male with a PMH of with seropositive RA, HTN, polysubstance abuse (alcohol, tobacco, and marijuana) who is seen in procedure clinic patient pathology workshop for ongoing right ankle pain. Disease History: Patient was seen [...] BID, Humira 40 mg weekly Interval history: Underwent right tibiotalor arthrocentesis and steroid injection at last visit 02/08/19 with 80 mg of depomedrol with minimal improvement. His pain is now more anterolateral. No fevers, chills, or other systemic symptoms. No falls, trauma, or other injury to the ankle. He is here for ultrasound evaluation of ankle. Patient Active Problem List Diagnosis Date Noted ??? Ankle swelling, right 01/11/2019 ??? Rheumatoid 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 ([facility]) 12/17/2018 ??? High risk medication use 12/17/2018 [...] mg) daily for 5 days. 15 tablet 0 ??? sulfaSALAzine (AZULFIDINE) 500 mg [...] Known Problems Mother Social History: working at [employer] Continues tobacco use, alcohol use 3-4 times a week with 2-4 drinks each time. Denies current recreational drug use. Review of Systems Review of Systems All other systems reviewed and are negative. Physical Exam There were no vitals taken for this visit. General: NAD, awake and alert?? R ankle without erythema or increased warmth. Mild swelling and TTP along lateral and anterior aspect of ankle. No abnormalities in left ankle. Neuro: AAOx4, Nonfocal Skin: No rashes, jaundice, or other lesions noted Psych: normal mood and affect Labs Lab Results Component Value Date SEDRATE 8 02/08/2019 RF 276.0 (H) 05/03/2018 CRP 2.8 02/08/2019 No results found for: ALDOLASE, YUE, SCL70, C3, C4, CH50, HLAB27, CKTOTAL, CKMM Imaging Hand xrays: joint space narrowing without erosions Ankle xrays 10/12: Bilateral ankle soft tissue swelling, right greater than left, with out joint space narrowing or erosions on either side. PROCEDURE: Right ankle ultrasound evaluation and arthrocentesis with steroid injection: Musculoskeletal ultrasound Date: 02/21/2019 Site: Right Ankle Study indication: right ankle swelling and pain Equipment: [employer] with 5-13 MHz Linear Transducer Orientation: Unless noted, the right screen is distal, radial, fibular, or anatomic lateral Scans performed: Posterior (Achilles) longitudinal, Posterior (Achilles) transverse and Plantar longitudinal Findings: Disruption in bone contours of the tibiotalar joint with possible erosions and synovial hypertrophy seen without effusion. Synovial hypertrophy noted in nearly all joints in ankle with erosive changes without doppler signal or effusion. The peroneus longus, peroneus brevis, tibialis posterior were visualized and without evidence of tendinopathy. Impression: Synovial hypertrophy with erosive changes. Steroid Injection of right anterolateral ankle: Patient verbally agreed to procedure and understood the risks of the procedure. Timeout was performed and everyone confirmed location, allergies, and procedure. Anterolateral right ankle was cleaned with chlorhexidine twice and numbing spray was utilized. 25 gauge syringe was utilized and 40 mg of depomedrol with 1 ml of 1% lidocaine was injected into the joint. Band-aid was applied. There was no blood loss and patient tolerated the procedure well. No complications from the procedure. Assessment/plan: 58 y.o. male with a PMH of with seropositive RA, HTN, polysubstance abuse (alcohol, tobacco, and marijuana) who is here for ultrasound evaluation of right ankle # Right ankle pain: with swelling and erythema. Unable to drain any fluid with aspiration in the past and no improvement with steroid injection in past, though was injected tibiotalar. Symptoms continued for more than 5 months now. Xrays with soft tissue swelling and no joint changes. Ultrasound today with evidence of synovial hypertrophy and erosive changes, but no evidence of active synovitis. Pain over anterolateral ankle and that joint was injected with 40 mg of depomedrol as discussed in procedure note above. However there is concern for a different etiology due to significant response of all other joints to current medications. If the joint does not improve with this current injectionand that symptoms started around time of Humira, concern that right ankle might have indolent infections (fungal, TB, etc). Unilateral single joint that is resistant to therapies not typically seen in RA and would be more associated with a spondyloarthropathy. He does not have significant back involvement, no history of psoriasis, IBD symptoms, or prior infections suggesting reactive arthritis. - Injected ankle with 40 mg depomedrol as above and see if there is improved response. Please see procedure note above for description of procedure. - scheduled for MRI of right ankle and foot to better assess for possible biopsy site if needed andfurther evaluate the foot ([facility] radiology requesting as well prior to a biopsy) - If there is no improvement with the steroid injection and after MRI, will obtain synovial biopsy with pathology and fungal, AFB, and bacterial cultures - will wait on further adjusting immunosuppression until diagnostic testing performed and awaiting further response of weekly Humira # Seropositive RA: Severe disease with multiple [...] and ESR and CRP for disease monitoring. Follow-up: As scheduled. Cosigned by Mayuri Carranza MD at 02/22/2019 10:29 AM CDT Associated attestation - Mayuri Carranza MD - 02/22/2019 10:29 AM CDT I have seen and examined the patient. I agree with the findings and plan of care as documented in the resident/fellow's note. and I was present for the entire procedure. documented in this encounter Plan of Treatment Not on file documented as of this encounter Visit Diagnoses Diagnosis 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) (HCC)- Primary Ankle swelling, right documented in this encounter Administered Medications Inactive Administered Medications - up to 3 most recent administrations Medication Order MAR Action Action Date Dose Rate Site methylPREDNISolone acetate (DEPO-medrol) injection 40 mg 40 mg, intra-articular, Once, On Mimi 02/21/19 at 1515, For 1 doseIndications: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) (HCC),Ankle swelling, right Given 02/21/2019 2:33 PM CDT 40 mg documented in this encounter Orders Medications Ordered That Gerry ht Not Have Been Administered Count Last Ordered Date First Ordered Date methylPREDNISolone acetate ( DEPO-medrol) injection 40 mg 1 02/21/2019 documented in this encounter Care Teams Director Regulatory Affairs Relationship Specialty Start Date End Date Orville Pryor MD [address] [place] [address] PCP - General 05/03/18 09/03/20 documented as of this encounter
--- OUTSIDE RECORDS SUMMARY | 2024-07-06 23:41 | XMS_ITS | Encounter Summary ---
Author Organization [facility] Address [address] [place] [address] Phone Care Team Providers Care Head Of Biology Name Role Phone Orville Pryor MD Primary Care Provider +1- [phone] Reason for Visit * Endocrinology (Routine) - Closed Specialty Diagnoses / Procedures Referred By Jesus lara Referred To Contact Lab Diagnoses Rheum Lab Procedures SPECIMEN COLLECTION Juliocesar Mora MD PhD Phone: tel: fax: [facility] Endocrinology Metabolism and Lipid [address] [facility] 5th [place] [address] [place] [address] Phone: tel: fax: Referral ID Status Reason Start Date Expiration Date Visits Re quested Visits Authorized [id number] Closed 09/07/2018 03/18/2020 99 99 Encounter Details Date Type Department Care Team (Late st Contact Info) Description 02/08/2019 1:55 PM CDT Lab [facility] Endocrinology Metabolism and Lipid [address] [facility] 5th [place] [address] 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); High risk medication use Social History Tobacco Use Types Packs/Day Years Used Date Smoking Tobacco: Every Day Sex and Gender Information Value Date Recorded Sex Assigned at Not on file 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 Gender Identity Not on file Sexual Orientation Not on file documented as of this encounter Plan of Treatment Not on file documented as of this encounter Procedures Procedure Name Priority Date/Time Associated Diagnosis Comments CBC WITH AUTO DIFFERENTIAL Routine 02/08/2019 12:28 PM CDT Rheumatoid 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 ([facility]) High risk medication use COMPREHENSIVE METABOLIC PANEL Routine 02/08/2019 12:28 PM CDT 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) High risk medication use documented in this encounter Results * (ABNORMAL) CBC with auto differential (02/08/2019 [...] - [facility] * (ABNORMAL) Comprehensive metabolic panel (02/08/2019 12:28 PM CDT) Total Protein 8.4 6.1 - 8.4 g/dL [...] = PROVISIONAL DIAGNOSIS OF DIABETES eGFR NON-AFR. TANZANIAN 80.3 >60.0 mL/min/1.7 3 m2 ORCHARD - [...] use documented in this encounter Care Teams Head Of Biology Relationship Specialty Start Date End Date Orville Pryor MD [address] [place] [address] PCP - General 05/03/18 09/03/20 documented as of this encounter
--- OUTSIDE RECORDS SUMMARY | 2024-07-06 23:41 | XMS_ITS | Encounter Summary ---
Author Organization [facility] Address [address] [place] [address] Phone Care Team Providers Care Public Service Administrator Name Role Phone Orville Pryor MD Primary Care Provider +1- [phone] Encounter Details Date Type Department Care Team (Late st Contact Info) Description 06/01/2018 Orders Only [facility] Rheumatology [address] [facility] 5th [place] [address] Hannah Ruiz RMA Social History Tobacco Use Types Packs/Day Years Used Date Smoking Tobacco: Every Day Sex and Gender Information Value Date Recorded Sex Assigned at Not on file 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 diclofenac DR (VOLTAREN) 75 mg EC tablet Take 75 mg by mouth 2 (two) times a day. 0 04/20/2018 06/01/2018 added in this encounter Care Teams Public Service Administrator Relationship Specialty Start Date End Date Orville Pryor MD [address] [place] [address] PCP - General 05/03/18 09/03/20 documented as of this encounter
--- OUTSIDE RECORDS SUMMARY | 2024-07-06 23:41 | XMS_ITS | Encounter Summary ---
Author Organization [facility] Address [address] [place] [address] Phone Care Team Providers Care Special Agent Name Role Phone Orville Pryor MD Primary Care Provider [phone]- [phone] Encounter Details Date Type Department Care Team (Late st Contact Info) Description 09/07/2018 Orders Only [facility] [address] [facility] Medicine 5th [place] [address] [place] [id number] Juliocesar Mora MD PhD [address] [place] [address] Social History Tobacco Use Types Packs/Day Years Used Date Smoking Tobacco: Every Day Sex and Gender Information Value Date Recorded Sex Assigned at Not on file 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 Gender Identity Not on file Sexual Orientation Not on file documented as of this encounter Ordered Prescriptions Prescription Sig Dispense Quantity Refills Last Filled Start Date End Date adalimumab (HUMIRA PEN) 40 mg/0.8 mL pen injector kit Inject 0.8 mL (40 mg total) under the skin every 14 (fourteen) days 2 each 5 09/07/2018 12/21/2018 documented in this encounter Plan of Treatment Not on file documented as of this encounter Visit Diagnoses Not on filedocumented in this encounter Discontinued Medications Medication Sig Discontinue Reason Start Date End Da te adalimumab (HUMIRA PEN) 40 mg/0.8 mL pen injector kit Inject 0.8 mL (40 mg total) under the skin every 14 (fourteen) days Reorder 09/07/2018 09/07/2018 documented as of this encounter Care Teams Special Agent Relationship Specialty Start Date End Date Orville Pryor MD [address] [place] [address] PCP - General 05/03/18 09/03/20 documented as of this encounter
--- OUTSIDE RECORDS SUMMARY | 2024-07-06 23:41 | XMS_ITS | Encounter Summary ---
Author Organization [facility] Address [address] [place] [address] Phone Care Team Providers Care Retail Support Manager Name Role Phone Orville Pryor MD Primary Care Provider [phone]- [phone] Encounter Details Date Type Department Care Team (Late st Contact Info) Description 09/07/2018 9:00 AM CDT Office Visit [facility] [address] [facility] Medicine 5th [place] [address] [place] [address] Juliocesar Mora MD PhD [address] [place] [address] 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) (Primary Dx); High risk medication use; Acute left ankle pain Social History Tobacco Use Types Packs/Day Years Used Date Smoking Tobacco: Every Day Sex and Gender Information Value Date Recorded Sex Assigned at Not on file 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 Gender Identity Not on file Sexual Orientation Not on file documented as of this encounter Last Filed Vital Signs Vital Sign Reading Time Taken Comments Blood Pressure 177/96 09/07/2018 8:56 AM CDT Pulse 82 09/07/2018 8:56 AM CDT Temperature 36.6 ??C (97.9 ??F) 09/07/2018 8:56 AM CD T Respiratory Rate - - Oxygen Saturation - - Inhaled Oxygen Concentration - - Weight 92.7 kg (204 lb 6.4 oz) 09/07/2018 8:56 A M CDT Height 177.8 cm (5' 10 ) 09/07/2018 8:56 AM CDT Body Mass Index 29.33 09/07/2018 8:56 AM CDT documented in this encounter Ordered Prescriptions Prescription Sig Dispense Quantity Refills Last Filled Start Date End Date adalimumab (HUMIRA PEN) 40 mg/0.8 mL pen injector kit Inject 0.8 mL (40 mg total) under the skin every 14 (fourteen) days 2 each 5 09/07/2018 9 predniSONE (DELTASONE) 10 mg tabletIndications: autoimmune disease Take 1 tablet (10 mg total) by mouth daily 60 tablet 1 09/07/2018 9 sulfaSALAzine (AZULFIDINE) 500 mg tablet Take 3 tablets (1,500 mg total) by mouth 2 (two) times a day 180 tablet 11 09/07/2018 9 documented in this encounter Progress Notes * Juliocesar Mora MD PhD - 09/07/2018 9:00 AM CDT Images from the original note were not included. Rheumatology Follow-Up PATIENT NAME: Aristeo Seals : 1960 HILDA: 09/07/2018 Chief Complaint: RA HPI: Aristeo Seals is a 58 y.o. male with a PMH of with seropositive RA, HTN, polysubstance abuse (alcohol, tobacco, and marijuana) who is here for follow-up of RA. Disease History: Patient was seen in the [...] symptoms. He had significantly positive RF and CCP titers. Hand xrays showed significant joint space narrowing in multiple joints without erosions. He was started on prednisone 20 mg initially, but required higher doses of 40 mg to control symptoms. Given significant alcoholuse, was started on SSZ and tolerating 1500 mg BID. Due to not having insurance established was notable to get approval for Humira. Interval history: Adherent to SSZ 1500 mg BID, prednisone 10 mg. Significant improvement in joint pains and stiffness, but still persisting in MCPs, PIPs, wrists, ankles and MTPs. His morning stiffness remains 45-60 minutes. Able to function better now and has been able to reduce prednisone dose to 10 mg. His left ankle has been his worst joint with continued swelling and pain. Taking Naproxen 500 mg BID as well. Has been tolerating SSZ well without side effects. He is obtaining new insurance now as well. Denies fevers, chills, night sweats, abdominal discomfort, N/V, BM or urinary changes, infections, rashes. There are no active problems to display for this patient. No current outpatient medications on file prior to visit. No current facility-administered medications on file prior to visit. No Known Allergies Past Medical History: Diagnosis Date ??? Hypertension No past surgical history on file. Family History Problem Relation Age of Onset ??? No Known Problems Mother Social History Social History Narrative ??? Not on file Review of Systems Review of Systems All other systems reviewed and are negative. Physical Exam BP (!) 177/96 Pulse 82 Temp 36.6 ??C (97.9 ??F) Ht 177.8 cm (5' 10 ) Wt 92.7 kg (204 lb 6.4oz) BMI 29.33 kg/m?? General: NAD, awake and alert HEENT: [...] GH joints. B/L elbows w/ full ROM, left elbow with small effusion and mildly TTP. Nodule present on left elbow. No erythema or warmth. B/L wrists w/??TTP, mild synovial proliferation present and pain with ROM. B/L MCPs, PIPs w/ synovial proliferation, TTP, and no increased warmth. and DIPs w/o TTP, synovitis. reduced hand cafeteria aide bilaterally. ulnar deviation present. B/L knees w/o TTP, effusions, warmth, redness. ?? Left ankle with TTP, erythema, increased warmth and swelling. B/L MTPs with erythema, TTP and no warmth at 1st digit. Hallux valgus present Neuro: AAOx4, Nonfocal Skin: [...] tobacco, and marijuana) who is here for follow-up for RA. # Seropositive RA: Severe disease with multiple joint involvement and continued symptoms on SSZ, but has improved. Given severity of disease will need a biologic and now has new insurance and will hopefully be able to get approved for biologic. - Continue SSZ 1.5 gram BID - will start Adalimumab 40 mg [id number] - hep panel and T-spot - neg 06/12 - continue pred 10 mg while humira is initiated and will taper after that - continue naproxen 500 mg BID PRN - lab monitoring with CBC and CMP for drug toxicity monitoring - obtain xrays of ankles - suggested steroid injection into ankle, but patient wants to hold off for now. Will call if decides to get steroid injection. Follow-up: Return in about 3 months (around 12/08/2018) for Recheck. Cosigned by Philomena Figueroa MD at 12/17/2018 5:26 PM CDT Associated attestation - Philomena Figueroa MD - 12/17/2018 5:26 PM CDT I have seen and examined the patient. I agree with the findings and plan of care as documented in the resident/fellow's note. documented in this encounter Plan of Treatment Not on file documented as of this encounter Results * Comprehensive metabolic panel (09/07/2018 9:22 AM [...] = PROVISIONAL DIAGNOSIS OF DIABETES eGFR NON-AFR. ZAMBIAN >90.0 >60.0 mL/min/1.7 3 m2 [facility] eGFR >90.0 >60.0 mL/min/1.7 3 m2 [facility] Blood specimen (specimen) 09/07/2018 9:22 AM CDT 09/07/2018 12:39 PM CDT us Can Chelsy Mora MD PhD LAB BLOOD ORDERABLES Final Result [facility] * (ABNORMAL) CBC with auto differential (09/07/2018 [...] (CMS/HCC) (HCC)- Primary High risk medication use Acute left ankle pain documented in this encounter Discontinued Medications Medication Sig Discontinue Reason Start Date End Da te sulfaSALAzine (AZULFIDINE) 500 mg tablet Take 3 tablets (1,500 mg total) by mouth 2 (two) times a day. Reorder 06/01/2018 09/07/2018 predniSONE (DELTASONE) 10 mg tablet Take 1.5 tabs twice a day for 2 weeks and then decrease by half a tab every 2 weeks (1.5 am and 1 tab pm, then 1 tab twice day etc) Reorder 06/01/2018 09/07/2018 adalimumab (HUMIRA PEN) 40 mg/0.8 mL pen injector kit Inject 0.8 mL (40 mg total) under the skin every 14 (fourteen) days. Reorder 06/01/2018 09/07/2018 documented as of this encounter Care Teams Retail Support Manager Relationship Specialty Start Date End Date Orville Pryor MD [address] [place] [address] PCP - General 05/03/18 09/03/20 documented as of this encounter
--- OUTSIDE RECORDS SUMMARY | 2024-07-06 23:41 | XMS_ITS | Encounter Summary ---
Author Organization [facility] Address [address] [place] [address] Care Team Providers Care Meat Team Lead Name Role Phone Orville Pryor MD Primary Care Provider [phone]- [phone] Encounter Details Date Type Department Care Team (Late st Contact Info) Description 02/08/2019 4:35 PM CDT Lab [address] [address] 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); High risk medication use Social History Tobacco Use Types Packs/Day Years Used Date Smoking Tobacco: Every Day Sex and Gender Information Value Date Recorded Sex Assigned at Not on file 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 Gender Identity Not on file Sexual Orientation Not on file documented as of this encounter Plan of Treatment Not on file documented as of this encounter Procedures Procedure Name Priority Date/Time Associated Diagnosis Comments ERYTHROCYTE SEDIMENTATION RATE Routine 02/08/2019 4:40 PM CDT 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) High risk medication use CRP (ACUTE PHASE) Routine 02/08/2019 4:4 0 PM CDT 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) High risk medication use documented in this encounter Results * CRP (acute phase) (02/08/2019 4:40 PM CDT) CRP 2.8 <=10.0 mg/L [facility] Blood specimen (specimen) 02/08/2019 4:40 PM CDT 02/08/2019 4:41 PM CDT us Can Chelsy Mora MD PhD LAB BLOOD [place] [address] * Erythrocyte sedimentation rate (02/08/2019 4:40 PM CDT) Erythrocyte sedimentation rate 8 1 - 20 mm/hr [facility] Blood specimen (specimen) 02/08/2019 4:40 PM CDT 02/08/2019 4:41 PM CDT us Can Chelsy Mora MD PhD LAB BLOOD ORDERABLES Final Result Performing Organization Address City/[facility] de Phone Number [facility] [place] [address] documented in this encounter Visit Diagnoses Diagnosis 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) (HCC) High risk medication use documented in this encounter Care Teams Meat Team Lead Relationship Specialty Start Date End Date Orville Pryor MD [address] [place] [address] PCP - General 05/03/18 09/03/20 documented as of this encounter
--- OUTSIDE RECORDS SUMMARY | 2024-07-06 23:41 | XMS_ITS | Encounter Summary ---
Author Organization [facility] Healthcare Address [address] [place] [address] Care Team Providers Care Regional Operations Manager Name Role Phone Orville Pryor MD Primary Care Provider [phone]- [phone] Reason for Visit * Diagnostic Imaging (Routine) - Closed Specialty Diagnoses / Procedures Referred By Contsofia t Referred To Contact Diagnoses 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) (HCC) Procedures XR Ankle Right 3 or More Views Juliocesar Mora MD PhD Phone: tel: fax: [facility] Referral ID Status Reason Start Date Expiration Date Visits Re quested Visits Authorized [id number] Closed 10/12/2018 04/22/2020 1 1 Encounter Details Date Type Department Care Team (Latest Contact Info) Description 10/12/2018 8:15 AM CDT - 10/12/2018 11:59 PM CDT Hospital Encounter [facility] [address] [place] [address] Juliocesar Mora MD PhD [address] [facility] [address] [place], [place] [id number] Discharge Disposition: Discharge to home or self care Social History Tobacco Use Types Packs/Day Years Used Date Smoking Tobacco: Every Day Sex and Gender Information Value Date Recorded Sex Assigned at Not on file 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 Gender Identity Not on file Sexual Orientation Not on file documented as of this encounter Medications at Time of Discharge diclofenac sodium (VOLTAREN) 1 % gel Apply 2 g topically 3 (three) times a day Apply to arthritis joints PRN 1 Tube 2 10/09/2018 9 adalimumab (HUMIRA PEN) 40 mg/0.8 mL pen injector kit Inject 0.8 mL (40 mg total) under the skin every 14 (fourteen) days 2 each 5 09/07/2018 9 predniSONE (DELTASONE) 10 mg tabletIndication s:autoimmune disease Take 2 tablets (20 mg) by mouth daily 60 tablet 1 10/09/2018 9 sulfaSALAzine (AZULFIDINE) 500 mg tablet Take 3 tablets (1,500 mg total) by mouth 2 (two) times a day 180 tablet 11 09/07/2018 9 documented as of this encounter Discharge Disposition [...] or erosions on either side. Dictated by: oTrsten Ortiz M.D. The radiology attending physician has [...] it. Electronically signed by: Feliberto Mcduffie M.D. Can Chelsy Mora MD PhD IMG XR [...] on filedocumented in this encounter Care Teams Regional Operations Manager Relationship Specialty Start Date End Date Orville Pryor MD [address] [place] [address] PCP - General 05/03/18 09/03/20 documented as of this encounter
--- OUTSIDE RECORDS SUMMARY | 2024-07-06 23:41 | XMS_ITS | Encounter Summary ---
Author Organization [facility] Address [address] [place] [address] Phone Care Team Providers Care Airfield Engineer Officer Name Role Phone Orville Pryor MD Primary Care Provider +1- [phone] Encounter Details Date Type Department Care Team (Late st Contact Info) Description 09/26/2018 Telephone [facility] Rheumatology [address] [place] [address] Medicine 5th [place] [address] [place] [phone] Meredith Gee Social History Tobacco Use Types Packs/Day Years Used Date Smoking Tobacco: Every Day Sex and Gender Information Value Date Recorded Sex Assigned at Not on file 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 * Telephone Encounter - Meredith Gee - 09/26/2018 9:49 AM CDT Pt is calling about his right ankle being swollen, painful and hard to walk. Pt is currently takingpred 10 mg daily. Pt has had 2 humira injections. documented in this encounter Plan of Treatment Not on file documented as of this encounter Visit Diagnoses Not on filedocumented in this encounter Care Teams Airfield Engineer Officer Relationship Specialty Start Date End Date Orville Pryor MD [address] [place] [address] PCP - General 05/03/18 09/03/20 documented as of this encounter
--- OUTSIDE RECORDS SUMMARY | 2024-07-06 23:41 | XMS_ITS | Encounter Summary ---
Author Organization [facility] [employer] of [facility] Address [address] [place] [address] Phone Care Team Providers Care Director Investment Banking Name Role Phone Orville Pryor MD Primary Care Provider [phone] Reason for Referral * Diagnostic Imaging (Routine) - Closed Specialty Diagnoses / Procedures Referred By Jesus lara Referred To Contact Diagnoses 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) (HCC) Ankle swelling, right Procedures MRI Foot Right W WO Contrast Juliocesar Mora MD PhD [address] [place] [address] Phone: tel: fax: [address] [address] Referral ID Status Reason Start Date Expiration Date Visits Re quested Visits Authorized [id number] Closed 06/07/2019 12/16/2020 1 1 INE PACKAGE SEALER * Diagnostic Imaging (Routine) - Closed Specialty Diagnoses / Procedures Referred By Jesus lara Referred To Contact Diagnoses 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) (HCC) Procedures XR Ankle Right 3 or More Views Juliocesar Mora MD PhD [address] [place] [address] Phone: tel: fax: [facility] Referral ID Status Reason Start Date Expiration Date Visits Re quested Visits Authorized [id number] Closed 06/07/2019 12/16/2020 1 1 INE PACKAGE SEALER * Diagnostic Imaging (Routine) - Closed Specialty Diagnoses / Procedures Referred By Contac t Referred To Contact Diagnoses 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) (HCC) Procedures XR Ankle Left 3 or More Views Juliocesar Mora MD PhD [address] [place], [place] [id number] Phone: tel: fax: [facility] Referral ID Status Reason Start Date Expiration Date Visits Re quested Visits Authorized [id number] Closed 06/07/2019 12/16/2020 1 1 INE PACKAGE SEALER * Diagnostic Imaging (Routine) - Closed Specialty Diagnoses / Procedures Referred By Contac t Referred To Contact Diagnoses 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) (HCC) Procedures XR Wrist Left 3 or More Views Juliocesar Mora MD PhD [address] [place] [address] Phone: tel: fax: [facility] Referral ID Status Reason Start Date Expiration Date Visits Re quested Visits Authorized [id number] Closed 06/07/2019 12/16/2020 1 1 INE PACKAGE SEALER * Diagnostic Imaging (Routine) - Closed Specialty Diagnoses / Procedures Referred By Contac t Referred To Contact Diagnoses 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) (HCC) Procedures XR Wrist Right 3 or More Views Juliocesar Mora MD PhD [address] [place] [address] Phone: tel: fax: [facility] Referral ID Status Reason Start Date Expiration Date Visits Re quested Visits Authorized [id number] Closed 06/07/2019 12/16/2020 1 1 INE PACKAGE SEALER * Diagnostic Imaging (Routine) - Closed Specialty Diagnoses / Procedures Referred By Contac t Referred To Contact Diagnoses 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) (HCC) Procedures XR Hand Right 3 or More Views Juliocesar Mora MD PhD [address] [place] [address] Phone: tel: fax: [facility] Referral ID Status Reason Start Date Expiration Date Visits Re quested Visits Authorized [id number] Closed 06/07/2019 12/16/2020 1 1 INE PACKAGE SEALER * Diagnostic Imaging (Routine) - Closed Specialty Diagnoses / Procedures Referred By Contac t Referred To Contact Diagnoses 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) (HCC) Procedures XR Hand Left 3 or More Views Juliocesar Mora MD PhD [address] [place] [address] Phone: tel: fax: [facility] Referral ID Status Reason Start Date Expiration Date Visits Re quested Visits Authorized [id number] Closed 06/07/2019 12/16/2020 1 1 INE PACKAGE SEALER Encounter Details Date Type Department Care Team (Late st Contact Info) Description 06/07/2019 9:30 AM MACHINE PACKAGE SEALER Office Visit [facility] Rheumatology [address] [facility] [address]th [place] [address] [place] [address] Juliocesar Mora MD PhD [address] [place] [address] 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) (Primary Dx); Ankle swelling, right; High risk medication use; Alcohol abuse; Bilateral carpal tunnel syndrome; Health care maintenance Social History Tobacco Use Types Packs/Day Years Used Date Smoking Tobacco: Every Day Sex and Gender Information Value Date Recorded Sex Assigned at Not on file Legal Sex Male 6:45 AM MACHINE PACKAGE SEALER Gender Identity Not on file Sexual Orientation Not on file documented as of this encounter Last Filed Vital Signs Vital Sign Reading Time Taken Comments Blood Pressure 170/100 06/07/2019 9:35 AM MACHINE PACKAGE SEALER Pulse 75 06/07/2019 9:35 AM MACHINE PACKAGE SEALER Temperature - - Respiratory Rate - - Oxygen Saturation - - Inhaled Oxygen Concentration - - Weight 89 kg (196 lb 3.2 oz) 06/07/2019 9:35 AM MACHINE PACKAGE SEALER Height 177.8 cm (5' 10 ) 06/07/2019 9:35 AM MACHINE PACKAGE SEALER Body Mass Index 28.15 06/07/2019 9:35 AM MACHINE PACKAGE SEALER documented in this encounter Patient Instructions * Patient Instructions* Juliocesar Mora MD PhD - 06/07/2019 9:30 AM MACHINE PACKAGE SEALER Please obtain shingrix vaccine at local pharmacy when you can for shingle vaccine We will start xeljanz to help treat your disease. You will take one pill daily. It can take more than a month to have an effect. Please try the hydrocortisone cream on your rash. Call with worsening symptoms or new rash. We will send a month prescription for prednisone. Continue taking the Sulfasalazine medication twice a day. TOFACITINIB (XELJANZ) PATIENT INFORMATION: Tofacitinib citrate (Xeljanz??) is an oral, small molecule drug used to treat adults with wyaxrpcd-nx-tdlaze, active rheumatoid arthritis who have not responded well to being treated with methotrexate. You may take tofacitinib tablets with or without food. RISKS AND SIDE EFFECTS: Tofacitinib may reduce your body???s ability to fight infection. Do not use tofacitinib if you havean active infection, even a localized infection, and don???t start using tofacitinib again until your infection is well controlled. You should not take live vaccines while taking tofacitinib, but it???s safe to take non-live vaccines. Some people who have taken tofacitinib have developed serious infections, such as tuberculosis (TB), invasive fungal infections, and bacterial and viral infections.You should watch carefully for the signs of infection during and after taking tofacitinib, including fever, chills, muscle aches, cough, body sores, diarrhea and pain when urinating. While taking tofa citinib, your doctor will test you regularly for changes to your blood or liver enzymes. Your doctor should test you for TB before you start taking tofacitinib, and watch you for signs of TB development while you are taking the drug. Before starting tofacitinib, you should tell your doctor if you have any medical condition that may make you more susceptible to infection, such as diabetes, HIV or a weak immune system. You should also tell your doctor if you have traveled or lived in any areas where there it is more likely to get certain fungal infections, or in countries where TB is widespread. Tofacitinib may increase your risk of certain cancers, such as lymphoma or some skin cancers, by ludwig ppressing your body???s immune system responses. Some people taking tofacitinib, particularly thosealso taking nonsteroidal anti-inflammatory drugs (NSAIDs) or corticosteroids, may experience perforations or tears in their stomach or intestines, so tell your doctor if you have any unexplained stomach pain or changes in your bowel habits. Before starting tofacitinib, tell your doctor if you have had kidney or liver problems, or gastrointestinal problems like diverticulitis or ulcers. Some people taking drugs to prevent the rejection of a kidney transplant as well as taking tofacitinib have developed an Bronson-Clark virus-related infection, so tell your doctor if you have had a transplant and are taking these drugs. Tofacitinib also may lead to the activation of hepatitis B or C in people who carry those viruses. The most common side effects of tofacitinib include upper respiratory tractinfections, diarrhea, headache, nasal congestion, sore throat and runny nose. It???s unknown how tofacitinib may affect unborn children or be passed through breast milk, so or nursing women should weigh the possible risks and benefits of tofacitinib with their doctor. Tofacitinib???s effectiveness may be reduced if taken with some antifungal and other medications, so tell your doctor about any medications you use before starting tofacitinib, or if you are preparing to get any vaccines. ?? [employer] INE PACKAGE SEALER documented in this encounter Ordered Prescriptions Prescription Sig Dispense Quantity Refills Last Filled Start Date End Date predniSONE (DELTASONE) 10 mg tabletIndications: autoimmune disease take 3 tabs daily for week, 2 tabs daily for a week, then 1 tab daily for 2 weeks 49 tablet 06/07/2019 0 tofacitinib (XELJANZ XR) 11 mg Take 1 tablet (11 mg total) by mouth daily 30 tablet 11 06/07/2019 0 sulfaSALAzine (AZULFIDINE) 500 mg tabletIndications: Rheumatoid Arthritis Take 3 tablets (1,500 mg total) by mouth 2 (two) times a day 180 tablet 11 06/07/2019 0 hydrocortisone 2.5 % ointment Apply topically 2 (two) times a day 30 g 1 06/07/2019 1 predniSONE (DELTASONE) 10 mg tabletIndications: autoimmune disease Starting after MRI, take 3 tabs daily for week, 2 tabs daily for a week, then 1 tab daily for 2 weeks 49 tablet 06/07/2019 9 tofacitinib (XELJANZ XR) 11 mg Take 1 tablet (11 mg total) by mouth daily 30 tablet 11 06/07/2019 9 documented in this encounter Progress Notes * Juliocesar Mora MD PhD - 06/07/2019 9:30 AM CST Images from the original note were not included. Rheumatology Clinic follow-up PATIENT NAME: Aristeo Seals : 1960 HILDA: 06/07/2019 Chief Complaint: RA, right ankle pain HPI: Aristeo Seals is a 59 y.o. male with a PMH of with seropositive RA, HTN, polysubstance abuse (alcohol, tobacco, and marijuana) who is here for f/u on RA and persistent right ankle pain and swelling. Last seen in clinic 02/08/19 Disease History: Patient was seen in the [...] steroid injection while other joints all improved. Adherent to SSZ 1500 mg BID, Humira 40 mg weekly Interval history: He developed a rash over his proximal upper and lower extremities that was erythematous and pruritic that has persisted for the past 3 weeks and felt it was due to his medications so stopped all medications. He had started taken a new prescription of ibuprofen at the time of the rash. Rash persisted after stopping medications and later stopped taking the ibuprofen with subsequent improvement. Significant worsening of all joints in terms of pain, swelling, and morning stiffnessafter cessation of medications. However, even when taking Humira and SSZ regularly, his ankle was never improved, even after multiple steroid injections including US guided injections. He was also starting to have worsening hand pains while still on humira as well. He was not able to obtain the MRIof his ankle. Using voltaren gel as well. No new trauma, falls or prior injuries to the ankle. He has also been having a burning sensation with slight numbness in fingers at digts 1-3 sparing digit 5 completely. Denies fevers, chills, night sweats, abdominal discomfort, N/V, BM or urinary changes, infections, rashes. Patient Active Problem List Diagnosis Date Noted ??? Ankle swelling, right 01/11/2019 ??? Rheumatoid 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 ([facility]) 12/17/2018 ??? High risk medication use 12/17/2018 Current Outpatient Medications on File Prior to Visit Medication Sig Dispense Refill ??? celecoxib (CeleBREX) 200 mg capsule Take 1 capsule (200 mg total) by mouth daily 30 capsule 5 ??? HUMIRA PEN 40 mg/0.8 mL pen injector kit INJECT 0.8 ML (40 MG TOTAL) UNDER THE SKIN EVERY 7 DAYS (SWITCHING TO WEEKLY DOSING OF HUMIRA) 4 each 3 ??? predniSONE (DELTASONE) 10 mg tablet Starting after MRI, take 3 tabs daily for week, 2 tabs daily for a week, then 1 tab daily 42 tablet 0 ??? sulfaSALAzine (AZULFIDINE) 500 mg [...] Known Problems Mother Social History: working at [employer] ([employer] Continues tobacco use, alcohol use 3-4 times a week with 2-4 drinks each time. Denies current recreational drug use. Review of Systems All other systems reviewed and are negative. Physical Exam BP 170/100 Pulse 75 Ht 177.8 cm (5' 10 ) Wt 89 kg (196 lb 3.2 oz) BMI 28.15 kg/m?? General: NAD, awake and alert HEENT: [...] elbow. No erythema or warmth. B/L wrists w/??TTP and synovial proliferation present and normal ROM. B/L MCPs, PIPs w/ synovial proliferation present digits 1-5 at MCPs and 2-4 at PIPs, and withTTP. Mild increased warmth present at MCPs and PIPs.. DIPs w/o TTP, synovitis. 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 Negative tinel's and phallen's test B/L knees w/o TTP, effusions, warmth, redness. ?? B/L ankle with swelling, increased warmth and TTP. B/L MTPs w/ TTP and no warmth. Hallux valgus present Neuro: AAOx4, Nonfocal Skin: eczematous rash with erythematous patches on proximal UEs and LEs. No nailbed changes. Psych: normal mood and affect Labs Lab [...] with Humira with mainlyright ankle inflammation that persisted, but now all joints worsening especially off of medications. Today he has more signs of active disease in multiple joints as well. Potential drug rash from Humira now as well - restart SSZ 1.5 gram BID - Will stop Humira. Will avoid TNFI for now given possible drug induced eczematous rash. - will start Xeljanz 11 mg daily. Discussed risks and benefits of the medication and patient in agreement. - course of prednisone starting at 30 mg and tapering down by 10 mg weekly while xeljanz has time to work. - hep panel and T-spot neg in past, will update today - continue voltaren gel - lab monitoring with CBC, CMP, lipid panel for drug toxicity monitoring and ESR and CRP for disease monitoring. - update xrays of hands and ankles given persistent symptoms # Right ankle pain: with swelling and [...] or prior infections suggesting reactive arthritis. - multiple steroid injections in past with mild improvement - update xrays of ankles - will schedule for MRI of right ankle and foot to better assess for possible biopsy site and further evaluate the foot ([facility] radiology requesting as well prior to a biopsy) - after MRI will obtain synovial biopsy with pathology and fungal, AFB, and bacterial cultures # possible Carpal tunnel syndrome: Negative testing today, but symptoms suggestive of carpal tunnelgiven distribution fitting with median nerve. Potentially related with inflammation and synovial proliferation at wrist compressing the nerve. - will continue to treat RA and see if symptoms improve - referral to hand therapy for brace to see if helps symptoms. # Vaccinations: - had had flu vaccine - recommend Shingrix given initiation of Xeljanz, will obtain at local pharmacy. Follow-up: Return in about 3 months (around 09/06/2019) for Recheck. Cosigned by Tad Boogie MD at 06/07/2019 4:08 PM MACHINE PACKAGE SEALER INE PACKAGE SEALER INE PACKAGE SEALER Associated attestation - Tad Boogie MD - 06/07/2019 4:08 PM MACHINE PACKAGE SEALER I have seen and examined the patient. [...] rheumatoid factor (CMS/HCC) Ankle swelling, right Expected: 06/07/2019, Expires: 06/07/2020 documented as of this encounter Procedures Procedure Name Priority Date/Time Associated Diagnosis Comments XR ANKLE RIGHT 3 OR MORE VIEWS Schedule Routine, Read Routine (OP Routine) 06/07/2019 10:51 AM MACHINE PACKAGE SEALER 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) XR ANKLE LEFT 3 OR MORE VIEWS Schedule Routine, Read Routine (OP Routine) 06/07/2019 10:51 AM MACHINE PACKAGE SEALER 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) XR HAND RIGHT 3 OR MORE VIEWS Schedule Routine, Read Routine (OP Routine) 06/07/2019 10:51 AM MACHINE PACKAGE SEALER 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) XR HAND LEFT 3 OR MORE VIEWS Schedule Routine, Read Routine (OP Routine) 06/07/2019 10:51 AM MACHINE PACKAGE SEALER 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) XR WRIST RIGHT 3 OR MORE VIEWS Schedule Routine, Read Routine (OP Routine) 06/07/2019 10:51 AM MACHINE PACKAGE SEALER 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) XR WRIST LEFT 3 OR MORE VIEWS Schedule Routine, Read Routine (OP Routine) 06/07/2019 10:51 AM MACHINE PACKAGE SEALER 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) documented in this encounter Results * XR Ankle Right 3 or More Views (06/07/2019 10:51 AM MACHINE PACKAGE SEALER) Anatomical Region Laterality Modality Lower Extremities, Ankle Right Compute d Radiography 06/07/2019 11:0 0 AM MACHINE PACKAGE SEALER Impressions 06/07/2019 11:00 AM MACHINE PACKAGE SEALER 1. ??Unchanged right third metacarpal phalangeal joint [...] Torsten Mendoza M.D. Narrative 06/07/2019 11:00 AM MACHINE PACKAGE SEALER EXAMINATION: 1. ??Left and 3+ views 2. [...] 3 or More Views (06/07/2019 10:51 AM MACHINE PACKAGE SEALER) Anatomical Region Laterality Modality Lower Extremities, Ankle Left Compute d Radiography 06/07/2019 11:0 0 AM MACHINE PACKAGE SEALER Impressions 06/07/2019 11:00 AM MACHINE PACKAGE SEALER 1. ??Unchanged right third metacarpal phalangeal joint [...] Torsten Mendoza M.D. Narrative 06/07/2019 11:00 AM MACHINE PACKAGE SEALER EXAMINATION: 1. ??Left and 3+ views 2. [...] 3 or More Views (06/07/2019 10:51 AM MACHINE PACKAGE SEALER) Anatomical Region Laterality Modality Upper Extremities, Wrist Left Compute d Radiography 06/07/2019 11:0 0 AM MACHINE PACKAGE SEALER Impressions 06/07/2019 11:00 AM MACHINE PACKAGE SEALER 1. ??Unchanged right third metacarpal phalangeal joint [...] Torsten Mendoza M.D. Narrative 06/07/2019 11:00 AM MACHINE PACKAGE SEALER EXAMINATION: 1. ??Left and 3+ views 2. [...] 3 or More Views (06/07/2019 10:51 AM MACHINE PACKAGE SEALER) Anatomical Region Laterality Modality Upper Extremities, Wrist Right Compute d Radiography 06/07/2019 11:0 0 AM MACHINE PACKAGE SEALER Impressions 06/07/2019 11:00 AM MACHINE PACKAGE SEALER 1. ??Unchanged right third metacarpal phalangeal joint [...] Torsten Mendoza M.D. Narrative 06/07/2019 11:00 AM MACHINE PACKAGE SEALER EXAMINATION: 1. ??Left and 3+ views 2. [...] 3 or More Views (06/07/2019 10:51 AM MACHINE PACKAGE SEALER) Anatomical Region Laterality Modality Upper Extremities, Hand Right Computed Radiography 06/07/2019 11:0 0 AM MACHINE PACKAGE SEALER Impressions 06/07/2019 11:00 AM MACHINE PACKAGE SEALER 1. ??Unchanged right third metacarpal phalangeal joint [...] Torsten Mendoza M.D. Narrative 06/07/2019 11:00 AM MACHINE PACKAGE SEALER EXAMINATION: 1. ??Left and 3+ views 2. [...] 3 or More Views (06/07/2019 10:51 AM MACHINE PACKAGE SEALER) Anatomical Region Laterality Modality Upper Extremities, Hand Left Computed Radiography 06/07/2019 11:0 0 AM MACHINE PACKAGE SEALER Impressions 06/07/2019 11:00 AM MACHINE PACKAGE SEALER 1. ??Unchanged right third metacarpal phalangeal joint [...] Torsten Mendoza M.D. Narrative 06/07/2019 11:00 AM MACHINE PACKAGE SEALER EXAMINATION: 1. ??Left and 3+ views 2. [...] IMG XR PROCEDURES Fin al Result * Lipid panel (06/07/2019 10:23 AM MACHINE PACKAGE SEALER) Pathologist [facility] Triglycerides 97 0 - 149 mg/dL [facility] [...] mg/dL Blood specimen (specimen) 06/07/2019 10:23 AM MACHINE PACKAGE SEALER 06/07/2019 12:01 PM MACHINE PACKAGE SEALER us Can Chelsy Mora MD PhD LAB BLOOD ORDERABLES Final Result [facility] * Comprehensive metabolic panel (06/07/2019 10:23 AM MACHINE PACKAGE SEALER) Total Protein 8.2 6.1 - 8.4 g/dL [...] = PROVISIONAL DIAGNOSIS OF DIABETES eGFR NON-AFR. [place] >90.0 >60.0 mL/min/1.7 3 m2 [facility] eGFR >90.0 >60.0 mL/min/1.7 3 m2 [facility] Blood specimen (specimen) 06/07/2019 10:23 AM MACHINE PACKAGE SEALER 06/07/2019 12:01 PM MACHINE PACKAGE SEALER us Can Chelsy Mora MD PhD LAB BLOOD ORDERABLES Final Result [facility] * (ABNORMAL) CBC with auto differential (06/07/2019 10:23 AM MACHINE PACKAGE SEALER) White Blood Count 6.4 3.6 - 11.2 [...] [facility] Blood specimen (specimen) 06/07/2019 10:23 AM MACHINE PACKAGE SEALER 06/07/2019 12:01 PM MACHINE PACKAGE SEALER us Can Chelsy Mora MD PhD LAB BLOOD ORDERABLES Final Result [facility] * Erythrocyte sedimentation rate (06/07/2019 10:14 AM MACHINE PACKAGE SEALER) Erythrocyte sedimentation rate 20 1 - 20 mm/hr [facility] Blood specimen (specimen) 06/07/2019 10:14 AM MACHINE PACKAGE SEALER 06/07/2019 1:32 PM MACHINE PACKAGE SEALER Can Chelsy Mora MD PhD LAB BLOOD ORDERABLES Final Result Performing Organization Address [facility]/ZIP Co de Phone Number [facility] [place] [address] * (ABNORMAL) CRP (acute phase) (06/07/2019 10:14 AM MACHINE PACKAGE SEALER) Pathologist [facility] CRP 13.2(H) <=10.0 mg/L [facility] Blood specimen (specimen) 06/07/2019 10:14 AM MACHINE PACKAGE SEALER 06/07/2019 1:32 PM MACHINE PACKAGE SEALER Can Chelsy Mora MD PhD LAB BLOOD ORDERABLES Final Result Performing Organization Address [facility] Co de Phone Number [facility] [place] [address] * Hepatitis B core antibody, total (06/07/2019 10:14 AM MACHINE PACKAGE SEALER) Pathologist [facility] Hep B core IgG/IgM Nonreactive Nonreactive [facility] Blood specimen (specimen) 06/07/2019 10:14 AM MACHINE PACKAGE SEALER 06/07/2019 1:32 PM MACHINE PACKAGE SEALER us Juliocesar Mora MD PhD LAB MICROBIOL OGY - GENERAL ORDERABLES Edited Result - Final Performing Organization Address [facility] Co de Phone Number [facility] [place] [address] * Hepatitis B surface antibody (immune status) (06/07/2019 10:14 AM MACHINE PACKAGE SEALER) [facility] HBsAb (immune status) Nonreactive [facility] Comment: Interpretive Data A Negative Result indicates [...] 2016. Blood specimen (specimen) 06/07/2019 10:14 AM MACHINE PACKAGE SEALER 06/07/2019 1:32 PM MACHINE PACKAGE SEALER Can Chelsy Mora MD PhD LAB MICROBIOL OGY - GENERAL ORDERABLES Edited Result - Final Performing Organization Address [facility]/ZIP Co de Phone Number [facility] [place] [address] * Hepatitis B Surface Antigen (06/07/2019 10:14 AM MACHINE PACKAGE SEALER) [facility] HepBsAg Nonreactive Nonreactive [facility] Blood specimen (specimen) 06/07/2019 10:14 AM MACHINE PACKAGE SEALER 06/07/2019 1:32 PM MACHINE PACKAGE SEALER us Can Chelsy Mora MD PhD LAB MICROBIOL OGY - GENERAL ORDERABLES Edited Result - Final Performing Organization Address [facility]/ZIP Co de Phone Number [facility] [place] [address] * Hepatitis C antibody (06/07/2019 10:14 AM MACHINE PACKAGE SEALER) [facility] Hep C Ab Nonreactive Nonreactive [facility] Comment: Interpretive Data Positive results should be confirmed by a molecular method. If positive, a second separately collected sample should be submitted for Hepatitis C Virus (HCV) RNA Detection and Quantitation by Real-Time Reverse Sausage Tier-PCR (RT-PCR). Current interpretive data was last revised on 2016. Blood specimen (specimen) 06/07/2019 10:14 AM MACHINE PACKAGE SEALER 06/07/2019 1:32 PM MACHINE PACKAGE SEALER us Can Chelsy Mora MD PhD LAB MICROBIOL OGY - GENERAL ORDERABLES Edited Result - Final KALEN ALEJANDRO [facility] [place] [address] * T-SPOT.TB (06/07/2019 10:14 AM MACHINE PACKAGE SEALER) Pathologist [facility] T-SPOT.TB Negative Negative KALEN ALEJANDRO Comment: Limitations from the T-SPOT.TB Package Insert [...] with T-SPOT.TB test. T-Spot testing performed by [employer], [address] [place] [address]. [address] A negative test result does not exclude [...] test. T-SPOT.TB Panel A Spot Count 1 [facility] T-SPOT.TB Panel B Spot Count 0 [facility] T-SPOT.TB Negative Control Passed [facility] T-SPOT.TB Positive Control Passed [facility] Blood specimen (specimen) 06/07/2019 10:14 AM MACHINE PACKAGE SEALER 06/07/2019 1:45 PM MACHINE PACKAGE SEALER us Can Chelsy Mora MD PhD LAB MICROBIOLOGY - NERAL ORDERABLES Final Result [facility] [place] [address] documented in this encounter Visit Diagnoses Diagnosis 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) (HCC)- Primary Ankle swelling, right High risk medication use Alcohol abuse Nondependent alcohol abuse, unspecified drinking behavior Bilateral carpal tunnel syndrome Carpal tunnel syndrome Health care maintenance documented in this encounter Discontinued Medications Medication Sig Discontinue Reason Start Date End Da te HUMIRA PEN 40 mg/0.8 mL pen injector kit INJECT 0.8 ML (40 MG TOTAL) UNDER THE SKIN EVERY 7 DAYS (SWITCHING TO WEEKLY DOSING OF HUMIRA) 05/03/2019 06/07/2019 predniSONE (DELTASONE) 10 mg tabletIndications:autoi mmune disease Starting after MRI, take 3 tabs daily for week, 2 tabs daily for a week, then 1 tab daily Reorder 03/21/2019 06/07/2019 sulfaSALAzine (AZULFIDINE) 500 mg tabletIndications:Rheum atoid Arthritis Take 3 tablets (1,500 mg total) by mouth 2 (two) times a day Reorder 02/08/2019 06/07/2019 tofacitinib (XELJANZ XR) 11 mg Take 1 tablet (11 mg total) by mouth daily Reorder 06/07/2019 06/07/2019 predniSONE (DELTASONE) 10 mg tabletIndications:autoi mmune disease Starting after MRI, take 3 tabs daily for week, 2 tabs daily for a week, then 1 tab daily for 2 weeks Reorder 06/07/2019 06/07/2019 documented as of this encounter Care Teams Director Investment Banking Relationship Specialty Start Date End Date Orville Pryor MD [address] [place] [address] PCP - General 05/03/18 09/03/20 documented as of this encounter
--- OUTSIDE RECORDS SUMMARY | 2024-07-06 23:41 | XMS_ITS | Encounter Summary ---
Author Organization [facility] Address [address] [place] [address] Phone Care Team Providers Care Braille Operator Name Role Phone Orville Pryor MD Primary Care Provider +1- [phone] Encounter Details Date Type Department Care Team (Late st Contact Info) Description 03/21/[address] [facility] Rheumatology [address] [facility] 5th [place] [address] [place] [address] Juliocesar Mora MD PhD [address] [place] [address] Social History Tobacco Use Types Packs/Day Years Used Date Smoking Tobacco: Every Day Sex and Gender Information Value Date Recorded Sex Assigned at Not on file Legal Sex Male 6:45 AM CUSTOMER SUPPORT COORDINATOR Gender Identity Not on file Sexual Orientation Not on file documented as of this encounter Ordered Prescriptions Prescription Sig Dispense Quantity Refills Last Filled Start Date End Date predniSONE (DELTASONE) 10 mg tabletIndications: autoimmune disease Starting after MRI, take 3 tabs daily for week, 2 tabs daily for a week, then 1 tab daily 42 tablet 03/21/2019 9 documented in this encounter Plan of Treatment Not on file documented as of this encounter Visit Diagnoses Not on filedocumented in this encounter Care Teams Braille Operator Relationship Specialty Start Date End Date Orville Pryor MD [address] [place] [address] PCP - General 05/03/18 09/03/20 documented as of this encounter
--- OUTSIDE RECORDS SUMMARY | 2024-07-06 23:42 | XMS_ITS | Encounter Summary ---
Author Organization [facility] Address [address] [place] [address] Phone Care Team Providers Care Executive Director Name Role Phone Orville Pryor MD Primary Care Provider +1- [phone] Encounter Details Date Type Department Care Team (Late st Contact Info) Description 05/21/2018 Telephone [facility] Rheumatology [address] [place] [address] 5th [place] [address] [place] [phone] Amina Rosenberg RMA Social History Tobacco Use Types Packs/Day Years Used Date Smoking Tobacco: Never Assessed Sex and Gender Information Value Date Recorded Sex Assigned at Not on file Legal Sex Male 6:45 AM OFFICE CLERK Gender Identity Not on file Sexual Orientation Not on file documented as of this encounter Miscellaneous Notes * Telephone Encounter - Amina Rosenberg MA - 05/24/2018 1:10 PM CST Pt sent over forms for you to sign. They are in your folder. Can you give them back to me after they are done. Thank you CE CLERK * Telephone Encounter - Amina Rosenberg MA - 05/24/2018 9:11 AM CST Ok. CE CLERK * Telephone Encounter - Juliocesar Mora MD - 2018 10:10 AM OFFICE CLERK I faxed them back yesterday. Can you call him to check if his employer received them and if anything else is needed? thanks CE CLERK * Telephone Encounter - Amina Rosenberg MA - 2018 8:18 AM CST Pt called would like to know did you receive his forms? CE CLERK * Telephone Encounter - Amina Rosenberg MA - 2018 8:16 AM CST Ok. CE CLERK * Telephone Encounter - Juliocesar Mora MD - 05/21/2018 8:35 AM OFFICE CLERK Discussed with patient over the phone. His employer will be faxing over return to work forms to fill out later today and will fill those out and return them. Patient improved on current regimen and able to tolerate more activity now. Will taper prednisone down to 20 mg BID for 5 days and then 20 mgdaily until seen in clinic. CE CLERK * Telephone Encounter - Amina Rosenberg MA - 05/21/2018 8:11 AM CST Pt called would like to discuss with you about going back to work. Can give the pt a call. CE CLERK documented in this encounter Plan of Treatment Not on file documented as of this encounter Visit Diagnoses Not on filedocumented in this encounter Care Teams Executive Director Relationship Specialty Start Date End Date Orville Pryor MD [address] [place] [address] PCP - General 05/03/18 09/03/20 documented as of this encounter
--- OUTSIDE RECORDS SUMMARY | 2024-07-06 23:42 | XMS_ITS | Encounter Summary ---
Author Organization [facility] Address [address] [place] [address] Phone Care Team Providers Care Welt Slasher Name Role Phone Orville Pryor MD Primary Care Provider +1- [phone] Encounter Details Date Type Department Care Team (Late st Contact Info) Description 06/01/2018 1:30 PM RESTAURANT FRONT MANAGER Office Visit [facility] Rheumatology [facility] Advanced Medicine 5th [place] [address] [place] [address] 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) (Primary Dx); High risk medication use; Alcohol abuse Social History Tobacco Use Types Packs/Day Years Used Date Smoking Tobacco: Every Day Sex and Gender Information Value Date Recorded Sex Assigned at Not on file Legal Sex Male 6:45 AM RESTAURANT FRONT MANAGER Gender Identity Not on file Sexual Orientation Not on file documented as of this encounter Last Filed Vital Signs Vital Sign Reading Time Taken Comments Blood Pressure 151/84 06/01/2018 1:24 PM RESTAURANT FRONT MANAGER Pulse 94 06/01/2018 1:24 PM RESTAURANT FRONT MANAGER Temperature 36.4 ??C (97.5 ??F) 06/01/2018 1:24 PM CS T Respiratory Rate - - Oxygen Saturation - - Inhaled Oxygen Concentration - - Weight 89.4 kg (197 lb) 06/01/2018 1:24 PM RESTAURANT FRONT MANAGER Height - - Body Mass Index - - documented in this encounter Patient Instructions * Patient Instructions* Juliocesar Mora MD - 06/01/2018 1:30 PM RESTAURANT FRONT MANAGER Take 1.5 tabs twice a day for 2 weeks and then decrease by half a tab every 2 weeks (1.5 am and 1 tab pm, then 1 tab twice day, 1 tab am half tab pm, half tab twice a day) TNF INHIBITOR (HUMIRA) PATIENT INFORMATION: TNF inhibitors are a type of drug used worldwide to treat inflammatory conditions such as rheumatoid arthritis (RA), psoriatic arthritis, juvenile arthritis, inflammatory bowel disease (Crohn???s andulcerative colitis), ankylosing spondylitis, and psoriasis. They reduce inflammation and stop disease progression by targeting an inflammation-causing substance called Tumor Necrosis Factor (TNF). Inhealthy individuals, excess TNF in the blood is blocked naturally, but in those who have rheumatic conditions, higher levels of TNF in the blood lead to more inflammation and persistent symptoms. They can alter a disease???s effect on the body by controlling inflammation in the joints, gastrointestinal tract, and skin. There are different TNF inhibitors that have been approved by the U.S. Food and Drug Administration for the treatment of rheumatic diseases. To decrease side effects and costs, most patients with mild or moderate disease may be treated with methotrexate before adding or switching to a TNF inhibitor. These agents can be used by themselves or in combination with other medications such as prednisone, methotrexate, hydroxychloroquine, leflunomide, or sulfasalazine. HOW TO TAKE IT: TNF inhibitors may be given by injection under the skin or by infusion into the vein. There are pamphlets and videos that can teach you how to give yourself an injection under the skin. Physicians, nurses, and pharmacists can also teach you how to give the injection. The medicine can be injected into the thigh or abdomen. The site of injection should be rotated so the same site is not used multiple times. Infliximab and golimumab infusions are administered at a doctor???s office or an infusion center. These treatments take up to four hours. The time that it takes for the medication to have aneffect may vary by patient. Most patients have reported a change in their symptoms after two or three doses, but it usually takes three months to see the full benefit. SIDE EFFECTS: The most common side effect seen with the injectable drugs are skin reactions, commonly referred toas ???injection site reactions.?? The patients usually complain of a localized rash with burning or itching. These reactions can last up to a week. Infliximab has been associated with a severe allergic reaction with swelling of the lips, difficulty breathing and low blood pressure. Your doctor will usually order a pre-medication to decrease the chances of an infusion reaction. The most significant side effect is an increased risk for all types of infections, including tuberculosis (TB) and fungal infections. Some of these infections may be severe. Patients should be tested for TB before starting therapy, because a hepatitis B infection can worsen during treatment. The usual way of testing is with a skin test, but a blood test is also available. Long- term use of TNF inhibitors may increase the risk of cancers such as lymphoma and skin cancer. There are rare neurologic complications as well.. People who have a history of multiple sclerosis should not use them. People with significant heart failure should not use a TNF inhibitor, because their heart disease could worsen. TELL YOUR DOCTOR: TNF inhibitors should be stopped if the patient has high fever or is being treated with antibioticsfor an infection. Once the medication is stopped, it should not be restarted until the infection goes away. Patients should talk to their doctor before getting any vaccinations while using an anti-TNF drug. Some vaccinations are safe, but live vaccines should be avoided. These medications are expensive (more than $10,000 per year), but they are covered by most health care insurance plans. Copay amounts vary widely. Ask your doctor about prescription assistance plans that can help you to get themedication at a lower chavira or free of charge. Refer to the package insert for more information. - Updated July 2016 by Roxana Alonzo MD, and reviewed by the [employer] Committee on Communications and Marketing. This information is provided for general education only. Individuals should consult a qualified health care provider for professional medical advice, diagnosis and treatment of a medical or health condition. ?? 2017 [employer] See more at: https://[email or web address].org/I-Am-A/Patient-Caregiver/Treatments/TNF-Inhibitors# sthash.[email or web address].dpuf AURANT FRONT MANAGER documented in this encounter Ordered Prescriptions Prescription Sig Dispense Quantity Refills Last Filled Start Date End Date adalimumab (HUMIRA PEN) 40 mg/0.8 mL pen injector kit Inject 0.8 mL (40 mg total) under the skin every 14 (fourteen) days. 2 each 5 06/01/2018 9 predniSONE (DELTASONE) 10 mg tablet Take 1.5 tabs twice a day for 2 weeks and then decrease by half a tab every 2 weeks (1.5 am and 1 tab pm, then 1 tab twice day etc) 120 tablet 06/01/2018 9 sulfaSALAzine (AZULFIDINE) 500 mg tablet Take 3 tablets (1,500 mg total) by mouth 2 (two) times a day. 180 tablet 3 06/01/2018 9 documented in this encounter Progress Notes * Juliocesar Mora MD - 06/01/2018 1:30 PM CST Images from the original note were not included. Rheumatology New Patient Post-hospital Visit PATIENT NAME: Aristeo Seals : 1960 HILDA: 06/01/2018 Chief Complaint: RA HPI: Aristeo Seals is a 58 y.o. male with a PMH of with seropositive RA, HTN, polysubstance abuse (alcohol, tobacco, and marijuana) who is here for post- hospital follow-up for RA. Disease History: Patient was seen in [...] on SSZ and tolerating 1500 mg BID. Interval history: Significant improvement in joint pains and stiffness, but still persisting in MCPs, PIPs, wrists, ankles and MTPs. Able to function better now and has been able to reduce prednisonedose to 20 mg. Taking Naproxen 500 mg BID as well. [...] file Review of Systems Review of Systems Physical Exam BP 151/84 Pulse 94 Temp 36.4 ??C (97.5 ??F) Wt 89.4 kg (197 lb) General: NAD, awake and alert HEENT: NC/AT, [...] pain with ROM. B/L MCPs, PIPs w/ significant synovial proliferation, TTP, and increased warmth. and DIPs w/o TTP, synovitis. reduced hand fight manager bilaterally ulnar deviation present. B/L knees w/o TTP, effusions, warmth, redness. ?? B/L ankles with possible small effusion, TTP, no warmth B/L MTPs with erythema, TTP and no [...] tobacco, and marijuana) who is here for post-hospital follow-up for RA. # Seropositive RA: Severe disease with multiple joint involvement and continued symptoms on SSZ (though has only been on a month). Given severity of disease will need a biologic regardless. - Continue SSZ 1.5 gram BID - will start Adalimumab 40 mg [id number] - check hep panel and T-spot - patient is getting new insurance and will see if can get the medication covered - pred taper by 5 mg every 2 weeks (currently at 20 mg) - continue naproxen 500 mg BID PRN - lab monitoring with CBC and CMP Follow-up: Return in about 3 months (around 08/30/2018) for Recheck. Cosigned by Philomena Figueroa MD at 09/07/2018 10:43 AM CDT Associated attestation - Philomena Figueroa MD - 09/07/2018 10:43 AM CDT I have seen and examined the patient. I agree with the findings and plan of care as discussed with the resident.. documented in this encounter Plan of Treatment Not on file documented as of this encounter Results * (ABNORMAL) Comprehensive metabolic panel (06/01/2018 2:11 PM RESTAURANT FRONT MANAGER) Total Protein 7.2 6.1 - 8.4 g/dL [...] = PROVISIONAL DIAGNOSIS OF DIABETES eGFR NON-AFR. [place] >90.0 >60.0 mL/min/1.7 3 m2 [facility] eGFR >90.0 >60.0 mL/min/1.7 3 m2 [facility] Blood specimen (specimen) 06/01/2018 2:11 PM RESTAURANT FRONT MANAGER 06/01/2018 3:05 PM RESTAURANT FRONT MANAGER us Can Chelsy Mora MD PhD LAB BLOOD ORDERABLES Final Result [facility] * (ABNORMAL) CBC with auto differential (06/01/2018 2:11 PM RESTAURANT FRONT MANAGER) White Blood Count 7.1 3.6 - 11.2 [...] [facility] Blood specimen (specimen) 06/01/2018 2:11 PM RESTAURANT FRONT MANAGER 06/01/2018 3:05 PM RESTAURANT FRONT MANAGER us Can Chelsy Mora MD PhD LAB BLOOD ORDERABLES Final Result [facility] * TB test, T-SPOT (06/01/2018 1:26 PM RESTAURANT FRONT MANAGER) Pathologist [facility] IFN-Gamma Release Assay TB Negative [facility] Comment: Interpretive Data Testing performed by [facility], [id number] [place], [place] [id number] Current Interpretive Data was last revised 2014 Blood specimen (specimen) 06/01/2018 1:26 PM RESTAURANT FRONT MANAGER 06/01/2018 3:31 PM RESTAURANT FRONT MANAGER Narrative KALEN ZELAYA - 06/04/2018 1:38 PM RESTAURANT FRONT MANAGER us Can Chelsy Mora MD PhD LAB MICROBIOLOGY - NERAL ORDERABLES Final Result [facility] Department [place] [address] documented in this encounter Visit Diagnoses Diagnosis 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) (HCC)- Primary High risk medication use Alcohol abuse Nondependent alcohol abuse, unspecified drinking behavior 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) ([facility]) documented in this encounter Discontinued Medications Medication Sig Discontinue Reason Start Date End Da te sulfaSALAzine (AZULFIDINE) 500 mg tablet Week 1: 1 tab per day Week 2: 1 tab each morning, 1 tab each evening Week 3: 2 tabs each morning, 1 tab each evening Week 4: 2 tabs each morning, 2 tabs each evening Reorder 05/03/2018 06/01/2018 predniSONE (DELTASONE) 10 mg tablet Take 3 tabs twice a day for a week, 2 tabs twice a day for a week, then 3 tabs daily for a week, then 2 tabs daily, then 1 tab Reorder 05/14/2018 06/01/2018 naproxen (NAPROSYN) 500 mg tablet Take 1 tablet (500 mg total) by mouth 2 (two) times a day as needed for pain. 05/14/2018 06/01/[address] (VOLTAREN) 75 mg EC tablet Take 75 mg by mouth 2 (two) times a day. 04/20/2018 06/01/2018 documented as of this encounter Care Teams Welt Slasher Relationship Specialty Start Date End Date Orville Pryor MD [address] [place] [address] PCP - General 05/03/18 09/03/20 documented as of this encounter
--- OUTSIDE RECORDS SUMMARY | 2024-07-06 23:42 | XMS_ITS | Encounter Summary ---
Author Organization [facility] Address [address] [place] [address] Phone Care Team Providers Care Filing Machine Operator Name Role Phone Orville Pryor MD Primary Care Provider +1- [phone] Encounter Details Date Type Department Care Team (Late st Contact Info) Description 05/11/2018 Telephone [facility] Rheumatology [address] [place] [address] 5th [place] [address] [place] [phone] Amina Rosenberg RMA Social History Tobacco Use Types Packs/Day Years Used Date Smoking Tobacco: Never Assessed Sex and Gender Information Value Date Recorded Sex Assigned at Not on file Legal Sex Male 6:45 AM REVENUE ACCOUNTANT Gender Identity Not on file Sexual Orientation Not on file documented as of this encounter Miscellaneous Notes * Telephone Encounter - Amina Rosenberg MA - 05/16/2018 9:57 AM CST Ok. NUE ACCOUNTANT * Telephone Encounter - Juliocesar Mora MD - 05/11/2018 4:07 PM REVENUE ACCOUNTANT Patient states has had minimal improvement with the 40 mg of prednisone at this time. Advised to keep taking the 40 mg daily and to take naproxen 500 mg twice a day as well and to check in on Monday NUE ACCOUNTANT * Telephone Encounter - Amina Rosenberg MA - 05/11/2018 1:35 PM CST Pt called says that prednisone 40mg isn't helping at all. He is still having pain/swelling in his hands/ankles/feet. It's been going on for a few days now. Can you give the pt a call. NUE ACCOUNTANT documented in this encounter Plan of Treatment Not on file documented as of this encounter Visit Diagnoses Not on filedocumented in this encounter Care Teams Filing Machine Operator Relationship Specialty Start Date End Date Orville Pryor MD [address] [place] [address] PCP - General 05/03/18 09/03/20 documented as of this encounter
--- OUTSIDE RECORDS SUMMARY | 2024-07-06 23:42 | XMS_ITS | Encounter Summary ---
Author Organization [facility] Address [address] [place] [address] Phone Care Team Providers Care Dip Unit Operator Name Role Phone Orville Pryor MD Primary Care Provider +1- [phone] Encounter Details Date Type Department Care Team (Late st Contact Info) Description 05/09/[address] [facility] Rheumatology [address] [place] [address] Medicine 5th [place] [address] [place] [id number] Adrián Cheng LPN Social History Tobacco Use Types Packs/Day Years Used Date Smoking Tobacco: Never Assessed Sex and Gender Information Value Date Recorded Sex Assigned at Not on file Legal Sex Male 6:45 AM AERODYNAMICS TEACHER Gender Identity Not on file Sexual Orientation Not on file documented as of this encounter Miscellaneous Notes * Telephone Encounter - Juliocesar Mora MD - 05/09/2018 9:35 AM AERODYNAMICS TEACHER Called patient back and increasing prednisone DYNAMICS TEACHER * Telephone Encounter - Adrián Cheng LPN - 05/09/2018 8:18 AM CST Hey, This patient is calling saying he can barely walk due to swelling and he is having trouble using ishands. He said it feels like his body is just shutting down . He does not feel like the prednisoneis helping anymore. Said that he is have a hard time working. Please advise or call the patient back at [phone]. DYNAMICS TEACHER documented in this encounter Plan of Treatment Not on file documented as of this encounter Visit Diagnoses Not on filedocumented in this encounter Care Teams Dip Unit Operator Relationship Specialty Start Date End Date Orville Pryor MD [address] [place] [address] PCP - General 05/03/18 09/03/20 documented as of this encounter
--- OUTSIDE RECORDS SUMMARY | 2024-07-06 23:42 | XMS_ITS | Encounter Summary ---
Author Organization [facility] Healthcare Address [address] [place] [address] Care Team Providers Care Engineer Automated Equipment Name Role Phone Orville Pryor MD Primary Care Provider [phone] Reason for Visit * Reason Comments Joint Pain Joint Swelling Encounter Details Date Type Department Care Team (Late st Contact Info) Description 05/03/2018 7:29 AM ASSISTANT LIBRARIAN - 05/03/2018 1:42 PM ASSISTANT LIBRARIAN Emergency [facility] Emergency Department [address] [place] [address] Nga Nava MD [address] [facility] [address] [place] [address] Polyarthralgia (Primary Dx) Discharge Disposition: Discharge to home or self care Social History Tobacco Use Types Packs/Day Years Used Date Smoking Tobacco: Never Assessed Sex and Gender Information Value Date Recorded Sex Assigned at Not on file Legal Sex Male 6:45 AM ASSISTANT LIBRARIAN Gender Identity Not on file Sexual Orientation Not on file documented as of this encounter Last Filed Vital Signs Vital Sign Reading Time Taken Comments Blood Pressure 135/87 05/03/2018 10:30 AM ASSISTANT LIBRARIAN Pulse 74 05/03/2018 6:50 AM ASSISTANT LIBRARIAN Temperature 36.7 ??C (98.1 ??F) 05/03/2018 6:50 AM CS T Respiratory Rate 20 05/03/2018 6:50 AM ASSISTANT LIBRARIAN Oxygen Saturation 97% 05/03/2018 10:30 AM ASSISTANT LIBRARIAN Inhaled Oxygen Concentration - - Weight - - Height - - Body Mass Index - - documented in this encounter Discharge Instructions * Discharge Instructions* Jadon Lerner MD - 05/03/2018 1:04 PM ASSISTANT LIBRARIAN You were seen in the ED for pain and swelling in multiple joints, especially the hands and feet. Your symptoms are concerning for an inflammatory joint condition, such as Rheumatoid arthritis or gout. We had the front end specialist see you in the Emergency Department. They agreed that your condition seems most consistent with Rheumatoid Arthritis. We will prescribe you with prednisone and sulfasalazine to treat the condition and improve your symptoms. You can also take NSAIDs (ibuprofen, naproxen) as needed for pain. The Rheumatology Clinic will call you to schedule a follow up appointment in the next few weeks. STANT LIBRARIAN * Attachments The following attachments cannot be sent through Care Everywhere. * Arthralgia (German) * Rheumatoid Arthritis (General Information) (German) documented in this encounter Medications at Time of Discharge diclofenac DR (VOLTAREN) 75 mg EC tablet Take 75 mg by mouth 2 (two) times a day. 0 04/20/2018 8 predniSONE (DELTASONE) 10 mg tablet Take 2 tablets (20 mg total) by mouth daily for 7 days. 15 tablet 05/03/2018 8 predniSONE (DELTASONE) 10 mg tablet Take 1 tablet by mouth daily for 3 weeks (start this prescription on 05/10/18 after completing the prednisone 20mg/day prescription) 32 tablet 05/03/2018 8 sulfaSALAzine (AZULFIDINE) 500 mg tablet Week 1: 1 tab per day Week 2: 1 tab each morning, 1 tab each evening Week 3: 2 tabs each morning, 1 tab each evening Week 4: 2 tabs each morning, 2 tabs each evening 56 tablet 05/03/2018 8 documented as of this encounter Ordered Prescriptions Prescription Sig Dispense Quantity Refills Last Filled Start Date End Date sulfaSALAzine (AZULFIDINE) 500 mg tablet Week 1: 1 tab per day Week 2: 1 tab each morning, 1 tab each evening Week 3: 2 tabs each morning, 1 tab each evening Week 4: 2 tabs each morning, 2 tabs each evening 56 tablet 05/03/2018 8 predniSONE (DELTASONE) 10 mg tablet Take 1 tablet by mouth daily for 3 weeks (start this prescription on 05/10/18 after completing the prednisone 20mg/day prescription) 32 tablet 05/03/2018 8 predniSONE (DELTASONE) 10 mg tablet Take 2 tablets (20 mg total) by mouth daily for 7 days. 15 tablet 05/03/2018 8 documented in this encounter Discharge Disposition Disposition Code Departure Means Destination Discharge to home or self care documented in this encounter Consult Notes * Juliocesar Mora MD - 05/03/2018 11:15 AM CSTAssociated Order(s): IP CONSULT TO RHEUMATOLOGY Images from the original note were not included. Rheumatology Consult Name: Aristeo Seals Today: May 03, 2018 : 1960 Age: 57 y.o. male Reason for Consult: Polyarthralgia and swelling Requesting Provider: Dr. Jadon Lerner Subjective HPI: Aristeo Seals is a 57 y.o. male with HTN, polysubstance abuse (alcohol, tobacco, and marijuana)who presented to the ED with progressively worsening polyarticular pain and swelling for 3 weeks. Patient notes that few days prior to start of symptoms he had a fall while mowing his grass where he landed on his hands. He then started to develop pain in his ankles, MTPs, and soles of his feet and later develop pain in his wrists, MCPs, and PIPs worse on the right side. This started about 3 weeks ago. Since then he has had swelling and stiffness in these joints [...] started naproxen with minimal improvement in symptoms. Was referred to see rheumatology, but was told the next appointment was in June and felt he needed to be seen sooner and presented to the ED. He denies any recent infections, cough, STIs, diarrhea, dysuria, eye pain or vision changes, RIZZO, oral ulcers, rashes, raynauds, sicca symptoms, history of kidney stones, abdominal pain, chest pain, BM or urinary changes, nasal congestion Scheduled Meds: Continuous Infusions: No current facility-administered medications for this encounter. PRN Meds:. Past Medical History: Diagnosis Date ??? Hypertension History reviewed. No pertinent surgical history. (Not in a hospital admission) No Known Allergies Social History Social History Main Topics ??? Drug use: Unknown Social History ??? Marital status: Smokin/ PPD 40 years Alcohol: 12 beers a day Drug: marijuana use History reviewed. No pertinent family history. No rheumatologic family history Review of Systems: Review of systems per HPI and otherwise all other systems are negative Objective Vitals: 24hr Min/Max: Temp Min: 36.7 ??C (98.1 ??F) Max: 36.7 ??C (98.1 ??F) Pulse Min: 74 Max: 74 BP Min: 123/73 Max: 147/95 Resp Min: 20 Max: 20 SpO2 Min: 95 % Max: 97 % Most Recent: Vitals: 05/03/18 1030 BP: 135/87 Pulse: Resp: Temp: SpO2: 97% No intake/output data recorded. I/O this shift: In: 1000 [IV Piggyback:1000] Out: - Vitals reviewed General: NAD, awake and alert [...] increased warmth. and DIPs w/o TTP, synovitis. Significantly reduced hand creative art therapist bilaterally ulnar deviation present. B/L knees w/o TTP, effusions, warmth, redness. ?? B/L ankles with possible small effusion, TTP, increased warmth B/L MTPs with erythema, TTP and increased warmth at 1st digit. Hallux valgus present Neuro: AAOx4, Nonfocal Skin: No rashes, jaundice, or other lesions noted Psych: normal mood and affect Lab/Radiology/Diagnostic Review: Laboratory review: Lab results in the last 24 hours: Recent Results (from the past 24 hour(s)) CBC with auto differential Collection Time: 05/03/18 8:15 AM Result Value Ref Range WBC 9.6 3.8 - 9.9 K/cumm Hgb 14.9 13.0 - 17.5 g/dL Hct 44.0 38.9 - 50.3 % Plt 345 150 - 400 K/cumm MPV 8.9 (L) 9.1 - 12.3 fL RBC 4.69 4.30 - 5.80 M/cumm MCV 93.8 81.3 - 96.4 fL MCH 31.8 27.1 - 33.3 pg MCHC 33.9 32.3 - 35.7 g/dL RDW CV 12.5 11.1 - 14.9 % RDW SD 42.6 35.7 - 48.1 fL NRBC Abs 0.00 0.00 - 0.01 K/cumm Basic metabolic panel Collection Time: 05/03/18 8:15 AM Result Value Ref Range Sodium 136 135 - 145 mmol/L Potassium, pl 4.2 3.3 - 4.9 mmol/L Chloride 100 97 - 110 mmol/L CO2 26 22 - 32 mmol/L Anion Gap 10 2 - 15 mmol/L BUN 25 8 - 25 mg/dL Creatinine 0.94 0.80 - 1.30 mg/dL Glucose 100 70 - 199 mg/dL Calcium 10.0 8.5 - 10.3 mg/dL Uric acid Collection Time: 05/03/18 8:15 AM Result Value Ref Range Uric acid 5.1 3.0 - 8.0 mg/dL Differential, auto Collection Time: 05/03/18 8:15 AM Result Value Ref Range Neutrophil absolute 7.3 (H) 1.7 - 6.5 K/cumm Immature granulocyte absolute 0.0 0.0 - 0.1 K/cumm Lymphocytes absolute 1.1 0.8 - 3.3 K/cumm Monocyte absolute 1.0 (H) 0.2 - 0.8 K/cumm Eosinophils absolute 0.1 0.0 - 0.5 K/cumm Basophils, abs 0.1 0.0 - 0.1 K/cumm Neutrophils 75.8 % Immature granulocytes 0.5 % Lymphocytes 11.1 % Monocytes 10.7 % Eosinophils 1.2 % Basophils 0.7 % Hepatic function panel Collection Time: 05/03/18 8:15 AM Result Value Ref Range Bilirubin, total 0.5 0.1 - 1.2 mg/dL Bilirubin, direct <0.2 0.1 - 0.3 mg/dL Protein, pl 8.1 6.5 - 8.5 g/dL Albumin 4.0 3.5 - 5.0 g/dL Alk phos 81 40 - 130 Units/L ALT 18 7 - 55 Units/L AST 23 10 - 50 Units/L CRP (acute phase) Collection Time: 05/03/18 8:15 AM Result Value Ref Range C-RP 34.4 (H) <=10.0 mg/L Erythrocyte sedimentation rate Collection Time: 05/03/18 8:15 AM Result Value Ref Range Erythrocyte sedimentation rate 39 (H) 1 - 20 mm/hr Assessment and Plan: Assessment /Plan Active Problems: No Active Problems: There are no active problems currently on the Problem List. Please update the Problem List and refresh. 57 y.o. male with HTN, polysubstance abuse (alcohol, tobacco, and marijuana) who presented to the ED with progressively worsening polyarticular pain and swelling for 3 weeks. # Polyarthalgia and swelling: Involving MCPs, PIPs, wrists, ankles, elbows, and MTPs. Given acute flare and presentation with increased warmth and swelling most concerning for a crystalline arthritis. However reports pain and stiffness worse in mornings and improves with activities with possible chronic changes in hands with ulnar deviation concerning for an inflammatory arthritis. May potentially be under reporting prior pain and symptoms in his hands from the past. Has had minimal improvementwith NSAIDs as this time. Uric acid is 5.1, but does not exclude gout in the setting of an acute flare. ESR and CRP both elevated indicating acute inflammatory state. Potentially reactive arthritis from recent viral infection, but no recent infectious symptoms. No significant drainable fluid pocketin any of his joints. - Obtain hand xrays and feet xrays bilaterally - Xrays with significant joint space narrowing and subluxation indicative of inflammatory arthritis. Given RF positive concern for RA. - check RF and CCP - would start on prednisone 20 mg for 1 weeks and then 10 mg until seen in rheumatology clinic. [place] patient it is okay to split the dose in a day which can provide greater coverage and improvement in symptoms. - added on Hep C as RF can be positive in setting of Hep C - added hep B serologies and T-spot for possible future need for biologic treatment for RA - Will start Sulfasalazine (not Methotrexate given extensive alcohol use) at 500 mg daily for 1 week, then 500 mg BID, then 1000 mg in am and 500 mg pm, and finally continue at 1000 mg BID - okay to take NSAIDs as well for pain - will schedule for appointment in the next few weeks for follow-up in rheumatology. Thank you for the interesting consult. Please call with questions to [phone]. Juliocesar Mora MD Cosigned by Armani Reis Jr., MD at 05/03/2018 4:39 PM ASSISTANT LIBRARIAN STANT LIBRARIAN STANT LIBRARIAN STANT LIBRARIAN Associated attestation - Armani Reis Jr., MD - 05/03/2018 4:39 PM ASSISTANT LIBRARIAN I d/w Dr. Mora by phone and later in person, but I did not see the patient. Strong evidence that he has RA documented in this encounter ED Notes * Jadon Lerner MD - 05/03/2018 8:10 AM CST HPI Chief Complaint Patient presents with ??? Joint Pain ??? Joint Swelling Aristeo Seals is a 57 y.o. M with PMHx of untreated HTN, EtOH abuse who presents to the ED with3 weeks of progressive joint swelling and pain. The patient reports he started having b/l pain in his feet 3 weeks ago. The pain spread to his hands then knees and elbows, ankles. He notes swelling in the joints worst in feet, ankles, and hands. He says his feet are red but the other joints are not. He reports drinking beer most days, 12/day, smoking 3/4 ppd x40 years, MJ use. Frequently eats redmeat. No FHx of joint problems. Seen at OSH recently where they told him he had osteoarthritis, prescribed naproxen. Naproxen has not relieved his pain. He states he can barely walk now due to the pain. Denies fevers, chills, headache, vision changes, eye redness, chest pain, palpitations, dyspnea, cough, nausea, vomiting, abdominal pain, diarrhea, constipation, dysuria, hematuria. Meds: None Allergies: NKDA PMHx: as above PSHx: none FHx: non-contributory, no joint diseases Patient History There are no active problems to display for this patient. Past Medical History: Diagnosis Date ??? Hypertension History reviewed. No pertinent surgical history. History reviewed. No pertinent family history. Social History Substance Use Topics ??? Smoking status: Not on file ??? Smokeless tobacco: Not on file ??? Alcohol use Not on file Social History Social History Narrative ??? No narrative on file Review of Systems Review of Systems Musculoskeletal: Positive for arthralgias and joint swelling. Skin: Positive for color change. All other systems reviewed and are negative. Physical Exam ED Triage Vitals Temp Pulse Resp BP SpO2 05/03/18 0650 05/03/18 0650 05/03/18 0650 05/03/18 0650 05/03/18 0900 36.7 ??C (98.1 ??F) 74 20 123/73 97 % Temp src Heart Rate Source Patient Position BP Location FiO2 (%) -- -- 05/03/18 0650 -- -- Sitting Physical Exam Gen: NAD HENT: NCAT, MMM, OP clear Eyes: anicteric, non-injected, PERRL, EOMI Neck: supple, full ROM, no lymphadenopathy CV: RRR, no m/r/g, 2+ distal pulses Chest: CTAB, no w/r/r Abd: soft, NT, ND, +BS MSK: Shoulders with full ROM, some pain with ROM, no ttp or swelling. Elbows wnl, b/l hands held with digits crossed and ulnar deviation, MCPs of 2nd and 3rd digits with swelling and tenderness, tender throughout fingers jayda rigth 3rd digit. Decreased ROM in fingers. B/l knees with minimal tenderness, no effusion or erythema, full ROM with mild discomfort. B/l ankles with effusion, exquisitely tender, decreased ROM 2/2 pain, acutely tender throughout b/l feet at joints with overlying erythema and swelling Neuro: AOx4, CN 2-12 intact, moves all extremities spontaneously, SILT Skin: no rashes, bruising, or lesions MDM MDM Assessment and Plan Aristeo Seals is a 57 y.o. M with PMHx significant for HTN, EtOH abuse who presents to the ED for progressive polyarticular joint pain and swelling. #Polyarticular joint pain and swelling. DDx: Most likely gout, also considering pseudogout, inflammatory arthropathies (new RA). No systemic symptoms, low suspicion for septic arthritis. -CBC, BMP, LFTs, UA, ESR, CRP, urate, RF, Anti-CCP -Xrays of b/l hands and feet -No suitable effusion for arthrocentesis -IVF, toradol, prednisone -Rheumatology c/s: prednisone, outpatient follow up Jadon Lerner MD [phone] Attending Summary of Care Attending Note HPI Patient is a 57 y/o M with hx etoh abuse (12 beers/day, denies hx withdrawal), HTN of meds x years here with 3-4 weeks of progressive swelling and pain in b/l hands, wrists, shoulders, ankles, feet. Today pt unable to walk 2/2 pain prompting ED eval. Pt was seen by PMD for same last week, started on naproxen BID (has been taking) w/o improvement. No recent travel, known tick exposure, recent infection/viral syndrome. Pt called rheum through PMD for appt, cannot be seen until June. PMH/Meds/Allergies/FH/SH Reviewed FH: HTN SH: negative for tobacco, + alcohol, + marajuana Review of Systems: Review of systems per HPI and otherwise all other systems are negative unless otherwise documented Constitutional: negative for fever, chills and fatigue Eyes: negative for eye pain, irritation and visual disturbance Ears, nose, mouth, throat, and face: negative for hoarseness, nasal congestion and sore throat Respiratory: negative for cough, dyspnea on exertion and SOB at rest Cardiovascular: negative for chest pain, palpitations, and HOFFMANN Gastrointestinal: negative for abdominal pain, nausea and vomiting Genitourinary: negative for dysuria, frequency and hematuria Hematologic/lymphatic: negative for bleeding, easy bruising and lymphadenopathy Musculoskeletal: negative for back pain, muscle weakness and neck pain Neurological: negative for dizziness, headaches and weakness Exam GEN: A&O x3, follows commands, uncomfortable HEENT: EOMI, atramatuic, MMM CV: RRR, no m/r/g. Resp: CTAB, no r/r/w Abd: SNTND Ext: + swelling to b/l hands, wrists, ankles, knees. + pain with PROM b/l shoulders. Mild erythema over b/l soles of feet. 2+ DP/PT. Skin: warm, dry, no rash Neuro: A&O x3, MAEW, no sensory deficit A/P: High prob: acute vs subacute polyarthralgia, gout. Lower suspicion for post- viral arthralgia, tick borne illness, fx, AVN, septic arthritis. Will check labs, consult rheumatology--likely steroids andd/c, but would like better f/u. No good joints to tap at bedside, rheum can decide if pt should go to IR for arthrocentesis. Will get XR's at rheumatology request to eval for underlying arthritic changes. Nga Nava M.D. ED Course as of May 03 6115 Time: 05/03 1035 Value: C-RP: (!) 34.4 Comment: Consulted Rheumatology, they requested Xrays of hands and feet, added RF, Anti-CCP By: Jadon Lerner MD Time: 05/03 1232 Value: Rheumatoid factor, quant: (!) 276.0 Comment: (Reviewed) By: Jadon Lerner MD Time: 05/03 1243 Comment: Xrays consistent with inflammatory arthropathy like RF. Spoke with Rheumatology. They believe this case appears most consistent with Rheumatoid arthritis. The patient will be discharged with prednisone and likely sulfasalazine. Rheumatology will arrange afollow up appointment with the patient in the next few weeks. By: Jadon Lerner MD Polyarthralgia Jadon Lerner MD Resident 05/03/18 1188 Cosigned by Nga Nava MD at 05/03/2018 2:40 PM ASSISTANT LIBRARIAN STANT LIBRARIAN STANT LIBRARIAN Associated attestation - Nga Nava MD - 05/03/2018 2:40 PM ASSISTANT LIBRARIAN I have seen and examined the patient on 05/03/2018 . I agree with the findings and plan of care as documented in the resident's note unless documented otherwise. * Meredith Lantigua, CLEMENTINA - 05/03/2018 7:29 AM CST Bed: ED1-13 Expected date: Expected time: Means of arrival: Car Comments: Meredith Lantigua RN 05/03/18 0729 STANT LIBRARIAN * Rani Aleman RN - 05/03/2018 6:48 AM CST Pt presents with swelling and pain to joints, dx with osteoarthritis at osh, but pt having worsening pain and swelling STANT LIBRARIAN documented in this encounter Plan of Treatment Not on file documented as of this encounter Procedures Procedure Name Priority Date/Time Associated Diagnosis Comments URINALYSIS AND REFLEX TO MICROSCOPIC STAT 05/03/2018 12:52 PM ASSISTANT LIBRARIAN XR HAND RIGHT 3 OR MORE VIEWS ED 05/03/2018 11:11 AM ASSISTANT LIBRARIAN XR HAND LEFT 3 OR MORE VIEWS ED 05/03/2018 11:11 AM ASSISTANT LIBRARIAN XR FOOT RIGHT 3 OR MORE VIEWS ED 05/03/2018 11:11 AM ASSISTANT LIBRARIAN XR FOOT LEFT 3 OR MORE VIEWS IP Routine 05/03/2018 11:11 AM ASSISTANT LIBRARIAN HEPATITIS C ANTIBODY STAT 05/03/2018 10:22 AM ASSISTANT LIBRARIAN CYCLIC CITRUL PEPTIDE ANTIBODY, IGG STAT 05/03/2018 10:22 AM ASSISTANT LIBRARIAN HEPATITIS B CORE IGM STAT 05/03/2018 10:22 AM ASSISTANT LIBRARIAN HEPATITIS B SURFACE ANTIBODY (IMMUNE STATUS) STAT 05/03/2018 10:22 AM ASSISTANT LIBRARIAN HEPATITIS B SURFACE ANTIGEN STAT 05/03/2018 10:22 AM ASSISTANT LIBRARIAN RHEUMATOID FACTOR STAT 05/03/2018 10: 22 AM ASSISTANT LIBRARIAN DIFFERENTIAL AUTO STAT 05/03/2018 8:1 5 AM ASSISTANT LIBRARIAN CBC WITH AUTO DIFFERENTIAL STAT 05/03/2018 8:15 AM ASSISTANT LIBRARIAN ERYTHROCYTE SEDIMENTATION RATE STAT 05/03/2018 8:15 AM ASSISTANT LIBRARIAN CRP (ACUTE PHASE) STAT 05/03/2018 8:1 5 AM ASSISTANT LIBRARIAN URIC ACID STAT 05/03/2018 8:15 AM ASSISTANT LIBRARIAN HEPATIC FUNCTION PANEL STAT 05/03/2018 8:15 AM ASSISTANT LIBRARIAN BASIC METABOLIC PANEL STAT 05/03/2018 8:15 AM ASSISTANT LIBRARIAN documented in this encounter Results * (ABNORMAL) Urinalysis reflex to microscopic (05/03/2018 12:52 PM ASSISTANT LIBRARIAN) Color, ur Yellow Yellow [facility] Clarity, ur Clear Clear [facility] Specific gravity, ur 1.027(H) 1.010 - 1.025 [facility] pH, urine 6.0 [facility] Protein, ur ql Negative Negative [facility] Glucose, ur ql Negative Negative [facility] Ketones, ur Negative Negative [facility] Bilirubin, ur Negative Negative [facility] Blood, ur Negative Negative [facility] Urobilinogen, ur <2.0 <2.0 mg/dL [facility] Nitrite, ur Negative Negative [facility] Leukocyte esterase, ur Negative Negative [facility] Urine 05/03/2018 12:5 2 PM ASSISTANT LIBRARIAN 05/03/2018 1:52 PM ASSISTANT LIBRARIAN Narrative [facility] - 05/03/2018 1:55 PM ASSISTANT LIBRARIAN [facility] LOCATION IS [facility] ED1-13 Urine pH is affected by diet, medications, systemic acid-base disturbances, and renal tubular function. ??pH may affect urinary stone formation. ??For example, urine pH below 6.0 may help reduce the tendency for calcium phosphate stones and pH greater than 6.0 may reduce the tendency for uric acid stone formation. Source: [employer]. Last revised 07-06-2017 us Jadon Lerner MD LAB URINE ORDERABLES Simran sanchez Result [facility] Department [place] [address] * XR Hand Right 3 or More Views (05/03/2018 11:11 AM ASSISTANT LIBRARIAN) Anatomical Region Laterality Modality Upper Extremities, Hand Right Computed Radiography 05/03/2018 11:4 4 AM ASSISTANT LIBRARIAN Addenda Addendum by Armani Christensen MD on 05/03/2018 3:28 PM ASSISTANT LIBRARIAN For clarification, there is symmetric joint space narrowing of the bilateral second and third metacarpophalangeal joints without osteophyte formation. ??These findings are compatible with an inflammatory arthritis such as rheumatoid arthritis. 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 ?? Electronically signed by: Armani Christensen M.D. Impressions 05/03/2018 12:06 PM ASSISTANT LIBRARIAN Symmetrical joint space narrowing in the hands most likely to represent inflammatory arthritis such as rheumatoid arthritis. Dictated by: Rosamaria Martin M.D. Electronically signed by: Armani Christensen M.D. Narrative 05/03/2018 12:06 PM ASSISTANT LIBRARIAN EXAMINATION: 1. ??Radiograph left hand 3 or more views 2. ??Radiograph right hand 3 or more views 3. ??Radiograph right foot 3 or more views 4. ??Radiograph left foot 3 or more views HISTORY: 57-year-old male with 3 weeks of progressive joint swelling and pain FINDINGS: 3 views of the left foot, 3 views of the right foot, 3 views of the right hand were submitted for interpretation without prior studies for comparison. Left foot: There is soft tissue swelling around the left ankle. There is hallux valgus. Joint spaces are normal. ??There are no acute fractures. ?? There is a left heel spur. ?? Right foot: There is soft tissue swelling around the right ankle. There is joint space narrowing at the right 1st metatarsophalangeal joint. ??There is no acute fracture. ??There is a right heel spur. Right hand: There is joint space narrowing at the right basal joint of the thumb. ??There is joint space narrowing at the right 2nd and 3rd carpometacarpal joints. ??There is joint space narrowing at the 5th proximal interphalangeal joint with osteophytosis. ??There are no acute fractures. Left hand: There is joint space narrowing at the left basal joint of the thumb. ??There is joint space narrowing at the left 2nd and 3rd carpometacarpal joints with ulnar subluxation. ??There are no acute fractures. Procedure Note Armani Christensen MD - 05/03/2018 EXAMINATION: 1. Radiograph left hand 3 or more views 2. Radiograph right hand 3 or more views 3. Radiograph right foot 3 or more views 4. Radiograph left foot 3 or more views HISTORY: 57-year-old male with 3 weeks of progressive joint swelling and pain FINDINGS: 3 views of the left foot, 3 views of the right foot, 3 views of the right hand were submitted for interpretation without prior studies for comparison. Left foot: There is soft tissue swelling around the left ankle. There is hallux valgus. Joint spaces are normal. There are no acute fractures. There is a left heel spur. Right foot: There is soft tissue swelling around the right ankle. There is joint space narrowing at the right 1st metatarsophalangeal joint. There is no acute fracture. There is a right heel spur. Right hand: There is joint space narrowing at the right basal joint of the thumb. There is joint space narrowing at the right 2nd and 3rd carpometacarpal joints. There is joint space narrowing at the 5th proximal interphalangeal joint with osteophytosis. There are no acute fractures. Left hand: There is joint space narrowing at the left basal joint of the thumb. There is joint space narrowing at the left 2nd and 3rd carpometacarpal joints with ulnar subluxation. There are no acute fractures. IMPRESSION: Symmetrical joint space narrowing in the hands most likely to represent inflammatory arthritis such as rheumatoid arthritis. Dictated by: Rosamaria Martin M.D. Electronically signed by: Armani Christensen M.D. Jadon Lerner MD IMG XR PROCEDURES Edited Result - Final * XR Hand Left 3 or More Views (05/03/2018 11:11 AM ASSISTANT LIBRARIAN) Anatomical Region Laterality Modality Upper Extremities, Hand Left Computed Radiography 05/03/2018 11:4 4 AM ASSISTANT LIBRARIAN Addenda Addendum by Armani Christensen MD on 05/03/2018 3:28 PM ASSISTANT LIBRARIAN For clarification, there is symmetric joint space narrowing of the bilateral second and third metacarpophalangeal joints without osteophyte formation. ??These findings are compatible with an inflammatory arthritis such as rheumatoid arthritis. 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 ?? Electronically signed by: Armani Christensen M.D. Impressions 05/03/2018 12:06 PM ASSISTANT LIBRARIAN Symmetrical joint space narrowing in the hands most likely to represent inflammatory arthritis such as rheumatoid arthritis. Dictated by: Rosamaria Martin M.D. Electronically signed by: Armani Christensen M.D. Narrative 05/03/2018 12:06 PM ASSISTANT LIBRARIAN EXAMINATION: 1. ??Radiograph left hand 3 or more views 2. ??Radiograph right hand 3 or more views 3. ??Radiograph right foot 3 or more views 4. ??Radiograph left foot 3 or more views HISTORY: 57-year-old male with 3 weeks of progressive joint swelling and pain FINDINGS: 3 views of the left foot, 3 views of the right foot, 3 views of the right hand were submitted for interpretation without prior studies for comparison. Left foot: There is soft tissue swelling around the left ankle. There is hallux valgus. Joint spaces are normal. ??There are no acute fractures. ?? There is a left heel spur. ?? Right foot: There is soft tissue swelling around the right ankle. There is joint space narrowing at the right 1st metatarsophalangeal joint. ??There is no acute fracture. ??There is a right heel spur. Right hand: There is joint space narrowing at the right basal joint of the thumb. ??There is joint space narrowing at the right 2nd and 3rd carpometacarpal joints. ??There is joint space narrowing at the 5th proximal interphalangeal joint with osteophytosis. ??There are no acute fractures. Left hand: There is joint space narrowing at the left basal joint of the thumb. ??There is joint space narrowing at the left 2nd and 3rd carpometacarpal joints with ulnar subluxation. ??There are no acute fractures. Procedure Note Armani Christensen MD - 05/03/2018 EXAMINATION: 1. Radiograph left hand 3 or more views 2. Radiograph right hand 3 or more views 3. Radiograph right foot 3 or more views 4. Radiograph left foot 3 or more views HISTORY: 57-year-old male with 3 weeks of progressive joint swelling and pain FINDINGS: 3 views of the left foot, 3 views of the right foot, 3 views of the right hand were submitted for interpretation without prior studies for comparison. Left foot: There is soft tissue swelling around the left ankle. There is hallux valgus. Joint spaces are normal. There are no acute fractures. There is a left heel spur. Right foot: There is soft tissue swelling around the right ankle. There is joint space narrowing at the right 1st metatarsophalangeal joint. There is no acute fracture. There is a right heel spur. Right hand: There is joint space narrowing at the right basal joint of the thumb. There is joint space narrowing at the right 2nd and 3rd carpometacarpal joints. There is joint space narrowing at the 5th proximal interphalangeal joint with osteophytosis. There are no acute fractures. Left hand: There is joint space narrowing at the left basal joint of the thumb. There is joint space narrowing at the left 2nd and 3rd carpometacarpal joints with ulnar subluxation. There are no acute fractures. IMPRESSION: Symmetrical joint space narrowing in the hands most likely to represent inflammatory arthritis such as rheumatoid arthritis. Dictated by: Rosamaria Martin M.D. Electronically signed by: Armani Christensen M.D. Jadon Lerner MD IMG XR PROCEDURES Edited Result - Final * XR Foot Right 3 or More Views (05/03/2018 11:11 AM ASSISTANT LIBRARIAN) Anatomical Region Laterality Modality Lower Extremities, Foot Right Computed Radiography 05/03/2018 11:4 4 AM ASSISTANT LIBRARIAN Addenda Addendum by Armani Christensen MD on 05/03/2018 3:28 PM ASSISTANT LIBRARIAN For clarification, there is symmetric joint space narrowing of the bilateral second and third metacarpophalangeal joints without osteophyte formation. ??These findings are compatible with an inflammatory arthritis such as rheumatoid arthritis. 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 ?? Electronically signed by: Armani Christensen M.D. Impressions 05/03/2018 12:06 PM ASSISTANT LIBRARIAN Symmetrical joint space narrowing in the hands most likely to represent inflammatory arthritis such as rheumatoid arthritis. Dictated by: Rosamaria Martin M.D. Electronically signed by: Armani Christensen M.D. Narrative 05/03/2018 12:06 PM ASSISTANT LIBRARIAN EXAMINATION: 1. ??Radiograph left hand 3 or more views 2. ??Radiograph right hand 3 or more views 3. ??Radiograph right foot 3 or more views 4. ??Radiograph left foot 3 or more views HISTORY: 57-year-old male with 3 weeks of progressive joint swelling and pain FINDINGS: 3 views of the left foot, 3 views of the right foot, 3 views of the right hand were submitted for interpretation without prior studies for comparison. Left foot: There is soft tissue swelling around the left ankle. There is hallux valgus. Joint spaces are normal. ??There are no acute fractures. ?? There is a left heel spur. ?? Right foot: There is soft tissue swelling around the right ankle. There is joint space narrowing at the right 1st metatarsophalangeal joint. ??There is no acute fracture. ??There is a right heel spur. Right hand: There is joint space narrowing at the right basal joint of the thumb. ??There is joint space narrowing at the right 2nd and 3rd carpometacarpal joints. ??There is joint space narrowing at the 5th proximal interphalangeal joint with osteophytosis. ??There are no acute fractures. Left hand: There is joint space narrowing at the left basal joint of the thumb. ??There is joint space narrowing at the left 2nd and 3rd carpometacarpal joints with ulnar subluxation. ??There are no acute fractures. Procedure Note Armani Christensen MD - 05/03/2018 EXAMINATION: 1. Radiograph left hand 3 or more views 2. Radiograph right hand 3 or more views 3. Radiograph right foot 3 or more views 4. Radiograph left foot 3 or more views HISTORY: 57-year-old male with 3 weeks of progressive joint swelling and pain FINDINGS: 3 views of the left foot, 3 views of the right foot, 3 views of the right hand were submitted for interpretation without prior studies for comparison. Left foot: There is soft tissue swelling around the left ankle. There is hallux valgus. Joint spaces are normal. There are no acute fractures. There is a left heel spur. Right foot: There is soft tissue swelling around the right ankle. There is joint space narrowing at the right 1st metatarsophalangeal joint. There is no acute fracture. There is a right heel spur. Right hand: There is joint space narrowing at the right basal joint of the thumb. There is joint space narrowing at the right 2nd and 3rd carpometacarpal joints. There is joint space narrowing at the 5th proximal interphalangeal joint with osteophytosis. There are no acute fractures. Left hand: There is joint space narrowing at the left basal joint of the thumb. There is joint space narrowing at the left 2nd and 3rd carpometacarpal joints with ulnar subluxation. There are no acute fractures. IMPRESSION: Symmetrical joint space narrowing in the hands most likely to represent inflammatory arthritis such as rheumatoid arthritis. Dictated by: Rosamaria Martin M.D. Electronically signed by: Armani Christensen M.D. us Jadon Lerner MD IMG XR PROCEDURES Edited Result - Final * XR Foot Left 3 or More Views (05/03/2018 11:11 AM ASSISTANT LIBRARIAN) Anatomical Region Laterality Modality Lower Extremities, Foot Left Computed Radiography 05/03/2018 11:4 4 AM ASSISTANT LIBRARIAN Addenda Addendum by Armani Christensen MD on 05/03/2018 3:28 PM ASSISTANT LIBRARIAN For clarification, there is symmetric joint space narrowing of the bilateral second and third metacarpophalangeal joints without osteophyte formation. ??These findings are compatible with an inflammatory arthritis such as rheumatoid arthritis. 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 ?? Electronically signed by: Armani Christensen M.D. Impressions 05/03/2018 12:06 PM ASSISTANT LIBRARIAN Symmetrical joint space narrowing in the hands most likely to represent inflammatory arthritis such as rheumatoid arthritis. Dictated by: Rosamaria Martin M.D. Electronically signed by: Armani Christensen M.D. Narrative 05/03/2018 12:06 PM ASSISTANT LIBRARIAN EXAMINATION: 1. ??Radiograph left hand 3 or more views 2. ??Radiograph right hand 3 or more views 3. ??Radiograph right foot 3 or more views 4. ??Radiograph left foot 3 or more views HISTORY: 57-year-old male with 3 weeks of progressive joint swelling and pain FINDINGS: 3 views of the left foot, 3 views of the right foot, 3 views of the right hand were submitted for interpretation without prior studies for comparison. Left foot: There is soft tissue swelling around the left ankle. There is hallux valgus. Joint spaces are normal. ??There are no acute fractures. ?? There is a left heel spur. ?? Right foot: There is soft tissue swelling around the right ankle. There is joint space narrowing at the right 1st metatarsophalangeal joint. ??There is no acute fracture. ??There is a right heel spur. Right hand: There is joint space narrowing at the right basal joint of the thumb. ??There is joint space narrowing at the right 2nd and 3rd carpometacarpal joints. ??There is joint space narrowing at the 5th proximal interphalangeal joint with osteophytosis. ??There are no acute fractures. Left hand: There is joint space narrowing at the left basal joint of the thumb. ??There is joint space narrowing at the left 2nd and 3rd carpometacarpal joints with ulnar subluxation. ??There are no acute fractures. Procedure Note Armani Christensen MD - 05/03/2018 EXAMINATION: 1. Radiograph left hand 3 or more views 2. Radiograph right hand 3 or more views 3. Radiograph right foot 3 or more views 4. Radiograph left foot 3 or more views HISTORY: 57-year-old male with 3 weeks of progressive joint swelling and pain FINDINGS: 3 views of the left foot, 3 views of the right foot, 3 views of the right hand were submitted for interpretation without prior studies for comparison. Left foot: There is soft tissue swelling around the left ankle. There is hallux valgus. Joint spaces are normal. There are no acute fractures. There is a left heel spur. Right foot: There is soft tissue swelling around the right ankle. There is joint space narrowing at the right 1st metatarsophalangeal joint. There is no acute fracture. There is a right heel spur. Right hand: There is joint space narrowing at the right basal joint of the thumb. There is joint space narrowing at the right 2nd and 3rd carpometacarpal joints. There is joint space narrowing at the 5th proximal interphalangeal joint with osteophytosis. There are no acute fractures. Left hand: There is joint space narrowing at the left basal joint of the thumb. There is joint space narrowing at the left 2nd and 3rd carpometacarpal joints with ulnar subluxation. There are no acute fractures. IMPRESSION: Symmetrical joint space narrowing in the hands most likely to represent inflammatory arthritis such as rheumatoid arthritis. Dictated by: Rosamaria Martin M.D. Electronically signed by: Armani Christensen M.D. us Jadon Lerner MD IMG XR PROCEDURES Edited Result - Final * Hepatitis B surface antibody (05/03/2018 10:22 AM ASSISTANT LIBRARIAN) HBsAb (immune status) Nonreactive [facility] Comment: Interpretive Data A Negative [...] last revised on 2016. Blood specimen (specimen) 05/03/2018 10:22 AM ASSISTANT LIBRARIAN 05/03/2018 10:43 AM ASSISTANT LIBRARIAN Narrative [facility] - 05/03/2018 2:38 PM ASSISTANT LIBRARIAN us Notinfile Unknown LAB MICROBIOLOGY - GENERAL ORD ERABLES Edited Result - Final Performing Organization Address [facility]/ZIP Co de Phone Number [facility] Department [place] [address] * Hepatitis B surface antigen (05/03/2018 10:22 AM ASSISTANT LIBRARIAN) HepBsAg Nonreactive Nonreactive [facility] Blood specimen (specimen) 05/03/2018 10:22 AM ASSISTANT LIBRARIAN 05/03/2018 10:43 AM ASSISTANT LIBRARIAN Narrative [facility] - 05/03/2018 2:38 PM ASSISTANT LIBRARIAN us Notinfile Unknown LAB MICROBIOLOGY - GENERAL ORD ERABLES Edited Result [place] [address] * Hepatitis C antibody (05/03/2018 10:22 AM ASSISTANT LIBRARIAN) [facility] Hep C Ab Nonreactive Nonreactive [facility] Comment: Interpretive Data Positive results should be confirmed by a molecular method. If positive, a second separately collected sample should be submitted for Hepatitis C Virus (HCV) RNA Detection and Quantitation by Real-Time Reverse Noc Analyst-PCR (RT-PCR). Current interpretive data was last revised on 2016. Blood specimen (specimen) 05/03/2018 10:22 AM ASSISTANT LIBRARIAN 05/03/2018 10:43 AM ASSISTANT LIBRARIAN Narrative [facility] - 05/03/2018 2:38 PM ASSISTANT LIBRARIAN us Notinfile Unknown LAB MICROBIOLOGY - GENERAL ORD ERABLES Edited Result - Final Performing Organization Address [facility] [place] [address] * Hepatitis B core antibody, IgM (05/03/2018 10:22 AM ASSISTANT LIBRARIAN) [facility] Hep B core IgM Nonreactive Nonreactive [facility] Comment: Interpretive Data If test is reported as GRAYZONE, new sample should be drawn for testing. Current interpretive data was last revised on 2016. Blood specimen (specimen) 05/03/2018 10:22 AM ASSISTANT LIBRARIAN 05/03/2018 10:43 AM ASSISTANT LIBRARIAN Narrative [facility] - 05/03/2018 2:38 PM ASSISTANT LIBRARIAN us Notinfile Unknown LAB MICROBIOLOGY - GENERAL ORD ERABLES Edited Result - Final Performing Organization Address [facility]/[place] [address] * (ABNORMAL) Cyclic citrul peptide antibody, IgG (05/03/2018 10:22 AM ASSISTANT LIBRARIAN) [facility] CCP Ab >300.0(H) <=2.9 units/mL [facility] Comment: Interpretive data Negative: <3 units/mL Positive: > or equal to 3 units/mL Current interpretive data was last revised on 2016. Blood specimen (specimen) 05/03/2018 10:22 AM ASSISTANT LIBRARIAN 05/03/2018 10:43 AM ASSISTANT LIBRARIAN Narrative [facility] - 05/03/2018 1:26 PM ASSISTANT LIBRARIAN THE COLLECTION LOCATION IS [place] [address] Nga Nava MD LAB BLOOD ORDERABLES Simran l Result Performing Organization Address [facility] Co de Phone Number [facility] Department [place] [address] * (ABNORMAL) Rheumatoid factor (05/03/2018 10:22 AM ASSISTANT LIBRARIAN) [facility] Rheumatoid factor, quant 276.0(H) 0.1 - 15.0 IUnits/mL [facility] Blood specimen (specimen) 05/03/2018 10:22 AM ASSISTANT LIBRARIAN 05/03/2018 10:43 AM ASSISTANT LIBRARIAN Narrative [facility] - 05/03/2018 12:04 PM ASSISTANT LIBRARIAN THE COLLECTION LOCATION IS [place] [address] Nga Nava MD LAB BLOOD ORDERABLES Simran l Result Performing Organization Address City/[facility] Co de Phone Number [facility] [place] [place] [address] * (ABNORMAL) Erythrocyte sedimentation rate (05/03/2018 8:15 AM ASSISTANT LIBRARIAN) [facility] Erythrocyte sedimentation rate 39(H) 1 - 20 mm/hr [facility] Blood specimen (specimen) 05/03/2018 8:15 AM ASSISTANT LIBRARIAN 05/03/2018 8:28 AM ASSISTANT LIBRARIAN Narrative [facility] - 05/03/2018 10:17 AM ASSISTANT LIBRARIAN us Notinfile Unknown LAB BLOOD ORDERABLES Final Res ult Performing Organization Address [facility] [place] [address] * (ABNORMAL) CRP (acute phase) (05/03/2018 8:15 AM ASSISTANT LIBRARIAN) CRP 34.4(H) <=10.0 mg/L [facility] Blood specimen (specimen) 05/03/2018 8:15 AM ASSISTANT LIBRARIAN 05/03/2018 8:23 AM ASSISTANT LIBRARIAN Narrative [facility] - 05/03/2018 10:06 AM ASSISTANT LIBRARIAN us Notinfile Unknown LAB BLOOD ORDERABLES Final Res ult Performing Organization Address [facility] [place] [address] * Hepatic function panel (05/03/2018 8:15 AM ASSISTANT LIBRARIAN) Bilirubin, total 0.5 0.1 - 1.2 mg/dL [facility] Bilirubin, direct <0.2 0.1 - 0.3 mg/dL [facility] Protein, pl 8.1 6.5 - 8.5 g/dL [facility] Albumin 4.0 3.5 - 5.0 g/dL [facility] Alk phos 81 40 - 130 Units/L [facility] ALT 18 7 - 55 Units/L [facility] AST 23 10 - 50 Units/L [facility] Blood specimen (specimen) 05/03/2018 8:15 AM ASSISTANT LIBRARIAN 05/03/2018 8:23 AM ASSISTANT LIBRARIAN Narrative [facility] - 05/03/2018 9:26 AM ASSISTANT LIBRARIAN us Notinfile Unknown LAB BLOOD ORDERABLES Final Res ult Performing Organization Address [facility] [place] [address] * (ABNORMAL) Differential, auto (05/03/2018 8:15 AM ASSISTANT LIBRARIAN) Neutrophil abs 7.3(H) 1.7 - 6.5 K/cumm [facility] Imm gran abs 0.0 0.0 - 0.1 K/cumm [facility] Lymphocyte abs 1.1 0.8 - 3.3 K/cumm [facility] Monocyte abs 1.0(H) 0.2 - 0.8 K/cumm [facility] Eosinophil abs 0.1 0.0 - 0.5 K/cumm [facility] Basophil abs 0.1 0.0 - 0.1 K/cumm [facility] Neutrophil pct 75.8 % [facility] Comment: Interpretive Data Percent cell count reference ranges are not reported, since discordance with absolute values may lead to misinterpretation of CBC data. Current Interpretive Data was last revised on 2017. Imm gran pct 0.5 % [facility] Comment: Interpretive Data Percent cell count reference ranges are not reported, since discordance with absolute values may lead to misinterpretation of CBC data. Current Interpretive Data was last revised on 2017. Lymphocyte pct 11.1 % [facility] Comment: Interpretive Data Percent cell count reference ranges are not reported, since discordance with absolute values may lead to misinterpretation of CBC data. Current Interpretive Data was last revised on 2017. Monocyte pct 10.7 % [facility] Comment: Interpretive Data Percent cell count reference ranges are not reported, since discordance with absolute values may lead to misinterpretation of CBC data. Current Interpretive Data was last revised on 2017. Eosinophil pct 1.2 % [facility] Comment: Interpretive Data Percent cell count reference ranges are not reported, since discordance with absolute values may lead to misinterpretation of CBC data. Current Interpretive Data was last revised on 2017. Basophil pct 0.7 % [facility] Comment: Interpretive Data Percent cell count reference ranges are not reported, since discordance with absolute values may lead to misinterpretation of CBC data. Current Interpretive Data was last revised on 2017. Blood specimen (specimen) 05/03/2018 8:15 AM ASSISTANT LIBRARIAN 05/03/2018 8:23 AM ASSISTANT LIBRARIAN Narrative [facility] - 05/03/2018 8:31 AM ASSISTANT LIBRARIAN Jadon Lerner MD LAB BLOOD ORDERABLES Simran l Result Performing Organization Address [facility] Co de Phone Number [facility] Department [place] [address] * Uric acid (05/03/2018 8:15 AM ASSISTANT LIBRARIAN) [facility] Uric acid 5.1 3.0 - 8.0 mg/dL [facility] Blood specimen (specimen) 05/03/2018 8:15 AM ASSISTANT LIBRARIAN 05/03/2018 8:23 AM ASSISTANT LIBRARIAN Narrative [facility] - 05/03/2018 8:50 AM ASSISTANT LIBRARIAN THE COLLECTION LOCATION IS [facility] [id number] Jadon Lerner MD LAB BLOOD ORDERABLES Simran l Result Performing Organization Address [facility] de Phone Number [facility] Department [place] [address] * Basic metabolic panel (05/03/2018 8:15 AM ASSISTANT LIBRARIAN) [facility] Sodium 136 135 - 145 mmol/L [facility] Potassium, pl 4.2 3.3 - 4.9 mmol/L [facility] Chloride 100 97 - 110 mmol/L [facility] CO2 26 22 - 32 mmol/L [facility] Anion gap 10 2 - 15 mmol/L [facility] BUN 25 8 - 25 mg/dL [facility] Creatinine 0.94 0.80 - 1.30 mg/dL [facility] Glucose 100 70 - 199 mg/dL [facility] Comment: Interpretive Data Fasting glucose >/= 126 [...] interpretive data was last revised 2017. Calcium 10.0 8.5 - 10.3 mg/dL [facility] Blood specimen (specimen) 05/03/2018 8:15 AM ASSISTANT LIBRARIAN 05/03/2018 8:23 AM ASSISTANT LIBRARIAN Narrative [facility] - 05/03/2018 8:50 AM ASSISTANT LIBRARIAN THE [facility] COLLECTION LOCATION IS [facility] [id number] us Jadon Lerner MD LAB BLOOD ORDERABLES Simran sanchez Result [facility] Department [place] [address] * (ABNORMAL) CBC with auto differential (05/03/2018 8:15 AM ASSISTANT LIBRARIAN) WBC 9.6 3.8 - 9.9 K/cumm [facility] Hgb 14.9 13.0 - 17.5 g/dL [facility] Hct 44.0 38.9 - 50.3 % [facility] Plt 345 150 - 400 K/cumm [facility] MPV 8.9(L) 9.1 - 12.3 fL [facility] RBC 4.69 4.30 - 5.80 M/cumm [facility] MCV 93.8 81.3 - 96.4 fL [facility] MCH 31.8 27.1 - 33.3 pg [facility] MCHC 33.9 32.3 - 35.7 g/dL [facility] RDW CV 12.5 11.1 - 14.9 % [facility] RDW SD 42.6 35.7 - 48.1 fL [facility] NRBC abs 0.00 0.00 - 0.01 K/cumm [facility] Blood specimen (specimen) 05/03/2018 8:15 AM ASSISTANT LIBRARIAN 05/03/2018 8:23 AM ASSISTANT LIBRARIAN Narrative [facility] SYSTEM - 05/03/2018 8:31 AM ASSISTANT LIBRARIAN [facility] LOCATION IS [facility] ED1-13 us Jadon Lerner MD LAB BLOOD ORDERABLES Simran laura Result [facility] Department [place] [address] documented in this encounter Visit Diagnoses Diagnosis Polyarthralgia- Primary Pain in joint, multiple sites documented in this encounter Administered Medications Inactive Administered Medications - up to 3 most recent administrations Medication Order MAR Action Action Date Dose Rate Site acetaminophen (TYLENOL) tablet 1,000 mg 1,000 mg, oral, Once, On Immi 05/03/18 at 1031, For 1 dose Given 05/03/2018 10:34 AM ASSISTANT LIBRARIAN 1,000 mg ibuprofen (ADVIL,MOTRIN) tablet 800 mg 800 mg, oral, Once, On Mimi 05/03/18 at 1031, For 1 dose Given 05/03/2018 10:34 AM ASSISTANT LIBRARIAN 800 mg ketorolac (TORADOL) injection 30 mg 30 mg, intramuscular, Once, On Mimi 05/03/18 at 0808, For 1 dose, Indications: PainIndications:Pain Given 05/03/2018 8:11 AM ASSISTANT LIBRARIAN 30 mg Left Dorsogluteal/Bu ttock predniSONE (DELTASONE) tablet 60 mg 60 mg, oral, Once, On Mimi 05/03/18 at 1033, For 1 dose Given 05/03/2018 10:38 AM ASSISTANT LIBRARIAN 60 mg sodium chloride 0.9% bolus 1,000 mL 1,000 mL, intravenous, at 1,000 mL/hr, Administer over 1 Hours, Once, On Mimi 05/03/18 at 0808, For 1 dose New Bag 05/03/2018 8:11 AM ASSISTANT LIBRARIAN 1,000 mL 1000 mL/hr documented in this encounter Active and Recently Administered Medications Times are shown in ASSISTANT LIBRARIAN. Scheduled Medication Order 05/01/2018 05/02/2018 05/03/2018 acetaminophen (TYLENOL) tablet 1,000 mg (COMPLETED) 1,000 mg, oral, Once, On Mimi 05/03/18 at 1031, For 1 dose 1034 (Given - Provid er: Leeanna Vázquez RN) ibuprofen (ADVIL,MOTRIN) tablet 800 mg (COMPLETED) 800 mg, oral, Once, On Mimi 05/03/18 at 1031, For 1 dose 1034 (Given - Provid er: Leeanna Vázquez RN) ketorolac (TORADOL) injection 30 mg (COMPLETED) 30 mg, intramuscular, Once, On Mimi 05/03/18 at 0808, For 1 dose, Indications: Pain 0811 (Given - Provid er: Leeanna Vázquez RN) predniSONE (DELTASONE) tablet 60 mg (COMPLETED) 60 mg, oral, Once, On Mimi 05/03/18 at 1033, For 1 dose 1038 (Given - Provid er: Leeanna Vázquez RN) sodium chloride 0.9% bolus 1,000 mL (COMPLETED) 1,000 mL, intravenous, at 1,000 mL/hr, Administer over 1 Hours, Once, On Mimi 05/03/18 at 0808, For 1 dose 0811 (New Bag - Prov ider: Leeanna Vázquez RN)1031 (Stopped - Provider: Leeanna Vázquez RN) documented in this encounter Orders Consult Count Last Ordered Date First Orde red Date IP CONSULT TO RHEUMATOLOGY 1 05/03/2018 ADT Patient Update Count Last Ordered Date Firs t Ordered Date PLACE IN ED OBSERVATION 05/03/2018 documented in this encounter Care Teams Engineer Automated Equipment Relationship Specialty Start Date End Date Orville Pryor MD [address] [place] [address] PCP - General 05/03/18 09/03/20 documented as of this encounter
--- OUTSIDE RECORDS SUMMARY | 2024-07-06 23:42 | XMS_ITS | Encounter Summary ---
Author Organization [facility] Address [address] [place] [address] Phone Care Team Providers Care Big Data Software Engineer Name Role Phone Orville Pryor MD Primary Care Provider +1- [phone] Encounter Details Date Type Department Care Team (Late st Contact Info) Description 05/09/2018 Orders Only [facility] Rheumatology [address] [facility] Medicine 5th [place] [address] [place] [phone] Juliocesar Mora MD PhD [address] [place] [address] Social History Tobacco Use Types Packs/Day Years Used Date Smoking Tobacco: Never Assessed Sex and Gender Information Value Date Recorded Sex Assigned at Not on file Legal Sex 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 Will trial increased prednisone to 40 mg for a week and then taper by 10 mg every week and see if symptoms improve. Patient to call back with no improvement ISION OPTICAL GOODS WORKER documented in this encounter Plan of Treatment Not on file documented as of this encounter Visit Diagnoses Not on filedocumented in this encounter Discontinued Medications Medication Sig Discontinue Reason Start Date End Da te predniSONE (DELTASONE) 10 mg tablet Take 1 tablet by mouth daily for 3 weeks (start this prescription on 05/10/18 after completing the prednisone 20mg/day prescription) 05/03/2018 05/09/2018 predniSONE (DELTASONE) 10 mg tablet Take 2 tablets (20 mg total) by mouth daily for 7 days. Reorder 05/03/2018 05/09/2018 documented as of this encounter Care Teams Big Data Software Engineer Relationship Specialty Start Date End Date Orville Pryor MD [address] [place] [address] PCP - General 05/03/18 09/03/20 documented as of this encounter
--- OUTSIDE RECORDS SUMMARY | 2024-07-06 23:42 | XMS_ITS | Encounter Summary ---
Author Organization [facility] Address [address] [place] [address] Phone Care Team Providers Care Higher Education Administrator Name Role Phone Orville Pryor MD Primary Care Provider +1- [phone] Encounter Details Date Type Department Care Team (Late st Contact Info) Description 05/11/2018 Documentation [facility] Rheumatology [address] [facility] Medicine 5th [place] [address] [place] [address] Juliocesar Mora MD PhD [address] [place] [address] Social History Tobacco Use Types Packs/Day Years Used Date Smoking Tobacco: Never Assessed Sex and Gender Information Value Date Recorded Sex Assigned at Not on file Legal 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 Small improvement in symptoms with the 40 mg daily. Will add Naproxen 500 mg BID and discuss with patient on Monday TY HISTORIAN documented in this encounter Plan of Treatment Not on file documented as of this encounter Visit Diagnoses Not on filedocumented in this encounter Care Teams Higher Education Administrator Relationship Specialty Start Date End Date Orville Pryor MD [address] [place] [address] PCP - General 05/03/18 09/03/20 documented as of this encounter
--- OUTSIDE RECORDS SUMMARY | 2024-07-06 23:42 | XMS_ITS | Encounter Summary ---
Author Organization [facility] Address [address] [place] [address] Phone Care Team Providers Care Services Mgr Name Role Phone Orville Pryor MD Primary Care Provider +1- [phone] Encounter Details Date Type Department Care Team (Late st Contact Info) Description 05/04/2018 Telephone [facility] Rheumatology [facility] 5th [place] [address] [place] [phone] Amina Rosenberg RMA Social History Tobacco Use Types Packs/Day Years Used Date Smoking Tobacco: Never Assessed Sex and Gender Information Value Date Recorded Sex Assigned at Not on file Legal Sex Male 6:45 AM BLOCK HACKER Gender Identity Not on file Sexual Orientation Not on file documented as of this encounter Miscellaneous Notes * Telephone Encounter - Meredith Gee - 05/04/2018 2:28 PM CST Pt is scheduled to see you on 06-01 at 130pm. Pt is aware of date, time, location K HACKER * Telephone Encounter - Amina Rosenberg MA - 05/04/2018 2:12 PM CST Called pt no answer. Left message. K HACKER * Telephone Encounter - Amina Rosenberg MA - 05/04/2018 2:12 PM CST ----- Message from Juliocesar Mora MD sent at 05/03/2018 4:53 PM BLOCK HACKER ----- Regarding: schedule post-hospital visit Bennett Huynh, Can you please schedule this patient for the post-hospital clinic on 06/01 or 06/08 in the afternoonwith me? Thanks! Juliocesar Mora K HACKER documented in this encounter Plan of Treatment Not on file documented as of this encounter Visit Diagnoses Not on filedocumented in this encounter Care Teams Services Mgr Relationship Specialty Start Date End Date Orville Pryor MD [address] [place] [address] PCP - General 05/03/18 09/03/20 documented as of this encounter
--- OUTSIDE RECORDS SUMMARY | 2024-07-06 23:42 | XMS_ITS | Encounter Summary ---
Author Organization [facility] Address [address] [place] [address] Phone Care Team Providers Care Layout Former Name Role Phone Orville Pryor MD Primary Care Provider +1- [phone] Encounter Details Date Type Department Care Team (Late st Contact Info) Description 05/18/2018 Telephone [facility] Rheumatology [address] [facility] Medicine 5th [place] [address] [place] [address] Danisha Bullock MD [address] [facility] [address] [place], [place] [id number] Social History Tobacco Use Types Packs/Day Years Used Date Smoking Tobacco: Never Assessed Sex and Gender Information Value Date Recorded Sex Assigned at Not on file Legal 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 Thank you SWITCH OPERATOR * Telephone Encounter - Danisha Bullock MD - 05/18/2018 8:25 AM YARD SWITCH OPERATOR Mr. 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 Mora. He calls in today to see if he can be released from his leave of absence. He still has prolonged morning stiffness and pain with associated swelling, particularly in the ankles and fingers, but is able to complete his tasks required for work adequately. I will create documentation to release him from the leave of absence and have our office fax to hiswork. Danisha Bullock MD SWITCH OPERATOR documented in this encounter Plan of Treatment Not on file documented as of this encounter Visit Diagnoses Not on filedocumented in this encounter Care Teams Layout Former Relationship Specialty Start Date End Date Orville Pryor MD [address] [place] [address] PCP - General 05/03/18 09/03/20 documented as of this encounter
--- OUTSIDE RECORDS SUMMARY | 2024-07-06 23:42 | XMS_ITS | Encounter Summary ---
Author Organization [facility] Address [address] [place] [address] Phone Care Team Providers Care Tornado Chaser Name Role Phone Orville Pryor MD Primary Care Provider +1- [phone] Encounter Details Date Type Department Care Team (Late st Contact Info) Description 05/14/2018 Orders Only [facility] Rheumatology [address] [facility] Medicine 5th [place] [address] [place] [phone] Juliocesar Mora MD PhD [address] [place] [address] Social History Tobacco Use Types Packs/Day Years Used Date Smoking Tobacco: Never Assessed Sex and Gender Information Value Date Recorded Sex Assigned at Not on file Legal Sex Male 6:45 AM INTRUSION ANALYST Gender Identity Not on file Sexual Orientation Not on file documented as of this encounter Ordered Prescriptions Prescription Sig Dispense Quantity Refills Last Filled Start Date End Date predniSONE (DELTASONE) 10 mg tablet Take 3 tabs twice a day for a week, 2 tabs twice a day for a week, then 3 tabs daily for a week, then 2 tabs daily, then 1 tab 112 tablet 05/14/2018 06/01/2018 naproxen (NAPROSYN) 500 mg tablet Take 1 tablet (500 mg total) by mouth 2 (two) times a day as needed for pain. 60 tablet 5 05/14/2018 06/01/2018 documented in this encounter Progress Notes * Juliocesar Mora MD - 05/14/2018 11:15 AM CST Patient with mild improvement for the weekend. Will try prednisone 30 mg BID for a week, 20 mg BID for a week, 30 mg, 20 mg, and then 10 mg and followup in clinic. Patient to take Naproxen PRN as well. Continued on SSZ USION ANALYST documented in this encounter Plan of Treatment Not on file documented as of this encounter Visit Diagnoses Not on filedocumented in this encounter Discontinued Medications Medication Sig Discontinue Reason Start Date End Da te predniSONE (DELTASONE) 10 mg tablet Take 4 tablets for 1 week, 3 tabs for 1 week, 2 tabs for 1 week, and then 1 tab for 1 week Reorder 05/09/2018 05/14/2018 documented as of this encounter Care Teams Tornado Chaser Relationship Specialty Start Date End Date Orville Pryor MD [address] [place] [address] PCP - General 05/03/18 09/03/20 documented as of this encounter
--- OUTSIDE RECORDS SUMMARY | 2024-07-06 23:42 | XMS_ITS | Encounter Summary ---
Author Organization [facility] Address [address] [place] [address] Phone Care Team Providers Care Hospitality Job Titles Name Role Phone Orville Pryor MD Primary Care Provider +1- [phone] Encounter Details Date Type Department Care Team (Late st Contact Info) Description 05/14/2018 Telephone [facility] Rheumatology [address] [place] [address] Medicine 5th [place] [address] [place] [phone] Adrián Cheng LPN Social History Tobacco Use Types Packs/Day Years Used Date Smoking Tobacco: Never Assessed Sex and Gender Information Value Date Recorded Sex Assigned at Not on file Legal Sex Male 6:45 AM RAILROAD ENGINEER Gender Identity Not on file Sexual Orientation Not on file documented as of this encounter Miscellaneous Notes * Telephone Encounter - Juliocesar Mora MD - 05/14/2018 11:21 AM RAILROAD ENGINEER Discussed with patient and increased prednisone dose to see if it will help and will discuss on Monday again. ROAD ENGINEER * Telephone Encounter - Adrián Cheng LPN - 05/14/2018 9:30 AM CST Patient called is asking about a change to the leave of absence you wrote. Said the date needs to be changed to 04/26. Is that what you are wanting to send? He also said he would like to speak to you today to discuss his progress. The fax number he wants to send the new date to is: [phone] You can call him back at: [phone] ROAD ENGINEER documented in this encounter Plan of Treatment Not on file documented as of this encounter Visit Diagnoses Not on filedocumented in this encounter Care Teams Hospitality Job Titles Relationship Specialty Start Date End Date Orville Pryor MD [address] [place] [address] PCP - General 05/03/18 09/03/20 documented as of this encounter
--- OUTSIDE RECORDS SUMMARY | 2024-07-06 23:44 | XMS_ITS | Encounter Summary ---
Author Organization [employer] Address [address] [place] [address] Care Team Providers Care Systems Mgr Name Role Phone Unavailable Primary Care Provider Unavailabl e Encounter Details Date Type Department Care Team (Late st Contact Info) Description 04/29/2024 External Device Data [facility] ABSTRACTION Provider, Abstract NO ADDRESS ON FILE Social History Tobacco Use Types Packs/Day Years Used Date Smoking Tobacco: Never Assessed Sex and Gender Information Value Date Recorded Sex Assigned at Not on file Gender Identity Not on file Sexual Orientation Not on file documented as of this encounter Plan of Treatment Not on file documented as of this encounter Visit Diagnoses Not on filedocumented in this encounter
--- OUTSIDE RECORDS SUMMARY | 2024-07-06 23:44 | XMS_ITS | Clinical Summary ---
Author Organization [facility] Address [address] [facility] Attn: Rico PreluWilson [place] [address] Care Team Providers Care Piano Stringer Name Role Phone Unavailable Primary Care Provider Unavailabl e Medications Medication Sig Dispensed Refills Start Date End Date Status hydrOXYchloroQUINE (PLAQUENIL) 200 mg tablet Take 2 Tablets (400 mg) by mouth daily. 60 Tablet 5 02/04/2022 Active lisinopriL (PRINIVIL) 10 mg tablet Take 1 Tablet (10 mg) by mouth daily. 30 Tablet 1 02/04/2022 Active predniSONE (DELTASONE) 10 mg tablet Take 1 tablet (10 mg) by mouth daily as need for severe pain and inflammation 30 Tablet 1 02/04/2022 Active predniSONE (DELTASONE) 50 mg tablet Take 1 Tablet (50 mg) by mouth daily. 7 Tablet 10/13/2023 Active cyclobenzaprine (FLEXERIL) 10 mg tablet Take 1 Tablet (10 mg) by mouth 3 times daily as needed 20 Tablet 10/13/2023 Active predniSONE (DELTASONE) 5 mg tablet Take 4 tablets (20 mg) by mouth daily for 3 days, THEN 3 tablets (15 mg) daily for 3 days, THEN 2 tablets (10 mg) daily for 3 days, THEN 1 tablet (5 mg) daily for 3 days. 30 Tablet 3 10/20/2023 Active carvediloL (Coreg) 6.25 mg tablet Take 1 Tablet (6.25 mg) by mouth 2 times daily. 180 Tablet 10/20/2023 Active atorvastatin (LIPITOR) 40 mg tablet Take 1 Tablet (40 mg) by mouth daily. 90 Tablet 3 10/23/2023 Active amoxicillin (AMOXIL) 875 mg tablet Take 1 tablet by mouth twice a day for 7 days 14 Tablet 11/27/2023 Active acetaminophen-code ine (TYLENOL #3) 300-30 mg tablet Take 1-2 tablets by mouth every 6 hours as needed 12 Tablet 11/27/2023 Active hydroxychloroquine (PLAQUENIL) 200 mg tablet Take 2 tablets (400 mg total) by mouth daily 60 Tablet 5 01/26/2024 Active lidocaine (LIDODERM) 5 % Adhesive Patch, Medicated Place 1 patch on the skin daily. Remove & discard patch within 12 hours or as directed by . 30 Patch 3 01/26/2024 Active albuterol sulfate HFA 90 mcg/actuation aerosol inhaler Take 1 Puff by inhalation 4 times daily as needed for shortness of breath or wheezing 6.7 Gram 06/30/2024 Active oseltamivir (TAMIFLU) 75 mg capsule Take 1 Capsule (75 mg) by mouth every 12 hours. 10 Capsule 06/30/2024 Active predniSONE (DELTASONE) 20 mg tablet Take 2 tablets by mouth daily at 8 in the morning 4 Tablet 06/30/2024 Active Encounters Date Type Department Care Team Description 04/29/2024 External Device Data [facility] ABSTRACTION Provider, Abstract from Last 3 Months Social History Tobacco Use Types Packs/Day Years Used Date Smoking Tobacco: Never Assessed Sex and Gender Information Value Date Recorded Sex Assigned at Not on file Gender Identity Not on file Sexual Orientation Not on file Plan of Treatment Health Maintenance Due Date Last Done Comments PNEUMOCOCCAL VACCINE 0-64 YEARS (1 of 2 - PCV) 967 DTAP/TDAP/TD VACCINES (1 - Tdap) 1980 ZOSTER VACCINE (1 of 2) 1980 COLORECTAL SCREENING 2006 Colorectal Cancer Screening 2006 FIT-DNA Q 3 years 2006 FIT/FOBT Q 1 year 2006 Flex Sig/CT Colonography Q 5 years 2006 RSV VACCINE (60+ or ) (1 - Risk 60-74 years 1-dose series) 2021 INFLUENZA VACCINE (#1) 2024
--- OUTSIDE RECORDS SUMMARY | 2024-07-06 23:44 | XMS_ITS | Encounter Summary ---
Author Organization [employer] Address [address] [place] [address] Care Team Providers Care Outdoor Fitness Trainer Name Role Phone Unavailable Primary Care Provider Unavailabl e Encounter Details Date Type Department Care Team (Late st Contact Info) Description 10/17/2023 External Device Data [facility] ABSTRACTION Provider, Abstract [...]
== END 2024-06-30 13:00 | disposition home or self-care (01) ==
LOC: ANHED 22:26 → ANH3MED 07-02 08:05
PROVIDERS: Emergency Medicine; Admitting Provider Internal Medicine; Emergency Provider Emergency Medicine; PCP Internal Medicine; Visit Provider General Practice
DX: J10.1 Influenza due to other identified influenza virus with other respiratory manifestations (principal); J20.8 Acute bronchitis due to other specified organisms; F10.10 Alcohol abuse, uncomplicated; F17.210 Nicotine dependence, cigarettes, uncomplicated; I10 Essential (primary) hypertension; M06.9 Rheumatoid arthritis, unspecified; E78.5 Hyperlipidemia, unspecified; N40.0 Benign prostatic hyperplasia without lower urinary tract symptoms; M25.542 Pain in joints of left hand; M25.541 Pain in joints of right hand; Z20.822 Contact with and (suspected) exposure to COVID-19; Z91.148 Patient's other noncompliance with medication regimen for other reason; Z79.899 Other long term (current) drug therapy
CPT/HCPCS: 36415; 36600; 71046; 71275; 80053; 82805; 83605; 83690; 83880; 84484; 85018; 85025; 85610; 85730; 87637; 93005; 94640; 96372; 96374; 96375; 96376; 99285; A9270; G0378; J1650; J1885; J2919; J7512; Q9967